=== PATIENT | female | born 1940 | race Caucasian/White ===

== ENCOUNTER → 2018-05-26 13:41 | Outpatient (CLI) | payer MEDICARE, BC, SELFPAY ==
--- NOTE | 2018-05-26 | DI.MG.S_ITS ---
BILATERAL DIGITAL SCREENING MAMMOGRAM 3D/2D WITH CAD: 05/26/2018 CLINICAL: Routine screening. Family history of breast cancer. Comparison is made to exams dated: 05/17/2017 mammogram, 04/27/2016 mammogram, and 04/12/2016 mammogram - [facility]. The tissue of both breasts is predominantly fatty. Current study was also evaluated with a Computer Aided Detection (CAD) system. No significant masses, calcifications, or other findings are seen in either breast. There has been no significant interval change. IMPRESSION: NEGATIVE There is no mammographic evidence of malignancy. A 1 year screening mammogram is recommended. This exam was interpreted at Station ID: [id number]. NOTE: For mammograms, a report in lay terms will be sent to the patient. Approximately 15% of breast malignancies will not be visualized mammographically. In the management of a palpable breast mass, a negative mammogram must not discourage biopsy of a clinically suspicious lesion. Electronically Signed By: Sandro marie/opal:05/26/2018 15:52:02 letter sent: Normal Exam ACR BI-RADS Category 1: Negative 3341F
== END ==
PROVIDERS: PCP Family Medicine; Visit Provider Family Medicine
DX: Z12.31 Encounter for screening mammogram for malignant neoplasm of breast (principal); Z80.3 Family history of malignant neoplasm of breast
CPT/HCPCS: 77063; 77067

== ENCOUNTER → 2018-06-27 13:29 | Outpatient (CLI) | payer MEDICARE, BC, SELFPAY ==
[2018-06-27 13:47] LABS: Add Manual Diff / Slide Review NO; Eosinophils Percent Auto 5.8 % (2-4); Hematocrit 45.9 % (36-46); Lymphocytes Percent Auto 28.9 % (25-40); Mean Corpuscular HGB Conc 32.7 % (30-36); Mean Corpuscular Hemoglobin 29.2 PG (26-34); Mean Corpuscular Volume 89.4 fL (80-100); Monocytes Percent Auto 10.8 % (3-14); Neutrophils Absolute Auto 3800 /uL (3000-5900); Neutrophils Percent Auto 53.5 % (50-75); Platelet Count 351 X10^3/uL (150-400); Red Blood Cell Count 5.14 X10^6/uL (4.0-5.2); Red Cell Distribution Width 15.1 % (11.6-14.8); White Blood Cell Count 7.1 X10^3/uL (4.5-11.0)
[2018-06-27 14:17] LABS: Alanine Aminotransferase 21 IU/L (9-52); Albumin 4.1 g/dL (3.5-5.0); Albumin Globulin Ratio 1.6 (1.0-2.8); Alkaline Phosphatase 110 U/L (38-126); Aspartate Aminotransferase 22 IU/L (14-36); Bilirubin Total 0.7 mg/dL (0.2-1.3); Blood Urea Nitrogen 18 mg/dL (7-17); Calcium 9.9 mg/dL (8.4-10.2); Carbon Dioxide 26 mmol/L (22-32); Chloride 104 mmol/L (98-107); Cholesterol 198 mg/dL (140-199); Estimated Glomerular Filt Rate 33.8 mL/min (>60); Globulin 2.6 g/dL (1.7-4.1); Glucose 101 mg/dL (80-110); HDL Cholesterol 67 mg/dL (40-60); HEMOLYSIS 17 (0-50); LDL Cholesterol Calculated 81 mg/dL (<100); Sodium 142 mmol/L (137-145); Total Protein 6.7 g/dL (6.3-8.2); Triglycerides 250 mg/dL (35-150)
== END ==
PROVIDERS: PCP Family Medicine; Visit Provider Family Medicine
DX: E78.2 Mixed hyperlipidemia (principal); I10 Essential (primary) hypertension; N18.3 Chronic kidney disease, stage 3 (moderate)
CPT/HCPCS: 80053; 80061; 85025

== ENCOUNTER → 2018-07-11 14:16 | Outpatient (CLI) | payer MEDICARE, BC, SELFPAY ==
[2018-07-11 14:58] LABS: BUN Creatinine Ratio 16.5 (6-22); Blood Urea Nitrogen 28 mg/dL (7-17); Calcium 9.7 mg/dL (8.4-10.2); Carbon Dioxide 29 mmol/L (22-32); Chloride 101 mmol/L (98-107); Estimated Glomerular Filt Rate 29.2 mL/min (>60); Glucose 96 mg/dL (80-110); HEMOLYSIS < 15 (0-50); Sodium 143 mmol/L (137-145)
== END ==
PROVIDERS: PCP Family Medicine; Visit Provider Family Medicine
DX: Z79.899 Other long term (current) drug therapy (principal)
CPT/HCPCS: 36415; 80048

== ENCOUNTER 2018-08-16 08:20 | Day surgery (SDC) | payer MEDICARE, BC, SELFPAY ==
[2018-08-16] MEDS: SODIUM CHLORIDE 0.9% 1,000 ML 70 ML IV (07:20)
[2018-08-16 08:51] VITALS: BP 180/98; PULSE 94; RESP 17; TEMP 36.2; O2SAT 95; BMI 60.0
[2018-08-16 09:09] VITALS: BMI 60.0
--- NOTE | 2018-08-16 09:56 | PM.HP.1 ---
History of Present Illness Date Patient Seen: 08/16/18 Chief complaint: colonoscopy [id number] Narrative: 78-year-old female with history colon polyps seen on last colonoscopy around 7 years ago. Patient is here for follow-up she is morbidly obese with no evidence of GI bleeding. Prior colonoscopy report not available to me at this time Patient History Family & Social History Social History: household members spouse Tobacco & Substance use: Smoking Status Never smoker Meds Home Medications Medication Instructions Recorded Confirmed Type ASPIRIN (Aspirin EC) 81 mg PO Q DAY #0 04/07/11 08/16/18 History CALCIUM CARBONATE (#CALCIUM) 600 mg PO BID #0 04/07/11 08/16/18 History MELATONIN (#MELATONIN) 3 mg PO HS #0 08/16/12 08/08/18 History bupropion HCl [Wellbutrin SR] 200 mg PO BID #180 tab 08/30/17 08/16/18 Rx budesonide-formoterol [Symbicort] 1 puff INH BID #60 day 11/17/17 08/16/18 Rx duloxetine [Cymbalta] 60 mg PO QAM #180 cap 12/07/17 08/16/18 Rx pneumoc 13-shruthi conj-dip cr(PF) 0.5 ml IM X1 #1 ea 01/17/18 08/16/18 Rx [Prevnar 13 (PF)] ropinirole [Requip] 0.5 - 1 mg PO HS #90 tab 01/26/18 08/16/18 Rx quinapril 20 mg tablet 20 mg PO QDAY #90 tab 03/31/18 08/16/18 Rx atorvastatin 40 mg tablet 40 mg PO HS #90 tab 06/09/18 08/16/18 Rx desonide 0.05 % topical cream 1 applictn TOP BID #60 gram 06/27/18 08/16/18 Rx mirtazapine 30 mg tablet 30 mg PO BEDTIME 30 Days #30 tab 07/04/18 08/16/18 Rx verapamil ER 240 mg 24 hr 240 mg PO BID #180 cap 07/14/18 08/08/18 Rx capsule,extended release albuterol sulfate [Proventil HFA] 0 puff INH SEE INSTRUCTIONS 08/16/18 08/16/18 History Allergies Allergy/AdvReac Type Severity Reaction Status Date / Time Penicillins [PENICILLINS] Allergy Mild Rash Verified 08/16/18 08:45 venom-honey bee Allergy Unknown Verified 08/16/18 08:45 [BEE VENOM (HONEY BEE)] BANDAGES Allergy Intermediate PLASTIC Uncoded 08/16/18 08:45 Review of Systems Review of Systems All systems reviewed & are unremarkable except as noted in HPI and below Exam Vital Signs (past 8 hours): - 08/16/18 08:51 Temperature 97.2 F L Pulse Rate 94 H Respiratory Rate 17 Blood Pressure 180/98 H Pulse Oximetry 95 Oxygen Delivery Method Room Air Narrative Exam Narrative: General: Patient is morbidly obese, not in apparent distress Cardiovascular: Regular rate and rhythm, no murmurs, rubs, or gallops; no evidence of edema; no palpable abdominal aortic aneurysm Gastrointestinal: Normoactive bowel sounds, soft, nontender, nondistended, no rebound tenderness, no hepatosplenomegaly, no evidence of hernia Assessment & Plan Plan: Assessment/Plan Narrative: 78-year-old female who is morbidly obese who is here for colon polyp surveillance. No current GI alarm symptoms. Regarding the procedure(s), the risks and potential complications, benefits, and alternatives (including not doing the procedure) were discussed with the patient. The risks include but are not limited to bleeding, infection, perforation which may require surgical intervention, missed lesions, and adverse reactions to sedative medicines. After a question and answer period, the patient agreed to proceed with the procedure(s) and gives informed consent.
--- NOTE | 2018-08-16 10:10 | PM.OP.ENDO ---
Operative Date/Time/Diagnoses Date of procedure: 08/16/18 Procedure Notes Procedure in detail: Surgeon: Rustam Tripathi MD Procedure: Colonoscopy; aborted due to poor prep Preoperative diagnosis: Colon polyp surveillance Postoperative diagnosis: Poor colon preparation; aborted colonoscopy Medications: Conscious sedation using 4 mg IV of Midazolam and 150 mcg IV of Fentanyl Preanesthesia Assessment An H and P was performed/updated and the Px?s ASA class is 3. The procedure was discussed in detail with the patient. The potential risks and complications including infection, bleeding, missed lesions, perforation, need for surgery in case of perforation, prolonged hospital stay, and were explained. A brief question and answer period was allotted and once all questions were answered, informed consent was obtained. The patient was brought back to the procedure room and placed on standard monitoring. The patient?s vital signs were monitored continuously throughout the entire procedure. Prior to starting, a timeout was performed to confirm the patient?s identity, allergies, medications, and procedure. Procedure in detail The patient was placed in left lateral decubitus position and once adequate sedation was obtained a YUN was performed. The digital rectal examination did not reveal any palpable lesions. The tip of the colonoscope was placed in the anal canal and advanced to the rectosigmoid colon where there was a large amount of solid stool. This precluded any further evaluation. Attempts were made to wash away the stool although there was note of more solid stool even proximal to the rectosigmoid colon. The decision was made to terminate the procedure. The patient tolerated the procedure well and will be brought back to the recovery area to be discharged once criteria are met. The prep was judged to be poor. The total physician intraservice time was 4 min. Complications There were no complications and estimated blood loss was none. Recommendations: Resume previous diet Continue outPx medications Repeat colonoscopy with 2 gal GoLYTELY prep and anesthesia assistance at next available appointment An emergency contact number was given to the patient for any complications related to the procedure
[2018-08-16] MEDS: MIDAZOLAM 5 MG/5 ML VIAL IV (10:13)
[2018-08-16] MEDS: fentaNYL 250 MCG/5 ML INJ IV (10:14)
[2018-08-16 10:18] VITALS: BP 124/71; PULSE 84; RESP 16; TEMP 36.2; O2SAT 92
--- NOTE | 2018-08-16 10:18 | PM.DS.1 ---
History of Present Illness Chief complaint: colonoscopy [id number] Narrative: 78-year-old female with history colon polyps seen on last colonoscopy around 7 years ago. Patient is here for follow-up she is morbidly obese with no evidence of GI bleeding. Prior colonoscopy report not available to me at this time Discharge Providers Primary care physician: Adal Ortiz MD Discharge provider: Rustam Tripathi MD Exam Vital Signs (past 8 hours): - 08/16/18 08:51 Temperature 97.2 F L Pulse Rate 94 H Respiratory Rate 17 Blood Pressure 180/98 H Pulse Oximetry 95 Oxygen Delivery Method Room Air Narrative Exam Narrative: General: Patient is morbidly obese, not in apparent distress Cardiovascular: Regular rate and rhythm, no murmurs, rubs, or gallops; no evidence of edema; no palpable abdominal aortic aneurysm Gastrointestinal: Normoactive bowel sounds, soft, nontender, nondistended, no rebound tenderness, no hepatosplenomegaly, no evidence of hernia Discharge Plan Discharge Plan Patient Disposition: Home Discharge Med Rec/Prescriptions Prescriptions: Continue mirtazapine 30 mg tablet 30 mg PO BEDTIME 30 Days Qty: 30 RF: 5 ASPIRIN (Aspirin EC) 81 mg PO Q DAY Qty: 0 RF: 0 CALCIUM CARBONATE (#CALCIUM) 600 mg PO BID Qty: 0 RF: 0 MELATONIN (#MELATONIN) 3 mg PO HS Qty: 0 RF: 0 bupropion HCl [Wellbutrin SR] 200 MG tablet extended release 12 hr 200 mg PO BID Qty: 180 RF: 1 budesonide-formoterol [Symbicort] 160 MCG/4.5 MCG HFA aerosol inhaler 1 puff INH BID Qty: 60 RF: 0 duloxetine [Cymbalta] 30 MG capsule,delayed release(DR/EC) 60 mg PO QAM Qty: 180 RF: 2 pneumoc 13-shruthi conj-dip cr(PF) [Prevnar 13 (PF)] 0.5 ML syringe 0.5 ml IM X1 Qty: 1 RF: 0 ropinirole [Requip] 1 MG tablet 0.5 - 1 mg PO HS Qty: 90 RF: 3 quinapril 20 mg tablet 20 mg PO QDAY Qty: 90 RF: 3 atorvastatin 40 mg tablet 40 mg PO HS Qty: 90 RF: 1 desonide 0.05 % cream 1 applictn TOP BID Qty: 60 RF: 3 verapamil 240 mg capsule,ext rel. pellets 24 hr 240 mg PO BID Qty: 180 RF: 0 albuterol sulfate [Proventil HFA] 90 MCG/PUFF HFA aerosol inhaler INH SEE INSTRUCTIONS RF: 0 Discharge Orders: Discharge (Order); Ordered 08/16/18 Ordered By: Rustam Tripathi Provider Discharge Instructions Diet: Diet as Tolerated Visit Report/Discharge Packet Stand Alone Forms: Surgery Discharge Discharge Data Primary Care Provider: Adal Ortiz Attending Provider: Rustam Tripathi
[2018-08-16 10:23] VITALS: BP 124/71; PULSE 86; RESP 20; O2SAT 94
[2018-08-16 10:42] VITALS: BP 142/74; PULSE 84; RESP 20; TEMP 37.7; O2SAT 93
--- NOTE | 2018-08-16 10:50 | SUR.PREOP ---
pt tolerating juice, crackers and pudding.
[2018-08-16 11:17] VITALS: BP 139/66; PULSE 81; RESP 16; TEMP 37.7; O2SAT 98
== END 2018-08-16 11:20 | disposition home or self-care (01) ==
PROVIDERS: PCP Family Medicine; Visit Provider Internal Medicine Gastroenterology
PROC: 0DJD8ZZ Inspection of Lower Intestinal Tract, Via Natural or Artificial Opening Endoscopic (ICD-10-PCS; CPT 45378; principal; 2018-08-16 09:30)
DX: Z86.010 Personal history of colon polyps (principal); Z53.09 Procedure and treatment not carried out because of other contraindication; E66.01 Morbid (severe) obesity due to excess calories
CPT/HCPCS: 45378; J2250; J3010

== ENCOUNTER 2018-09-27 09:53 | Day surgery (SDC) | payer MEDICARE, BC, SELFPAY ==
--- NOTE | 2018-09-27 | PATH_ITS ---
[facility] Accession Number: [id number] . 01 Material submitted: . SIGMOID ERYTHEMA . 02 Diagnosis: Sigmoid Colon, Erythema, Biopsy: Colonic mucosa with extravasated red blood cells within the lamina propria, and no other diagnostic alteration. Negative for active inflammation, granulomata, dysplasia or malignancy. Additional step sections examined. MRV/09/29/2018 . 02 Comment: The findings are nonspecific, and may be related to the procedure. . 02 Electronically signed: . Mayur Ramsey MD, PhD, Pathologist NPI- [id number] . 01 Gross description: . Received one formalin-filled container labeled with the patient's name and labeled sigmoid erythema. The specimen consists of a 0.5 cm portion of tissue. Entirely submitted in one cassette. ([facility] [id number] /[facility] . 02 Pathologist provided ICD-10: R19.4 . 02 CPT . 005899 Performed at: 01 [facility] [address] [facility], [place], [place] [id number] MD Donell Rahman MD Phone: [phone] Performed at: 02 [facility] [address] [place], [place] [id number] MD Eric Lorenzana MD Phone: [phone]
--- NOTE | 2018-09-27 08:23 | P.HP_ITS ---
History of Present Illness Date Patient Seen: 09/27/18 Chief complaint: colonoscopy [id number] Narrative: 78-year-old female with multiple medical problems who is here for polyp surveillance. Patient had attempted colonoscopy 08/16/2018 however this was a poor prep she was rescheduled with an extra dose GoLYTELY prep Patient History Family & Social History Social History: household members spouse Tobacco & Substance use: Smoking Status Never smoker Meds Home Medications Medication Instructions Recorded Confirmed Type ASPIRIN (Aspirin EC) 81 mg PO Q DAY #0 04/07/11 08/16/18 History CALCIUM CARBONATE (#CALCIUM) 600 mg PO BID #0 04/07/11 08/16/18 History budesonide-formoterol [Symbicort] 1 puff INH BID #60 day 11/17/17 08/16/18 Rx pneumoc 13-shruthi conj-dip cr(PF) 0.5 ml IM X1 #1 ea 01/17/18 08/16/18 Rx [Prevnar 13 (PF)] ropinirole [Requip] 0.5 - 1 mg PO HS #90 tab 01/26/18 08/16/18 Rx quinapril 20 mg tablet 20 mg PO QDAY #90 tab 03/31/18 08/16/18 Rx atorvastatin 40 mg tablet 40 mg PO HS #90 tab 06/09/18 08/16/18 Rx desonide 0.05 % topical cream 1 applictn TOP BID #60 gram 06/27/18 08/16/18 Rx albuterol sulfate [Proventil HFA] 0 puff INH SEE INSTRUCTIONS 08/16/18 08/16/18 History verapamil ER 240 mg 24 hr 240 mg PO BID #180 cap 09/08/18 Rx capsule,extended release MELATONIN (#MELATONIN) 6 mg PO HS #0 09/19/18 History bupropion HCl SR 200 mg tablet,12 200 mg PO QAM #90 tab 09/19/18 Rx hr sustained-release duloxetine 30 mg capsule,delayed 60 mg PO QAM #180 cap 09/19/18 Rx release mirtazapine 30 mg tablet 15 mg PO BEDTIME 30 Days #15 tab 09/19/18 Rx Allergies Allergy/AdvReac Type Severity Reaction Status Date / Time Penicillins [PENICILLINS] Allergy Mild Rash Verified 08/16/18 08:45 venom-honey bee Allergy Unknown Verified 08/16/18 08:45 [BEE VENOM (HONEY BEE)] BANDAGES Allergy Intermediate PLASTIC Uncoded 08/16/18 08:45 Review of Systems Review of Systems All systems reviewed & are unremarkable except as noted in HPI and below Exam Narrative Exam Narrative: General: Patient is obese, not in apparent distress Cardiovascular: Regular rate and rhythm, no murmurs, rubs, or gallops; no evidence of edema; no palpable abdominal aortic aneurysm Gastrointestinal: Normoactive bowel sounds, soft, nontender, nondistended, no rebound tenderness, no hepatosplenomegaly, no evidence of hernia Assessment & Plan Plan: Assessment/Plan Narrative: 78-year-old female with a history of colon polyps on last colonoscopy in 2010 who is here for polyp surveillance. Prior colonoscopy in July 2018 was inadequate and she has received a extra dose of GoLYTELY Regarding the procedure(s), the risks and potential complications, benefits, and alternatives (including not doing the procedure) were discussed with the patient. The risks include but are not limited to bleeding, splenic injury, infection, perforation which may require surgical intervention, missed lesions, and adverse reactions to sedative medicines. After a question and answer period , the patient agreed to proceed with the procedure(s) and gives informed consent.
[2018-09-27] MEDS: SODIUM CHLORIDE 0.9% 1,000 ML 70 ML IV (10:27)
[2018-09-27 10:32] VITALS: BP 169/74; PULSE 89; RESP 16; TEMP 36.9; O2SAT 96; BMI 58.6
--- NOTE | 2018-09-27 12:21 | PM.OP.ENDO ---
Operative Date/Time/Diagnoses Date of procedure: 09/27/18 Procedure Notes Procedure in detail: Surgeon: Rustam Tripathi MD Procedure: Colonoscopy with biopsy Preoperative diagnosis: Colon polyp surveillance Postoperative diagnosis: Patchy sigmoid erythema status post biopsy; grade 2 internal hemorrhoids Medications: Monitored anesthesia care Preanesthesia Assessment An H and P was performed/updated and the Px?s ASA class is 4. The procedure was discussed in detail with the patient. The potential risks and complications including infection, bleeding, missed lesions, perforation, need for surgery in case of perforation, prolonged hospital stay, and were explained. A brief question and answer period was allotted and once all questions were answered, informed consent was obtained. The patient was brought back to the procedure room and placed on standard monitoring. The patient?s vital signs were monitored continuously throughout the entire procedure. Prior to starting, a timeout was performed to confirm the patient?s identity, allergies, medications, and procedure. Procedure in detail The patient was placed in left lateral decubitus position and once adequate sedation was obtained a YUN was performed. The digital rectal examination did not reveal any palpable lesions. The tip of the colonoscope was placed in the anal canal and advanced with some difficulty due to significant looping in the left colon. This was rectified by reduction of the scope as well as external pressure. The colonoscope was advanced all the way to the cecum which was identified by the appendiceal orifice and the ileocecal valve. Careful examination of all abad of the colon was performed with irrigation of any residual stool. In the sigmoid colon there is note of patchy erythema of unclear significance. Biopsies were taken for histology. Retroflexion was performed in the rectum which revealed grade 2 internal hemorrhoids The patient tolerated the procedure well and will be brought back to the recovery area to be discharged once criteria are met. The prep was judged to be good/excellent and adequate to identify polyps less than 5 mm. The withdrawal time was 10 min. Complications There were no complications and estimated blood loss was minimal. Recommendations: Resume previous diet Continue outPx medications Follow up pathology results Repeat colonoscopy with MAC and extra dose GoLYTELY prep in 5 years An emergency contact number was given to the patient for any complications related to the procedure
--- NOTE | 2018-09-27 12:26 | PM.DS.1 ---
History of Present Illness Chief complaint: colonoscopy [id number] Narrative: 78-year-old female with multiple medical problems who is here for polyp surveillance. Patient had attempted colonoscopy 08/16/2018 however this was a poor prep she was rescheduled with an extra dose GoLYTELY prep Discharge Providers Primary care physician: Craig Chowdhury MD Consults: 09/27/18 10:39 Consult to Respiratory Therapy Evaluate & Treat Comment: Physician Instructions: Evaluate and treat Discharge provider: Rustam Tripathi MD Discharge Date: 09/27/18 Exam Vital Signs (past 8 hours): - 09/27/18 10:32 Temperature 98.5 F Pulse Rate 89 Respiratory Rate 16 Blood Pressure 169/74 H Pulse Oximetry 96 Oxygen Delivery Method Room Air Narrative Exam Narrative: General: Patient is obese, not in apparent distress Cardiovascular: Regular rate and rhythm, no murmurs, rubs, or gallops; no evidence of edema; no palpable abdominal aortic aneurysm Gastrointestinal: Normoactive bowel sounds, soft, nontender, nondistended, no rebound tenderness, no hepatosplenomegaly, no evidence of hernia Discharge Plan Discharge Plan Patient Disposition: Home Discharge Med Rec/Prescriptions Prescriptions: Continue duloxetine [Cymbalta] 30 mg capsule,delayed release(DR/EC) 60 mg PO QAM Qty: 180 RF: 3 bupropion HCl [Wellbutrin SR] 200 mg tablet sustained-release 12 hr 200 mg PO QAM Qty: 90 RF: 3 mirtazapine 30 mg tablet 15 mg PO BEDTIME 30 Days Qty: 15 RF: 5 ASPIRIN (Aspirin EC) 81 mg PO Q DAY Qty: 0 RF: 0 CALCIUM CARBONATE (#CALCIUM) 600 mg PO BID Qty: 0 RF: 0 budesonide-formoterol [Symbicort] 160 MCG/4.5 MCG HFA aerosol inhaler 1 puff INH BID Qty: 60 RF: 0 pneumoc 13-shruthi conj-dip cr(PF) [Prevnar 13 (PF)] 0.5 ML syringe 0.5 ml IM X1 Qty: 1 RF: 0 ropinirole [Requip] 1 MG tablet 0.5 - 1 mg PO HS Qty: 90 RF: 3 quinapril 20 mg tablet 20 mg PO QDAY Qty: 90 RF: 3 atorvastatin 40 mg tablet 40 mg PO HS Qty: 90 RF: 1 desonide 0.05 % cream 1 applictn TOP BID Qty: 60 RF: 3 verapamil 240 mg capsule,ext rel. pellets 24 hr 240 mg PO BID Qty: 180 RF: 1 MELATONIN (#MELATONIN) 6 mg PO HS Qty: 0 RF: 0 albuterol sulfate [Proventil HFA] 90 MCG/PUFF HFA aerosol inhaler INH SEE INSTRUCTIONS RF: 0 Discharge Orders: Discharge (Order); Ordered 09/27/18 Ordered By: Rustam Tripathi Provider Discharge Instructions Diet: Diet as Tolerated Visit Report/Discharge Packet Stand Alone Forms: Surgery Discharge Discharge Data Primary Care Provider: Craig Chowdhury Attending Provider: Rustam Tripathi
[2018-09-27 12:31] VITALS: BP 87/42; PULSE 68; RESP 14; TEMP 36.4; O2SAT 98
[2018-09-27 12:36] VITALS: BP 98/50; PULSE 75; RESP 20; O2SAT 95
[2018-09-27 12:41] VITALS: BP 137/71; PULSE 73; RESP 13; TEMP 36.6; O2SAT 96
[2018-09-27 12:45] VITALS: BP 149/82; PULSE 70; RESP 20; O2SAT 96
[2018-09-27 13:12] VITALS: BP 142/77; PULSE 70; RESP 20; TEMP 36.8; O2SAT 96
== END 2018-09-27 13:15 | disposition home or self-care (01) ==
PROVIDERS: PCP Student in an Organized Health Care Education/Training Program; Visit Provider Internal Medicine Gastroenterology
PROC: 0DJD8ZZ Inspection of Lower Intestinal Tract, Via Natural or Artificial Opening Endoscopic (ICD-10-PCS; CPT 45378; principal; 2018-09-27 11:30)
DX: Z86.010 Personal history of colon polyps (principal); K64.1 Second degree hemorrhoids
CPT/HCPCS: 45380; 88305; J2250; J2704; J3010

== ENCOUNTER → 2018-12-15 13:32 | Outpatient (CLI) | payer MEDICARE, BC, SELFPAY ==
[2018-12-15 14:24] LABS: Alanine Aminotransferase 18 IU/L (9-52); Albumin 4.1 g/dL (3.5-5.0); Albumin Globulin Ratio 1.4 (1.0-2.8); Alkaline Phosphatase 94 U/L (38-126); Aspartate Aminotransferase 22 IU/L (14-36); BUN Creatinine Ratio 10.7 (6-22); Bilirubin Total 0.5 mg/dL (0.2-1.3); Blood Urea Nitrogen 15 mg/dL (7-17); Calcium 9.5 mg/dL (8.4-10.2); Carbon Dioxide 29 mmol/L (22-32); Chloride 105 mmol/L (98-107); Cholesterol 227 mg/dL (140-199); Creatine Kinase 63 U/L (30-135); Estimated Glomerular Filt Rate 36.6 mL/min (>60); Glucose 98 mg/dL (80-110); HDL Cholesterol 63 mg/dL (40-60); HEMOLYSIS < 15 (0-50); LDL Cholesterol Calculated 125 mg/dL (<100); Potassium 5.1 mmol/L (3.4-5.1); Sodium 141 mmol/L (137-145); Total Protein 7.1 g/dL (6.3-8.2); Triglycerides 196 mg/dL (35-150)
== END ==
PROVIDERS: PCP Student in an Organized Health Care Education/Training Program; Visit Provider Physician Assistant
DX: M79.10 Myalgia, unspecified site (principal)
CPT/HCPCS: 36415; 80053; 80061; 82550; 83735

== ENCOUNTER → 2019-03-09 15:10 | Outpatient (CLI) | payer MEDICARE, BC, SELFPAY ==
--- NOTE | 2019-03-09 15:12 | DI.ECHO.S_ITS ---
[facility]---------+ [facility] +---------+ : : [address] : [place], [place] : : : : [id number] : : : : Phone: [phone]+ Echocardiogram Report + + :Name: EDUARDO MARIA Study Date: 03/09/2019 Height: 61 in : :[facility] Weight: 320 lb : : Gender: Female BSA: 2.3 m2 : :: 1940 Age: 79 yrs BP: 168/60 mmHg: :Reason For Study: Murmur : : Performed By: Talita Maria : :Referring: PRISCA CHAN : + + Interpretation Summary The study quality was technically difficult. Definity contrast was used to improve image quality. The left ventricle is grossly normal size. The ejection fraction is estimated to be 60-65%. No hemodynamically significant valvular pathology. No significant change compared to prior echo. Procedure: A two-dimensional transthoracic echocardiogram with color flow and Doppler was performed. The study quality was technically difficult. Comparison is made with the echocardiogram of 12-12-15. 1.5 cc of Definity contrast was used to improve image quality. The patient was in normal sinus rhythm during the exam. Left Ventricle: The left ventricle is grossly normal size. The ejection fraction is estimated to be 60-65%. There are no obvious focal wall motion abnormalities noted but poor endocardial definition reduces the sensitivity for the detection of such. Diastolic function could not be accurately assessed due to unobtainable data. Right Ventricle: The right ventricle is not well visualized. Atria: The left atrium is borderline dilated. Right atrium not well visualized. Mitral Valve: The mitral valve is grossly normal. Aortic Valve: The aortic valve is not well visualized. The calculated aortic valve area is 1.4 cm2. The peak aortic velocity is 2.5 m/sec. The peak aortic velocity on the previous exam was 2.4 m/sec. The aortic valve mean gradient is 13 mmHg. Severity ratio is 0.38. No aortic regurgitation is present. Tricuspid Valve: The tricuspid valve is not well visualized. No tricuspid regurgitation. Pulmonic Valve: The pulmonic valve is not well visualized. There is a trace or physiologic amount of pulmonic regurgitation. Great Vessels: The aortic root is normal size. The ascending aorta is mildly enlarged. The aortic arch is normal in size. The IVC is of normal diameter and collapses greater than 50% with a sniff. This suggests a low right atrial pressure of 3 mm Hg. Pericardium/ Pleura There is no pericardial effusion. There is no pleural effusion. MMode/2D Measurements & Calculations LVOT diam: 2.2 cm LA dimension: 3.9 cm Ao root diam: 3.1 cm LA A4 area: 22.8 cm2 Aortic Jxn: 2.8 cm LA length (vol): 6.3 cm asc Aorta Diam: 3.9 cm Ao Arch Diam (Prox Trans): 3.0 cm RA long axis: 5.9 cm RA area: 19.7 cm2 RA vol: 55.5 ml RA : 24.1 ml/m2 IVC diam: 2.1 cm Doppler Measurements & Calculations Ao V2 max: 253.4 cm/sec LVOT Max Mik: 84.5 cm/sec Ao V2 mean: 164.6 cm/sec LV V1 max P.9 mmHg Ao max P.7 mmHg LV V1 VTI: 18.7 cm Ao mean P.7 mmHg SUJATHA(I,D): 1.4 cm2 Ao V2 VTI: 49.3 cm SUJATHA(V,D): 1.3 cm2 sev ratio: 0.38 SUJATHA indexed to BSA (cm^2/m^2): 0.62 MV E max mik: 115.0 cm/sec PA V2 max: 65.4 cm/sec MV A max mik: 131.9 cm/sec PA V2 mean: 38.8 cm/sec MV E/A: 0.87 PA mean P.73 mmHg Med Peak E' Mik: 9.1 cm/sec PA Accel Time: 0.16 sec E/E' med: 12.7 Lat Peak E' Mik: 8.7 cm/sec E/E' lat: 13.2 E/e' average: 12.9 MV dec time: 0.27 sec MV P1/2t: 80.5 msec MV P1/2t max mik: 115.8 cm/sec SV(LVOT): 70.3 ml MVA(P1/2t): 2.7 cm2 Electronically signed by: Luis Rosales M.D. on Reading Physician:03/10/2019 09:01 PM
== END ==
PROVIDERS: PCP Student in an Organized Health Care Education/Training Program; Visit Provider Student in an Organized Health Care Education/Training Program
DX: R01.1 Cardiac murmur, unspecified (principal); I77.89 Other specified disorders of arteries and arterioles
CPT/HCPCS: 93306; Q9957

== ENCOUNTER → 2019-07-06 14:16 | Outpatient (CLI) | payer MEDICARE, BC, SELFPAY ==
--- NOTE | 2019-07-06 | DI.MG.S_ITS ---
BILATERAL DIGITAL SCREENING MAMMOGRAM 3D/2D WITH CAD: 07/06/2019 CLINICAL: Routine screening. Family history of breast cancer. Comparison is made to exams dated: 05/26/2018 mammogram, 05/17/2017 mammogram, 04/27/2016 mammogram, 04/12/2016 mammogram, 04/11/2015 mammogram, and 04/10/2014 mammogram - [facility]. The tissue of both breasts is predominantly fatty. Current study was also evaluated with a Computer Aided Detection (CAD) system. No significant masses, calcifications, or other findings are seen in either breast. There has been no significant interval change. IMPRESSION: NEGATIVE There is no mammographic evidence of malignancy. A 1 year screening mammogram is recommended. This exam was interpreted at Station ID: [id number]. NOTE: For mammograms, a report in lay terms will be sent to the patient. Approximately 15% of breast malignancies will not be visualized mammographically. In the management of a palpable breast mass, a negative mammogram must not discourage biopsy of a clinically suspicious lesion. Electronically Signed By: Viral fagan/opal:07/06/2019 16:17:57 letter sent: Normal Exam ACR BI-RADS Category 1: Negative 3341F
== END ==
PROVIDERS: PCP Student in an Organized Health Care Education/Training Program; Visit Provider Student in an Organized Health Care Education/Training Program
DX: Z12.31 Encounter for screening mammogram for malignant neoplasm of breast (principal); Z80.3 Family history of malignant neoplasm of breast
CPT/HCPCS: 77063; 77067

== ENCOUNTER 2019-12-18 16:58 | Inpatient (IN) | payer MEDICARE, BC, SELFPAY ==
[2019-12-18] VITALS (10 sets, daily range): BP systolic 116–173; BP diastolic 64–139; PULSE 57–69; RESP 17–44; TEMP 36.4–36.9; O2SAT 88–99; BMI 67.4
--- NOTE | 2019-12-18 17:23 | DI.RAD.S_ITS ---
PROCEDURE: XR CHEST 1V INDICATIONS: chest pain TECHNIQUE: One view of the chest was acquired. COMPARISON: [facility], , CHEST 2 VIEW, 12/04/2015, 11:52. FINDINGS: Surgical changes and devices: Status post left shoulder arthroplasty Lungs and pleura: Diffuse interstitial prominence. Minimal streaky bibasilar opacities. Mild loss of mass or distinct. Mediastinum: The cardiomediastinal contours remain stable with borderline enlargement of the cardiac silhouette. Bones and chest wall: No suspicious bony lesions. Overlying soft tissues appear unremarkable. IMPRESSION: Borderline enlargement of cardiac silhouette with diffuse interstitial prominence and streaky bibasilar opacities. Findings may represent early pulmonary edema. Infectious/inflammatory process not excluded if clinically appropriate. No focal consolidation. Dictated by: Link Eckert M.D. on 12/18/2019 18:47 Approved by: Link Eckert M.D. on 12/18/2019 at 18:48
--- NOTE | 2019-12-18 17:28 | PC.NURSE ---
Assisted pt from car. EMS assisted into car. Pt able to transfer w/ significant assistance. very concerned that wheel chair scratched or would scratch car. I explained for safety the wheel chair had to be close. I explained I could call EMS to assist out of car. He refused. Car examined by this nurse after transfer, no damage to vehicle noted.
--- NOTE | 2019-12-18 17:55 | PC.NURSE ---
pt reports, ground level fall at 345pm, after became dizzi, denies loc, states, with chronic left side of head pain when laying down, with chronic shortness of breath, uses bipap at night, no oxygen during the day. +very nervous at this time. denies chest pain. requeted to have supervisor crack off to visit her, jacky educational coordinator, and she will be on the way.
[2019-12-18 17:58] LABS: Add Manual Diff / Slide Review NO; Basophils Absolute Auto 100 /uL (0-100); Basophils Percent Auto 1.4 % (0-2); Eosinophils Absolute Auto 200 /uL (0-450); Eosinophils Percent Auto 4.1 % (2-4); Hematocrit 41.4 % (36-46); Hemoglobin 13.7 g/dL (12.0-16.0); Lymphocytes Absolute Auto 1100 /uL (1100-4500); Lymphocytes Percent Auto 18.9 % (25-40); Mean Corpuscular HGB Conc 33.1 % (30-36); Mean Corpuscular Hemoglobin 30.7 PG (26-34); Mean Corpuscular Volume 92.8 fL (80-100); Monocytes Absolute Auto 1000 /uL (0-900); Monocytes Percent Auto 17.4 % (3-14); Neutrophils Absolute Auto 3500 /uL (1500-7000); Neutrophils Percent Auto 58.2 % (50-75); Platelet Count 261 X10^3/uL (150-400); Red Blood Cell Count 4.46 X10^6/uL (4.0-5.2); Red Cell Distribution Width 14.9 % (11.6-14.8)
[2019-12-18 18:08] LABS: INR 0.9 (0.9-1.3); Prothrombin Time 10.8 SECONDS (10.1-12.7)
[2019-12-18 18:11] LABS: PTT Partial Thromboplastin Tim 30 SECONDS (26.4-36.2)
--- NOTE | 2019-12-18 18:12 | ED_ITS ---
HPI - Weakness General Chief complaint: Weakness Stated complaint: FALL Time Seen by Provider: 12/18/19 18:05 Source: patient and family Mode of arrival: Wheelchair Limitations: no limitations History of Present Illness HPI Narrative: 79-year-old female here for evaluation of weakness in her legs. Patient states that earlier today she was sitting in her chair. She states she got up from her chair to walk into the kitchen. When she is not in the house she does use a walker. When she is in the house she uses the furniture in the abad. This is which she was doing during this time. She states that she becam e dizzy. She describes it as a unsteady does. Not as a vertigo sensation. Denies any chest pain or shortness of breath or headache at the time. States that her legs felt very weak. She did not think that she was having any chest pain. Potentially was having some shortness of breath. She states that she did fall to the ground. She did not hit her head. There was no loss of consciousness. No injury from the fall. She could not get up. She hit her Life Alert button and EMS arrived. Had a very difficult time getting her up. They stated that she could not put any weight on her legs. Upon arrival patient was hypoxic. Was put on oxygen. She states she felt potentially somewhat bett er with this. She does have lower extremity swelling. Potentially worsening over the past couple days. states that 1 week ago she could ambulate around much better than which she has been. She denies any prior history of heart failure. She normally does not walk out to her mailbox however her states that 1 week ago she probably could have and since that time he states that she would not be able to do this. Related Data Home Medications Medication Instructions Recorded Confirmed calcium carbonate 600 mg PO BID #0 04/07/11 12/18/19 Respironics Dreamstation BIPAP #1 ea 06/07/19 12/18/19 melatonin 6 - 9 mg PO BEDTIME PRN 12/18/19 12/18/19 quinapril 20 mg PO DAILY 12/18/19 12/18/19 ropinirole 1 mg PO DAILY 12/18/19 12/18/19 Previous Rx's Medication Instructions Recorded Prevnar 13 (PF) 0.5 ml IM X1 #1 ea 01/17/18 desonide 0.05 % topical cream 1 applictn TOP BID #60 gram 06/27/18 albuterol sulfate 90 mcg/actuation 0 puff INHALATION Q4-6H PRN #6.7 10/04/18 aerosol inhaler gram lovastatin 40 mg tablet 40 mg PO QPM #90 tab 04/17/19 mirtazapine 15 mg tablet 15 mg PO BEDTIME #90 tab 05/18/19 zolpidem 5 mg tablet 5 mg PO BEDTIME PRN #20 tab 05/18/19 verapamil 240 mg 24 hr 240 mg PO BID #180 cap 08/28/19 capsule,extended release bupropion HCl 200 mg tablet,12 hr 200 mg PO QAM #90 tab 09/10/19 sustained-release duloxetine 30 mg capsule,delayed 60 mg PO QAM #180 cap 09/10/19 release Allergies Allergy/AdvReac Type Severity Reaction Status Date / Time Penicillins [PENICILLINS] Allergy Mild Rash Verified 12/18/19 17:13 venom-honey bee Allergy Unknown Verified 12/18/19 17:13 [BEE VENOM (HONEY BEE)] BANDAGES Allergy Intermediate PLASTIC Uncoded 11/09/19 15:03 Review of Systems Constitutional Constitutional: Denies fever(s), Denies headache(s) and Reports weakness ENT Ears, Nose, Mouth, and Throat: Denies vertigo, Denies dizziness, Denies headache(s) and Reports disequilibrium Cardiovascular Cardiovascular: Denies chest pain, Denies syncope, Denies rapid heart rate, Reports edema, Denies palpitations, Reports dyspnea and Reports dyspnea on exertion Respiratory Respiratory: Denies cough, Reports dyspnea and Reports dyspnea on exertion Gastrointestinal Gastrointestinal: Denies abdominal pain, Denies nausea and Denies vomiting Genitourinary Genitourinary: Denies dysuria Musculoskeletal Musculoskeletal: Denies myalgias, Denies arthralgias and Denies tingling Integumentary/Breasts Skin/Breast: Denies lesions and Denies rash Neurologic Neurologic: Denies confusion, Denies vertigo, Denies dizziness, Denies syncope, Denies headache(s), Denies tingling, Denies paresthesias, Reports disequilibrium and Reports weakness Psychiatric Psychiatric: Denies confusion Endocrine Endocrine: Denies palpitations Hematologic/Lymphatic Hematologic/Lymphatic: Denies easy bleeding and Denies easy bruising Allergic/Immunologic Allergic/Immunologic: Denies urticaria Patient History Medical History Chronic renal insufficiency (Chronic Unknown) Colon polyps (Resolved Unknown) COPD (chronic obstructive pulmonary disease) (Chronic Unknown) Hyperlipemia (Chronic Unknown) Hypertension (Chronic Unknown) Insomnia, unspecified (Chronic ~1997) Lower extremity edema (Chronic 09/08/17) Morbid obesity with body mass index (BMI) greater than or equal to 50 (Chronic) Nocturnal hypoxemia (Inactive 09/08/17) Obstructive sleep apnea of adult (Chronic ~1997) Osteoarthritis (Chronic Unknown) Restless leg syndrome (Chronic Unknown) Restless leg syndrome (Chronic) Stroke (Resolved Unknown) Surgical History (Updated 06/07/19 @ 22:18 by JESSICA Gutierrez) History of knee replacement (Resolved 2000) History of tonsillectomy (Resolved 1947) Hx of total hip arthroplasty (Resolved 09/2008) Status post cholecystectomy (Resolved 1997) Status post dilation and curettage (Resolved 2000) Family History Father No problems noted. Mother No problems noted. 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 Smoking Status: Never smoker alcohol intake: never substance use type: does not use caffeine: No eating out: rarely or never Type(s) of exercise: none Smoking Status: Never smoker alcohol intake frequency: 0-2 drinks per day Substance Use Type: does not use Exam Initial Vital Signs Initial Vital Signs: Vital Signs Temperature 97.6 F 12/18/19 17:09 Pulse Rate 63 12/18/19 17:09 Respiratory Rate 44 H 12/18/19 17:09 Blood Pressure 138/74 12/18/19 17:09 Pulse Oximetry 96 12/18/19 17:09 Const General: cooperative and No acute distress Nutritional Appearance: obese Limitations: mental status not altered HENMT Head: normal to inspection and normocephalic Resp Effort & Inspection: not labored and tachypneic Auscultation: rhonchi Cardio Rate: regular rate Rhythm: regular rhythm Pulses: radial pulses present GI Inspection: non-distended Palpation: soft Skin Other: Patient has what appear to be venous stasis/chronic swelling changes to lower extremities. Neuro General: alert, awake and oriented x3 Cognition: normal cognition Speech: speech normal Gait: other (Unable to stand) Other: 5/5 upper extremities, 2/5 bilateral lower extremities Extrem General: normal to inspection, No calf tenderness and edema Psych Appearance: grossly normal and well kempt Scores [employer] [place] coma scale eye opening: Spontaneous [place] coma scale verbal response: Orientated [place] coma scale motor response: Obey commands [employer] [place] coma scale total score: 15 Course Orders Ordered: ED Orders 12/18/19 17:23 XR chest 1V Stat EKG-12 Lead Stat 12/18/19 17:35 BNP [NT-proBNP (BNP-Adult 18+)] Stat Complete Blood Count AUTO DIFF Stat Comprehensive Metabolic Panel Stat Lactate (Lactic Acid) Stat Lipase Stat Partial Thromboplastin Time Stat Prothrombin Time INR Stat Troponin & CK Cardiac Panel Stat 12/18/19 17:45 ABG [Arterial Blood Gas] Stat Acetaminophen (Tylenol) 650 mg PO Q6HR PRN PRN Reason: Fever/Mild Pain (1-3) Al Hydrox/Mg Hydrox/Simethicone (Maalox Plus) 30 ml PO Q6HR PRN PRN Reason: Dyspepsia Albuterol (Ventolin) 2.5 mg INH [id number] PRN PRN Reason: Shortness Of Breath Albuterol (Ventolin Hfa) 0 puff INH Q4-6H PRN PRN Reason: shortness of breath or wheezing Albuterol/Ipratropium (Duoneb) 3 ml INH [id number] HERMAN Bisacodyl (Dulcolax) 10 mg DE DAILY PRN PRN Reason: Constipation Bupropion HCl (Wellbutrin Sr) 200 mg PO DAILY [facility] Calcium Carbonate (Tums) 1,000 mg PO Q4HR PRN PRN Reason: Dyspepsia Calcium Carbonate (Calcium) 600 mg PO BID HERMAN Docusate Sodium (Colace) 100 mg PO BID PRN PRN Reason: Constipation Duloxetine HCl (Cymbalta) 60 mg PO DAILY [facility] Enoxaparin Sodium (Lovenox) 40 mg SUBCUT DAILY [facility] Lovastatin (Mevacor) 40 mg PO QPM [facility] Melatonin (Melatonin) 6 mg PO BEDTIME PRN PRN Reason: Insomnia Last Admin: 12/19/19 00:14 Dose: 6 mg Documented by: GOLDIE Mirtazapine (Remeron) 15 mg PO BEDTIME HERMAN Last Admin: 12/19/19 00:14 Dose: 15 mg Documented by: GOLDIE Naloxone HCl (Narcan) 0.2 mg IV Q2MIN PRN PRN Reason: Opiate Reversal Ondansetron HCl (Zofran) 4 mg IV Q8HR PRN PRN Reason: Nausea And Vomiting Quinapril HCl (Accupril) 20 mg PO DAILY [facility] Ropinirole HCl (Requip) 1 mg PO DAILY [facility] Verapamil HCl (Verapamil Er) 240 mg PO BID [facility] Last Admin: 12/19/19 00:15 Dose: 240 mg Documented by: GOLDIE Discontinued Medications Albuterol/Ipratropium (Duoneb) 3 ml INH RTQ6HR PRN PRN Reason: Shortness Of Breath Furosemide (Lasix) 40 mg IV NOW ONE Stop: 12/18/19 19:53 Last Admin: 12/18/19 20:55 Dose: 40 mg Documented by: JULIETA Verapamil HCl (Verapamil Er) 240 mg PO BID [facility] Vital Signs Vital signs: Vital Signs - 8 hr 12/18/19 18:32 12/18/19 19:18 12/18/19 19:45 Pulse Rate 62 60 63 Respiratory Rate 28 H 22 23 Blood Pressure [Left Wrist] 121/68 125/69 173/139 H Pulse Oximetry 90 L 97 97 12/18/19 19:47 Pulse Rate 57 L Respiratory Rate 17 Blood Pressure [Left Wrist] 149/64 H Pulse Oximetry 99 MDM - Weakness Lab Data Attestation: I reviewed the patient's lab results. Result diagrams: 12/18/19 17:35 12/18/19 17:35 Labs: Lab Results 12/18/19 12/18/19 12/18/19 Range/Units 17:35 17:35 17:35 WBC 6.0 (4.5-11.0) X10^3/uL RBC 4.46 (4.0-5.2) X10^6/uL Hgb 13.7 (12.0-16.0) g/dL Hct 41.4 (36-46) % MCV 92.8 (80-100) fL MCH 30.7 (26-34) PG MCHC 33.1 (30-36) % RDW 14.9 H (11.6-14.8) % Plt Count 261 (150-400) X10^3/uL Neut % (Auto) 58.2 (50-75) % Lymph % (Auto) 18.9 L (25-40) % [place] % (Auto) 17.4 H (3-14) % Eos % (Auto) 4.1 H (2-4) % Baso % (Auto) 1.4 (0-2) % Neut # (Auto) 3500 (1657-9283) /uL Lymph # (Auto) 1100 (2176-7460) /uL [place] # (Auto) 1000 H (0-900) /uL Eos # (Auto) 200 (0-450) /uL Baso # (Auto) 100 (0-100) /uL PT 10.8 (10.1-12.7) SECONDS INR 0.9 (0.9-1.3) APTT 30 (26.4-36.2) SECONDS ABG pH (7.35-7.45) ABG pCO2 (35-45) mmHg ABG pO2 (80-100) mmHg ABG HCO3 (22-26) mmol/L ABG Total CO2 (21-31) mmol/L ABG O2 Saturation (95-100) % ABG Base Excess (-2-2) mmol/L FiO2 Sodium 139 (137-145) mmol/L Potassium 4.8 (3.4-5.1) mmol/L Chloride 102 (98-107) mmol/L Carbon Dioxide 30 (22-32) mmol/L BUN 28 H (7-17) mg/dL Creatinine 1.60 H (0.52-1.04) mg/dL Estimated GFR 31.3 L (>60) mL/min BUN/Creatinine Ratio 17.5 (6-22) Glucose 110 (80-110) mg/dL Lactate (0.7-2.1) mmol/L Calcium 9.2 (8.4-10.2) mg/dL Magnesium (1.6-2.3) mg/dL Total Bilirubin 0.5 (0.2-1.3) mg/dL AST 27 (14-36) IU/L ALT 17 (<35) IU/L Alkaline Phosphatase 71 (38-126) U/L Total Creatine Kinase 71 (30-135) U/L CK-MB (CK-2) TNP CK-MB (CK-2) Rel Index TNP Troponin I < 0.012 (0.01-0.034) ng/mL NT-Pro-B Natriuret Pep 494 H (<450) pg/mL Total Protein 7.2 (6.3-8.2) g/dL Albumin 3.9 (3.5-5.0) g/dL Globulin 3.3 (1.7-4.1) g/dL Albumin/Globulin Ratio 1.2 (1.0-2.8) Lipase 110 (23-300) U/L Procalcitonin (<0.5) ng/mL 12/18/19 12/18/19 12/18/19 Range/Units 17:35 17:35 17:35 WBC (4.5-11.0) X10^3/uL RBC (4.0-5.2) X10^6/uL Hgb (12.0-16.0) g/dL Hct (36-46) % MCV (80-100) fL MCH (26-34) PG MCHC (30-36) % RDW (11.6-14.8) % Plt Count (150-400) X10^3/uL Neut % (Auto) (50-75) % Lymph % (Auto) (25-40) % [place] % (Auto) (3-14) % Eos % (Auto) (2-4) % Baso % (Auto) (0-2) % Neut # (Auto) (9301-0065) /uL Lymph # (Auto) (5696-0058) /uL [place] # (Auto) (0-900) /uL Eos # (Auto) (0-450) /uL Baso # (Auto) (0-100) /uL PT (10.1-12.7) SECONDS INR (0.9-1.3) APTT (26.4-36.2) SECONDS ABG pH (7.35-7.45) ABG pCO2 (35-45) mmHg ABG pO2 (80-100) mmHg ABG HCO3 (22-26) mmol/L ABG Total CO2 (21-31) mmol/L ABG O2 Saturation (95-100) % ABG Base Excess (-2-2) mmol/L FiO2 Sodium (137-145) mmol/L Potassium (3.4-5.1) mmol/L Chloride (98-107) mmol/L Carbon Dioxide (22-32) mmol/L BUN (7-17) mg/dL Creatinine (0.52-1.04) mg/dL Estimated GFR (>60) mL/min BUN/Creatinine Ratio (6-22) Glucose (80-110) mg/dL Lactate 2.4 H (0.7-2.1) mmol/L Calcium (8.4-10.2) mg/dL Magnesium 2.3 (1.6-2.3) mg/dL Total Bilirubin (0.2-1.3) mg/dL AST (14-36) IU/L ALT (<35) IU/L Alkaline Phosphatase (38-126) U/L Total Creatine Kinase (30-135) U/L CK-MB (CK-2) CK-MB (CK-2) Rel Index Troponin I (0.01-0.034) ng/mL NT-Pro-B Natriuret Pep (<450) pg/mL Total Protein (6.3-8.2) g/dL Albumin (3.5-5.0) g/dL Globulin (1.7-4.1) g/dL Albumin/Globulin Ratio (1.0-2.8) Lipase (23-300) U/L Procalcitonin < 0.05 (<0.5) ng/mL 12/18/19 12/18/19 Range/Units 17:45 20:05 WBC (4.5-11.0) X10^3/uL RBC (4.0-5.2) X10^6/uL Hgb (12.0-16.0) g/dL Hct (36-46) % MCV (80-100) fL MCH (26-34) PG MCHC (30-36) % RDW (11.6-14.8) % Plt Count (150-400) X10^3/uL Neut % (Auto) (50-75) % Lymph % (Auto) (25-40) % [place] % (Auto) (3-14) % Eos % (Auto) (2-4) % Baso % (Auto) (0-2) % Neut # (Auto) (7178-1672) /uL Lymph # (Auto) (5072-9476) /uL [place] # (Auto) (0-900) /uL Eos # (Auto) (0-450) /uL Baso # (Auto) (0-100) /uL PT (10.1-12.7) SECONDS INR (0.9-1.3) APTT (26.4-36.2) SECONDS ABG pH 7.43 (7.35-7.45) ABG pCO2 38.1 (35-45) mmHg ABG pO2 75 L (80-100) mmHg ABG HCO3 25 (22-26) mmol/L ABG Total CO2 26 (21-31) mmol/L ABG O2 Saturation 95 (95-100) % ABG Base Excess 1.0 (-2-2) mmol/L FiO2 0.21 Sodium (137-145) mmol/L Potassium (3.4-5.1) mmol/L Chloride (98-107) mmol/L Carbon Dioxide (22-32) mmol/L BUN (7-17) mg/dL Creatinine (0.52-1.04) mg/dL Estimated GFR (>60) mL/min BUN/Creatinine Ratio (6-22) Glucose (80-110) mg/dL Lactate 1.4 (0.7-2.1) mmol/L Calcium (8.4-10.2) mg/dL Magnesium (1.6-2.3) mg/dL Total Bilirubin (0.2-1.3) mg/dL AST (14-36) IU/L ALT (<35) IU/L Alkaline Phosphatase (38-126) U/L Total Creatine Kinase (30-135) U/L CK-MB (CK-2) CK-MB (CK-2) Rel Index Troponin I (0.01-0.034) ng/mL NT-Pro-B Natriuret Pep (<450) pg/mL Total Protein (6.3-8.2) g/dL Albumin (3.5-5.0) g/dL Globulin (1.7-4.1) g/dL Albumin/Globulin Ratio (1.0-2.8) Lipase (23-300) U/L Procalcitonin (<0.5) ng/mL Imaging Data Chest x-ray: Radiologist Impression: [address] [address] XRay Report Signed Patient: Susan Joel MMR#: [id number] : 2Acct:[id number] Age/Sex: 79 / FDate of Service: 12/18/19 Loc: ED Accession Number: [id number] Procedure: XR chest 1V Ordering Provider: Rudy Irvin MD PROCEDURE: XR CHEST 1V INDICATIONS: chest pain TECHNIQUE: One view of the chest was acquired. COMPARISON: [facility], , CHEST 2 VIEW, 12/04/2015, 11:52. FINDINGS: Surgical changes and devices: Status post left shoulder arthroplasty Lungs and pleura: Diffuse interstitial prominence. Minimal streaky bibasilar opacities. Mild loss of mass or distinct. Mediastinum: The cardiomediastinal contours remain stable with borderline enlargement of the cardiac silhouette. Bones and chest wall: No suspicious bony lesions. Overlying soft tissues appear unremarkable. IMPRESSION: Borderline enlargement of cardiac silhouette with diffuse interstitial prominence and streaky bibasilar opacities. Findings may represent early pulmonary edema. Infectious/inflammatory process not excluded if clinically appropriate. No focal consolidation. Dictated by: Link Eckert M.D. on 12/18/2019 18:47 Approved by: Link Eckert M.D. on 12/18/2019 at 18:48 ECG Data Attestation: I personally reviewed and interpreted this ECG as follows: Prior ECG tracings: not available for review Interpretation: Sinus rhythm Ventricular rate is 64 Normal axis Frequent PACs Normal QRS No ST changes MDM Narrative Medical decision making narrative: Patient hypoxic on arrival which did improve with oxygen. Patient states that she has been told in the past that she had COPD by respiratory therapy but she states that her chief recordist is not convinc ed of this. No prior history of heart failure. Chest x-ray is concerning somewhat for fluid overload. Her BNP is also slightly elevated. She does have bilateral lower extremity swelling. Patient is unsure whether not this is new. According to her she has had decreased exercise tolerance over the past week. When lying in bed the patient can somewhat lift her legs off the bed however was unable to stand. The dizziness that she describes is not vertigo but more vent unsteadiness. I do have low suspicion for CVA. I do suspect that she does have a component of CHF which has potentially been worsening recently. She was given Lasix. I do feel that she would benefit from an inpatient stay. Discussed the case with MIQUEL Montano to his the night hospitalist who will accept the patient. Discussed admission with the patient. She expressed understanding and agreement Discharge Plan Departure Patient Disposition: Admitted as Observation Clinical Impression: Increasing shortness of breath CHF (congestive heart failure) Qualifiers: Heart failure type: other Qualified Code(s): I50.9 - Heart failure, unspecified Lower extremity weakness Qualifiers: Laterality: bilateral Qualified Code(s): R29.898 - Other symptoms and signs in volving the musculoskeletal system Discharge Date/Time: 12/18/19 21:20 Admit Date/Time: 12/18/19 20:38 Admit Provider: Austin Montano
[2019-12-18 18:13] LABS: Lactate (Lactic Acid) 2.4 mmol/L (0.7-2.1)
[2019-12-18 18:14] LABS: Alanine Aminotransferase 17 IU/L (<35); Albumin 3.9 g/dL (3.5-5.0); Albumin Globulin Ratio 1.2 (1.0-2.8); Alkaline Phosphatase 71 U/L (38-126); Aspartate Aminotransferase 27 IU/L (14-36); BUN Creatinine Ratio 17.5 (6-22); Bilirubin Total 0.5 mg/dL (0.2-1.3); Blood Urea Nitrogen 28 mg/dL (7-17); Calcium 9.2 mg/dL (8.4-10.2); Carbon Dioxide 30 mmol/L (22-32); Chloride 102 mmol/L (98-107); Creatine Kinase 71 U/L (30-135); Estimated Glomerular Filt Rate 31.3 mL/min (>60); Globulin 3.3 g/dL (1.7-4.1); Glucose 110 mg/dL (80-110); HEMOLYSIS 32 (0-50); Lipase 110 U/L (23-300); Potassium 4.8 mmol/L (3.4-5.1); Sodium 139 mmol/L (137-145); Total Protein 7.2 g/dL (6.3-8.2)
[2019-12-18 18:26] LABS: NT-proBNP (BNP-Adult 18+) 494 pg/mL (<450); Troponin I < 0.012 ng/mL (0.01-0.034)
[2019-12-18 19:46] LABS: HCO3 ABG 25 mmol/L (22-26); PCO2 ABG 38.1 mmHg (35-45); PO2 ABG 75 mmHg (80-100); TCO2 ABG 26 mmol/L (21-31); pH ABG 7.43 (7.35-7.45)
--- NOTE | 2019-12-18 19:46 | PC.NURSE ---
I attempted to ambulate the patient with O2 sat monitoring. while sitting up patient states that she was super dizzy and while standing patient complains of worsening dizziness and O2 sats dropped to 90% on room air. patient was helped back into bed and put on 2L O2 via nasal canula. provider notified.
[2019-12-18 19:47] LABS: Oxygen Saturation ABG 95 % (95-100)
[2019-12-18 19:48] LABS: Fractionated Inspired Oxygen 0.21
[2019-12-18 19:53] LABS: Reflexed Lactate in 2 Hours Y
[2019-12-18 20:22] LABS: Lactate 2HR (Lactic Acid Rflx) 1.4 mmol/L (0.7-2.1)
[2019-12-18] MEDS: FUROSEMIDE 40 MG/4 ML VIAL IV (20:55)
[2019-12-18 21:58] LABS: Magnesium 2.3 mg/dL (1.6-2.3)
[2019-12-18 22:22] LABS: Procalcitonin < 0.05 ng/mL (<0.5)
--- NOTE | 2019-12-18 22:56 | PM.HP.1 ---
History of Present Illness History of Present Illness Date Patient Seen: 12/18/19 Time Patient Seen: 21:40 Chief complaint: FALL Narrative: Ms. singh Joel is a 79 year old female with past medical history significant for super morbid obesity with a BMI of 67.4, CKD stage III, COPD, hyper tension, hyperlipidemia, CVA, peripheral edema, osteoarthritis, restless leg syndrome and major depression with anxiety presents to the ER today following a fall at home. The patient reports having weakness that has been progressive per her resulting in acute weakness today and collapsing onto the floor when her legs gave out without associated trauma. The patient was too weak to get up. She experience no loss of consciousness no neck or back injury. He has also reports shortness of breath today and has a history of wheezing with her regulator inspector stating her wheezing is upper airway and therefore not COPD. Patient is normally ambulatory with a walker and a cane. The patient reports no recent complaints of illness and has had no fevers or chills. She denies nasal congestion or sore throat. She reports no complaints of chest pain or palpitations. She has increased shortness of breath with activity but denies cough. She reports no abdominal pain, nausea vomiting or heartburn. She reports occasional constipation and having to push to pass a bowel movement. She reports no urinary symptoms of urgency frequency or burning. Upon arrival in the ER the patient was afebrile a temperature of 97.6?, heart rate of 63, blood pressure 138/44, tachypneic at 44 with O2 saturation of 88%. Chest x-ray is taken which shows borderline cardiomyopathy with diffuse interstitial prominence, bibasilar streaky opacities. On ABG she is found to have a pH is 7.43, pCO2 of 38.1, PO2 of 75, bicarb of 25 and a base excess 1 on room air. Twelve lead EKG reveals a sinus rhythm with computer read of atrial fibrillation but presents with regular RR with PACs. No evidence of ST or T-wave changes. On laboratory analysis the patient has a normal white count of 6.0, the hemoglobin of 13.7 hematocrit 41.4 and platelets of 261. Coagulation she has PT of 10.8, INR 0.9, PTT of 30. Her electrolytes are all within normal limits. She has a BUN of 28 and creatinine of 1.6 and a nonfasting glucose of 110. Her EGFR is 31.3. Her lipase is 110. Her initial lactic acid was 2.4 and on recheck was 1.4. ProBNP is elevated at 494, total CK is 21 and troponin is less than 0.012. In the ER the patient received Lasix 40 mg and is admitted to the medicine service for hypoxemia and generalized weakness. Patient History Medical History Chronic renal insufficiency (Chronic Unknown) Colon polyps (Resolved Unknown) COPD (chronic obstructive pulmonary disease) (Chronic Unknown) Hyperlipemia (Chronic Unknown) Hypertension (Chronic Unknown) Insomnia, unspecified (Chronic ~1997) Lower extremity edema (Chronic 09/08/17) Morbid obesity with body mass index (BMI) greater than or equal to 50 (Chronic) Nocturnal hypoxemia (Inactive 09/08/17) Obstructive sleep apnea of adult (Chronic ~1997) Osteoarthritis (Chronic Unknown) Restless leg syndrome (Chronic Unknown) Restless leg syndrome (Chronic) Stroke (Resolved Unknown) Surgical History (Updated 06/07/19 @ 22:18 by JESSICA Gutierrez) History of knee replacement (Resolved 2000) History of tonsillectomy (Resolved 1947) Hx of total hip arthroplasty (Resolved 09/2008) Status post cholecystectomy (Resolved 1997) Status post dilation and curettage (Resolved 2000) Family & Social History Family History Father No problems noted. Mother No problems noted. Daughter Cancer Social History: household members spouse Prior Living Arrangements House lives independently Yes caregiver/support person No Safety & Behavioral: Feels Safe in Current Yes Environment Been Physically Hurt or No Threatened By a Person Suicidal Ideation Description None Suicide Plan Description No Plan Tobacco & Substance use: Smoking Status Never smoker alcohol intake never alcohol intake frequency 0-2 drinks per day Substance Use Type does not use Comment: The patient lives in a single family home with her to whom she has been for 52 years. Smoking: Patient reports never using tobacco products. Alcohol: Patient reports ever drinking alcohol. Substance use: The patient denies recreation pharmaceuticals herbal or cannabis products. Advanced directives: Patient has a POLST form not present for review period the patient is unsure of her choice and discussion ensued seeking clarification. At this time the patient will be FULL CODE and her is surrogate decision maker. Requested the family bring in a copy of the POLST form from home. Meds Home Medications and Allergies Home Medications Medication Instructions Recorded Confirmed Type calcium carbonate 600 mg PO BID #0 04/07/11 12/18/19 History Prevnar 13 (PF) 0.5 ml IM X1 #1 ea 01/17/18 12/18/19 Rx desonide 0.05 % topical cream 1 applictn TOP BID #60 gram 06/27/18 11/09/19 Rx albuterol sulfate 90 mcg/actuation 0 puff INHALATION Q4-6H PRN #6.7 10/04/18 12/18/19 Rx aerosol inhaler gram lovastatin 40 mg tablet 40 mg PO QPM #90 tab 04/17/19 12/18/19 Rx mirtazapine 15 mg tablet 15 mg PO BEDTIME #90 tab 05/18/19 12/18/19 Rx zolpidem 5 mg tablet 5 mg PO BEDTIME PRN #20 tab 05/18/19 11/09/19 Rx Respironics Dreamstation BIPAP #1 ea 06/07/19 12/18/19 History verapamil 240 mg 24 hr 240 mg PO BID #180 cap 08/28/19 12/18/19 Rx capsule,extended release bupropion HCl 200 mg tablet,12 hr 200 mg PO QAM #90 tab 09/10/19 12/18/19 Rx sustained-release duloxetine 30 mg capsule,delayed 60 mg PO QAM #180 cap 09/10/19 12/18/19 Rx release melatonin 6 - 9 mg PO BEDTIME PRN 12/18/19 12/18/19 History quinapril 20 mg PO DAILY 12/18/19 12/18/19 History ropinirole 1 mg PO DAILY 12/18/19 12/18/19 History Allergies Allergy/AdvReac Type Severity Reaction Status Date / Time Penicillins [PENICILLINS] Allergy Mild Rash Verified 12/18/19 17:13 venom-honey bee Allergy Unknown Verified 12/18/19 17:13 [BEE VENOM (HONEY BEE)] BANDAGES Allergy Intermediate PLASTIC Uncoded 11/09/19 15:03 Review of Systems Review of Systems Narrative: All systems reviewed and found unremarkable under discussed in the HPI above. Exam Vital Signs (past 8 hours): - 12/18/19 19:45 12/18/19 19:47 12/18/19 21:00 Temperature Pulse Rate 63 57 L 61 Respiratory Rate 23 17 20 Blood Pressure Blood Pressure [Left Wrist] 173/139 H 149/64 H 127/77 Pulse Oximetry 97 99 94 12/18/19 21:25 12/18/19 23:32 12/18/19 23:45 Temperature 97.6 F 98.5 F Pulse Rate 61 69 Respiratory Rate 22 18 Blood Pressure 116/70 141/85 H Blood Pressure [Left Wrist] Pulse Oximetry 97 96 95 12/19/19 03:20 Temperature 98.7 F Pulse Rate 75 Respiratory Rate 18 Blood Pressure 123/52 L Blood Pressure [Left Wrist] Pulse Oximetry 93 Fraction of Inspired Oxygen 4.0 Oxygen Delivery Method BiPAP Oxygen Flow Rate 1 Narrative Exam Narrative: GENERAL APPEARANCE: well developed, super morbidly obese with a BMI of 67.4, resting comfortably in no acute distress. HEENT: Normocephalic, PERRLA, conjunctiva clear, EOMs intact without nystagmus, no sinus tenderness to percussion, no rhinorrhea, mucous membranes are moist and pink without lesions or exudate. NECK/THYROID: neck short, thick, no carotid bruit, no thyromegaly, trachea midline. LYMPH NODES: no cervical or supraclavicular lymphadenopathy. SKIN: [place], warm and dry, no visible lesions, rashes, ulcerations or petechiae. HEART: regular rate and rhythm, S1-S2, 1/6 systolic murmur, no rubs or gallops, brisk capillary refill, no edema LUNGS: Audible upper airway wheezing, bibasilar and expiratory wheezing bilateral bases, no coarseness crackles, no cough present CHEST: Symmetrical movement, no accessory muscle use, good tidal volume. ABDOMEN: Obese, round, no abdominal tenderness, no guarding or peritoneal signs, no identified organomegaly exam limited by body habitus, active bowel tones. EXTREMITIES: moves all extremities, strength is 4/5 and symmetrical on straight leg raise, no deformities or joint effusions. NEUROLOGIC: AAO x4, no focal neurologic deficits, cranial nerves II-XII grossly intact, sensation intact to light touch, impaired hearing PSYCH: Appears hyper alert, anxious, good eye contact, cooperative, appropriate with stable behavior Objective Labs Result Diagrams: 12/18/19 17:35 12/18/19 17:35 Labs: Laboratory Results - last 24 hr 12/18/19 12/18/19 12/18/19 17:35 17:35 17:35 WBC 6.0 RBC 4.46 Hgb 13.7 Hct 41.4 MCV 92.8 MCH 30.7 MCHC 33.1 RDW 14.9 H Plt Count 261 Neut % (Auto) 58.2 Lymph % (Auto) 18.9 L [place] % (Auto) 17.4 H Eos % (Auto) 4.1 H Baso % (Auto) 1.4 Neut # (Auto) 3500 Lymph # (Auto) 1100 [place] # (Auto) 1000 H Eos # (Auto) 200 Baso # (Auto) 100 PT 10.8 INR 0.9 APTT 30 ABG pH ABG pCO2 ABG pO2 ABG HCO3 ABG Total CO2 ABG O2 Saturation ABG Base Excess FiO2 Sodium 139 Potassium 4.8 Chloride 102 Carbon Dioxide 30 BUN 28 H Creatinine 1.60 H Estimated GFR 31.3 L BUN/Creatinine Ratio 17.5 Glucose 110 Lactate Calcium 9.2 Magnesium Total Bilirubin 0.5 AST 27 ALT 17 Alkaline Phosphatase 71 Total Creatine Kinase 71 CK-MB (CK-2) TNP CK-MB (CK-2) Rel Index TNP Troponin I < 0.012 NT-Pro-B Natriuret Pep 494 H Total Protein 7.2 Albumin 3.9 Globulin 3.3 Albumin/Globulin Ratio 1.2 Lipase 110 Procalcitonin Urine Color Urine Appearance Urine pH Ur Specific [place] Urine Protein Urine Glucose (UA) Urine Ketones Urine Occult Blood Urine Nitrate Urine Bilirubin Urine Urobilinogen Ur Leukocyte Esterase Urine RBC Urine WBC Urine Bacteria Ur Culture Indicated? Micro UA Comment 12/18/19 12/18/19 12/18/19 17:35 17:35 17:35 WBC RBC Hgb Hct MCV MCH MCHC RDW Plt Count Neut % (Auto) Lymph % (Auto) [place] % (Auto) Eos % (Auto) Baso % (Auto) Neut # (Auto) Lymph # (Auto) [place] # (Auto) Eos # (Auto) Baso # (Auto) PT INR APTT ABG pH ABG pCO2 ABG pO2 ABG HCO3 ABG Total CO2 ABG O2 Saturation ABG Base Excess FiO2 Sodium Potassium Chloride Carbon Dioxide BUN Creatinine Estimated GFR BUN/Creatinine Ratio Glucose Lactate 2.4 H Calcium Magnesium 2.3 Total Bilirubin AST ALT Alkaline Phosphatase Total Creatine Kinase CK-MB (CK-2) CK-MB (CK-2) Rel Index Troponin I NT-Pro-B Natriuret Pep Total Protein Albumin Globulin Albumin/Globulin Ratio Lipase Procalcitonin < 0.05 Urine Color Urine Appearance Urine pH Ur Specific [place] Urine Protein Urine Glucose (UA) Urine Ketones Urine Occult Blood Urine Nitrate Urine Bilirubin Urine Urobilinogen Ur Leukocyte Esterase Urine RBC Urine WBC Urine Bacteria Ur Culture Indicated? Micro UA Comment 12/18/19 12/18/19 12/18/19 17:45 20:05 23:00 WBC RBC Hgb Hct MCV MCH MCHC RDW Plt Count Neut % (Auto) Lymph % (Auto) [place] % (Auto) Eos % (Auto) Baso % (Auto) Neut # (Auto) Lymph # (Auto) [place] # (Auto) Eos # (Auto) Baso # (Auto) PT INR APTT ABG pH 7.43 ABG pCO2 38.1 ABG pO2 75 L ABG HCO3 25 ABG Total CO2 26 ABG O2 Saturation 95 ABG Base Excess 1.0 FiO2 0.21 Sodium Potassium Chloride Carbon Dioxide BUN Creatinine Estimated GFR BUN/Creatinine Ratio Glucose Lactate 1.4 Calcium Magnesium Total Bilirubin AST ALT Alkaline Phosphatase Total Creatine Kinase CK-MB (CK-2) CK-MB (CK-2) Rel Index Troponin I NT-Pro-B Natriuret Pep Total Protein Albumin Globulin Albumin/Globulin Ratio Lipase Procalcitonin Urine Color Straw Urine Appearance Clear Urine pH 5.0 Ur Specific [place] 1.010 Urine Protein Negative Urine Glucose (UA) Negative Urine Ketones Negative Urine Occult Blood Negative Urine Nitrate Negative Urine Bilirubin Negative Urine Urobilinogen 0.2 Ur Leukocyte Esterase Negative Urine RBC None seen Urine WBC None seen Urine Bacteria None seen Ur Culture Indicated? Cult not indicated Micro UA Comment Microscopic normal Assessment & Plan Assessment & Plan narrative: This is a 79-year-old female patient who presents to the hospital due to progressive weakness and dyspnea resulting in a fall/collapse to the floor today without associated trauma. 1. Acute hypoxic respiratory failure, present on admission, active -patient reports and increasing dyspnea with activity -history of COPD with upper airway wheezing but also bibasilar wheezing today -upon arrival in the ER the patient is tachypneic with respiratory rate of 44 saturating 88% improved to the mid 90s with oxygen. -arterial blood gas on room air reveals a pH of 7.43, pCO2 of 38.1, PO2 75, bicarb 25, base excess 1. -patient stabilized on oxygen, will treat underlying etiology 2. Congestive heart failure, diastolic, chronic, present on admission, active -on chest x-ray patient has diffuse interstitial prominence with buys basilar streaky opacities likely representing pulmonary edema and less likely pneumonia as the patient is afebrile with a normal white count, negative procalcitonin less than 0.05. -patient with a previous echocardiogram in October 2019 which demonstrates normal left ventricular wall thickness size and motion, EF is estimated 65-70%, left atrium severely dilated, grossly normal RV function, notation is made of bioprosthetic aortic valve. -elevated proBNP at 494, total CPK is 21, negative troponin is less than 0.012. -patient received 40 mg of Lasix the IV with good diuresis and clinical improvement. -in the setting of chronic kidney disease will hold further Lasix for now and reassess. -will recheck troponin -obtain echocardiogram 3. Chronic obstructive pulmonary disease, unknown type, present on admission, active. -patient with progressive dyspnea but denies cough, no fevers or chills- -audible upper airway with wheezing with end expiratory wheezing bilateral bases. -RT consult evaluate and treat -ordered albuterol nebulizers every 2 hours as needed -ordered DuoNeb every 6 hours as needed. -supplemental oxygen as needed 4. Obstructive sleep apnea, chronic, stable -respiratory therapy to consult -CPAP, patient you may use own equipment. 5. Essential hypertension, chronic, stable -patient's blood pressure is adequately controlled at of 138/74 on admission and and 120s over 50s after arrival on the acute care floor. -will continue patient's home regimen of quinapril 20 mg daily, for hep a mill 240 mg twice daily. 6. Hyperlipidemia, chronic, stable -will continue home regimen of lovastatin 40 mg daily. 7. Major depression with anxiety, chronic, present on admission, stable -patient appears to be coping adequately with admission, peers mildly anxious but is cooperative and appropriate. -will continue home regimen of bupropion 200 mg daily, duloxetine 60 mg daily and mirtazapine 15 mg bedtime. 8. Super morbid obesity with body mass index 67.4, chronic, stable. -[facility] dietary consult. VTE prophylaxis: SCDs, Lovenox Diet: Heart healthy IVF: Saline lock The patient is admitted to the hospital due to the severity of her symptoms and inability return to her home setting due to generalized weakness and the risk of potential complications and adverse events. The patient is admitted as observation status with expected length of stay to be less than 2 midnights. Scores GCS [place] coma scale eye opening: Spontaneous [place] coma scale verbal response: Orientated [place] coma scale motor response: Obey commands [place] coma scale total score: 15
[2019-12-19] VITALS (10 sets, daily range): BP systolic 104–144; BP diastolic 52–76; PULSE 75–87; RESP 17–20; TEMP 36.8–37.6; O2SAT 88–96
--- NOTE | 2019-12-19 | DI.CT.S_ITS ---
PROCEDURE: CT HEAD/BRAIN WO CON INDICATIONS: POSSIBLE STROKE TECHNIQUE: Noncontrast 4.5 mm thick angled axial sections acquired from the foramen magnum to the vertex, with coronal and sagittal reformats. For radiation dose reduction, the following was used: automated exposure control, adjustment of mA and/or kV according to patient size. COMPARISON: None. FINDINGS: Image quality: Excellent. CSF spaces: Basal cisterns are patent. No extra-axial fluid collections. The ventricles are symmetric in size and shape. Brain: No intracranial bleeds or masses. There is cerebral volume loss for age, with resultant ventricular and sulcal prominence. There are periventricular and deep white matter chronic small vessel ischemic changes. Note is made of inferior right cerebellar encephalomalacia, mild in severity, consistent with old ischemic injury in the region. There is intracranial internal carotid artery atherosclerosis. Skull and face: Calvarium and visualized facial bones appear intact, without suspicious lesions. Sinuses: Visualized sinuses and mastoids are clear. IMPRESSION: Moderate microvascular atherosclerotic change in the deep white matter of each hemisphere, no intracranial hemorrhage or mass is found. Encephalomalacia inferior right cerebellar hemisphere, consistent with old stroke in that area. Depending on clinical status followup by MR scanning may be warranted for accurate detection of acute stroke. Dictated by: Dusty Goodman M.D. on 12/19/2019 at 9:53 Approved by: Dusty Goodman M.D. on 12/19/2019 at 9:55
[2019-12-19] MEDS: MIRTAZAPINE 15 MG TABLET PO ×2 (00:14→20:49)
[2019-12-19] MEDS: MELATONIN 3 MG TABLET 6 MG PO (00:14)
[2019-12-19] MEDS: VERAPAMIL SR 120 MG TABLET 240 MG PO ×2 (00:15→20:46)
[2019-12-19 01:31] LABS: Bacteria Urine None Seen; RBC Urine None Seen (0-5/HPF); WBC Urine None Seen (0-5/HPF)
[2019-12-19 01:33] LABS: Appearance Urine UA CLEAR; Bilirubin Urine UA NEGATIVE (NEGATIVE); Glucose Urine UA NEGATIVE (Negative); Ketones Urine UA NEGATIVE (NEGATIVE); Leukocyte Esterase Urine UA NEGATIVE (NEGATIVE); Nitrite Urine UA NEGATIVE (Negative); Occult Blood Urine UA NEGATIVE (Negative); Protein Urine UA NEGATIVE (Negative); Urobilinogen Urine UA 0.2 E.U./dL (0.2)
[2019-12-19 01:39] LABS: Color Urine UA Straw
[2019-12-19 01:53] LABS: Culture Indicated Urine Cult Not Indicated; Urine Comments Microscopic Normal
[2019-12-19] MEDS: ALBUTEROL/IPRATROPIUM 3 ML AMPUL INH ×3 (05:08→15:47)
--- NOTE | 2019-12-19 06:00 | PC.ADMIT ---
Safe hand off from ED. Patient arrived on unit at 2124. Patient arrived via gurney and was transferred to bed via slider board 4 person assist. VSS, Patient is on 2 liters O2 NC. Lung sounds anterior wheezing expiratory bilateral and clear anteriorly bilaterally, patient is SOB at rest and with movement. Patient denies pain. Patient has lower leg/ankle/foot edema 3+ pitting bilaterally, with scaly erythema. Patient has a history of falling and went to the ground on 12/18. Patient is using bed smyth to urinate. Patient has frequent urination. Patient was educated about the use of call light, bed is low and locked, and bed alarm is on. [id number] Gloria Lund Admission Note: The patient,Susan Joel,79 y/o, was given written information regarding hospital policies, unit procedures and contact persons. Patient's smoking status: Never smoker. Vital Signs - 8 hr 12/18/19 23:32 12/18/19 23:45 12/19/19 03:20 Temperature 98.5 F 98.7 F Pulse Rate 69 75 Respiratory Rate 18 18 Blood Pressure 141/85 H 123/52 L Pulse Oximetry 96 95 93 12/19/19 05:09 Temperature Pulse Rate Respiratory Rate Blood Pressure Pulse Oximetry 93
--- NOTE | 2019-12-19 06:06 | PC.NURSE ---
Patient has had frequent urination this shift, Lasix were given in the ED. Patient was on CPAP for most of the shift.
[2019-12-19 06:26] LABS: BUN Creatinine Ratio 16.9 (6-22); Blood Urea Nitrogen 27 mg/dL (7-17); Calcium 9.1 mg/dL (8.4-10.2); Carbon Dioxide 28 mmol/L (22-32); Chloride 104 mmol/L (98-107); Estimated Glomerular Filt Rate 31.3 mL/min (>60); Glucose 93 mg/dL (80-110); HEMOLYSIS < 15 (0-50); Sodium 141 mmol/L (137-145)
[2019-12-19 06:30] LABS: Add Manual Diff / Slide Review NO; Basophils Absolute Auto 100 /uL (0-100); Basophils Percent Auto 0.6 % (0-2); Eosinophils Absolute Auto 300 /uL (0-450); Eosinophils Percent Auto 3.3 % (2-4); Hematocrit 40.8 % (36-46); Hemoglobin 13.3 g/dL (12.0-16.0); Lymphocytes Absolute Auto 2100 /uL (1100-4500); Mean Corpuscular HGB Conc 32.7 % (30-36); Mean Corpuscular Volume 91.9 fL (80-100); Monocytes Absolute Auto 1200 /uL (0-900); Monocytes Percent Auto 13.3 % (3-14); Neutrophils Absolute Auto 5500 /uL (1500-7000); Neutrophils Percent Auto 59.8 % (50-75); Platelet Count 272 X10^3/uL (150-400); Red Blood Cell Count 4.44 X10^6/uL (4.0-5.2); Red Cell Distribution Width 14.6 % (11.6-14.8); White Blood Cell Count 9.2 X10^3/uL (4.5-11.0)
--- NOTE | 2019-12-19 09:45 | PC.NURSE ---
Was called to room by BRANCH OPERATIONS SPECIALIST who went in to pick remover tray and her had just arrived and states he is very worried about her, she wasn't responding or answering him. Last seen normal about 10 minutes ago prior (9:15am) when checking on her with her breakfast she had answered a few questions and said she didn't need anything else. Upon my arrival at 9:25 patient was awake and sitting up in bed, eyes open, but not verbally responding or answering any questions. Her reports he came in and gave her jhaveri and she didn't say anything to him, didn't seem to recognize him, and he reports her left arm was limp. Code stroke called, Blood glucose 127, vital signs stable, audible wheezing noted, 97% on2L. Dr. Cardona to bedside to evaluate patient, and after about 1 minute starts to answer some questions, she is able to follow commands. She is able to lift left arm fully, her right arm appears to have shoulder restrictions for lifting. No drift noted in legs or arms. When asked if she is having trouble finding words she states that what you guys are telling me. Patient taken down for CT as ordered. And RT now at bedside for treatment. Will continue to follow.
--- NOTE | 2019-12-19 10:19 | PT.IIE ---
Current Diagnoses Chronic diastolic (congestive) heart failure (12/18/19) Surgical History (Last Updated 06/07/19 @ 22:18 by JESSICA Gutierrez) History of knee replacement (Resolved 2000) History of tonsillectomy (Resolved 1947) Hx of total hip arthroplasty (Resolved 09/2008) Status post cholecystectomy (Resolved 1997) Status post dilation and curettage (Resolved 2000) Medical History (Last Reviewed 12/19/19 @ 03:41 by JESSICA Timmons) Chronic renal insufficiency (Chronic Unknown) Colon polyps (Resolved Unknown) COPD (chronic obstructive pulmonary disease) (Chronic Unknown) Hyperlipemia (Chronic Unknown) Hypertension (Chronic Unknown) Insomnia, unspecified (Chronic ~1997) Lower extremity edema (Chronic 09/08/17) Morbid obesity with body mass index (BMI) greater than or equal to 50 (Chronic) Nocturnal hypoxemia (Inactive 09/08/17) Obstructive sleep apnea of adult (Chronic ~1997) Osteoarthritis (Chronic Unknown) Restless leg syndrome (Chronic Unknown) Restless leg syndrome (Chronic) Stroke (Resolved Unknown) Physical Therapy Inpatient Evaluation/Re-Eval M1 PT/OT-IP Prior Functional Status Start: 12/19/19 11:30 Freq: NEEDED Status: Active Protocol: Document 12/19/19 10:19 AB (Rec: 12/19/19 11:48 AB [id number]) Medical Review Prior Functional Status Medical History Reviewed Yes Communication able to make needs known Mobility and Gait pt stated that she is modified independent with all mobilities and ambulation without AD Social History Household Members spouse Living Arrangements House Number of Floors (Floors) One Floor Number of Stairs To Enter/Railing? 3 steps with L rail ascending to enter the house Home Environment Standard Height Toilet,Tub/ Shower Home Equipment Shower Seat without Backrest, Grab Bars In Shower M2 PT-IP Current Condition Start: 12/19/19 11:30 Freq: NEEDED Status: Active Protocol: Document 12/19/19 10:19 AB (Rec: 12/19/19 11:48 AB [id number]) Physical Therapy Current Condition Current Condition Evaluation Date 12/19/19 Treatment Diagnosis CHF; difficulty in walking Onset Date 12/18/2019 Precautions Other Precautions O2 sat M3 PT-IP Subjective Start: 12/19/19 11:30 Freq: NEEDED Status: Active Protocol: Document 12/19/19 10:19 AB (Rec: 12/19/19 11:48 AB [id number]) Subjective Physical Therapy Visit Type Type Initial Evaluation Visit Start Time 10:19 Visit Stop Time 11:26 Total Visit Minutes 51 Notes pt seen for split visits: 1019am to 1024; 1041 to 1126 am Number of MATH AND PHYSICS INSTRUCTOR Visits 0 Physical Therapy Visit Comments Patient Comments pt agreeable to do PT M4 PT-IP Mobility and Gait Start: 12/19/19 11:30 Freq: NEEDED Status: Active Protocol: Document 12/19/19 10:19 AB (Rec: 12/19/19 11:48 AB [id number]) PT-Bed Mobility Assessment Rolling Level of Assist Maximal Assistance,2 Person Assistance Supine to Sit Supine to Sit Maximum Assistance,Total Assistance,2 Person Assistance ,Head of Bed Elevated,Bedrails Scooting Scooting to Edge of Bed Dependent PT-Transfer Assessment Sit to and From Stand Sit to and from Stand Maximum Assistance,2 Person Assistance,Use of Upper Extremities Equipment Transfer Assistive Device Gait Belt,Front Wheeled Walker Orthotic/Prosthetic Devices or Brace: No Transfers Transfer Destination Chair,Bedside Commode Transfer Technique Stand Step Pivot Transfer Ability Level of Assist Maximum Assistance,2 Person Assistance,Use of Upper Extremities Comments Mobility Comments pt completed supine to sit max A x 2-3 to total A x 2. requires several attempts to complete successfully. O2 sat at RA prior to mobility 97%. after bed mobiltiy: 88%. O2 put back on. pt required max A to maintain sitting balance on EOB with increase posterior trunk leaning. instructed to lean forward but continues to require mod to max A and max cues. pt is very [place]. pt completed sit to stand from EOB max A x 2 and max cues while NAC assisted with hygiene care. pt requested to use the toilet. bedside commode positioned. pt took a few steps requiring max A x 2 and max cues using FWW bed to commode. pt completed sit to stand from commode max A x 2 and max cues and nurse assisted with hygiene care. pt completed stand step transfer from commode to chair . positioned pt on chair. call light and table placed within reach. Gait Assessment Gait Gait Assistance Required: Maximum Assistance,2 Person Assist Distance (Feet) 2 Assistive Devices Assistive Device Gait Belt,Front Wheeled Walker Orthotic/Prosthetic Devices or Brace: No Gait Deviations General Gait Pattern Antalgic,Decreased Stride Length,Decreased Feet Clearance,Step-to Gait Factors Limiting Gait Function Factors Limiting Gait Function Decreased Activity Tolerance, Decreased Strength,Difficulty Following Directions,Limited Range of Motion,Poor Balance, Poor Safety Awareness, Respiratory Distress Comments Gait Comments able to take steps during transfers using FWW max A x 2 and max cues. PT-Balance Assessment Sitting Balance and Reactions Static Sitting Balance Ability Fair Dynamic Sitting Balance Ability Poor Standing Balance and Reactions Static Standing Balance Ability Poor Dynamic Standing Balance Ability Poor Device Used FWW M5 PT-IP Objective Assessments Start: 12/19/19 11:30 Freq: NEEDED Status: Active Protocol: Document 12/19/19 10:19 AB (Rec: 12/19/19 11:48 AB [id number]) Orientation Orientation/Cognition Level of Alertness Alert Orientation Name Language Function Ability Hard of Hearing Safety Awareness Decreased Safety Awareness Memory Description Short Term Impaired Gross Range of Motion Lower Extremity ROM Assessment Within Functional Limits Strength Lower Extremity Strength Assessment Bilaterally Impaired Hip 3-/5 Knee 3+/5 Muscle Tone Muscle Tone WNL Yes M6 PT-IP Treatment Start: 12/19/19 11:30 Freq: NEEDED Status: Active Protocol: Document 12/19/19 10:19 AB (Rec: 12/19/19 11:48 AB [id number]) Physical Therapy Treatment Education Education Provided Safety M7 PT-IP Assessment and Plan Start: 12/19/19 11:30 Freq: NEEDED Status: Active Protocol: Document 12/19/19 10:19 AB (Rec: 12/19/19 11:48 AB [id number]) PT Summary Assessment and Plan Potential Rehabilitation Potential Fair Status of Condition at Evaluation Evolving Summary Impairments Pain,ROM,Strength,Balance, Coordination,Sensation,Tone, Cognition,Bed Mobility, Transfers,Gait,Activity Tolerance Assessment Summary pt requiring max A x 2-3 to total A x 2 and max cues with all tasks. pt will require SNF rehab to improve strength and mobility. Goals Bed Mobility Goal Minimal Assistance Transfer Goal Minimal Assistance,Front Wheeled Walker Gait Goal Minimal Assistance,Front Wheel Walker Gait Distance 100 Other Goals up/down 3 steps L rail ascending min A Days to Meet Goals 10 Frequency of Treatment Frequency Of Treatment Once a Day Treatment Plan Physical Therapy Treatment Plan Bed Mobility Training,Transfer Training,Gait Training, Therapeutic Exercise,Balance Retraining,Discharge Planning, Hot or Cold Pack,Neuromuscular Re-ed,Coordination Retraining ,Manual Therapy Recommendations To Nursing Amount of Assist Needed 3 or More Person Assist, Mechanical Lift Discharge Recommendations PT Discharge Recommendations SNF Rehab Transportation Needs at Discharge Wheelchair/Cabulance
[2019-12-19] MEDS: ENOXAPARIN 40 MG/0.4 ML SYRINGE SUBCUT ×2 (10:34→20:49)
[2019-12-19] MEDS: CALCIUM CARBONATE 600 MG TABLET PO ×2 (10:35→20:45)
[2019-12-19] MEDS: buPROPion SR 100 MG TAB 200 MG PO (10:35)
[2019-12-19] MEDS: QUINAPRIL 20 MG TABLET PO (10:35)
[2019-12-19] MEDS: ROPINIROLE 1 MG TABLET PO (10:35)
[2019-12-19] MEDS: DULOXETINE 30 MG CAPSULE 60 MG PO (10:38)
[2019-12-19] MEDS: methylPREDNISolone 125 MG/2 ML VIAL 60 MG IV ×2 (11:53→20:49)
--- NOTE | 2019-12-19 13:58 | PC.NURSE ---
Room air check
--- NOTE | 2019-12-19 14:11 | CM.IDA ---
Initial DCP Assessment Note: Pt is a 79 yo female, resident of [place]. Pt presents w/spouse after GLF at home and subsequent generalized weakness; code stroke called this AM, CT has not identified acute stroke. Pt also w/ acute major depressive disorder, recurrent, in full remission; followed by psychiatrist Dr Ortega PCP: Craig Chowdhury Payer: [facility] Reviewed chart and attempted assessment today; pt attempting to eat her lunch and looks very frail to this PIPER HELPER, pt having a difficult time bringing sandwich to her mouth. Asked ROTARY DRIER how pt had been doing today since code stroke this AM ? ROTARY DRIER explains pt has not been conversing much, she also has been very wheezy and out of breath, RN Trent aware. Spouse not at bedside, staff explain spouse across the street at [facility] playing piano. This PIPER HELPER will return for further assessment once spouse available. Therapy team recommending SNF; pt requiring peter lift/2-3 person assist. Pt has been made inpt status as of today 1.29.20, she will likely require SNF upon DC. Following closely for further assessment of DC needs and coordination of DCP ILIA Steinberg
--- NOTE | 2019-12-19 14:20 | OT.IP.EVAL ---
Current Diagnoses Chronic diastolic (congestive) heart failure (12/18/19) Past Medical History (Last Reviewed 12/19/19 @ 03:41 by JESSICA Timmons) Chronic renal insufficiency (Chronic Unknown) Colon polyps (Resolved Unknown) COPD (chronic obstructive pulmonary disease) (Chronic Unknown) Hyperlipemia (Chronic Unknown) Hypertension (Chronic Unknown) Insomnia, unspecified (Chronic ~1997) Lower extremity edema (Chronic 09/08/17) Morbid obesity with body mass index (BMI) greater than or equal to 50 (Chronic) Nocturnal hypoxemia (Inactive 09/08/17) Obstructive sleep apnea of adult (Chronic ~1997) Osteoarthritis (Chronic Unknown) Restless leg syndrome (Chronic Unknown) Restless leg syndrome (Chronic) Stroke (Resolved Unknown) Surgical History (Last Updated 06/07/19 @ 22:18 by JESSICA Gutierrez) History of knee replacement (Resolved 2000) History of tonsillectomy (Resolved 1947) Hx of total hip arthroplasty (Resolved 09/2008) Status post cholecystectomy (Resolved 1997) Status post dilation and curettage (Resolved 2000) Occupational Therapy Inpatient Evaluation/Re-Eval M1 PT/OT-IP Prior Functional Status Start: 12/19/19 11:30 Freq: NEEDED Status: Active Protocol: Document 12/19/19 14:20 PJRebekah (Rec: 12/19/19 16:09 CHER [id number]) Medical Review Prior Functional Status Medical History Reviewed Yes Communication WFL Mobility and Gait Pt stated states she ambulates without a device in the house , used cane when she went to grocery store. She sometimes used the electric cart at the store. Activities of Daily Living and IADL's Pt states she was independent with all self care including donning socks, shoes and seated shower. She uses toilet tongs for john care. Her does cooking, cleaning , laundry and most of shopping . Social History Household Members spouse Living Arrangements House Number of Floors (Floors) One Floor Number of Stairs To Enter/Railing? 3 steps with L rail ascending to enter the house Home Environment Standard Height Toilet,Tub/ Shower Home Equipment Shower Seat without Backrest, Grab Bars In Shower Employment Status Retired M2 OT-IP Current Condition Start: 12/19/19 13:34 Freq: Status: Active Protocol: Document 12/19/19 14:20 PJM (Rec: 12/19/19 16:[address] [facility] [id number]) Occupational Therapy Current Condition Current Condition Evaluation Date 12/19/19 Treatment Diagnosis decr'd self care, mobility s/p fall with DX of CHF exacerbation, COPD Diagnosis Onset Date 12/18/19 Post Operative Precautions Other Precautions fall risk, super morbid obesity with BMI 67 M3 OT- IP Subjective and Pain Start: 12/19/19 13:34 Freq: Status: Active Protocol: Document 12/19/19 14:20 PJM (Rec: 12/19/19 16:[address] [facility] [id number]) OT- Subjective Occupational Therapy Visit Type Type Initial Evaluation Visit Start Time 13:40 Visit Stop Time 14:20 Total Visit Minutes 40 Notes observing this session and confirms pt's prior level of function. Occupational Therapy Visit Comments Patient/Caregiver Goals to be able to walk and go home OT Pain Assessment Pain When Pain Assessed After Treatment Pain Present Pain Present Denied Pain M4 OT- IP ADL's Start: 12/19/19 13:34 Freq: Status: Active Protocol: Document 12/19/19 14:20 PJM (Rec: 12/19/19 16:[address] [facility] [id number]) OT VNL-[place] General Evaluation Self-Feeding Ability Independent Comments OT Self-Feeding Comments performs slowly OT ADL-Grooming General Evaluation Grooming Ability Standby Assistance Areas Needing Assistance Combing/Brushing Hair,Face Washing Comments OT Grooming Comments after set up in chair OT ADL-Oral Care General Eval Oral Care Ability Standby Assistance Devices Oral Care Devices Toothbrush Comments Oral Care Comments needs mod verbal cues for unfamiliar set up OT ADL-Dressing General Eval Upper Body Dressing Ability Minimal Assistance Lower Body Dressing Ability Total Assistance Comments OT Dressing Comments min assisat to adjust gown in chair OT ADL-Toileting General Evaluation Toileting Ability Total Assistance Areas Needing Assistance Perform Perineal Hygiene Devices Toileting Assistive Devices Toilet Paper Aid Comments OT Toileting Comments pt states she uses toilet tongs at home OT ADL-Bathing Bathing Type Bathing Type Bed Bath General Evaluation Bathing Ability Maximal Assistance M5 OT- IP IADL's Start: 12/19/19 13:34 Freq: Status: Active Protocol: Document 12/19/19 14:20 PJM (Rec: 12/19/19 16:[address] [facility] [id number]) OT-Instrumental Activities of Daily Living Deficits IADL Deficits Identified Deficits Home Safety Awareness Home Safety Comments does most IADLS at home Medication Management Medication Management Caregiver Provides Supervision Medication Management Comments pt states she manages her own medications at home; recommend supervision at present Money Management Money Management Caregiver Provides Supervision Money Management Comments states pt normally manages finances; recommend supervision at present Meal Preparation Meal Preparation Caregiver Provides Assist Meal Preparation Comments does cooking Paraffin Plant Sweater Operator Paraffin Plant Sweater Operator Caregiver Provides Assist Paraffin Plant Sweater Operator Comments does cleaning Driving Driving Caregiver Provides Assist Driving Comments to assist at present; pt states she still drives M6 OT- IP Functional Cognition Start: 12/19/19 13:34 Freq: Status: Active Protocol: Document 12/19/19 14:20 PJM (Rec: 12/19/19 16:[address] [facility] [id number]) Cognitive Factors Limiting Selfcare Function Cognitive Ability Level of Alertness Alert Patient Orientation Name,Month,Date,Year,Place Attention Span Ability Capable of Focused Attention Ability to Follow Commands Able to Follow One Step Commands Cognitive Comments Cognitive Assessment Comments flat affect, pt with minimal verbalizations this session; answers in short phrases; very [place] which interferes with communication at times, slow speed of processing; decreased problem solving re: unfamiliar oral care set up seated in chair OT- Vision and Hearing OT- Hearing Assessment OT- Hearing Assessment Right Ear Impaired,Left Ear Impaired,Use of Hearing Aids OT- Vision Assessment Visual Acuity WFL,Glasses For Reading M7 OT- IP Mobility and Balance Start: 12/19/19 13:34 Freq: Status: Active Protocol: Document 12/19/19 14:20 PJM (Rec: 12/19/19 16:[address] [facility] [id number]) OT-Transfer Assessment Devices Transfer Assistive Devices Mechanical Lift Comments Mobility Comments pt max to total assist of 2-3 or use of ceiling lift per P.T. notes OT- Gait Assessment Comments Gait Ability Comments pt non ambulatory at present OT- Balance Assessment Standing Balance and Reactions Static Standing Balance Ability Poor Dynamic Standing Balance Ability Poor Comments Other Balance Tests/Deviations/Treatment see P.T. notes : M8 OT- IP Objective Assessments Start: 12/19/19 13:34 Freq: Status: Active Protocol: Document 12/19/19 14:20 PJM (Rec: 12/19/19 16:[address] [facility] [id number]) OT Gross Range of Motion Upper Extremity Range of Motion Assessment Right Impaired ROM Impairments R shoulder AAROM to 70 degrees scaption, 45 degrees actively ; distal AROM WFL LUE WFL throughout OT Strength Upper Extremity Strength Assessment Within Functional Limits Comments Strength Comments No focal weakness noted OT- Coordination Assessment Comments Coordination Comments BUE WFL for self care e.g oral care set up OT-Muscle Tone Assessment Muscle Tone WNL Yes OT Sensation Assessment Comments Summary Comments Pt denies deficits, detect lt touch in BUE's M9 OT- IP Assessment and Plan Start: 12/19/19 13:34 Freq: Status: Active Protocol: Document 12/19/19 14:20 PJM (Rec: 12/19/19 16:09 PJM [id number]) OT Summary Assessment and Plan Potential Rehabilitation Potential Good Analytic Complexity at Evaluation Low Summary OT Impairments Strength,Balance,Functional Mobility,Grooming,Dressing, Toileting,Bathing,Toilet Transfers,Shower Transfers, Activity Tolerance Assessment Summary Low complexity OT assessment completed on this 79 yr old woman admitted after GLF due to weakness, increasing SOB at home. Working DX is acute hypoxic respiratory failure with COPD and CHF exacerbation with comorbidity of morbid obesity with BMI of 67. Pt had CODE STROKE called this AM for transient LUE weakness and unresponsiveness. Head CT negative for acute change. Pt is normally independent ambulating without a device in her home and is independent with all self care including seated shower in tub/ shower combo. Pt states she drove to grocery store 2-3 days prior to admit. does all IADLS at home. Pt presents with significant performance deficits in all functional mobility/transfers requiring max to total assist of 2-3 for transfers. She is non ambulatory at present. Pt also has performance deficits in standing grooming, dressing , bathing and toileting. She is not safe to return home at present due to these deficits. Recommend SNF at d/c for further rehab services. Pt will benefit from OT services here to address the goals below. Goals Grooming Goal Standby Assistance Dressing Goal Minimal Assistance,Long Handled Shoe [place],Manager Regulatory,Sock Aid Toileting Goal Standby Assistance,Toilet Paper Aid Bathing Goal Standby Assistance,Grab Bars, Hand Held Shower Sprayer,Long Handled Sponge or [place] Toilet Transfer Goal Standby Assistance,Raised Toilet Seat Shower Transfer Goal Minimal Assistance,Walk-in Shower,Shower Chair,Grab Bars Days to Meet Goals 7 Frequency of Treatment Frequency Of Treatment Once a Day Treatment Plan OT Treatment Plan ADL Training,Functional Mobility,Patient/Family Education,Discharge Planning Discharge Recommendations OT Discharge Recommendations SNF Rehab Home Equipment Needs to be determined pending progress
--- NOTE | 2019-12-19 15:26 | PC.NURSE ---
After episode of not speaking for a short period of time, patient now answering questions appropriately and agreable to plan of care. Patient denies pain today, states shortness of breath continues, although she notes that she wheezes and has shortness of breath at home a lot too. Up with 2 max assist to BSC and chair only. Working with O.T. and P.T. as ordered. Call light within reach.
--- NOTE | 2019-12-19 16:13 | PM.PN.1 ---
Subjective Subjective Date Patient Seen: 12/19/19 Interval history: Patient is 79-year-old female with obesity, COPD, hypertension, past CVA presented to ER due to progressive weakness, ground level fall at home, and more difficulty with her breathing. Patient had acute episode of brief unresponsiveness when came to see her in the room this morning. Code stroke was called. Head CT negative for acute bleed. EKG negative for acute findings. She had no localizing signs. She is noted to be audibly wheezing. Exam Vital Signs (past 8 hours): - 12/19/19 10:01 12/19/19 12:00 12/19/19 12:53 Temperature 98.2 F Pulse Rate 78 77 Respiratory Rate 17 18 Blood Pressure 104/55 L Pulse Oximetry 96 88 L 94 12/19/19 15:44 12/19/19 15:53 Temperature 99.3 F Pulse Rate 84 85 Respiratory Rate 20 19 Blood Pressure 132/55 L Pulse Oximetry 95 Fraction of Inspired Oxygen 28 Oxygen Delivery Method Nasal Cannula Oxygen Flow Rate 2 Narrative Exam Narrative: General: Obese female audibly wheezing Lungs: Bilateral diminished breath sounds and expiratory wheeze Heart: Regular rhythm Extremities: Bilateral indurated lower extremity edema with chronic venous stasis changes Neurological: Oriented to person and place, no localizing signs Objective Labs Result Diagrams: 12/19/19 05:32 12/19/19 05:32 Labs: Laboratory Results - last 24 hr 12/18/19 12/18/19 12/18/19 17:35 17:35 17:35 WBC 6.0 RBC 4.46 Hgb 13.7 Hct 41.4 MCV 92.8 MCH 30.7 MCHC 33.1 RDW 14.9 H Plt Count 261 Neut % (Auto) 58.2 Lymph % (Auto) 18.9 L Metcalfe % (Auto) 17.4 H Eos % (Auto) 4.1 H Baso % (Auto) 1.4 Neut # (Auto) 3500 Lymph # (Auto) 1100 Metcalfe # (Auto) 1000 H Eos # (Auto) 200 Baso # (Auto) 100 PT 10.8 INR 0.9 APTT 30 ABG pH ABG pCO2 ABG pO2 ABG HCO3 ABG Total CO2 ABG O2 Saturation ABG Base Excess FiO2 Sodium 139 Potassium 4.8 Chloride 102 Carbon Dioxide 30 BUN 28 H Creatinine 1.60 H Estimated GFR 31.3 L BUN/Creatinine Ratio 17.5 Glucose 110 Lactate Calcium 9.2 Magnesium Total Bilirubin 0.5 AST 27 ALT 17 Alkaline Phosphatase 71 Total Creatine Kinase 71 CK-MB (CK-2) TNP CK-MB (CK-2) Rel Index TNP Troponin I < 0.012 NT-Pro-B Natriuret Pep 494 H Total Protein 7.2 Albumin 3.9 Globulin 3.3 Albumin/Globulin Ratio 1.2 Lipase 110 Procalcitonin Urine Color Urine Appearance Urine pH Ur Specific Jewett Urine Protein Urine Glucose (UA) Urine Ketones Urine Occult Blood Urine Nitrate Urine Bilirubin Urine Urobilinogen Ur Leukocyte Esterase Urine RBC Urine WBC Urine Bacteria Ur Culture Indicated? Micro UA Comment 12/18/19 12/18/19 12/18/19 17:35 17:35 17:35 WBC RBC Hgb Hct MCV MCH MCHC RDW Plt Count Neut % (Auto) Lymph % (Auto) Metcalfe % (Auto) Eos % (Auto) Baso % (Auto) Neut # (Auto) Lymph # (Auto) Metcalfe # (Auto) Eos # (Auto) Baso # (Auto) PT INR APTT ABG pH ABG pCO2 ABG pO2 ABG HCO3 ABG Total CO2 ABG O2 Saturation ABG Base Excess FiO2 Sodium Potassium Chloride Carbon Dioxide BUN Creatinine Estimated GFR BUN/Creatinine Ratio Glucose Lactate 2.4 H Calcium Magnesium 2.3 Total Bilirubin AST ALT Alkaline Phosphatase Total Creatine Kinase CK-MB (CK-2) CK-MB (CK-2) Rel Index Troponin I NT-Pro-B Natriuret Pep Total Protein Albumin Globulin Albumin/Globulin Ratio Lipase Procalcitonin < 0.05 Urine Color Urine Appearance Urine pH Ur Specific Jewett Urine Protein Urine Glucose (UA) Urine Ketones Urine Occult Blood Urine Nitrate Urine Bilirubin Urine Urobilinogen Ur Leukocyte Esterase Urine RBC Urine WBC Urine Bacteria Ur Culture Indicated? Micro UA Comment 12/18/19 12/18/19 12/18/19 17:45 20:05 23:00 WBC RBC Hgb Hct MCV MCH MCHC RDW Plt Count Neut % (Auto) Lymph % (Auto) Metcalfe % (Auto) Eos % (Auto) Baso % (Auto) Neut # (Auto) Lymph # (Auto) Metcalfe # (Auto) Eos # (Auto) Baso # (Auto) PT INR APTT ABG pH 7.43 ABG pCO2 38.1 ABG pO2 75 L ABG HCO3 25 ABG Total CO2 26 ABG O2 Saturation 95 ABG Base Excess 1.0 FiO2 0.21 Sodium Potassium Chloride Carbon Dioxide BUN Creatinine Estimated GFR BUN/Creatinine Ratio Glucose Lactate 1.4 Calcium Magnesium Total Bilirubin AST ALT Alkaline Phosphatase Total Creatine Kinase CK-MB (CK-2) CK-MB (CK-2) Rel Index Troponin I NT-Pro-B Natriuret Pep Total Protein Albumin Globulin Albumin/Globulin Ratio Lipase Procalcitonin Urine Color Straw Urine Appearance Clear Urine pH 5.0 Ur Specific Jewett 1.010 Urine Protein Negative Urine Glucose (UA) Negative Urine Ketones Negative Urine Occult Blood Negative Urine Nitrate Negative Urine Bilirubin Negative Urine Urobilinogen 0.2 Ur Leukocyte Esterase Negative Urine RBC None seen Urine WBC None seen Urine Bacteria None seen Ur Culture Indicated? Cult not indicated Micro UA Comment Microscopic normal 12/19/19 12/19/19 05:32 05:32 WBC 9.2 D RBC 4.44 Hgb 13.3 Hct 40.8 MCV 91.9 MCH 30.0 MCHC 32.7 RDW 14.6 Plt Count 272 Neut % (Auto) 59.8 Lymph % (Auto) 23.0 L Metcalfe % (Auto) 13.3 Eos % (Auto) 3.3 Baso % (Auto) 0.6 Neut # (Auto) 5500 Lymph # (Auto) 2100 Metcalfe # (Auto) 1200 H Eos # (Auto) 300 Baso # (Auto) 100 PT INR APTT ABG pH ABG pCO2 ABG pO2 ABG HCO3 ABG Total CO2 ABG O2 Saturation ABG Base Excess FiO2 Sodium 141 Potassium 4.0 Chloride 104 Carbon Dioxide 28 BUN 27 H Creatinine 1.60 H Estimated GFR 31.3 L BUN/Creatinine Ratio 16.9 Glucose 93 Lactate Calcium 9.1 Magnesium Total Bilirubin AST ALT Alkaline Phosphatase Total Creatine Kinase CK-MB (CK-2) CK-MB (CK-2) Rel Index Troponin I NT-Pro-B Natriuret Pep Total Protein Albumin Globulin Albumin/Globulin Ratio Lipase Procalcitonin Urine Color Urine Appearance Urine pH Ur Specific Jewett Urine Protein Urine Glucose (UA) Urine Ketones Urine Occult Blood Urine Nitrate Urine Bilirubin Urine Urobilinogen Ur Leukocyte Esterase Urine RBC Urine WBC Urine Bacteria Ur Culture Indicated? Micro UA Comment Assessment & Plan Assessment & Plan narrative: Patient is 79-year-old female with obesity, COPD, hypertension, past CVA presented to ER due to progressive weakness, ground level fall at home, and more difficulty with her breathing. 1. COPD exacerbation, present on admission -ABG on room air pH 7.43, pCO2 38, PO2 75, bicarb 25, base excess 1 -patient has active wheezing on exam, she is on Symbicort and albuterol inhaler at home -Solu-Medrol 60 mg IV q.8 hours -DuoNeb q.4 hours, albuterol nebulizer q.4 hours as needed -supplemental O2 to keep sats above 88% -patient presentation not indicative of CHF with relatively low NT proBNP 494, exam more consistent with COPD, lower extremity edema more consistent with venous insufficiency, she had echo 03/09/2019 LVEF 60-65%, normal LV wall thickness and motion, dilated LA, normal RV, bioprosthetic aortic valve, repeat echo is not needed at this time -acute hypoxic respiratory failure ruled out with fairly normal ABG on room air and lowest recorded O2 sat 88% 2. Obstructive sleep apnea, chronic -patient may use own BiPAP 3. Essential hypertension, chronic -BP under adequate control -continue routine medications, also continue her lovastatin 4. Major depression with anxiety, chronic, present on admission, stable -patient appears to be coping adequately with admission, peers mildly anxious but is cooperative and appropriate. -will continue home regimen of bupropion 200 mg daily, duloxetine 60 mg daily and mirtazapine 15 mg bedtime. 5. Severe obesity, BMI 67.4 -dietary consult requested 6. Chronic kidney disease, stage III -creatinine 1.60 close to baseline which seems to range 1.4 to 1.7 7. Generalized weakness, ground level fall -consult PT, OT Continue inpatient management of COPD exacerbation requiring IV steroids and frequent nebulizer administration.
[2019-12-19] MEDS: LOVASTATIN 20 MG TABLET 40 MG PO (17:10)
[2019-12-19] MEDS: SODIUM CHLORIDE 0.9% FLUSH 10 ML IV (20:46)
[2019-12-19] MEDS: ALBUTEROL 2.5 MG/3 ML NEB (ADULT) INH (22:12)
[2019-12-20] VITALS (17 sets, daily range): BP systolic 106–151; BP diastolic 51–108; PULSE 69–87; RESP 16–26; TEMP 36.3–36.9; O2SAT 90–96; BMI 65.9
--- NOTE | 2019-12-20 02:22 | PC.NURSE ---
Shift note: Received pt from evening shift. Called respiratory therapy to evaluate patient for low oxygen levels, 1L of O2 was bled into CPAP. RT adjusted patient's settings and increased O2 to 3L. Patient's saturations now 93%. Will continue to monitor for face mask seal and O2 sat.
[2019-12-20] MEDS: methylPREDNISolone 125 MG/2 ML VIAL 60 MG IV ×3 (02:55→20:33)
[2019-12-20] MEDS: QUINAPRIL 20 MG TABLET PO (09:12)
[2019-12-20] MEDS: buPROPion SR 100 MG TAB 200 MG PO (09:12)
[2019-12-20] MEDS: ROPINIROLE 1 MG TABLET PO (09:12)
[2019-12-20] MEDS: DULOXETINE 30 MG CAPSULE 60 MG PO (09:12)
[2019-12-20] MEDS: ENOXAPARIN 40 MG/0.4 ML SYRINGE SUBCUT ×2 (09:13→20:36)
[2019-12-20] MEDS: VERAPAMIL SR 120 MG TABLET 240 MG PO ×2 (09:13→21:54)
[2019-12-20] MEDS: CALCIUM CARBONATE 600 MG TABLET PO ×2 (09:13→21:54)
[2019-12-20] MEDS: SODIUM CHLORIDE 0.9% FLUSH 10 ML IV ×2 (09:14→21:50)
[2019-12-20] MEDS: ALBUTEROL/IPRATROPIUM 3 ML AMPUL INH ×3 (09:27→19:35)
--- NOTE | 2019-12-20 10:22 | P.PN_ITS ---
Subjective Subjective Date Patient Seen: 12/20/19 Interval history: Patient is 79-year-old female with obesity, COPD, hypertension, past CVA presented to ER due to progressive weakness, ground level fall at home, and more difficulty with her breathing. Patient notes improvement in strength in her legs and per nursing did okay while transferring from bed to chair this morning. Exam Vital Signs (past 8 hours): - 12/20/19 05:48 12/20/19 08:07 12/20/19 08:52 Temperature 98.1 F 97.6 F Pulse Rate 76 71 81 Respiratory Rate 18 20 Blood Pressure 128/69 130/77 Pulse Oximetry 90 L 91 92 12/20/19 09:20 12/20/19 09:31 Temperature Pulse Rate 82 Respiratory Rate 18 Blood Pressure Pulse Oximetry 94 95 Fraction of Inspired Oxygen 0 Oxygen Delivery Method Room Air Oxygen Flow Rate 0 Narrative Exam Narrative: General: Obese female audibly wheezing Lungs: Improved bilateral air exchange, bilateral expiratory wheeze present Heart: Regular rhythm Extremities: Bilateral indurated lower extremity edema with chronic venous stasis changes right greater than left Neurological: Oriented to person and place, no localizing signs Objective Labs Result Diagrams: 12/19/19 05:32 12/19/19 05:32 Assessment & Plan Assessment & Plan narrative: Patient is 79-year-old female with obesity, COPD, hypertension, past CVA presented to ER due to progressive weakness, ground level fall at home, and more difficulty with her breathing. 1. COPD exacerbation, present on admission -improving course on IV steroids and regular nebulizer treatments -initial ABG on room air pH 7.43, pCO2 38, PO2 75, bicarb 25, base excess 1 -Solu-Medrol 60 mg IV q.8 hours -DuoNeb q.4 hours, albuterol nebulizer q.4 hours as needed -supplemental O2 to keep sats above 88% -patient presentation not indicative of CHF with relatively low NT proBNP 494, exam more consistent with COPD, lower extremity edema more consistent with veno us insufficiency, she had echo 03/09/2019 LVEF 60-65%, normal LV wall thickness and motion, dilated LA, normal RV, bioprosthetic aortic valve, repeat echo is not needed at this time -acute hypoxic respiratory failure ruled out with fairly normal ABG on room air and lowest recorded O2 sat 88%, current sat 94-95% room air -continue current treatments -patient states her Symbicort was discontinued sometime in the recent past, discussed with patient to put her back on Symbicort as well as start her on Combivent Respimat on discharge with Proventil inhaler for as needed use 2. Obstructive sleep apnea, chronic -patient using on BiPAP 3. Essential hypertension, chronic -BP under adequate control -continue routine medications, also continue her lovastatin 4. Major depression with anxiety, chronic, present on admission, stable -patient appears to be coping adequately with admission, peers mildly anxious but is cooperative and appropriate. -will continue home regimen of bupropion 200 mg daily, duloxetine 60 mg daily and mirtazapine 15 mg bedtime. -patient has appointment tomorrow, Tuesday afternoon at the [facility] 5. Severe obesity, BMI 67.4 -dietary consult requested 6. Chronic kidney disease, stage III -creatinine 1.60 close to baseline which seems to range 1.4 to 1.7 7. Generalized weakness, ground level fall -consult PT, OT 8. Acute unresponsiveness on 12/19/2017 -Patient had acute episode of brief unresponsiveness when came to see her in the room this morning. Code stroke was called. Head CT negative for acute bleed. EKG negative for acute findings. She was briefly disoriented with difficulty communicating but had no facial droop, no dysarthria, and no localizing signs. Doubt acute TIA or CVA. She has not had further episodes. Continue inpatient management of COPD exacerbation requiring IV steroids and frequent nebulizer administration. Patient is improving and hopefully can discharge home tomorrow, Tuesday.
--- NOTE | 2019-12-20 10:44 | OT.IP.TRT ---
Current Diagnoses Chronic diastolic (congestive) heart failure (12/18/19) Occupational Therapy Treatment Note M2 OT-IP Current Condition Start: 12/19/19 13:34 Freq: Status: Active Protocol: Document 12/19/19 14:20 PJM (Rec: 12/19/19 16:09 PJ [id number]) Occupational Therapy Current Condition Current Condition Evaluation Date 12/19/19 Treatment Diagnosis decr'd self care, mobility s/p fall with DX of CHF exacerbation, COPD Diagnosis Onset Date 12/18/19 Post Operative Precautions Other Precautions fall risk, super morbid obesity with BMI 67 M3 OT- IP Subjective and Pain Start: 12/19/19 13:34 Freq: Status: Active Protocol: Document 12/20/19 10:44 PJM (Rec: 12/20/19 17:48 PJ [id number]) OT- Subjective Occupational Therapy Visit Type Type Treatment Note Visit Start Time 10:13 Visit Stop Time 10:44 Total Visit Minutes 31 Notes CO tx with P.T. as 2 skilled assist needed to progress with safe mobility Occupational Therapy Visit Comments Patient Comments I feel better today. Patient/Caregiver Goals to get stronger and go home, be able to walk better OT Pain Assessment Pain When Pain Assessed At Rest Pain Present Pain Present Denied Pain M4 OT- IP ADL's Start: 12/19/19 13:34 Freq: Status: Active Protocol: Document 12/20/19 10:44 PJM (Rec: 12/20/19 17:48 PJ [id number]) OT ADL-Grooming General Evaluation Grooming Ability Contact Guard Assistance Areas Needing Assistance Combing/Brushing Hair,Face Washing Comments OT Grooming Comments pt stood 2 min at sink with CGA of 2 for safety, leans heavily on sink OT ADL-Oral Care Comments Oral Care Comments already completed with nursing M6 OT- IP Functional Cognition Start: 12/19/19 13:34 Freq: Status: Active Protocol: Document 12/20/19 10:44 PJM (Rec: 12/20/19 17:48 PJ [id number]) Cognitive Factors Limiting Selfcare Function Cognitive Ability Level of Alertness Alert Attention Span Ability Capable of Focused Attention, Capable of Sustained Attention Ability to Follow Commands Able to Follow One Step Commands Cognitive Comments Cognitive Assessment Comments Pt much more alert with brighter affect today. Much improved speed of processing noted. M7 OT- IP Mobility and Balance Start: 12/19/19 13:34 Freq: Status: Active Protocol: Document 12/20/19 10:44 PJM (Rec: 12/20/19 17:48 PJM [id number]) OT-Transfer Assessment Sit to and From Stand Sit to and from Stand Moderate Assistance,2 Person Assistance Devices Transfer Assistive Devices Gait Belt,Front Wheeled Walker Comments Mobility Comments Worked on multiple sit to stand trials with pt improving with practice. Needs max cues for hand placement and to scoot forward in chair, then lean forward to arise. Pt leaning heavily to right when first standing. OT- Gait Assessment Gait Distance (Feet) 3 Assistive Devices Assistive Device Gait Belt,Front Wheeled Walker Comments Gait Ability Comments 3 ft x 2 with close chair follow. Pt has decreased weight bearing on R with RLE weakness noted. See P.T. note for further details. OT- Balance Assessment Sitting Balance and Reactions Static Sitting Balance Ability Good Standing Balance and Reactions Static Standing Balance Ability Fair Dynamic Standing Balance Ability Poor M9 OT- IP Assessment and Plan Start: 12/19/19 13:34 Freq: Status: Active Protocol: Document 12/20/19 10:44 PJM (Rec: 12/20/19 17:48 PJ [id number]) OT Summary Assessment and Plan Potential Rehabilitation Potential Good Summary OT Impairments Strength,Balance,Functional Cognition,Functional Mobility, Grooming,Dressing,Toileting, Bathing,Toilet Transfers, Shower Transfers,Activity Tolerance Progress Towards Goals Progressing Toward Goals Assessment Summary Pt demonstrating much improved alertness and speed of processing today with brighter affect and excellent participation and effort in functional mobility tasks as described above. Note pt has RLE weakness compared to LLE and leans heavily to R when first arising. Pt remains far below her baseline level of function and is not safe to return home at this time due to decreased functional mobility, transfers and self care skills. Recommend SNF at d/c for further rehab services prior to return home with . Goals Grooming Goal Standby Assistance Dressing Goal Minimal Assistance,Long Handled Shoe Horn,Slackman,Sock Aid Toileting Goal Standby Assistance,Toilet Paper Aid Bathing Goal Standby Assistance,Grab Bars, Hand Held Shower Sprayer,Long Handled Sponge or Temple Toilet Transfer Goal Standby Assistance,Raised Toilet Seat Shower Transfer Goal Minimal Assistance,Walk-in Shower,Shower Chair,Grab Bars Days to Meet Goals 7 Frequency of Treatment Frequency Of Treatment Once a Day Treatment Plan OT Treatment Plan ADL Training,Functional Mobility,Patient/Family Education,Discharge Planning Discharge Recommendations OT Discharge Recommendations SNF Rehab Home Equipment Needs to be determined pending progress
--- NOTE | 2019-12-20 11:45 | PT.IPTN ---
Current Diagnoses Chronic diastolic (congestive) heart failure (12/18/19) Physical Therapy Treatment Note M2 PT-IP Current Condition Start: 12/19/19 11:30 Freq: NEEDED Status: Active Protocol: Document 12/19/19 10:19 AB (Rec: 12/19/19 11:48 AB [id number]) Physical Therapy Current Condition Current Condition Evaluation Date 12/19/19 Treatment Diagnosis CHF; difficulty in walking Onset Date 12/18/2019 Precautions Other Precautions O2 sat M3 PT-IP Subjective Start: 12/19/19 11:30 Freq: NEEDED Status: Active Protocol: Document 12/20/19 11:26 AW (Rec: 12/20/19 11:45 AW [id number]) Subjective Physical Therapy Visit Type Type Treatment Note Visit Start Time 10:13 Visit Stop Time 10:44 Total Visit Minutes 31 Notes Co-treat with OT 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 Pt notes she tends to use bilateral canes or 4WW for community mobility. M4 PT-IP Mobility and Gait Start: 12/19/19 11:30 Freq: NEEDED Status: Active Protocol: Document 12/20/19 11:26 AW (Rec: 12/20/19 11:45 AW [id number]) PT-Transfer Assessment Sit to and From Stand Sit to and from Stand Minimal Assistance,Moderate Assistance,2 Person Assistance Equipment Transfer Assistive Device Mechanical Lift Orthotic/Prosthetic Devices or Brace: No Transfers Transfer Destination Chair Transfer Technique pt ambulated with chair follow Comments Mobility Comments Pt was sitting up in chair upon PT/OT arrival. She required max cues for scooting forward in the chair, using her arms to push off the chair , and activating her quads for standing with FWW. Pt was able to stand with FWW mod A x 2 on second attempt but leaned significantly to the right which pt denied any awareness of. Pt then sat in the chair again with poor eccentric control. She was wheeled in the chair over to the sink where she was able to pull herself to standing with hands on the sink min A x 2. She stood ~2 minutes, washing and drying her face with one hand on the sink for support ~ 75% of the time. Pt sat again with max cues for sequencing and the chair was pulled 3 feet away from the sink. Pt stood with FWW min A x 2 and cues for posture correction. She walked 3 feet toward the sink using FWW mod A x 1 with chair follow and stood at the sink with mirror for posture correction. Pt continued to lean right. MMT demonstrated weak R knee extension, hip flexion, and ankle DF (3+/5 compared with 4-/5 on the left ). Pt was wheeled away from the sink again and walked toward the sink same as first attempt. SpO2 was maintained 90-94% throughout treatment on room air. Gait Assessment Gait Gait Assistance Required: Moderate Assistance,1 Person Assist Distance (Feet) 3 Assistive Devices Assistive Device Gait Belt,Front Wheeled Walker Orthotic/Prosthetic Devices or Brace: No Gait Deviations General Gait Pattern Antalgic,Decreased Stride Length,Decreased Feet Clearance,Step-to Gait Factors Limiting Gait Function Factors Limiting Gait Function Decreased Activity Tolerance, Decreased Strength,Difficulty Following Directions,Limited Range of Motion,Poor Balance, Poor Safety Awareness, Respiratory Distress Comments Gait Comments Able to walk three feet using FWW mod A x 1 and cues with chair follow for safety. PT-Balance Assessment Sitting Balance and Reactions Static Sitting Balance Ability Fair Dynamic Sitting Balance Ability Poor Standing Balance and Reactions Static Standing Balance Ability Poor Dynamic Standing Balance Ability Poor Device Used FWW M5 PT-IP Objective Assessments Start: 12/19/19 11:30 Freq: NEEDED Status: Active Protocol: Document 12/19/19 10:19 AB (Rec: 12/19/19 11:48 AB [id number]) Orientation Orientation/Cognition Level of Alertness Alert Orientation Name Language Function Ability Hard of Hearing Safety Awareness Decreased Safety Awareness Memory Description Short Term Impaired Gross Range of Motion Lower Extremity ROM Assessment Within Functional Limits Strength Lower Extremity Strength Assessment Bilaterally Impaired Hip 3-/5 Knee 3+/5 Muscle Tone Muscle Tone WNL Yes M6 PT-IP Treatment Start: 12/19/19 11:30 Freq: NEEDED Status: Active Protocol: Document 12/20/19 11:26 AW (Rec: 12/20/19 11:45 AW [id number]) Physical Therapy Treatment Education Education Provided Safety M7 PT-IP Assessment and Plan Start: 12/19/19 11:30 Freq: NEEDED Status: Active Protocol: Document 12/20/19 11:26 AW (Rec: 12/20/19 11:45 AW [id number]) PT Summary Assessment and Plan Summary Impairments Pain,ROM,Strength,Balance, Coordination,Sensation,Tone, Cognition,Bed Mobility, Transfers,Gait,Activity Tolerance Progress Towards Goals Slow Progress due to Medical Issues,Slow Progress due to Activity Tolerance Assessment Summary Pt requiring min to mod A for sit to stand and 3 feet ambulation with FWW. She became short of breath, wheezing easily with all mobility but maintained SpO2 90-94% on room air. She had a significant rightward lean in standing today. MMT revealed right-sided LE weakness (3+/5 compared with 4-/5 on the left ). Pt will require SNF rehab to improve strength and independence with mobility. Goals Bed Mobility Goal Minimal Assistance Transfer Goal Minimal Assistance,Front Wheeled Walker Gait Goal Minimal Assistance,Front Wheel Walker Gait Distance 100 Other Goals up/down 3 steps L rail ascending min A Days to Meet Goals 10 Frequency of Treatment Frequency Of Treatment Once a Day Treatment Plan Physical Therapy Treatment Plan Bed Mobility Training,Transfer Training,Gait Training, Therapeutic Exercise,Balance Retraining,Discharge Planning, Hot or Cold Pack,Neuromuscular Re-ed,Coordination Retraining ,Manual Therapy Other Recommendations and Next Treatment co-treat recommended; standing Focus tolerance; progress ambulation distance if tolerated; bed mobility Recommendations To Nursing Amount of Assist Needed 2 Person Assist,3 or More Person Assist Discharge Recommendations PT Discharge Recommendations SNF Rehab
--- NOTE | 2019-12-20 12:05 | PM.CHAP ---
Patient seems anxious and depressed. Reassured, prayer and reassurance.
--- NOTE | 2019-12-20 15:27 | DIET.PN ---
Dietary Progress Note Assessment: 79y F admitted for hypoxemia, general weakness following fall referred to nutrition for super morbid obesity (BMI 65.9). Per [facility] records, pt has gained 25# in past 9mo. Pt med hx includes CKD 3, COPD, HTN, HLD, CVA, PE, OA, anxiety and depression. Pt sitting in chair, seemingly confused as she is not interacting except occasional yes/no. Pt laying on couch, providing most information. Per pt , pt has been drinking 1/2-1 gallon grape juice per day and eats grape nuts. This RD will visit again tomorrow to give further diet instructions with hope of more interaction. HT: 154.9cm WT: 158.2kg UBW: 149kg 9 mo ago BMI: 65.9 Labs: eGFR 31.3 L, BUN 28, Cr 1.6 H MNA: 12 Conrado: 18 Nutrition Diagnosis: undesirable food choices r/t unwillingness to apply nutrition reccs for health (CKD3, COPD, HTN, HLD, super morbid obesity) aeb pt gained 25# in past 9mo, BMI 65.9, pt consuming 1/2-1 gallon grape juice/d, sedentary. Interventions: 1. Discussed pt's 25# recent wt gain, that additional wt gain will make self care and mobility difficult, further stress kidneys and lungs, in addition to difficulty for others to care for her. 2. Discussed high carb diet (juice and cereal) taxes lungs and makes more work in exhalation per respiratory quotient. Worked with pt's to substitute juice for calorie free options like herbal teas, non-caloric juice-like beverages, water, or at least watering down juice. Stressed juice should be limited to 4oz/d. Diet Order: EER: 1600kcal to promote weight loss, 120g PRO max per renal, 3L fluids Monitoring/Evaluations: will reassess Tuesday for increased participation for pt
--- NOTE | 2019-12-20 17:03 | DI.CT.S_ITS ---
PROCEDURE: CT ANGIO HEAD AND NECK INDICATIONS: r/o CVA TECHNIQUE: Pre-contrast 4.5 mm thick sections acquired from the foramen magnum to the vertex. After the administration of intravenous contrast, 1 mm thick sections acquired from the aortic arch through the [place] of [place]. Post-contrast 4.5 mm thick sections then re-acquired from the foramen magnum to the vertex. 3-dimensional avzmviz-nojddqrom-ohhzakmdxt (MIP) and/or volume rendering reformats were acquired of the central intracranial vasculature and neck separately. COMPARISON: None. FINDINGS: Image quality: Excellent. BRAIN: CSF spaces: Ventricles are normal in size and shape. Basal cisterns are patent. No extra-axial fluid collections. Brain: No midline shift. No intracranial bleeds or masses. Arnold-white matter interface appears intact. Skull and face: Calvarium and facial bones appear intact, without suspicious lesions. Orbits appear normal. Sinuses: Sinuses and mastoids are clear. HEAD CT ANGIOGRAPHY: Anterior circulation: Intracranial internal carotid arteries are normal in size and flow. The flow within the paired anterior cerebral arteries is normal and symmetric. The flow within the middle cerebral arteries is normal and symmetric. Right A1 segment is hypoplastic. Anterior commuting artery is seen. No aneurysms are seen. Posterior circulation: Visualized portions of the vertebral arteries demonstrate normal caliber, and join to form a normal appearing basilar artery. Flow within the posterior cerebral arteries is normal and symmetric. No aneurysms are seen. NECK CT ANGIOGRAPHY: Carotid system: The great vessels demonstrate a conventional anatomy as they arise from the aortic arch. The origins of the common carotid arteries appear patent. The le station of the right common carotid artery. The common carotid arteries demonstrate normal caliber. The bifurcation regions are both widely patent. Mild calcified plaque at the carotid. The internal carotid arteries demonstrate normal calibers. Left ICA is torturous. Posterior circulation: The origins of the vertebral arteries both appear widely patent. The more superior extracranial portions of both vertebral arteries also demonstrate normal courses and calibers. Distal intracranial vertebral artery V4 segments are hypoplastic. They join to form a normal appearing basilar artery. The posterior cerebral arteries originate from the M1 segment. Posterior communicating arteries are widely patent. Soft tissues: Visualized neck soft tissues demonstrate no suspicious abnormalities. Bones: No suspicious bony lesions. Extensive cervical spine degenerative change. Visualized cervical spine appears normally aligned. IMPRESSION: Exam is somewhat limited by artifact and bolus timing. 1. No large vessel occlusion. 2. No significant intracranial stenosis. No aneurysm seen. 3. Less than 50% stenosis of the bilateral ICA. Mild calcified plaque at the carotid bulbs. Any quantitative measurements of stenosis were performed using NASCET criteria. Dictated by: Viral Lowery M.D. on 12/20/2019 at 19:33 Approved by: Viral Lowery M.D. on 12/20/2019 at 19:41
--- NOTE | 2019-12-20 17:03 | DI.CT.S_ITS ---
PROCEDURE: CT HEAD/BRAIN WO CON INDICATIONS: altered mental status TECHNIQUE: Noncontrast 4.5 mm thick angled axial sections acquired from the foramen magnum to the vertex, with coronal and sagittal reformats. For radiation dose reduction, the following was used: automated exposure control, adjustment of mA and/or kV according to patient size. COMPARISON: [facility], CT, CT HEAD/BRAIN WO CON, 12/19/2019, 9:36. FINDINGS: Image quality: Excellent. CSF spaces: Basal cisterns are patent. No extra-axial fluid collections. Ventricles are normal in size and shape. Brain: No midline shift. No intracranial masses or hemorrhage. Moderate-sized area of hypodensity in the right cerebellum, (2/5). Small focus of hyperdensity in the right. Ventricular white matter, (2/20). These findings are suspicious for prior infarctions. There is moderate periventricular hypodensity consistent with chronic microvascular ischemic disease. Distal intracranial ICA and vertebral artery atherosclerotic calcification. Age related parenchymal loss. Findings are unchanged compared to CT 12/19/2019. Skull and face: Calvarium and visualized facial bones are intact, without suspicious lesions. Sinuses: Visualized sinuses and mastoids are clear. IMPRESSION: 1. No acute intracranial hemorrhage. 2. No new or enlarging area of infarction. 3. 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 4. Chronic microvascular ischemic disease. MRI of the brain would be helpful for identification of acute infarctions. Dictated by: Viral Lowery M.D. on 12/20/2019 at 19:29 Approved by: Viral Lowery M.D. on 12/20/2019 at 19:33
--- NOTE | 2019-12-20 17:05 | PM.EVENT ---
Event Note Date Patient Seen: 12/20/19 Time Patient Seen: 16:45 Event Note: Called to see patient due to she is not verbalizing. noticed that in the past several hours patient was not talking to him or answering his questions. Patient was fully conversant when I saw her this morning. And per staff she was verbalizing when met with staff member around 3:00 p.m.. This episode is similar to yesterday's when code stroke was called. Yesterday's vitals, O2 sat, head CT, EKG and telemetry were unremarkable. On this episode evaluation, vitals are normal with O2 sat above 90%. Patient is aphasic and not verbalizing. She is able to follow commands. Face is symmetric. Closes eyes evenly. Has good bilateral hand entertainment dancer. No pronator drift although movement limited Orthopedic Anh on the right shoulder. Has equal movement in both legs. She has been afebrile. Assessment and plan: Acute aphasia: Ordered repeat stat head CT. Ordered CTA if creatinine clearance is above 30 on stat blood work. Stat labs for CBC and BMP. Neuro check q.4 hours. Patient's body habitus precludes brain MRI for more definitive evaluation of CVA.
[2019-12-20 17:32] LABS: Add Manual Diff / Slide Review NO; Basophils Absolute Auto 0 /uL (0-100); Basophils Percent Auto 0.2 % (0-2); Eosinophils Absolute Auto 0 /uL (0-450); Hematocrit 41.8 % (36-46); Hemoglobin 13.5 g/dL (12.0-16.0); Lymphocytes Absolute Auto 500 /uL (1100-4500); Lymphocytes Percent Auto 4.4 % (25-40); Mean Corpuscular HGB Conc 32.3 % (30-36); Mean Corpuscular Hemoglobin 29.8 PG (26-34); Mean Corpuscular Volume 92.3 fL (80-100); Monocytes Absolute Auto 800 /uL (0-900); Monocytes Percent Auto 6.2 % (3-14); Neutrophils Absolute Auto 10900 /uL (1500-7000); Neutrophils Percent Auto 89.2 % (50-75); Platelet Count 272 X10^3/uL (150-400); Red Blood Cell Count 4.52 X10^6/uL (4.0-5.2); Red Cell Distribution Width 14.7 % (11.6-14.8); White Blood Cell Count 12.2 X10^3/uL (4.5-11.0)
[2019-12-20 17:50] LABS: BUN Creatinine Ratio 24.7 (6-22); Blood Urea Nitrogen 37 mg/dL (7-17); Calcium 9.6 mg/dL (8.4-10.2); Carbon Dioxide 27 mmol/L (22-32); Chloride 100 mmol/L (98-107); Estimated Glomerular Filt Rate 33.7 mL/min (>60); Glucose 180 mg/dL (80-110); HEMOLYSIS < 15 (0-50); Potassium 3.9 mmol/L (3.4-5.1); Sodium 138 mmol/L (137-145)
[2019-12-20] MEDS: SODIUM CHLORIDE 0.9% 1,000 ML 1000 ML IV (18:30)
[2019-12-20] MEDS: LOVASTATIN 20 MG TABLET 40 MG PO (18:31)
[2019-12-20] MEDS: MIRTAZAPINE 15 MG TABLET PO (21:54)
--- NOTE | 2019-12-20 23:37 | PC.NURSE ---
Evening Shift Note This RN called to patient bedside due to spouse concern on change of condition. Patient assessed and change from change of shift. Spouse concerns addressed, updated on patient condition at change of shift and per previous report. Patient with repeat episode of aphasia this evening, able to follow commands. Patient unable to safely transfer self with assistance to bed, mechanical lift used. MD updated and up to bedside to assess patient and address spouse concerns. Order for repeat CT, orders implemented by this RN. MD up to update spouse on results of repeat CT. No change through out shift, will continue to monitor.
[2019-12-21] VITALS (11 sets, daily range): BP systolic 134–152; BP diastolic 65–96; PULSE 68–92; RESP 20–28; TEMP 36.4–37.1; O2SAT 90–98
[2019-12-21] MEDS: SODIUM CHLORIDE 0.9% FLUSH 10 ML IV ×3 (03:03→18:57)
[2019-12-21] MEDS: methylPREDNISolone 125 MG/2 ML VIAL 60 MG IV (03:03)
[2019-12-21] MEDS: VERAPAMIL SR 120 MG TABLET 240 MG PO (08:26)
[2019-12-21] MEDS: ROPINIROLE 1 MG TABLET PO (08:26)
[2019-12-21] MEDS: DULOXETINE 30 MG CAPSULE 60 MG PO (08:26)
[2019-12-21] MEDS: ENOXAPARIN 40 MG/0.4 ML SYRINGE SUBCUT (08:26)
[2019-12-21] MEDS: buPROPion SR 100 MG TAB 200 MG PO (08:26)
[2019-12-21] MEDS: QUINAPRIL 20 MG TABLET PO (08:26)
[2019-12-21] MEDS: CALCIUM CARBONATE 600 MG TABLET PO (08:26)
--- NOTE | 2019-12-21 09:40 | DI.RAD.S_ITS ---
PROCEDURE: XR CHEST 1V INDICATIONS: r/o developing pneumonia TECHNIQUE: One view of the chest was acquired. COMPARISON: [facility], , XR CHEST 1V, 12/18/2019, 17:42. [facility], , CHEST 2 VIEW, 12/04/2015, 11:52. FINDINGS: Surgical changes and devices: Left humeral arthroplasty Lungs and pleura: Lungs are abnormal with mild pulmonary edema when body habitus and reduced inspiration are taken into account. No pleural effusions or pneumothorax. Mediastinum: Mediastinal contours appear normal. Heart size is globally enlarged, considering patient rotation slightly rightward in and reduced inspiration.. Bones and chest wall: No suspicious bony lesions. Overlying soft tissues appear unremarkable. IMPRESSION: Chronic CHF pattern, even when body habitus and reduced inspiration are taken into account. No pneumonia seen. Prior left humeral arthroplasty. Dictated by: Dusty Goodman M.D. on 12/21/2019 at 10:15 Approved by: Dusty Goodman M.D. on 12/21/2019 at 10:17
[2019-12-21] MEDS: ALBUTEROL/IPRATROPIUM 3 ML AMPUL INH ×2 (09:53→17:19)
--- NOTE | 2019-12-21 10:25 | PT.IPTN ---
Current Diagnoses Chronic diastolic (congestive) heart failure (12/18/19) Physical Therapy Treatment Note M2 PT-IP Current Condition Start: 12/19/19 11:30 Freq: NEEDED Status: Active Protocol: Document 12/19/19 10:19 AB (Rec: 12/19/19 11:48 AB [id number]) Physical Therapy Current Condition Current Condition Evaluation Date 12/19/19 Treatment Diagnosis CHF; difficulty in walking Onset Date 12/18/2019 Precautions Other Precautions O2 sat M3 PT-IP Subjective Start: 12/19/19 11:30 Freq: NEEDED Status: Active Protocol: Document 12/21/19 10:25 AB (Rec: 12/21/19 12:03 AB [id number]) Subjective Physical Therapy Visit Type Type Treatment Note Visit Start Time 10:25 Visit Stop Time 10:57 Total Visit Minutes 32 Number of AUTOMOTIVE COLLISION ESTIMATOR Visits 0 Physical Therapy Visit Comments Patient Comments pt is non verbal and is not consistent with following directions M4 PT-IP Mobility and Gait Start: 12/19/19 11:30 Freq: NEEDED Status: Active Protocol: Document 12/21/19 10:25 AB (Rec: 12/21/19 12:03 AB [id number]) PT-Bed Mobility Assessment Supine to Sit Supine to Sit Total Assistance,2 Person Assistance,Head of Bed Elevated Sit to Supine Sit to Supine Total Assistance,2 Person Assistance,Head of Bed Elevated Scooting Scooting to Edge of Bed Dependent Scooting Up and Down in Bed Dependent PT-Transfer Assessment Comments Mobility Comments pt completed supine to sit with HOB elevated total A x 2- 3 and max cues. pt required max A x 2 to maintain sitting on EOB with increase posterior LOB and lateral trunk leaning onto the R. pt repostioned but unable to maintain posture and requires max A 1-/ to maintain sitting balance. attempted sit <>stand x 5 reps and unable despite max A x 3 provided. pt is not pushing with BLE to stand and is not able to consistently follow directions. positioned pt back to bed total A x 3. BP: 145/96 NE 84 O2 sat 94%. call light and table placed within reach. PT-Balance Assessment Sitting Balance and Reactions Static Sitting Balance Ability Poor Dynamic Sitting Balance Ability Poor Standing Balance and Reactions Static Standing Balance Ability Poor Dynamic Standing Balance Ability Poor M5 PT-IP Objective Assessments Start: 12/19/19 11:30 Freq: NEEDED Status: Active Protocol: Document 12/19/19 10:19 AB (Rec: 12/19/19 11:48 AB [id number]) Orientation Orientation/Cognition Level of Alertness Alert Orientation Name Language Function Ability Hard of Hearing Safety Awareness Decreased Safety Awareness Memory Description Short Term Impaired Gross Range of Motion Lower Extremity ROM Assessment Within Functional Limits Strength Lower Extremity Strength Assessment Bilaterally Impaired Hip 3-/5 Knee 3+/5 Muscle Tone Muscle Tone WNL Yes M6 PT-IP Treatment Start: 12/19/19 11:30 Freq: NEEDED Status: Active Protocol: Document 12/20/19 11:26 AW (Rec: 12/20/19 11:45 AW [id number]) Physical Therapy Treatment Education Education Provided Safety M7 PT-IP Assessment and Plan Start: 12/19/19 11:30 Freq: NEEDED Status: Active Protocol: Document 12/21/19 10:25 AB (Rec: 12/21/19 12:03 AB [id number]) PT Summary Assessment and Plan Potential Rehabilitation Potential Fair Summary Impairments Pain,ROM,Strength,Balance, Coordination,Sensation,Tone, Cognition,Bed Mobility, Transfers,Gait,Activity Tolerance Progress Towards Goals Slow Progress due to Medical Issues,Slow Progress due to Activity Tolerance Assessment Summary pt requiring total A x 2-3 with all mobilities. has a decline with mobility and cognition from last eval. pt at this time will need SNF rehab to improve strength and mobility. Goals Bed Mobility Goal Minimal Assistance Transfer Goal Minimal Assistance,Front Wheeled Walker Gait Goal Minimal Assistance,Front Wheel Walker Gait Distance 100 Other Goals up/down 3 steps L rail ascending min A Days to Meet Goals 10 Frequency of Treatment Frequency Of Treatment Once a Day Treatment Plan Physical Therapy Treatment Plan Bed Mobility Training,Transfer Training,Gait Training, Therapeutic Exercise,Balance Retraining,Discharge Planning, Hot or Cold Pack,Neuromuscular Re-ed,Coordination Retraining ,Manual Therapy Other Recommendations and Next Treatment co-treat recommended; standing Focus tolerance; progress ambulation distance if tolerated; bed mobility Recommendations To Nursing Amount of Assist Needed 3 or More Person Assist, Mechanical Lift Discharge Recommendations PT Discharge Recommendations SNF Rehab
--- NOTE | 2019-12-21 10:25 | OT.IP.TRT ---
Current Diagnoses Chronic diastolic (congestive) heart failure (12/18/19) Occupational Therapy Treatment Note M2 OT-IP Current Condition Start: 12/19/19 13:34 Freq: Status: Active Protocol: Document 12/19/19 14:20 PJM (Rec: 12/19/19 16:09 PJM [id number]) Occupational Therapy Current Condition Current Condition Evaluation Date 12/19/19 Treatment Diagnosis decr'd self care, mobility s/p fall with DX of CHF exacerbation, COPD Diagnosis Onset Date 12/18/19 Post Operative Precautions Other Precautions fall risk, super morbid obesity with BMI 67 M3 OT- IP Subjective and Pain Start: 12/19/19 13:34 Freq: Status: Active Protocol: Document 12/21/19 11:03 CCC (Rec: 12/21/19 11:31 [facility] [id number]) OT- Subjective Occupational Therapy Visit Type Type Treatment Note Visit Start Time 10:25 Visit Stop Time 10:57 Total Visit Minutes 22 Occupational Therapy Visit Comments Patient Comments Pt intermittently able to respond to her name when spoken to her. OT Pain Assessment Pain When Pain Assessed At Rest Pain Present Pain Present Unable to Respond M4 OT- IP ADL's Start: 12/19/19 13:34 Freq: Status: Active Protocol: Document 12/21/19 11:03 CCC (Rec: 12/21/19 11:31 [facility] [id number]) OT ADL-Grooming Comments OT Grooming Comments Wash cloth placed in her right hand and having to help initiate movement of right hand towards her face and then able to wash her face and needing cues to wash the left side of her face. MOD A for completeness. OT ADL-Dressing General Eval Lower Body Dressing Ability Total Assistance OT ADL-Toileting General Evaluation Toileting Ability Total Assistance M5 OT- IP IADL's Start: 12/19/19 13:34 Freq: Status: Active Protocol: Document 12/19/19 14:20 PJM (Rec: 12/19/19 16:09 PJ [id number]) OT-Instrumental Activities of Daily Living Deficits IADL Deficits Identified Deficits Home Safety Awareness Home Safety Comments does most IADLS at home Medication Management Medication Management Caregiver Provides Supervision Medication Management Comments pt states she manages her own medications at home; recommend supervision at present Money Management Money Management Caregiver Provides Supervision Money Management Comments states pt normally manages finances; recommend supervision at present Meal Preparation Meal Preparation Caregiver Provides Assist Meal Preparation Comments does cooking Operation Agent Operation Agent Caregiver Provides Assist Operation Agent Comments does cleaning Driving Driving Caregiver Provides Assist Driving Comments to assist at present; pt states she still drives M6 OT- IP Functional Cognition Start: 12/19/19 13:34 Freq: Status: Active Protocol: Document 12/21/19 11:03 [facility] (Rec: 12/21/19 11:31 [facility] [id number]) Cognitive Factors Limiting Selfcare Function Cognitive Ability Level of Alertness Alert,Confusional State,Drowsy Attention Span Ability Unable to Focus,Unable to Sustain Attention Ability to Follow Commands Able to Follow One Step Commands with Increased Time, Able to Follow One Step Commands with Repetition Cognitive Comments Cognitive Assessment Comments Pt very drowsy and having difficulty to follow directions today. Pt needing hand over hand assist to place hands on the FWW. OT- Vision and Hearing OT- Hearing Assessment OT- Hearing Assessment Hearing Impaired,Use of Hearing Aids M7 OT- IP Mobility and Balance Start: 12/19/19 13:34 Freq: Status: Active Protocol: Document 12/21/19 11:03 [facility] (Rec: 12/21/19 11:31 [facility] [id number]) OT- Bed Mobility Assessment Rolling Type of Rolling Roll to Left Level of Assistance Total Assistance,2 Person Assistance,Head of Bed Elevated Supine to Sit Supine to Sit Assist Total Assistance,2 Person Assistance,Head of Bed Elevated Sit to Supine Sit to Supine Assist Total Assistance,2 Person Assistance Scooting Scooting to Edge of Bed Total Assistance,2 Person Assistance OT-Transfer Assessment Comments Mobility Comments Unable to stand even after five attempts and assist x3. Pt's leaning to the right , not able to career resource specialist well on right UE and therapist having to block and support her right arm in addition to legs. Status changed to peter lift for transfers at this time. OT- Balance Assessment Sitting Balance and Reactions Static Sitting Balance Ability Poor Dynamic Sitting Balance Ability Poor Comments Other Balance Tests/Deviations/Treatment Pt laterally leaning to the : right and needing to do weight bear on the left arm to help improve midline sitting. Pt needing M8 OT- IP Objective Assessments Start: 12/19/19 13:34 Freq: Status: Active Protocol: Document 12/19/19 14:20 PJM (Rec: 12/19/19 16:09 PJM [id number]) OT Gross Range of Motion Upper Extremity Range of Motion Assessment Right Impaired ROM Impairments R shoulder AAROM to 70 degress scaption, 45 degrees actively ; distal AROM WFL LUE WFL throughout OT Strength Upper Extremity Strength Assessment Within Functional Limits Comments Strength Comments No focal weakness noted OT- Coordination Assessment Comments Coordination Comments BUE WFL for self care e.g oral care set up OT-Muscle Tone Assessment Muscle Tone WNL Yes OT Sensation Assessment Comments Summary Comments Pt denies deficits, detect lt touch in BUE's M9 OT- IP Assessment and Plan Start: 12/19/19 13:34 Freq: Status: Active Protocol: Document 12/21/19 11:03 [facility] (Rec: 12/21/19 11:31 [facility] [id number]) OT Summary Assessment and Plan Potential Rehabilitation Potential Fair Summary OT Impairments Strength,Balance,Functional Cognition,Functional Mobility, Grooming,Dressing,Toileting, Bathing,Toilet Transfers, Shower Transfers,Activity Tolerance Progress Towards Goals Slow Progress due to Medical Issues,Slow Progress due to Activity Tolerance,Slow Progress due to Cognition Assessment Summary Pt now not able to stand today even after 5 attempts today. Pt still having right UE weakness and difficulty with motor planning. Pt far from baseline and will benefit form skilled rehab. Goals Grooming Goal Standby Assistance Dressing Goal Minimal Assistance,Long Handled Shoe Horn,Manager Oncology,Sock Aid Toileting Goal Standby Assistance,Toilet Paper Aid Bathing Goal Standby Assistance,Grab Bars, Hand Held Shower Sprayer,Long Handled Sponge or [place] Toilet Transfer Goal Standby Assistance,Raised Toilet Seat Shower Transfer Goal Minimal Assistance,Walk-in Shower,Shower Chair,Grab Bars Days to Meet Goals 15 Frequency of Treatment Frequency Of Treatment Once a Day Treatment Plan OT Treatment Plan ADL Training,Functional Mobility,Patient/Family Education,Discharge Planning Discharge Recommendations OT Discharge Recommendations SNF Rehab Home Equipment Needs to be determined pending progress
--- NOTE | 2019-12-21 10:53 | PC.NURSE ---
Addendum entered by Harley Bertrand R.N. 12/21/19 14:25: Patient remains largely non-verbal this shift, with rare one word answers. Patient able to follow verbal commands. No facial droop noted. Continued [id number] condition discussed with coordinator, Dr. Cardona. Care is ongoing. Original Note: Day shift note Patient non-verbal, but alert upon start of shift. Patient sitting upright in bed feeding self using both UE appropriately. No facial droop noted. Patient turns head and looks to person speaking when spoken to, but then turns attention back to breakfast and continues feeding self appropriately, able to eat eggs using fork to stab them. Patient later able to state that she is at [facility] when asked, but does not answer further questions. Condition discussed with Dr. Cardona, who saw patient at bedside. Redness noted to bilateral shins, as is stiffness to right lower extremity. Also discussed with Dr. Cardona, no new orders at this time. Patient able to follow commands, such as helping with turning and lifting arms.
--- NOTE | 2019-12-21 11:56 | P.PN_ITS ---
Subjective Subjective Date Patient Seen: 12/21/19 Interval history: Patient is 79-year-old female with obesity, COPD, hypertension, past CVA presented to ER due to progressive weakness, ground level fall at home, and more difficulty with her breathing. Patient is again not verbalizing this morning. However she did repeat to me no ifs and or buts and also was able to clearly state her name with some prompting. However she would not answer any other questions. Breathing seems to be labored with audible wheeze. She was able to feed herself this morning. Exam Vital Signs (past 8 hours): - 12/21/19 04:00 12/21/19 07:40 12/21/19 09:54 Temperature 98.0 F 97.7 F Pulse Rate 68 83 92 H Respiratory Rate 20 20 20 Blood Pressure 136/80 150/84 H Pulse Oximetry 96 94 98 Fraction of Inspired Oxygen 0 Oxygen Delivery Method Nasal Cannula Oxygen Flow Rate 2 Narrative Exam Narrative: General: Obese female audibly wheezing Lungs: Diminished with bilateral expiratory wheeze Heart: Regular rhythm Extremities: Bilateral indurated lower extremity edema with chronic venous stasis changes right greater than left Neurological: Altered mentation or aphasia as above, no facial droop, no focal weakness on my exam Objective Labs Result Diagrams: 12/20/19 17:23 12/20/19 17:23 Labs: Laboratory Results - last 24 hr 12/20/19 12/20/19 17:23 17:23 WBC 12.2 H RBC 4.52 Hgb 13.5 Hct 41.8 MCV 92.3 MCH 29.8 MCHC 32.3 RDW 14.7 Plt Count 272 Neut % (Auto) 89.2 H D Lymph % (Auto) 4.4 L Labette % (Auto) 6.2 Eos % (Auto) 0.0 L Baso % (Auto) 0.2 Neut # (Auto) 98858 H Lymph # (Auto) 500 L Labette # (Auto) 800 Eos # (Auto) 0 Baso # (Auto) 0 Sodium 138 Potassium 3.9 Chloride 100 Carbon Dioxide 27 BUN 37 H Creatinine 1.50 H Estimated GFR 33.7 L BUN/Creatinine Ratio 24.7 H Glucose 180 H Calcium 9.6 Assessment & Plan Assessment & Plan narrative: Patient is 79-year-old female with obesity, COPD, hypertension, past CVA presented to ER due to progressive weakness, ground level fall at home, and more difficulty with her breathing. 1. COPD exacerbation, present on admission -repeat chest x-ray 12/21 no evidence of pneumonia, poor inspiration, possible ? CHF pattern ?, however NT proBNP 494 is relatively low, and on past echo 03/09/2019 LVEF was 60-65% with normal LV wall thickness and motion, normal RV and a bioprosthetic valve, she does have chronic edema of lower extremities and venous stasis changes consistent with venous insufficiency -obtain repeat echo to re-evaluate for CHF, Lasix 80 mg IV x1 on 12/21 pending echo -patient seemed to be improving on IV steroids and regular nebulizer treatments, however Solu-Medrol stopped on 12/21 due to concern of steroid psychosis -initial ABG on room air pH 7.43, pCO2 38, PO2 75, bicarb 25, base excess 1 -continue DuoNeb q.4 hours, albuterol nebulizer q.4 hours as needed -continue supplemental O2 to keep sats above 88%, last sat 98% on 2 L -patient had mentioned Symbicort was discontinued sometime in the recent past, discussed with patient to put her back on Symbicort as well as start her on Com bivent Respimat on discharge with Proventil inhaler for as needed use 2. Obstructive sleep apnea, chronic -patient using on BiPAP 3. Essential hypertension, chronic -BP under adequate control -continue routine medications, also continue her lovastatin 4. Major depression with anxiety, chronic, present on admission, stable --patient followed at [facility], current coping mechanism unclear due to altered mental status, calling their public works inspector to see patient -will continue home regimen of bupropion 200 mg daily, duloxetine 60 mg daily and mirtazapine 15 mg bedtime. 5. Severe obesity, BMI 67.4 -dietary consult requested 6. Chronic kidney disease, stage III -creatinine 1.50-1.60 close to baseline which seems to range 1.4 to 1.7, last creatinine 1.5 7. Generalized weakness, ground level fall -consult PT, OT -patient will need [facility] on discharge 8. Altered mental status, unclear etiology, rule out delirium versus CVA, ongoing/active -Patient had acute episode of brief unresponsiveness on 12/19 when came to see her in the room. Code stroke was called. Head CT showed old right cerebellar CVA but negative for acute bleed. EKG negative for acute findings. She was briefly disoriented with difficulty communicating but had no facial droop, no dysarthria, and no localizing signs. Vitals in O2 sat were normal. She seemed to recover but since afternoon of 12/20 she has been nonverbal, however as noted she could repeat simple phrase and clearly state her name. She had repeat head CT and head/neck CTA on 12/20 were unremarkable. Body habitus precludes MRI at [facility]. Unclear if this is true aphasia from a new CVA versus acute delirium versus volitional/behavioral. Discontinued Solu- Medrol due to concern of a steroid psychosis causing this presentation. Admission UA normal and there does not to be any other infection going on. Patient's is understandably concerned about her altered mental status and we had several discussions about possible etiologies and workup to date.
--- NOTE | 2019-12-21 12:00 | PM.CHAP ---
Two chaplains who both know patient well visited. Pt obviously knew us, but did not speak. Prayer and encouragement. Both patient and are apprehensive.
--- NOTE | 2019-12-21 12:02 | DI.ECHO.S_ITS ---
[facility]---------+ [facility] +---------+ : : [address] : : : [place], [place] : : : : [id number] : : : : Phone: [phone]+ Echocardiogram Report + + :Name: EDUARDO MARIA Study Date: 12/22/2019 Height: 60 in : :[facility] Weight: 321 lb : : Gender: Female BSA: 2.3 m2 : :: 1940 Age: 79 yrs BP: 149/75 mmHg: :Reason For Study: Congestive Heart Failure : :Ordering Physician: Teri : :Hospitalist Performed By: Kamille Page : :Referring: ANITA RIOJAS : + + Interpretation Summary The left ventricle is not well visualized but systolic function appears to be grossly normal. LV chamber size is grossly normal as well. The study was technically difficult do to patient body habits, positioning and the inability to cooperate with the exam. Regional wall motion abnormalities cannot be excluded due to limited visualization. The right ventricle is not well visualized. Pulmonary artery pressures cannot be estimated because of the lack of a measurable TR jet velocity. The left atrium is not well visualized. The aortic root is not well visualized but is probably normal size. Procedure: A two-dimensional transthoracic echocardiogram with color flow and Doppler was performed. The study quality was technically difficult. A contrast injection of Definity was performed to improve assessment of LV function. The patient was in normal sinus rhythm during the exam. Left Ventricle: The left ventricle is not well visualized but systolic function appears to be grossly normal. LV chamber size is grossly normal as well. Regional wall motion abnormalities cannot be excluded due to limited visualization. Diastolic function could not be accurately assessed due to unobtainable data. Right Ventricle: The right ventricle is not well visualized. Atria: The left atrium is not well visualized. Right atrium not well visualized. Mitral Valve: The mitral valve is not well visualized. The mitral valve is grossly normal. Aortic Valve: The aortic valve is not well visualized. The aortic valve is grossly normal. Tricuspid Valve: The tricuspid valve is not well visualized. Pulmonary artery pressures cannot be estimated because of the lack of a measurable TR jet velocity. Pulmonic Valve: The pulmonic valve is not well visualized. Great Vessels: The aortic root is not well visualized but is probably normal size. The ascending aorta is mildly enlarged. The pulmonary is not well visualized. The IVC is of normal diameter and collapses greater than 50% with a sniff. This suggests a low right atrial pressure of 3 mm Hg. Pericardium/ Pleura There is an anterior echo-free space consistent with a fat pad. There is no pericardial effusion. MMode/2D Measurements & Calculations LVIDd: 4.8 cm Ao root diam: 3.1 cm LVIDs: 3.6 cm asc Aorta Diam: 3.8 cm FS: 25.0 % IVSd: 0.83 cm LVPWd: 0.94 cm LV franco. diameter/BSA (cm/m^2): 2.1 LV sys. diameter/BSA (cm/m^2): 1.6 IVC diam: 1.5 cm Doppler Measurements & Calculations Ao V2 max: 168.9 cm/sec LVOT Max Mik: 89.6 cm/sec Ao V2 mean: 105.3 cm/sec LV V1 max P.2 mmHg Ao max P.4 mmHg LV V1 VTI: 14.8 cm Ao mean P.1 mmHg sev ratio: 0.48 Ao V2 VTI: 30.9 cm MV E max mik: 81.6 cm/sec MV P1/2t max mik: 82.1 cm/sec MV A max mik: 86.3 cm/sec MVA(P1/2t): 4.5 cm2 MV E/A: 0.95 MV P1/2t: 48.7 msec Reading Physician:04:30 PM
[2019-12-21] MEDS: FUROSEMIDE 40 MG/4 ML VIAL IV (13:26)
--- NOTE | 2019-12-21 15:52 | PC.NURSE ---
Addendum entered by Vicky Cabrera R.N. 12/21/19 22:32: Following R.T. treatment, pt's breath sounds clear throughout all velez. Respiratory rate 20. CPAP in place with oxygen level 93% per continuous monitor. Addendum entered by Vicky Cabrera R.N. 12/21/19 22:24: R.t. has fit pt with own cpap. Addendum entered by Vicky Cabrera R.N. 12/21/19 22:22: Inc urine and stool. Pt is restless with hands in bed. Continues to make eye contact with staff, smile occasionally, but nonverbal. Right leg remains requiring complete movement by staff. Exp wheezes and tachypnea @ 28 breaths per minute. This comic writer walked into room as pt was moving hearing aid towards mouth. This comic writer collected both hearing aids and secured in container by sink. R.t. called to room for treatment and assessment. Hospitalist Dusty informed of the above. No family members presently n pt's room. IV fluids infusing as ordered to right ac iv site without difficulty. Addendum entered by Vicky Cabrera R.N. 12/21/19 18:49: Dr. Cardona in to see patient and pt's spouse. Advises NPO except oral meds as deemed safe by staff. Wishes pt to have aspirin at this time. Addendum entered by Vicky Cabrera R.N. 12/21/19 17:23: Pt remains nonverbal. Incontinent large amount of urine. Three staff members to change pt's large urinary incontinence. Total bed change. Pt with expiratory wheezes. Placed on 02 2L per nc and R.T. called to administer treatment. Spouse arrives at bedside and pt remains nonverbal. Pt set up with dinner tray and begins to feed self with hands filling mouth with food. Pt begins to cough. Staff immediately present and instruct pt to slow down with feeding. Pt does not comply. Spouse remains seated across room unengaged in pt's dinner experience. 1:1 monitoring with MOTION PICTURE SET UP WORKER and pt continues to cough with eating. Dr. Ortega (identified to staff as pt's psychiatrist) in to see patient. Pt's dinner tray was removed and Dr. Cardona informed. Original Note: Pt lying quietly in bed with eyes open during shift report @ beginning of shift. Operations Executive is with pt. Pt smiles at this comic writer and tracks this comic writer with eyes, but is nonverbal. Does not answer questions. Pt follows simple commands as in squeezing this comic writer's hands, but attempt is feeble. BL calf scd's in place with noted erythema to shins BL R > L. Room air saturation level 91-92%. Head of bed slightly elevated to enhance respiratory effort. Bed alarm in place and frequent checks by staff.
--- NOTE | 2019-12-21 16:35 | DIET.PN ---
Dietary Progress Note RD received new consult r/t pt being non-verbal. RD defers to SLT to assess safety of nourishments as pt experiencing change in status. Assessment from yesterday (12/21/2019) below. Assessment: 79y F admitted for hypoxemia, general weakness following fall referred to nutrition for super morbid obesity (BMI 65.9). Per [facility] records, pt has gained 25# in past 9mo. Pt med hx includes CKD 3, COPD, HTN, HLD, CVA, PE, OA, anxiety and depression. Pt sitting in chair, seemingly confused as she is not interacting except occasional yes/no. Pt laying on couch, providing most information. Per pt , pt has been drinking 1/2-1 gallon grape juice per day and eats grape nuts. This RD will visit again tomorrow to give further diet instructions with hope of more interaction. HT: 154.9cm WT: 158.2kg UBW: 149kg 9 mo ago BMI: 65.9 Labs: eGFR 31.3 L, BUN 28, Cr 1.6 H MNA: 12 Conrado: 18 Nutrition Diagnosis: undesirable food choices r/t unwillingness to apply nutrition reccs for health (CKD3, COPD, HTN, HLD, super morbid obesity) aeb pt gained 25# in past 9mo, BMI 65.9, pt consuming 1/2-1 gallon grape juice/d, sedentary. Interventions: 1. Discussed pt's 25# recent wt gain, that additional wt gain will make self care and mobility difficult, further stress kidneys and lungs, in addition to difficulty for others to care for her. 2. Discussed high carb diet (juice and cereal) taxes lungs and makes more work in exhalation per respiratory quotient. Worked with pt's to substitute juice for calorie free options like herbal teas, non-caloric juice-like beverages, water, or at least watering down juice. Stressed juice should be limited to 4oz/d. Diet Order: EER: 1600kcal to promote weight loss, 120g PRO max per renal, 3L fluids Monitoring/Evaluations: will reassess Tuesday for increased participation for pt Initialized on 12/20/19 15:27 - END OF NOTE
[2019-12-21] MEDS: ASPIRIN 325 MG TABLET PO (18:56)
[2019-12-21] MEDS: SODIUM CHLORIDE 0.9% 1,000 ML 100 ML IV (18:57)
--- NOTE | 2019-12-21 19:45 | CM.DPC ---
DCP continued: EMR reviewed: CM/RN attempted to meet with patient at the bedside to disscuss SNF options. Patient was non-verbal during vist. Attempted to explain about SNF and patient shook her head no then closed her eyes. CM/RN attempted to determine if shaking her head no was in response to SNF or if she was even able to understand CM/RN. CM/RN called patients Craig to discuss SNF options. CM/RN left message for patients . CM/RN unable to get preferred SNF choice or if SNF is an okay option. CM department will follow up tomorrow to get SNF choice from patients . PASRR Done just in case it is needed. Kendal Joel RN
[2019-12-21] MEDS: ALBUTEROL 2.5 MG/3 ML NEB (ADULT) INH (22:11)
[2019-12-21] MEDS: HEPARIN 5,000 UNIT/ML VIAL 7500 UNIT SUBCUT (22:25)
[2019-12-22] VITALS (9 sets, daily range): BP systolic 127–169; BP diastolic 53–97; PULSE 64–87; RESP 16–22; TEMP 36.5–37.1; O2SAT 93–97
[2019-12-22] MEDS: SODIUM CHLORIDE 0.9% 1,000 ML 100 ML IV ×2 (05:13→19:10)
[2019-12-22] MEDS: HEPARIN 5,000 UNIT/ML VIAL 7500 UNIT SUBCUT ×3 (05:35→22:12)
[2019-12-22 06:11] LABS: Add Manual Diff / Slide Review NO; Basophils Absolute Auto 0 /uL (0-100); Basophils Percent Auto 0.2 % (0-2); Eosinophils Absolute Auto 0 /uL (0-450); Hematocrit 42.1 % (36-46); Hemoglobin 13.6 g/dL (12.0-16.0); Lymphocytes Absolute Auto 1000 /uL (1100-4500); Lymphocytes Percent Auto 6.5 % (25-40); Mean Corpuscular HGB Conc 32.3 % (30-36); Mean Corpuscular Volume 92.9 fL (80-100); Monocytes Absolute Auto 2100 /uL (0-900); Monocytes Percent Auto 13.5 % (3-14); Neutrophils Absolute Auto 12700 /uL (1500-7000); Neutrophils Percent Auto 79.8 % (50-75); Platelet Count 305 X10^3/uL (150-400); Red Blood Cell Count 4.53 X10^6/uL (4.0-5.2); White Blood Cell Count 15.9 X10^3/uL (4.5-11.0)
[2019-12-22 06:17] LABS: BUN Creatinine Ratio 31.3 (6-22); Blood Urea Nitrogen 50 mg/dL (7-17); Calcium 9.4 mg/dL (8.4-10.2); Carbon Dioxide 28 mmol/L (22-32); Chloride 103 mmol/L (98-107); Estimated Glomerular Filt Rate 31.3 mL/min (>60); Glucose 109 mg/dL (80-110); HEMOLYSIS < 15 (0-50); Potassium 4.3 mmol/L (3.4-5.1); Sodium 139 mmol/L (137-145)
--- NOTE | 2019-12-22 07:39 | DI.CT.S_ITS ---
PROCEDURE: CT HEAD/BRAIN WO CON INDICATIONS: CVA TECHNIQUE: Noncontrast 4.5 mm thick angled axial sections acquired from the foramen magnum to the vertex, with coronal and sagittal reformats. For radiation dose reduction, the following was used: automated exposure control, adjustment of mA and/or kV according to patient size. COMPARISON: [facility], CR, XR CHEST 1V, 12/21/2019, 9:56. [facility], CT, CT ANGIO HEAD AND NECK, 12/20/2019, 18:38. [facility], CT, CT HEAD/BRAIN WO CON, 12/20/2019, 18:36. [facility], CT, CT HEAD/BRAIN WO CON, 12/19/2019, 9:36. FINDINGS: Image quality: Diagnostic, with note made of motion artifact. CSF spaces: Basal cisterns are patent. No extra-axial fluid collections. The ventricles are symmetric in size and shape. Brain: There is a focal remote infarction seen involving the inferior medial right cerebellum. There is a faintly seen remote infarction involving right centrum semiovale. No intracranial bleeds or masses. There is cerebral volume loss for age, with resultant ventricular and sulcal prominence. There are periventricular and deep white matter chronic small vessel ischemic changes. There is intracranial internal carotid artery atherosclerosis. Skull and face: Calvarium and visualized facial bones appear intact, without suspicious lesions. Incidental note is made of hyperostosis frontalis. This is not considered to be pathologic in a woman of this age. Sinuses: Visualized sinuses and mastoids are clear. IMPRESSION: Remote infarctions are seen involving the right inferior cerebellum and the right centrum semiovale. If there is strong clinical suspicion for an acute stroke, please consider an MRI for further evaluation, as it is more sensitive (assuming that there is no contraindication to MRI). Dictated by: Olvin Ahmadi M.D. on 12/22/2019 at 7:14 Approved by: Olvin Ahmadi M.D. on 12/22/2019 at 7:17
[2019-12-22] MEDS: ALBUTEROL/IPRATROPIUM 3 ML AMPUL INH ×3 (09:10→19:38)
--- NOTE | 2019-12-22 10:49 | CM.DPC ---
Addendum entered by ILIA Cordero 12/22/19 16:01: ADD: Return call from Gilberto at [facility] who confirms that they can accept the pt at d/c and are aware that pt may be ready for d/c tomorrow if stable. PETRA updated MD who will call spouse to discuss PICC for hydration vs PEG but likely attempt hydration and PICC first before possible PEG placement if pt doesn't improve. BF Original Note: DCP Cont: Per MD, pt seems to be showing all signs of stroke but not visible on CT scans so MRI scheduled for pt and she may be ready for d/c to SNF tomorrow if remains stable. MD states he met bedside with pt and spouse this morning and spouse confirms he is agreeable with SNF and preference is to stay in town at [facility] and requests referral to [facility]. SW attempted to meet bedside with pt and spouse to confirm and further discuss if needed or any questions but spouse not bedside. SW called and left ms for spouse and will continue to confirm the d/c plan. Per PT/OT, pt not a good candidate for Acute Inpt Rehab as pt is requiring so much assist and cannot tolerate the 3 hours of rehab daily at this point. Recommending SNF rehab at d/c. SW called [facility] admissions with new referral and discussed that pt is bariatric (321 lbs) but currently not on a laney bed and per RN and inventory control associate, pt easily accommodated in hospital bed here. SW requested review chloé by [facility] to determine if they see any barriers to accepting pt at d/c. PETRA also faxed clinicals to review in case w/e admissions does not have access to [facility].. PASRR had been completed yesterday in anticipation of SNF at d/c. Plan: SW to follow for [facility] review of pt towards possible acceptance or any barriers and to follow for return call from spouse to confirm d/c plans. ILIA Cordero
--- NOTE | 2019-12-22 11:04 | PM.CHAP ---
Pt appears much more engaged this morning. Smiled broadly when I entered room. Squeezed my hand. called me at home this am. Apparently believes pt is going to [place] for MRI today. Prayer and encouragement.
--- NOTE | 2019-12-22 11:42 | PT.IPTN ---
Current Diagnoses Chronic diastolic (congestive) heart failure (12/18/19) Physical Therapy Treatment Note M2 PT-IP Current Condition Start: 12/19/19 11:30 Freq: NEEDED Status: Active Protocol: Document 12/19/19 10:19 AB (Rec: 12/19/19 11:48 AB [id number]) Physical Therapy Current Condition Current Condition Evaluation Date 12/19/19 Treatment Diagnosis CHF; difficulty in walking Onset Date 12/18/2019 Precautions Other Precautions O2 sat M3 PT-IP Subjective Start: 12/19/19 11:30 Freq: NEEDED Status: Active Protocol: Document 12/22/19 11:42 AB (Rec: 12/22/19 13:10 AB [id number]) Subjective Physical Therapy Visit Type Type Treatment Note Visit Start Time 11:42 Visit Stop Time 12:10 Total Visit Minutes 28 Number of POPULATION HEALTH COACH Visits 0 Physical Therapy Visit Comments Patient Comments pt is non verbal M4 PT-IP Mobility and Gait Start: 12/19/19 11:30 Freq: NEEDED Status: Active Protocol: Document 12/22/19 11:42 AB (Rec: 12/22/19 13:10 AB [id number]) PT-Bed Mobility Assessment Supine to Sit Supine to Sit Total Assistance,2 Person Assistance,Head of Bed Elevated Scooting Scooting to Edge of Bed Dependent PT-Transfer Assessment Sit to and From Stand Sit to and from Stand Total Assistance,2 Person Assistance,Use of Upper Extremities Comments Mobility Comments pt supine in bed. required total A x 2-3 for supine to sit. pt unable to follow directions. pt is depending on scooting on EOB. pt requires max A x 1-2 for maintaining sitting balance on EOB. cued to correct position/posture but requires max A to complete . increase posterior trunk LOB. Attempted sit to stand but pt unable despite total A x 3 provided. pt required max A x 1-2 to lean side to side for sling positioning for mechanical lift transfer. pt transferred to the chair using mechanical lift. required total A for proper chair positioning. call light and tabl eplaced within reach. M5 PT-IP Objective Assessments Start: 12/19/19 11:30 Freq: NEEDED Status: Active Protocol: Document 12/19/19 10:19 AB (Rec: 12/19/19 11:48 AB [id number]) Orientation Orientation/Cognition Level of Alertness Alert Orientation Name Language Function Ability Hard of Hearing Safety Awareness Decreased Safety Awareness Memory Description Short Term Impaired Gross Range of Motion Lower Extremity ROM Assessment Within Functional Limits Strength Lower Extremity Strength Assessment Bilaterally Impaired Hip 3-/5 Knee 3+/5 Muscle Tone Muscle Tone WNL Yes M6 PT-IP Treatment Start: 12/19/19 11:30 Freq: NEEDED Status: Active Protocol: Document 12/20/19 11:26 AW (Rec: 12/20/19 11:45 AW [id number]) Physical Therapy Treatment Education Education Provided Safety M7 PT-IP Assessment and Plan Start: 12/19/19 11:30 Freq: NEEDED Status: Active Protocol: Document 12/22/19 11:42 AB (Rec: 12/22/19 13:10 AB [id number]) PT Summary Assessment and Plan Potential Rehabilitation Potential Fair Summary Impairments Pain,ROM,Strength,Balance, Coordination,Sensation,Tone, Cognition,Bed Mobility, Transfers,Gait,Activity Tolerance Progress Towards Goals Slow Progress - Other Assessment Summary pt continues to require total A x 2-3 with all mobilities and continues to be non verbal and has difficulty following directions. pt will require SNF rehab to improve strength and function. Goals Bed Mobility Goal Minimal Assistance Transfer Goal Minimal Assistance,Front Wheeled Walker Gait Goal Minimal Assistance,Front Wheel Walker Gait Distance 100 Other Goals up/down 3 steps L rail ascending min A Days to Meet Goals 10 Frequency of Treatment Frequency Of Treatment Once a Day Treatment Plan Physical Therapy Treatment Plan Bed Mobility Training,Transfer Training,Gait Training, Therapeutic Exercise,Balance Retraining,Discharge Planning, Hot or Cold Pack,Neuromuscular Re-ed,Coordination Retraining ,Manual Therapy Other Recommendations and Next Treatment sitting balance/tolerance Focus Recommendations To Nursing Amount of Assist Needed 3 or More Person Assist, Mechanical Lift Discharge Recommendations PT Discharge Recommendations SNF Rehab
--- NOTE | 2019-12-22 12:34 | P.PN_ITS ---
Subjective Subjective Date Patient Seen: 12/22/19 Interval history: Patient is 79-year-old female with obesity, COPD, hypertension, past CVA presented to ER due to progressive weakness, ground level fall at home, and more difficulty with her breathing. For about the last almost 48 hours, patient remains aphasic and not verbalizing at all and has developed dense hemiparesis of the right leg. We are treating for acute CVA. Exam Vital Signs (past 8 hours): - 12/22/19 07:29 12/22/19 09:11 Temperature 98.3 F Pulse Rate 87 76 Respiratory Rate 16 20 Blood Pressure 148/97 H Pulse Oximetry 93 Fraction of Inspired Oxygen 0 Oxygen Delivery Method Room Air Oxygen Flow Rate 0 Narrative Exam Narrative: General: Very obese female who is smiling and has upper airway wheeze but does not appear in acute distress HEENT: Pupils equal and reactive, face is symmetric Lungs: Improved breath sounds, actually clear to auscultation, but there is audible wheezes which seems very upper airway Heart: Regular rhythm Extremities: Bilateral indurated lower extremity edema with chronic venous stasis changes right greater than left Neurological: Nonverbal, seems to follow some simple commands, left hand squeeze may be a little stronger than the right, question right amy-neglect, legs are both weak but she does have good ankle strength on the left and no movement at all on the right Objective Labs Result Diagrams: 12/22/19 05:30 12/22/19 05:30 Labs: Laboratory Results - last 24 hr 12/22/19 12/22/19 05:30 05:30 WBC 15.9 H RBC 4.53 Hgb 13.6 Hct 42.1 MCV 92.9 MCH 30.0 MCHC 32.3 RDW 15.0 H Plt Count 305 Neut % (Auto) 79.8 H Lymph % (Auto) 6.5 L Lamb % (Auto) 13.5 Eos % (Auto) 0.0 L Baso % (Auto) 0.2 Neut # (Auto) 26623 H Lymph # (Auto) 1000 L Lamb # (Auto) 2100 H Eos # (Auto) 0 Baso # (Auto) 0 Sodium 139 Potassium 4.3 Chloride 103 Carbon Dioxide 28 BUN 50 H Creatinine 1.60 H Estimated GFR 31.3 L BUN/Creatinine Ratio 31.3 H Glucose 109 Calcium 9.4 Assessment & Plan Assessment & Plan narrative: Patient is 79-year-old female with obesity, COPD, hypertension, past CVA presented to ER due to progressive weakness, ground level fall at home, and more difficulty with her breathing. 1. Acute CVA, undetermined if present on admission -deficits of severe aphasia and right-sided weakness/paresis -during admission patient was talking normally and appeared to have global weakness thought secondary to COPD exacerbation, however it is possible that the weakness and fall at home were related to onset of stroke -on day 2 of hospitalization she had brief episode of acute aphasia, code stroke was called, and she had head CT and head/neck CTA which showed no acute findings, head CT with old right cerebellar infarct and head/neck CT without major stenoses -on day 3 patient developed more persistent aphasia and over next 24 hours developed unilateral weakness and paresis in the right lower extremity, repeat head CT negative for bleed or other acute finding -on day 4 patient had a follow-up head CT which showed no acute finding -patient noted with impulsive behavior, staff observed her choking from shoveling food on her plate in her mouth without waiting to swallow, seems able to take pills in carrier -NPO while awaiting speech therapy swallow eval -continue PT and OT -aspirin 81 mg daily -transthoracic echo -patient does not fit into the MRI machine at [facility], we called over to [facility] in [facility], [facility], and [facility] and were told she will not fit in any of their MRI machines 2 COPD exacerbation, present on admission -improving breath sounds on exam -repeat chest x-ray 12/21 no evidence of pneumonia, poor inspiration, possible ?CHF pattern ?, however NT proBNP 494 is relatively low, and on past echo 03/09/2019 LVEF was 60-65% with normal LV wall thickness and motion, normal RV and a bioprosthetic valve, she does have chronic edema of lower extremities and venous stasis changes consistent with venous insufficiency -obtain repeat echo to re-evaluate for CHF, Lasix 80 mg IV x1 on 12/21 pending echo -Solu-Medrol stopped on 12/21 due to concern of steroid psychosis causing her altered mental status -initial ABG on room air pH 7.43, pCO2 38, PO2 75, bicarb 25, base excess 1 -continue DuoNeb q.4 hours, albuterol nebulizer q.4 hours as needed -patient is currently on room air, use O2 nasal cannula as needed to maintain sats above 88% 2. Obstructive sleep apnea, chronic -patient on BiPAP, using own 3. Essential hypertension, chronic -BP under adequate control -continue routine medications, also continue her lovastatin 4. Major depression with anxiety, chronic, present on admission, stable -patient followed at [facility], current coping mechanism unclear due to altered mental status, -will continue home regimen of bupropion 200 mg daily, duloxetine 60 mg daily and mirtazapine 15 mg bedtime. -pastoral support appreciated by spouse 5. Severe obesity, BMI 67.4 -dietary consult requested 6. Chronic kidney disease, stage III -creatinine 1.50-1.60 close to baseline which seems to range 1.4 to 1.7, last creatinine 1.5 DVT prophylaxis: On subcu heparin Maintenance IV: NS 100 cc/hour awaiting speech therapy swallow evaluation Patient will need retirement rehab due to acute CVA. She may be ready for discharge as soon as tomorrow if able to swallow safely.
--- NOTE | 2019-12-22 13:47 | ST.IPCSEOM ---
Visit Care Team Role Provider Type Craig Chowdhury MD Primary Care Provider Physician Specialty: Internal Medicine Address: [address] [place] [address], [address], [place], [address] Email: [email or web address] Ramiro Pearson DO Emergency Provider Physician Specialty: Emergency Medicine Address: [address] [place] [address], [id number] Email: JESSICA Timmons Admit Provider Physician Attending Provider Specialty: Internal Medicine Address: [address] [place] [address], [id number] Email: Current Diagnoses Chronic diastolic (congestive) heart failure (12/18/19) Past Medical History (Last Reviewed 12/19/19 @ 03:41 by JESSICA Timmons) Chronic renal insufficiency (Chronic Medical Unknown) Colon polyps (Resolved Medical Unknown) COPD (chronic obstructive pulmonary disease) (Chronic Medical Unknown) Hyperlipemia (Chronic Medical Unknown) Hypertension (Chronic Medical Unknown) Insomnia, unspecified (Chronic Medical ~1997) Lower extremity edema (Chronic Medical 09/08/17) Morbid obesity with body mass index (BMI) greater than or equal to 50 (Chronic Medical) Nocturnal hypoxemia (Inactive Medical 09/08/17) Obstructive sleep apnea of adult (Chronic Medical ~1997) Stable on BiPAP therapy Osteoarthritis (Chronic Medical Unknown) Restless leg syndrome (Chronic Medical Unknown) Restless leg syndrome (Chronic Medical) Stroke (Resolved Medical Unknown) Speech-Language Pathology Swallow Evaluation AUTOMATIC BANDSAW TENDER Clinical Swallow Evaluation Start: 12/22/19 13:17 Freq: Status: Active Protocol: Document 12/22/19 13:18 MG (Rec: 12/22/19 13:47 MG [id number]) Clinical Swallow Evaluation Session Time Visit Start Time 12:40 Visit Stop Time 13:15 Total Visit Minutes 35 Setting Assessment Location Acute Care Visit Type Note Type Initial Evaluation Next Note Type Next Note Type Treatment Note Patient Information Identification Type Name,ID Wristband History Pt is a 79 year old female with past medical history significant for super morbid obesity with a BMI of 67.4, CKD stage III, COPD, hyper tension, hyperlipidemia, CVA, peripheral edema, osteoarthritis, restless leg syndrome and major depression with anxiety presents to the ER today following a fall at home. The patient reports having weakness that has been progressive per her resulting in acute weakness today and collapsing onto the floor when her legs gave out without associated trauma. The patient was too weak to get up. She experience no loss of consciousness no neck or back injury. 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 Patient is normally ambulatory with a walker and a cane. The patient reports no recent complaints of illness and has had no fevers or chills. She denies nasal congestion or sore throat. She reports no complaints of chest pain or palpitations. She has increased shortness of breath with activity but denies cough . She reports no abdominal pain, nausea vomiting or heartburn. She reports occasional constipation and having to push to pass a bowel movement. She reports no urinary symptoms of urgency frequency or burning. On 2019, pt stopped verbalizing. noticed that in the past several hours patient was not talking to him or answering his questions. Patient was fully conversant that morning. And per staff she was verbalizing when met with staff member around 3:00 p.m. Subjective Observations Pt was sitting upright in chair next to bedside. Staff, chaplen, and service animal were present in the room. Pt appeared to acknowledge the AUTOMATIC BANDSAW TENDER, but did not verbally greet the AUTOMATIC BANDSAW TENDER. Pt did not express anything for the entire evaluation. Pt did not speak the entire session. Pt did not follow directions from the AUTOMATIC BANDSAW TENDER. Pt was mildly wheezing and appeared short of breath when the AUTOMATIC BANDSAW TENDER entered the room. Evaluation Liquids Trialed Ice Chips,Thin,Kirkpatrick Solids Trialed Puree,Dysphagia Mechanical Administration Type Tea Spoon,Cup Single Sip, Controlled Cup Sip,Self- Feeding,Dependent Feeding Oral Impairment Moderately Impaired Oral Strategies Upright at 90 degrees,Double Swallow,Controlled Bite/Sip Size Oral Phase Comments AUTOMATIC BANDSAW TENDER attempted to conduct a formal OME, but pt did not follow instructions. Through informal observation, AUTOMATIC BANDSAW TENDER observed weakened mandible movement, weak tongue protrusion and movement, and poor lip seal on liquid trials . AUTOMATIC BANDSAW TENDER observed pt double swallow without instruction to do so. AUTOMATIC BANDSAW TENDER observed prolonged chewing and min-mod oral residue with dysphagia mechanical consistency. Pharyngeal Impairment Moderately Impaired Pharyngeal Strategies Sitting Upright (90 deg),Small Bites and Sips Pharyngeal Phase Comments Upon laryngeal palpation, AUTOMATIC BANDSAW TENDER noted weakened hyolaryngeal movement as well as weakened anterior excursion of the hyoid. On trials of thin liquid from a teaspoon, pt did not demonstrate overt s/sx of aspiration. On trials of thin liquid from a small cup sip, pt showed immediate cough response. Cough appeared weak and nonproductive. AUTOMATIC BANDSAW TENDER moved to nectar thick consistency where no overt s/sx of aspiration were noted on teaspoon and small cup sip. Upon larger sip of nectar thick, pt showed immediate cough response. Cough was weak and nonproductive as well. AUTOMATIC BANDSAW TENDER attempted to teach strategies to pt (e.g., chin down maneuver), but pt did not follow instructions. When AUTOMATIC BANDSAW TENDER gave pt the cup and asked pt to take a sip, pt held cup and did not take a drink as requested from the AUTOMATIC BANDSAW TENDER. On puree texture, pt did not show overt s/sx of aspiration. On dysphagia mechanical, AUTOMATIC BANDSAW TENDER observed prolonged chewing, min-mod oral residue, and weak , nonproductive cough. Findings Dysphagia Type Oropharyngeal dysphagia Rehabilitation Potential Fair Impressions Pt shows signs of oropharyngeal dysphagia. Overall oral and laryngeal weakness was noted throughout evaluation as well as upon laryngeal palpation. On trials of small cup sip for thin liquid, pt was observed to demonstrate a weak, nonproductive cough. On small cup sip of nectar, pt did not show overt s/sx of aspiration. On larger sips of nectar, pt demonstrated a weak, nonproductive cough. With food consistencies that required mastication, pt had a difficult time masticating the food, had remains of food in the oral cavity, and demonstrated the weak, nonproductive cough immediately after swallow. Pt does not follow directions at this time to implement dysphagia strategies. Diet Recommendations Liquids Order Kirkpatrick Diet Order Dysphagia Blenderized Medication Recommendations Crushed in Carrier Additional Dietary Needs Single Sips,Controlled Sips,No Straws,1:1 Supervision, Encourage to Self-Feed Aspiration Precautions Recommended Precautions Upright at 90 Degrees,Small Bites/Sips,Check for Pocketing ,Liquids from Cup Treatment Plan Placement Recommendations after [facility] Facility Discharge Appropriate for Therapy Yes: Follow up to monitor diet Therapy Recommendations ST is recommended to follow up with pt and monitor diet in order to make sure pt is tolerating diet change. Dysphagia Goals Pt will tolerate least restrictive diet and show no overt s/sx of aspiration. AUTOMATIC BANDSAW TENDER Follow Up x1-x2
[2019-12-22] MEDS: ACETAMINOPHEN 325 MG TABLET 650 MG PO (14:40)
--- NOTE | 2019-12-22 15:06 | PC.NURSE ---
Day Shift Pt non-verbal. Able to follow some commands and when asked others she just closes her eyes and looks away. Checking her dorsi/plantar flexion this AM, she was unable to move her R foot. Pt continues with frequent BM, had 4 this shift. Some thicker liquid and final BM was very sticky paste like. Rodriges in place as skin is starting to get irritated from continued incontinence. pericare provided, barrier cream applied. pt is constantly pulling up her gown in bed and trying to cover herself, appears to be embarassed with pericare, appologized to pt and kept her as covered as possible but must get cleaned with fecal incontinence. up to chair for about an hour with peter lift.
--- NOTE | 2019-12-22 15:17 | PC.NURSE ---
Patient's bed was re-zeroed today. Patient was hoyered out of bed, linens changed. Patient was weighed at 145 kg. CM
[2019-12-22] MEDS: LOVASTATIN 20 MG TABLET 40 MG PO (17:36)
--- NOTE | 2019-12-22 18:08 | PC.NURSE ---
Addendum entered by Vicky Cabrera R.N. 12/22/19 22:30: Pt mostly sleeping. CPAP in place with oxygen level 97%. Pt rouses and opens eyes open command. Reaches for side rails during changing and pericare. Pt incontinent of stool. Positioned pt bolt upright and pt remains sleepy with eyes closed. Attempt to rouse to state of safety for taking oral meds and pt does not rouse to this state. PO meds not given. Addendum entered by Vicky Cabrera R.N. 12/22/19 20:54: Pt with eyes closed resting quietly in bed. CPAP has been placed by R.T. Continuous pulse oximeter in place with oxygen saturation level 93%. No signs of distress or discomfort. Addendum entered by Vicky Cabrera R.N. 12/22/19 19:17: Staff in providing pt's care and noted pt moving right great toe. Spouse observes and becomes tearful encouraging patient, there is hope. Original Note: Pt awake and alert in bed and is nonverbal. Spouse arrives and moves chair closer to pt in bed. Pt places hand on spouse's hand. [address] Clear breath sounds throughout, but expiratory wheezes noted with activity. BL foot pumps in place. Calf scd's not in place d/t pt's edema to BL LE's. Scattered bruises to abdomen. Three staff members to change pt's incontinent brief. Rodriges to gravity with scant amount dark odnna colored urine. IV fluids infusing as ordered to right ac site without difficulty. Dr. Cardona notified of speech's findings and orders for diet obtained. 1:1 feeder.
[2019-12-23] VITALS: BP 141/96; PULSE 85; RESP 17; TEMP 36.6
--- NOTE | 2019-12-23 02:02 | RT ---
Found the patient with her cpap mask half off of her face and pulse ox off of her finger. Repositioned mask correctly and placed pulse ox back on her finger. SpO2 96% with cpap on.
[2019-12-23] MEDS: HEPARIN 5,000 UNIT/ML VIAL 7500 UNIT SUBCUT (05:27)
[2019-12-23] MEDS: SODIUM CHLORIDE 0.9% 1,000 ML 100 ML IV (05:28)
[2019-12-23 05:55] VITALS: BP 134/80; PULSE 78; RESP 16; TEMP 36.4; O2SAT 96
[2019-12-23 09:00] VITALS: BP 140/94; PULSE 67; RESP 18; TEMP 36.3; O2SAT 95
[2019-12-23 09:53] VITALS: PULSE 72; RESP 20; O2SAT 94
[2019-12-23] MEDS: ALBUTEROL/IPRATROPIUM 3 ML AMPUL INH ×2 (09:53→13:25)
--- NOTE | 2019-12-23 10:34 | PM.DS.1 ---
History of Present Illness History of Present Illness Date Patient Seen: 12/18/19 Chief complaint: FALL Narrative: Written by Austin LOPEZ: Ms. singh Joel is a 79 year old female with past medical history significant for super morbid obesity with a BMI of 67.4, CKD stage III, COPD, hyper tension, hyperlipidemia, CVA, peripheral edema, osteoarthritis, restless leg syndrome and major depression with anxiety presents to the ER today following a fall at home. The patient reports having weakness that has been progressive per her resulting in acute weakness today and collapsing onto the floor when her legs gave out without associated trauma. The patient was too weak to get up. She experience no loss of consciousness no neck or back injury. He has also reports shortness of breath today and has a history of wheezing with her transportation planning engineer stating her wheezing is upper airway and therefore not COPD. Patient is normally ambulatory with a walker and a cane. The patient reports no recent complaints of illness and has had no fevers or chills. She denies nasal congestion or sore throat. She reports no complaints of chest pain or palpitations. She has increased shortness of breath with activity but denies cough. She reports no abdominal pain, nausea vomiting or heartburn. She reports occasional constipation and having to push to pass a bowel movement. She reports no urinary symptoms of urgency frequency or burning. Upon arrival in the ER the patient was afebrile a temperature of 97.6?, heart rate of 63, blood pressure 138/44, tachypneic at 44 with O2 saturation of 88%. Chest x-ray is taken which shows borderline cardiomyopathy with diffuse interstitial prominence, bibasilar streaky opacities. On ABG she is found to have a pH is 7.43, pCO2 of 38.1, PO2 of 75, bicarb of 25 and a base excess 1 on room air. Twelve lead EKG reveals a sinus rhythm with computer read of atrial fibrillation but presents with regular RR with PACs. No evidence of ST or T-wave changes. On laboratory analysis the patient has a normal white count of 6.0, the hemoglobin of 13.7 hematocrit 41.4 and platelets of 261. Coagulation she has PT of 10.8, INR 0.9, PTT of 30. Her electrolytes are all within normal limits. She has a BUN of 28 and creatinine of 1.6 and a nonfasting glucose of 110. Her EGFR is 31.3. Her lipase is 110. Her initial lactic acid was 2.4 and on recheck was 1.4. ProBNP is elevated at 494, total CK is 21 and troponin is less than 0.012. In the ER the patient received Lasix 40 mg and is admitted to the medicine service for hypoxemia and generalized weakness. Discharge Providers Provider Date of admission: 12/18/19 20:38 Discharge Date: 12/23/19 Primary care physician: Craig Chowdhury MD Consults: 12/18/19 21:41 Consult to Dietitian, Adult Routine Comment: Reason For Exam: Super morbid obesity Consult to Discharge Planning Routine Comment: Consult to Occupational Therapy Evaluate & Treat Comment: Dyspnea, weakness, super morbid obesity Physician Instructions: Evaluate and treat 12/18/19 21:42 Consult to Physical Therapy Evaluate & Treat Comment: Dyspnea, weakness, super morbid obesity Physician Instructions: Evaluate and Treat 12/18/19 21:44 Consult to Respiratory Therapy Evaluate & Treat Comment: COPD, mild CHF, dyspnea Physician Instructions: Evaluate and treat 12/18/19 22:01 Consult to Pastoral Services Routine Comment: patient has yassine/religeous values 12/21/19 16:03 Consult to Dietitian, Adult Routine Comment: Reason For Exam: nonverbal 12/21/19 18:30 Consult to Speech Therapy Evaluate & Treat Comment: aphasia, swallow eval Physician Instructions: Evaluate and treat 12/22/19 18:22 Consult to Dietitian, Adult Routine Comment: Reason For Exam: puree diet with nectar thickened liquids. Discharge provider: Maggie Dacosta DO Summary Hospital Course Discharge Diagnosis: 1. Acute CVA, undetermined if present on admission. Active. 2. Acute COPD exacerbation, present on admission. Resolved. 3. Hyperlipidemia, chronic, present on admission. Stable. 4. Hypertension, chronic, present on admission. Stable. 5. Obstructive sleep apnea, chronic, present on admission. Stable. 6. Major depression with anxiety, chronic, present on admission. Stable. 7. Severe morbid obesity, present on admission. Stable. 8. Chronic kidney disease, stage III Hospital Course: Susan Joel is a 79-year-old female with a past medical history significant for morbid obesity, COPD, hypertension, and previous CVA who presented to ED due to progressive weakness, ground level fall at home, and more difficulty with her breathing. 1. Acute CVA, undetermined if present on admission. Active. -Deficits of severe aphasia and right-sided lower extremity weakness/paresis. -During admission patient was talking normally and appeared to have global weakness thought secondary to COPD exacerbation, however it is possible that the weakness and fall at home were related to onset of stroke -On day #2- of hospitalization she had brief episode of acute aphasia, code stroke was called, and she had head CT and head/neck CTA which showed no acute findings, head CT with old right cerebellar infarct and head/neck CT without major stenoses. -On day #3- patient developed more persistent aphasia and over next 24 hours developed unilateral weakness and paresis in the right lower extremity, repeat head CT negative for bleed or other acute finding -On day #4- patient had a follow-up head CT which showed no acute finding. -Continued to monitor closely on telemetry. -Allowed for permissive hypertension. -Echocardiogram was technically difficult and had poor quality due to body habitus but unremarkable and without obvious embolic source. -Patient does not fit into the MRI machine at [facility], we called over to [facility] in [facility], [facility], and [facility] and were told she will not fit in any of their MRI machines. -Continued aspirin 81 mg daily and switched lovastatin to atorvastatin 40 mg daily at bedtime for stroke prophylaxis. -Continued physical, occupational, and speech therapy evaluation and treatment. Speech therapy recommended pureed diet with nectar thick liquids. -Discharged on maintenance IV fluids with normal saline at 50 mL/hr and will need to continue to be monitored and IV fluids adjusted as patient potentially recovers from acute CVA versus persistent deficits. Discussed with patient's PEG tube placement and currently leaning away from PEG tube placement. 2. Acute COPD exacerbation, present on admission. Resolved. -Patient presented with progressive worsening shortness of breath and wheeze. Lung sounds improved without significant wheeze. -Repeat chest x-ray 12/21 no evidence of pneumonia, poor inspiration, possible ?CHF pattern ?, however NT proBNP 494 is relatively low, and on past echo 03/09/2019 LVEF was 60-65% with normal LV wall thickness and motion, normal RV and a bioprosthetic valve, she does have chronic edema of lower extremities and venous stasis changes consistent with venous insufficiency -Received Lasix 80 mg IV x1. -Echocardiogram did not demonstrate obvious CHF. -Solu-Medrol stopped on 12/21 due to concern of steroid psychosis causing her altered mental status. -Initial ABG normal at pH 7.43, pCO2 38, PO2 75, bicarb 25 with SpO2 95% on FiO2 0.21. -Continued DuoNeb every 4 hours while awake and albuterol nebulizer every 4 hours as needed for shortness of breath or wheezing. -Continued supplemental oxygen as necessary to main oxygen saturations 88-92%. Patient intermittently requires 2 L for mouth breathing and apnea likely due to CVA, therefore, continued supplemental oxygen 2 L continuously at all times. May continue to titrate off oxygen as tolerated as an outpatient if functional status improves. 3. Hyperlipidemia, chronic, present on admission. Stable. -Fasting lipid panel demonstrated poor lipid control with total cholesterol 227, triglycerides 186, LDL 125 (goal < 70), and HDL 63. -Switched lovastatin to higher potency statin with atorvastatin 40 mg daily at bedtime. Continue aspirin 81 mg daily. 4. Hypertension, chronic, present on admission. Stable. -BP under adequate control. -Continue home quinapril 20 mg daily and verapamil 240 mg twice daily. 5. Obstructive sleep apnea, chronic, present on admission. Stable. -Continue home BiPAP while napping or sleeping and continuous supplemental oxygen with 2 L. 6. Major depression with anxiety, chronic, present on admission. Stable. -Patient followed at [facility]. Patient's current coping mechanism unclear due to altered mental status from likely CVA. -Continue home bupropion 200 mg daily, duloxetine 60 mg daily and mirtazapine 15 mg bedtime. -Pastoral support appreciated by spouse. 7. Severe morbid obesity, present on admission. Stable. -BMI 67.4 -Consulted dietitian and we appreciate her time and recommendations. Continue dysphagia mechanical with pureed diet and nectar thickened liquids. 8. Chronic kidney disease, stage III -Baseline creatinine 1.4-1.7. Patient is close to baseline with last creatinine 1.5. -Continued to avoid nephrotoxin agents. -Continued to monitor renal function periodically. Exam Vital Signs (past 8 hours): - 12/23/19 05:55 12/23/19 09:00 12/23/19 09:53 Temperature 97.6 F 97.4 F L Pulse Rate 78 67 72 Respiratory Rate 16 18 20 Blood Pressure 134/80 140/94 H Pulse Oximetry 96 95 94 Fraction of Inspired Oxygen 0 Oxygen Delivery Method Nasal Cannula Oxygen Flow Rate 2 Narrative Exam Narrative: General: Elderly female lying in bed and in no acute distress, well-developed, well-nourished, significantly somnolent but arousable, aphasic and nonverbal, able to open eyes on command and squeeze hand on command. HEENT: Normocephalic, atraumatic. External ears without defect. Pupils equal, round, and reactive to light. Anicteric sclerae, moist conjunctivae, and no lid lag. Neck: Supple with full range of motion. No jugular venous distension. No bruits. No lymphadenopathy or thyromegaly. Cardiovascular: Regular rate and rhythm without murmurs, rubs, or gallops appreciated. Pulmonary: Clear to auscultation bilaterally without crackles, wheezes, or rhonchi. Normal respiratory effort with no use of accessory muscles. Abdomen: Soft, obese, bowel sounds present, nontender, nondistended. No hepatosplenomegaly or masses appreciated. Extremities: No clubbing, cyanosis, or edema. Skin: Normal temperature, turgor, and texture; no rash, ulcers, or subcutaneous nodules appreciated. Neurological: Significantly somnolent but arousable. Right-sided lower extremity paresis. Aphasic and nonverbal. Follows some commands but unclear if appropriate. Objective Labs Result Diagrams: 12/22/19 05:30 12/22/19 05:30 Discharge Plan Discharge Plan Patient Disposition: SNF Transfer to: [facility] Under care of provider: Radio Repair Teacher Discharge orders & Medications Prescriptions: New aspirin 81 mg Tablet,Delayed Release (Dr/Ec) 81 mg PO DAILY Qty: 30 RF: 0 bisacodyl 10 mg Suppository 10 mg [place] DAILY PRN (Reason: Constipation) Qty: 10 RF: 0 atorvastatin 40 mg tablet 40 mg PO BEDTIME Qty: 30 RF: 0 Continued mirtazapine 15 mg tablet 15 mg PO BEDTIME Qty: 90 RF: 3 zolpidem 5 mg tablet 5 mg PO BEDTIME PRN (Reason: insomnia) Qty: 20 RF: 0 bupropion HCl [Wellbutrin SR] 200 mg tablet sustained-release 12 hr 200 mg PO QAM Qty: 90 RF: 3 duloxetine [Cymbalta] 30 mg capsule,delayed release(DR/EC) 60 mg PO QAM Qty: 180 RF: 3 calcium carbonate 600 mg calcium (1,500 mg) Tablet 600 mg PO BID Qty: 0 RF: 0 Prevnar 13 (PF) 0.5 ML syringe 0.5 ml IM X1 Qty: 1 RF: 0 desonide 0.05 % cream 1 applictn TOP BID Qty: 60 RF: 3 albuterol sulfate [Proventil HFA] 90 mcg/actuation HFA aerosol inhaler 0 puff INHALATION Q4-6H PRN (Reason: shortness of breath or wheezing) Qty: 6.7 RF: 6 verapamil 240 mg capsule,ext rel. pellets 24 hr 240 mg PO BID Qty: 180 RF: 1 ropinirole 1 mg tablet 1 mg PO DAILY RF: 0 melatonin 3 mg Tablet 6 - 9 mg PO BEDTIME PRN (Reason: Insomnia) RF: 0 quinapril 20 mg tablet 20 mg PO DAILY RF: 0 (DME) [employer] Dreamstation BIPAP Qty: 1 RF: 0 Discontinued lovastatin 40 mg tablet 40 mg PO QPM Qty: 90 RF: 3 Follow up/Referrals: Craig Chowdhury MD [Primary Care Provider] - Diet/Activity/Treatments Diet: Low-fat, Low-sodium and Low-cholesterol Liquid consistency: Musella Consistency Food texture: Blenderized or pureed Diet comment: Pureed, nectar thick liquids, IVF with normal saline 50 mL/hr continuous Activity: Activity as tolerated with PT/OT Oxygen: BiPAP while sleeping or napping and 2 L continuous oxygen [facility] Rehab type: Physical therapy, Occupational therapy and Speech therapy Discharge Data Primary Care Provider: Craig Chowdhury Discharges patient from system. Discharge Date/Time: 12/23/19 14:55
--- NOTE | 2019-12-23 11:21 | CM.DPC ---
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 Spouse states his preference is for PICC placement today for IV hydration and see if pt makes progress prior to considering PEG tube placement. and PETRA discussed pt's d/c to [facility] today after PICC placement and spouse states he is still agreeable with d/c to [facility] today. PETRA discussed BLS transport as pt cannot safely sit supine and is peter lift and bariatric, SW discussed Medicare may not fully cover transport but spouse still agreeable as no other safe way to transport pt. PETRA called [facility] and scheduled bariatric stretcher transport at 1430 and provided pt's weight and medical information and oxygen needs. PETRA completed BLS form and signed and PETRA attached facesheet and PT note for justification. PETRA updated PRECISION INSPECTOR, aligner typewriter, and RN with d/c timeframe and called spouse and left msg regarding time of transport. PETRA faxed [facility], signed med rec, no scripts needed, orders, d/c summary to [facility] to review and confirmed that written instructions on IV maintenance hydration qualified for what they needed. Plan: Patient to d/c to [facility] via [facility] transport today at 1430. ILIA Cordero
--- NOTE | 2019-12-23 12:50 | DI.RAD.S_ITS ---
PROCEDURE: XR CHEST 1V INDICATIONS: picc placement TECHNIQUE: One view of the chest was acquired. COMPARISON: [facility], CR, XR CHEST 1V, 12/21/2019, 9:56. FINDINGS: Surgical changes and devices: Left hip arthroplasty. Left arm PICC is present, tip of which is in the upper SVC. Lungs and pleura: Mild diffuse interstitial prominence. No pleural effusions or pneumothorax. Mediastinum: Mediastinal contours appear normal. Heart size is normal. Bones and chest wall: No suspicious bony lesions. Overlying soft tissues appear unremarkable. IMPRESSION: 1. Tip of the left arm PICC is in the upper SVC. 2. Mild pulmonary edema versus atypical pneumonia. Dictated by: Roya Deluna M.D. on 12/23/2019 at 12:28 Approved by: Roya Deluna M.D. on 12/23/2019 at 12:29
--- NOTE | 2019-12-23 13:15 | PT-IP ANOTE ---
Pt unavailable as pt is having x-rays and RT waiting to see pt. Pt to d/c to [facility] at 1430.
[2019-12-23 13:25] VITALS: PULSE 80; RESP 20; O2SAT 94
--- NOTE | 2019-12-23 14:55 | PC.NURSE ---
Discharge pt still mostly non-communicative. right before transfer was able to say isaiah when talking about the sensor operator whom she knows. attempted to get her to squeeze once for yes and twice for no but she just kept squeezing non stop. Report called to Bebe at [facility]. Pt left with hartley in place and PICC line placed in [place]. Pt left via ambulance stretcher.
== END 2019-12-23 14:55 | DRG 190 ==
LOC: ED 20:36 → AC 20:39
PROVIDERS: Emergency Medicine; Internal Medicine; Admitting Provider Nurse Practitioner Adult Health; Emergency Provider Emergency Medicine; PCP Student in an Organized Health Care Education/Training Program; Visit Provider Nurse Practitioner Adult Health
DX: J44.1 Chronic obstructive pulmonary disease with (acute) exacerbation (principal); I63.9 Cerebral infarction, unspecified; I13.0 Hypertensive heart and chronic kidney disease with heart failure and stage 1 through stage 4 chronic kidney disease, or unspecified chronic kidney disease; I50.32 Chronic diastolic (congestive) heart failure; Z68.44 Body mass index [BMI] 60.0-69.9, adult; R47.01 Aphasia; N18.3 Chronic kidney disease, stage 3 (moderate); G47.33 Obstructive sleep apnea (adult) (pediatric); E66.01 Morbid (severe) obesity due to excess calories; I87.2 Venous insufficiency (chronic) (peripheral); R40.4 Transient alteration of awareness; F41.8 Other specified anxiety disorders; G83.11 Monoplegia of lower limb affecting right dominant side; R53.1 Weakness; E78.5 Hyperlipidemia, unspecified; W18.30XA Fall on same level, unspecified, initial encounter
CPT/HCPCS: 36415; 36569; 36600; 70450; 70496; 70498; 71045; 80048; 80053; 81001; 82550; 82805; 83605; 83690; 83735; 83880; 84145; 84484; 85025; 85610; 85730; 92610; 93005; 93010; 93306; 94640; 94660; 94760; 94762; 96374; 97116; 97162; 97165; 97530; 97535; 99284; 99285; J1644; J1650; J1940; J2930; J7613; Q9957

== ENCOUNTER 2019-12-26 11:10 | Emergency (ER) | payer MEDICARE, BC, SELFPAY ==
[2019-12-18 21:39] VITALS: BMI 67.4
[2019-12-26] VITALS (7 sets, daily range): BP systolic 140–151; BP diastolic 71–106; PULSE 58–74; RESP 15–30; TEMP 36.8; O2SAT 90–100
--- NOTE | 2019-12-26 11:40 | DI.RAD.S_ITS ---
PROCEDURE: XR CHEST 1V INDICATIONS: suspected sepsis TECHNIQUE: One view of the chest was acquired. COMPARISON: [facility], CR, XR CHEST 1V, 12/23/2019, 12:55. FINDINGS: Surgical changes and devices: PICC line now projects to the proximal SVC. Total left shoulder arthroplasty. Lungs and pleura: Persistent mild pulmonary edema. No pleural effusions or pneumothorax. Mediastinum: Mediastinal contours appear normal. Heart size is normal. Bones and chest wall: No suspicious bony lesions. Overlying soft tissues appear unremarkable. Advanced arthritic change involving the right shoulder. IMPRESSION: Persistent mild pulmonary edema. Dictated by: Shaheed Templeton M.D. on 12/26/2019 at 12:30 Approved by: Shaheed Templeton M.D. on 12/26/2019 at 12:31
[2019-12-26 12:08] LABS: Add Manual Diff / Slide Review NO; Basophils Absolute Auto 100 /uL (0-100); Basophils Percent Auto 0.7 % (0-2); Eosinophils Absolute Auto 700 /uL (0-450); Eosinophils Percent Auto 7.8 % (2-4); Hematocrit 42.7 % (36-46); Hemoglobin 13.9 g/dL (12.0-16.0); Lymphocytes Absolute Auto 1500 /uL (1100-4500); Lymphocytes Percent Auto 17.1 % (25-40); Mean Corpuscular HGB Conc 32.4 % (30-36); Mean Corpuscular Hemoglobin 29.9 PG (26-34); Mean Corpuscular Volume 92.3 fL (80-100); Monocytes Absolute Auto 1100 /uL (0-900); Monocytes Percent Auto 12.6 % (3-14); Neutrophils Absolute Auto 5500 /uL (1500-7000); Neutrophils Percent Auto 61.8 % (50-75); Platelet Count 272 X10^3/uL (150-400); Red Blood Cell Count 4.63 X10^6/uL (4.0-5.2); White Blood Cell Count 8.8 X10^3/uL (4.5-11.0)
[2019-12-26 12:13] LABS: Prothrombin Time 11.2 SECONDS (10.1-12.7)
[2019-12-26 12:16] LABS: PTT Partial Thromboplastin Tim 28 SECONDS (26.4-36.2)
[2019-12-26 12:18] LABS: Alanine Aminotransferase 28 IU/L (<35); Albumin 3.6 g/dL (3.5-5.0); Albumin Globulin Ratio 1.2 (1.0-2.8); Alkaline Phosphatase 64 U/L (38-126); Aspartate Aminotransferase 38 IU/L (14-36); BUN Creatinine Ratio 25.8 (6-22); Bilirubin Total 0.5 mg/dL (0.2-1.3); Blood Urea Nitrogen 31 mg/dL (7-17); Calcium 9.2 mg/dL (8.4-10.2); Carbon Dioxide 33 mmol/L (22-32); Chloride 102 mmol/L (98-107); Estimated Glomerular Filt Rate 43.6 mL/min (>60); Globulin 3.1 g/dL (1.7-4.1); Glucose 96 mg/dL (80-110); HEMOLYSIS < 15 (0-50); Lipase 110 U/L (23-300); Potassium 4.6 mmol/L (3.4-5.1); Sodium 142 mmol/L (137-145); Total Protein 6.7 g/dL (6.3-8.2)
--- NOTE | 2019-12-26 12:20 | ED_ITS ---
HPI - General Adult General Chief complaint: Shortness of Breath/Dyspnea Stated complaint: Possible infection Time Seen by Provider: 12/26/19 12:07 Source: EMS and old records reviewed Mode of arrival: EMS Limitations: no limitations History of Present Illness HPI narrative: This is a 79-year-old female comes to the emergency department sent by the nurse practitioner. She had a stroke with aphasia. While at the care facility they felt she had some cellulitis in her lower extremities and was started on a doxycycline p.o.. Patient also has a PICC line in her left upper extremity is she had some difficulty with swallowing and they were doing gentle fluids although patient can take sick and oral intake. They noted that the area around the PICC line seems bruised as well as red and warm and there is concern for infection in that the PICC line may need to be pulled. She states patient's vitals have been fine. Patient has pretty severe aphasia and has difficulty interacting or giving answers. She does nod her head yes and no to some questions. Related Data Home Medications Medication Instructions Recorded Confirmed calcium carbonate 600 mg PO BID #0 04/07/11 12/18/19 Respironics Dreamstation BIPAP #1 ea 06/07/19 12/18/19 melatonin 6 - 9 mg PO BEDTIME PRN 12/18/19 12/18/19 quinapril 20 mg PO DAILY 12/18/19 12/18/19 ropinirole 1 mg PO DAILY 12/18/19 12/18/19 Previous Rx's Medication Instructions Recorded Prevnar 13 (PF) 0.5 ml IM X1 #1 ea 01/17/18 desonide 0.05 % topical cream 1 applictn TOP BID #60 gram 06/27/18 albuterol sulfate 90 mcg/actuation 0 puff INHALATION Q4-6H PRN #6.7 10/04/18 aerosol inhaler gram mirtazapine 15 mg tablet 15 mg PO BEDTIME #90 tab 05/18/19 zolpidem 5 mg tablet 5 mg PO BEDTIME PRN #20 tab 05/18/19 verapamil 240 mg 24 hr 240 mg PO BID #180 cap 08/28/19 capsule,extended release bupropion HCl 200 mg tablet,12 hr 200 mg PO QAM #90 tab 09/10/19 sustained-release duloxetine 30 mg capsule,delayed 60 mg PO QAM #180 cap 09/10/19 release aspirin 81 mg PO DAILY #30 tab 12/23/19 atorvastatin 40 mg PO BEDTIME #30 tab 12/23/19 bisacodyl 10 mg GA DAILY PRN #10 ea 12/23/19 Allergies Allergy/AdvReac Type Severity Reaction Status Date / Time Penicillins [PENICILLINS] Allergy Mild Rash Verified 12/18/19 17:13 venom-honey bee Allergy Unknown Verified 12/18/19 17:13 [BEE VENOM (HONEY BEE)] BANDAGES Allergy Intermediate PLASTIC Uncoded 11/09/19 15:03 Review of Systems Review of Systems ROS Unobtainable: Unobtainable due to medical condition Patient History Medical History Chronic renal insufficiency (Chronic Unknown) Colon polyps (Resolved Unknown) COPD (chronic obstructive pulmonary disease) (Chronic Unknown) Hyperlipemia (Chronic Unknown) Hypertension (Chronic Unknown) Insomnia, unspecified (Chronic ~1997) Lower extremity edema (Chronic 09/08/17) Morbid obesity with body mass index (BMI) greater than or equal to 50 (Chronic) Nocturnal hypoxemia (Inactive 09/08/17) Obstructive sleep apnea of adult (Chronic ~1997) Osteoarthritis (Chronic Unknown) Restless leg syndrome (Chronic Unknown) Restless leg syndrome (Chronic) Stroke (Resolved Unknown) Surgical History History of knee replacement (Resolved 2000) History of tonsillectomy (Resolved 1947) Hx of total hip arthroplasty (Resolved 09/2008) Status post cholecystectomy (Resolved 1997) Status post dilation and curettage (Resolved 2000) Social History marital status: details: unhappily to Jaycob (52 years) number of children: 2 household members: spouse lives independently: Yes caregiver/support person: No housing: house pets and animals: Yes (dog named Dilly) education level: college occupational status: previously employed 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 HEENT: Head normocephalic, atraumatic, EOMI, pupils reactive, face symmetric, moist mucous membranes, no facial droop appreciated. NECK: Supple, full range of motion CARDIOVASCULAR: Regular rate and rhythm without murmurs, rubs or gallops. No JV D noted. RESPIRATORY: Breath sound mildly decreased bilaterally, no wheezes rales or rhonchi. + for tachypnea. No accessory muscle use. ABDOMEN: Soft, nontender. Normoactive bowel sounds all 4 quadrants. No guarding or rebound, rigidity, no mass EXTREMITIES: PICC Line in left upper extremity has surrounding ecchymosis, as well as erythema that is extending from the PICC line and about half way around the arm. It is in a band about 5 cm in width extending about 6 cm. The area is warm there is a small amount of superficial skin removed 1/1.5cm when tegaderm was removed. Neurovascularly intact, patient has 2+ radial pulse. She has full movement of her fingers but she does have significant swelling of the lower arm including her hand. NEUROLOGICAL: Cranial nerves II through XII grossly intact. SKIN: Warm, dry, no petechiae, no rashes or lesions other than noted as above. Patient does have 2 areas of erythema on the anterior mcduffie. That appear to be contained within the area of demarcation and slightly smaller. No open wounds are noted. Initial Vital Signs Initial Vital Signs: Vital Signs Temperature 98.3 F 12/26/19 11:23 Pulse Rate 65 12/26/19 11:23 Respiratory Rate 27 H 12/26/19 11:23 Blood Pressure 142/97 H 12/26/19 11:23 Pulse Oximetry 100 12/26/19 11:23 Course Orders Ordered: ED Orders 12/26/19 11:40 XR chest 1V Stat RT Consult Eval and Treat Now 12/26/19 11:55 Blood Culture Stat NT-proBNP (BNP-Adult 18+) Stat Troponin & CK Cardiac Panel Stat 12/26/19 11:59 Catheter Tip Culture Stat Complete Blood Count AUTO DIFF Stat Comprehensive Metabolic Panel Stat Lactate (Lactic Acid) Stat Lipase Stat Partial Thromboplastin Time Stat Procalcitonin Stat Prothrombin Time INR Stat 12/26/19 12:20 US periph venous up extrem lt Stat Discontinued Medications Sodium Chloride (Normal Saline 0.9%) 1,000 mls @ 1,000 mls/hr IV BOLUS ONE Stop: 12/26/19 12:39 Last Admin: 12/26/19 12:00 Dose: Not Given Documented by: AMAIRANI Vital Signs Vital signs: Vital Signs - 8 hr 12/26/19 11:23 12/26/19 11:37 12/26/19 12:00 Temperature 98.3 F Pulse Rate 65 74 60 Respiratory Rate 27 H 30 H 20 Blood Pressure 142/97 H Blood Pressure [Left Arm] 142/82 H 151/71 H Blood Pressure [Right Wrist] Pulse Oximetry 100 94 92 12/26/19 12:40 12/26/19 13:07 12/26/19 13:44 Temperature Pulse Rate 62 58 L 60 Respiratory Rate 20 15 17 Blood Pressure Blood Pressure [Left Arm] 142/83 H Blood Pressure [Right Wrist] 147/106 H 146/95 H Pulse Oximetry 93 90 L 93 12/26/19 14:53 Temperature Pulse Rate 65 Respiratory Rate 19 Blood Pressure 140/85 Blood Pressure [Left Arm] Blood Pressure [Right Wrist] Pulse Oximetry 96 Medical Decision Making Lab Data Lab results reviewed: Yes I reviewed the patient's lab results. Result diagrams: 12/26/19 11:59 12/26/19 11:59 Labs: Lab Results 12/26/19 12/26/19 12/26/19 Range/Units 11:55 11:59 11:59 WBC 8.8 (4.5-11.0) X10^3/uL RBC 4.63 (4.0-5.2) X10^6/uL Hgb 13.9 (12.0-16.0) g/dL Hct 42.7 (36-46) % MCV 92.3 (80-100) fL MCH 29.9 (26-34) PG MCHC 32.4 (30-36) % RDW 15.0 H (11.6-14.8) % Plt Count 272 (150-400) X10^3/uL Neut % (Auto) 61.8 (50-75) % Lymph % (Auto) 17.1 L (25-40) % Barbour % (Auto) 12.6 (3-14) % Eos % (Auto) 7.8 H (2-4) % Baso % (Auto) 0.7 (0-2) % Neut # (Auto) 5500 (2641-5492) /uL Lymph # (Auto) 1500 (6887-4244) /uL Barbour # (Auto) 1100 H (0-900) /uL Eos # (Auto) 700 H (0-450) /uL Baso # (Auto) 100 (0-100) /uL PT 11.2 (10.1-12.7) SECONDS INR 1.0 (0.9-1.3) APTT 28 D (26.4-36.2) SECONDS Sodium (137-145) mmol/L Potassium (3.4-5.1) mmol/L Chloride (98-107) mmol/L Carbon Dioxide (22-32) mmol/L BUN (7-17) mg/dL Creatinine (0.52-1.04) mg/dL Estimated GFR (>60) mL/min BUN/Creatinine Ratio (6-22) Glucose (80-110) mg/dL Lactate (0.7-2.1) mmol/L Calcium (8.4-10.2) mg/dL Total Bilirubin (0.2-1.3) mg/dL AST (14-36) IU/L ALT (<35) IU/L Alkaline Phosphatase (38-126) U/L Total Creatine Kinase 221 H (30-135) U/L CK-MB (CK-2) 1.30 (<2.37) ng/mL CK-MB (CK-2) Rel Index 0.6 L (1.5-5.0) % Troponin I < 0.012 (0.01-0.034) ng/mL NT-Pro-B Natriuret Pep 397 (<450) pg/mL Total Protein (6.3-8.2) g/dL Albumin (3.5-5.0) g/dL Globulin (1.7-4.1) g/dL Albumin/Globulin Ratio (1.0-2.8) Lipase (23-300) U/L Procalcitonin (<0.5) ng/mL 12/26/19 12/26/19 12/26/19 Range/Units 11:59 11:59 11:59 WBC (4.5-11.0) X10^3/uL RBC (4.0-5.2) X10^6/uL Hgb (12.0-16.0) g/dL Hct (36-46) % MCV (80-100) fL MCH (26-34) PG MCHC (30-36) % RDW (11.6-14.8) % Plt Count (150-400) X10^3/uL Neut % (Auto) (50-75) % Lymph % (Auto) (25-40) % Barbour % (Auto) (3-14) % Eos % (Auto) (2-4) % Baso % (Auto) (0-2) % Neut # (Auto) (3046-6410) /uL Lymph # (Auto) (3778-9377) /uL Barbour # (Auto) (0-900) /uL Eos # (Auto) (0-450) /uL Baso # (Auto) (0-100) /uL PT (10.1-12.7) SECONDS INR (0.9-1.3) APTT (26.4-36.2) SECONDS Sodium 142 (137-145) mmol/L Potassium 4.6 (3.4-5.1) mmol/L Chloride 102 (98-107) mmol/L Carbon Dioxide 33 H (22-32) mmol/L BUN 31 H (7-17) mg/dL Creatinine 1.20 H (0.52-1.04) mg/dL Estimated GFR 43.6 L (>60) mL/min BUN/Creatinine Ratio 25.8 H (6-22) Glucose 96 (80-110) mg/dL Lactate 1.0 (0.7-2.1) mmol/L Calcium 9.2 (8.4-10.2) mg/dL Total Bilirubin 0.5 (0.2-1.3) mg/dL AST 38 H (14-36) IU/L ALT 28 (<35) IU/L Alkaline Phosphatase 64 (38-126) U/L Total Creatine Kinase (30-135) U/L CK-MB (CK-2) (<2.37) ng/mL CK-MB (CK-2) Rel Index (1.5-5.0) % Troponin I (0.01-0.034) ng/mL NT-Pro-B Natriuret Pep (<450) pg/mL Total Protein 6.7 (6.3-8.2) g/dL Albumin 3.6 (3.5-5.0) g/dL Globulin 3.1 (1.7-4.1) g/dL Albumin/Globulin Ratio 1.2 (1.0-2.8) Lipase 110 (23-300) U/L Procalcitonin 0.05 (<0.5) ng/mL Imaging Data Chest x-ray: Radiologist's Impression: [address] [address] XRay Report Signed Patient: Susan Joel [facility]#: [id number] : 2Acct:[id number] Age/Sex: 79 / FDate of Service: 12/26/19 Loc: ED Accession Number: [id number] Procedure: XR chest 1V Ordering Provider: Belia Mock D.O. PROCEDURE: XR CHEST 1V INDICATIONS: suspected sepsis TECHNIQUE: One view of the chest was acquired. COMPARISON: [facility], , XR CHEST 1V, 12/23/2019, 12:55. FINDINGS: Surgical changes and devices: PICC line now projects to the proximal SVC. Total left shoulder arthroplasty. Lungs and pleura: Persistent mild pulmonary edema. No pleural effusions or pneumothorax. Mediastinum: Mediastinal contours appear normal. Heart size is normal. Bones and chest wall: No suspicious bony lesions. Overlying soft tissues appear unremarkable. Advanced arthritic change involving the right shoulder. IMPRESSION: Persistent mild pulmonary edema. Dictated by: Shaheed Templeton M.D. on 12/26/2019 at 12:30 Approved by: Shaheed Templeton M.D. on 12/26/2019 at 12:31 US - DVT: Radiologist's Impression: [address] [address] Ultrasound Report Signed Patient: Susan Joel [facility]#: [id number] : 2Acct:[id number] Age/Sex: 79 / FDate of Service: 12/26/19 Loc: ED Accession Number: [id number] Procedure: US periph venous up extrem lt Ordering Provider: Belia Mock D.O. PROCEDURE: US PERIPH VENOUS UP EXTREM LT INDICATIONS: EDEMA POST PICC REMOVAL TECHNIQUE: Real-time imaging, as well as color and pulse Doppler interrogation, was performed of the left upper extremity deep veins from the inferior neck to the antecubital fossa. COMPARISON: [facility], PVE UNILATERAL RIGHT, 10/13/2011, 19:01. [facility], PERIPH.LIU EXT BILAT, 10/25/2008, 12:45. FINDINGS: The internal jugular vein, visualized portions of the subclavian vein, axillary, and brachial veins are free of intraluminal thrombus. Where physically possible, the veins are normally compressible. Color and pulse Doppler demonstrate normal intraluminal flow, with expected phasicity and pulsatility. Additional scanning of the cephalic and basilic veins of the superficial system demonstrate normal compressibility, without thrombus. This study is limited by body habitus. IMPRESSION: Limited study, without findings of deep venous thrombosis. Dictated by: Olvin Ahmadi M.D. on 12/26/2019 at 13:19 Approved by: Olvin Ahmadi M.D. on 12/26/2019 at 13:20 ECG Data Attestation: I personally reviewed and interpreted this ECG as follows: Prior ECG tracings: available for review Interpretation: Sinus rhythm with sinus arrhythmia and first-degree AV block. Rate of 71 GA 211 QRS of 92 QTC of 405. No ST elevation or depression noted. EKG appears similar to prior from 12/18/2019. MDM Narrative Medical decision making narrative: Patient comes in with a bolus like an infection surrounding the PICC line. It was pulled and sent for culture blood cultures were also obtained. Patient does not meet any septic or SIRS criteria at this time. White count is in the normal range she has been afebrile, her oxygen saturation is typical and she has been using typically 2 L nasal cannula according to the notes from her recent discharge and according to the nurse practitioner Kareem at [facility]. Patient's renal function appears to be a little bit improved her BMP is slightly improved, lungs show some edema on chest x-ray but clinically she appears stable. Patient does not have any worsening troponin or BNP. Patient case was discussed with her as well as the nurse practitioner and both feel comfortable with her returning. At this time they both feel that she does not need replacement of her PICC line as she has be en tolerating orals without major issue. She is already on an antibiotic at this time and we discussed that cultures likely will result in 48-72 hours and if needed patient can return or have PICC line placed for IV antibiotics as needed at the facility. Discharge Plan Departure Patient Disposition: [facility] Clinical Impression: Cellulitis of arm, left Discharge Date/Time: 12/26/19 14:50 Activity Restrictions/Additional Instructions: Follow up with your care provider in the next 24 hours. The culture for the catheter and blood cultures are pending, these typically result in 48-72 hours. Continue antibiotics as prescribed. Return to the ER for fevers greater 100.4 F, new changes in mental status, worsening swelling of the upper extremity, spreading redness, pain, decreased movement, worsening shortness of, tachypnea, persistent vomiting or other new or concerning symptoms. Referrals: Craig Chowdhury MD [Primary Care Provider] -
[2019-12-26 12:33] LABS: Creatine Kinase 221 U/L (30-135)
[2019-12-26 12:47] LABS: NT-proBNP (BNP-Adult 18+) 397 pg/mL (<450); Troponin I < 0.012 ng/mL (0.01-0.034)
[2019-12-26 12:49] LABS: CKMB % Relative Index 0.6 % (1.5-5.0)
[2019-12-26 12:55] LABS: Procalcitonin 0.05 ng/mL (<0.5)
== END 2019-12-26 14:50 ==
PROVIDERS: Emergency Provider Emergency Medicine; PCP Student in an Organized Health Care Education/Training Program
DX: L03.114 Cellulitis of left upper limb (principal); R60.9 Edema, unspecified; Z95.9 Presence of cardiac and vascular implant and graft, unspecified; R06.02 Shortness of breath
CPT/HCPCS: 36415; 71045; 80053; 82550; 82553; 83605; 83690; 83880; 84145; 84484; 85025; 85610; 85730; 87040; 87070; 87205; 93005; 93971; 99284; 99285

== ENCOUNTER → 2020-01-23 10:02 | Outpatient (ROUT) | payer SELFPAY ==
[2019-12-18 21:39] VITALS: BMI 67.4
[2020-01-23 10:51] LABS: Influenza A - CEPHEID Flu A NEGATIVE (NEGATIVE); Influenza B - CEPHEID Flu B NEGATIVE (NEGATIVE)
== END ==
PROVIDERS: PCP Student in an Organized Health Care Education/Training Program; Visit Provider Nurse Practitioner
DX: R09.89 Other specified symptoms and signs involving the circulatory and respiratory systems (principal); R05 Cough
CPT/HCPCS: 87502

== ENCOUNTER → 2020-02-22 18:12 | Outpatient (ROUT) | payer SELFPAY ==
[2019-12-18 21:39] VITALS: BMI 67.4
[2020-02-22 18:23] LABS: Add Manual Diff / Slide Review NO; Basophils Absolute Auto 100 /uL (0-100); Basophils Percent Auto 0.8 % (0-2); Eosinophils Absolute Auto 400 /uL (0-450); Eosinophils Percent Auto 5.1 % (2-4); Hematocrit 44.3 % (36-46); Hemoglobin 14.7 g/dL (12.0-16.0); Lymphocytes Absolute Auto 1600 /uL (1100-4500); Lymphocytes Percent Auto 21.1 % (25-40); Mean Corpuscular HGB Conc 33.2 % (30-36); Mean Corpuscular Volume 90.3 fL (80-100); Monocytes Absolute Auto 800 /uL (0-900); Monocytes Percent Auto 10.2 % (3-14); Neutrophils Absolute Auto 4800 /uL (1500-7000); Neutrophils Percent Auto 62.8 % (50-75); Platelet Count 293 X10^3/uL (150-400); Red Blood Cell Count 4.91 X10^6/uL (4.0-5.2); Red Cell Distribution Width 14.6 % (11.6-14.8); White Blood Cell Count 7.6 X10^3/uL (4.5-11.0)
== END ==
PROVIDERS: PCP Student in an Organized Health Care Education/Training Program; Visit Provider Internal Medicine
DX: I50.9 Heart failure, unspecified (principal)
CPT/HCPCS: 85025

== ENCOUNTER → 2020-03-21 14:12 | Outpatient (ROUT) | payer SELFPAY ==
[2019-12-18 21:39] VITALS: BMI 67.4
[2020-03-25 19:11] LABS: COVID19 Sendout Not Detected (Not Detected)
== END ==
PROVIDERS: PCP Student in an Organized Health Care Education/Training Program; Visit Provider Internal Medicine
DX: Z11.59 Encounter for screening for other viral diseases (principal)
CPT/HCPCS: 87635

== ENCOUNTER → 2020-07-21 14:52 | Outpatient (CLI) | payer MEDICARE, BC, SELFPAY ==
[2020-06-26 12:04] VITALS: BMI 67.4
[2020-07-21 15:18] LABS: Appearance Urine UA CLOUDY; Bilirubin Urine UA NEGATIVE (NEGATIVE); Color Urine UA YELLOW; Glucose Urine UA NEGATIVE (Negative); Ketones Urine UA NEGATIVE (NEGATIVE); Leukocyte Esterase Urine UA 3+ (NEGATIVE); Nitrite Urine UA NEGATIVE (Negative); Occult Blood Urine UA 3+ (Negative); Protein Urine UA TRACE (Negative); Urobilinogen Urine UA 0.2 E.U./dL (0.2)
[2020-07-21 15:48] LABS: Bacteria Urine Many (>30); Culture Indicated Urine Specimen Cultured; RBC Urine 30-100/HPF (0-5/HPF); Squamous Epithelial Cell Urine 1-5 /HPF (0-5/HPF); WBC Urine >100/HPF (0-5/HPF); pH Urine UA 6.5 (4.5-8.0)
== END ==
PROVIDERS: PCP Student in an Organized Health Care Education/Training Program; Referring Provider Student in an Organized Health Care Education/Training Program; Visit Provider Student in an Organized Health Care Education/Training Program
DX: R30.0 Dysuria (principal)
CPT/HCPCS: 81001; 87077; 87086; 87186

== ENCOUNTER → 2020-11-18 09:55 | Outpatient (CLI) | payer MEDICARE, BC, SELFPAY ==
[2020-11-17 16:01] VITALS: BMI 67.4
[2020-11-18 10:40] LABS: Appearance Urine UA SL CLOUDY; Bilirubin Urine UA NEGATIVE (NEGATIVE); Color Urine UA YELLOW; Glucose Urine UA NEGATIVE (Negative); Ketones Urine UA NEGATIVE (NEGATIVE); Leukocyte Esterase Urine UA 1+ (NEGATIVE); Nitrite Urine UA NEGATIVE (Negative); Occult Blood Urine UA TRACE-LYSED (Negative); Protein Urine UA NEGATIVE (Negative); Urobilinogen Urine UA 0.2 E.U./dL (0.2)
[2020-11-18 11:19] LABS: Bacteria Urine Moderate (10-30); Culture Indicated Urine Specimen Cultured; RBC Urine 0-1/HPF (0-5/HPF); Squamous Epithelial Cell Urine 1-5 /HPF (0-5/HPF); WBC Urine 5-10/HPF (0-5/HPF)
== END ==
PROVIDERS: PCP Student in an Organized Health Care Education/Training Program; Referring Provider Family Medicine; Visit Provider Family Medicine
DX: N39.0 Urinary tract infection, site not specified (principal)
CPT/HCPCS: 81001; 87086

== ENCOUNTER → 2021-01-07 11:02 | Outpatient (CLI) | payer MEDICARE, BC, SELFPAY ==
[2020-12-29 15:41] VITALS: BMI 67.4
[2021-01-07 13:09] LABS: COVID19 -Nasal RAPID Negative (Negative)
== END ==
PROVIDERS: PCP Student in an Organized Health Care Education/Training Program; Referring Provider Internal Medicine; Visit Provider Internal Medicine
DX: Z20.822 Contact with and (suspected) exposure to COVID-19 (principal)
CPT/HCPCS: 87635; C9803

== ENCOUNTER → 2021-01-08 08:57 | Outpatient (CLI) | payer MEDICARE, BC, SELFPAY ==
[2020-12-29 15:41] VITALS: BMI 67.4
--- NOTE | 2021-01-14 09:16 | PM.PFT.1 ---
Pulmonary Function Test Referral & Results Date Patient Seen: 01/08/21 Requesting provider: Nu Sharma Results: The spirometry demonstrates an FVC of 1.93 L which is 82% of predicted. The FEV1 was measured at 1.54 L which is 89% of predicted. The FEV1/FVC ratio was 80 which is 107% of predicted. Following the administration of bronchodilator there was 2.17 L. Lung volumes show an SVC of 90% which is [] of predicted. Patient was unable to perform diffusing capacity or maximum voluntary ventilation because of probable anxiety causing significant hyperventilation and dyspnea. Interpretation: This study is probably normal. No evidence of abnormality on spirometry However patient was essentially unable to really consistently perform pulmonary function testing, issues with anxiety hyperventilation and dyspnea as well as issues with patient's caregiver who was present and interfered with technicians ability to give proper instructions to patient. Therefore clinical correlation suggested, this study may not be valid, however numbers above are consistent with normal pulmonary function
== END ==
PROVIDERS: PCP Student in an Organized Health Care Education/Training Program; Referring Provider Student in an Organized Health Care Education/Training Program; Visit Provider Internal Medicine Pulmonary Disease
DX: R06.02 Shortness of breath (principal); R06.2 Wheezing; J98.8 Other specified respiratory disorders
CPT/HCPCS: 94010

== ENCOUNTER → 2021-01-29 09:39 | Outpatient (CLI) | payer MEDICARE, BC, SELFPAY ==
[2021-01-20 11:51] VITALS: BMI 67.4
--- NOTE | 2021-01-29 | DI.CT.S_ITS ---
PROCEDURE: CT CHEST HIGH RESOLUTION INDICATIONS: shortness of breath TECHNIQUE: Noncontrast 1.0 and 5.0 mm thick contiguous axial sections from the pulmonary apex to the posterior costophrenic angles, with 7 mm thick coronal and sagittal MIP reformats. 1 mm thick dynamic expiratory images acquired through the upper, mid, and lower lungs. 1.0 mm thick axial sections acquired from the mansi to the posterior costophrenic angles in the prone end-inspiration position. For radiation dose reduction, the following was used: automated exposure control, adjustment of mA and/or kV according to patient size. COMPARISON: [facility], , XR CHEST 1V, 12/26/2019, 12:03. FINDINGS: Image quality: Limited by patient motion during image acquisition.. Lungs: Quality of visualization is quite limited by patient motion during image acquisition. A fibrotic pattern is not seen but rather what appears to be a generalized mild alveolar edema pattern is present. Body habitus is large, which further diminishes quality of visualization. The appearance is similar to that seen by plain film imaging 12/26/19. Pleura: No pleural effusions or pneumothorax. Mediastinum: Heart size is normal. No pericardial effusion. Thoracic aorta and central pulmonary arteries are normal in size. Esophagus is normal in caliber. Bones and chest wall: No suspicious bony lesions. No vertebral body compression fractures. Abdomen: Visualized upper abdominal solid organs and bowel loops appear normal. IMPRESSION: Significant limitation of image quality due to patient motion during image acquisition. This is further compromised by patient body habitus. A fibrotic pattern within the lung parenchyma is not identified but rather what appears to be likely a mild alveolar edema pattern is present. No pulmonary mass or focal pneumonia is found. No pleural effusion is identified. No mediastinal or hilar adenopathy is found. The current imaging is nonspecific, and could represent cardiogenic pulmonary edema, immune mediated alveolar edema, and even potentially atypical pneumonia. Dictated by: Dusty Goodman M.D. on 01/29/2021 at 16:32 Approved by: Dusty Goodman M.D. on 01/29/2021 at 17:05
== END ==
PROVIDERS: PCP Student in an Organized Health Care Education/Training Program; Referring Provider Internal Medicine Pulmonary Disease; Visit Provider Internal Medicine Pulmonary Disease
DX: R06.02 Shortness of breath (principal)
CPT/HCPCS: 71250

== ENCOUNTER → 2021-02-12 09:39 | Outpatient (CLI) | payer MEDICARE, BC, SELFPAY ==
[2021-01-20 11:51] VITALS: BMI 67.4
[2021-02-12 10:35] LABS: COVID19 -Nasal RAPID Negative (Negative)
== END ==
PROVIDERS: PCP Student in an Organized Health Care Education/Training Program; Visit Provider Family Medicine Sleep Medicine
DX: Z20.822 Contact with and (suspected) exposure to COVID-19 (principal)
CPT/HCPCS: 87635; C9803

== ENCOUNTER → 2021-02-13 10:38 | Outpatient (CLI) | payer MEDICARE, BC, SELFPAY ==
[2021-01-20 11:51] VITALS: BMI 67.4
--- NOTE | 2021-02-16 20:59 | DI.NM.S_ITS ---
DATE OF SERVICE: 02/13/2021 PROCEDURE PERFORMED: Pharmacologic vasodilator stress and rest myocardial perfusion imaging with gating to assess ejection fraction and regional wall motion. ORDERING PROVIDER: Dr. Alexandro Santiago. INDICATIONS: The patient is a 80-year-old female with exertional dyspnea and previous stroke. PHARMACOLOGIC VASODILATOR STRESS: Per protocol, 0.4 mg of regadenoson was infused with a normal hemodynamic response. She had no chest discomfort or other anginal symptoms. Her resting ECG shows sinus rhythm with normal ST segments, and there are no significant ST-segment shifts or arrhythmias with pharmacologic stress. Per protocol, 26.6 millicuries of technetium-99m Myoview was injected and the patient was imaged 20 minutes later using a gated SPECT acquisition protocol. She returned three days later and was reinjected with an additional 25.5 millicuries of technetium-99m Myoview and was imaged 30 minutes later, again using a gated SPECT acquisition protocol. FINDINGS: 1. Raw data: There is moderate image quality because of significant attenuation artifact seen on the raw data images. She was unable to raise her right arm and was unable to lie prone due to physical limitations and therefore assessment for attenuation artifact is not possible. Lung/heart ratio was normal at 0.30 with a normal TID ratio of 0.96. 2. Quantitated gated SPECT: Post-stress ejection fraction is estimated at 79 percent without any focal wall motion abnormality. Resting ejection fraction is 73 percent with a normal resting end-diastolic volume of 102 mL. 3. Post-stress supine images are of marginal quality, but suggest a mild perfusion defect in the mid anterior wall in a location that would suggest breast attenuation artifact. In addition, there is a mild perfusion defect in the mid to distal inferior wall that could reflect diaphragmatic attenuation. Again, no prone imaging is available to assess for this. The resting images show a fairly similar perfusion pattern with minimal improvement in the mid anterior defect and subtle improvement in the distal inferolateral defect. IMPRESSION: 1. Mildly abnormal myocardial perfusion study, but with markedly reduced specificity because of significant attenuation artifact and is likely low risk. 2. There is a mild fixed mid anterior defect that likely reflects breast attenuation artifact. A previous nontransmural infarction cannot be entirely excluded but is unlikely given the absence of any regional wall motion abnormality. In addition, there is a mild, small mid to distal inferolateral defect that is partially reversible and could represent a small volume of ischemia, but diaphragmatic attenuation artifact is also very likely. If this area does represent ischemia, it represents a relatively small volume of myocardium and thus is fairly low risk. 3. Normal left ventricular systolic function without any focal wall motion abnormality. 4. No angina or electrocardiographic evidence of ischemia with pharmacologic vasodilator stress. 5. Compared to the previous myocardial perfusion study of 09/24/2011, the anterior defect appears unchanged and resolved on prone imaging, suggesting that it likely reflects breast attenuation artifact. There is a subtle mid to distal inferolateral defect on the previous study as well, but was more fixed, although did persist on the prone images, but was felt most likely to reflect attenuation artifact. Overall, there has been little change since the previous study. The previous ejection fraction was estimated at 72-89 percent with an end-diastolic volume of 94 mL, and thus there has been no significant change since the previous study. Susan Joel - KIYA/luana/tien doc#: [id number]/job#: [id number] dd: 02/16/2021 16:54:00 dt: 02/16/2021 20:44:00 DICTATING /COPIES TO: Elie Kennedy MD; Alexandro Santiago MD COPIES MNE: ANTOINETTE;
== END ==
PROVIDERS: PCP Student in an Organized Health Care Education/Training Program; Referring Provider Internal Medicine Pulmonary Disease; Visit Provider Internal Medicine Pulmonary Disease
DX: R06.02 Shortness of breath (principal); R94.39 Abnormal result of other cardiovascular function study; R06.09 Other forms of dyspnea; Z86.73 Personal history of transient ischemic attack (TIA), and cerebral infarction without residual deficits
CPT/HCPCS: 78452; 93017; A9502; J2785

== ENCOUNTER → 2021-02-20 13:31 | Outpatient (CLI) | payer MEDICARE, BC, SELFPAY ==
[2021-01-20 11:51] VITALS: BMI 67.4
--- NOTE | 2021-02-20 13:33 | DI.ECHO.S_ITS ---
[facility] +---------+ : : [address] : : [place], [place] : : : : [id number] : : : : Phone: [phone]+ Echocardiogram Report + + :Name: EDUARDO MARIA Study Date: 02/20/2021 Height: 61 in : :[facility] ReadingLocation: Weight: 240 lb : : Gender: Female BSA: 2.0 m2 : :: 1940 Age: 80 yrs BP: 137/69 mmHg: :Reason For Study: SOB : :Ordering Physician: GEE, : :CITLALY Performed By: Tello Reyna : :Referring: CITLALY FLYNN : + + Interpretation Summary 1) Normal left ventricular thickness, size, wall motion, and systolic function (EF 60-65%). 2) The right ventricle grossly appears normal in size with probable normal systolic function. 3) No significant valvular abnormalities. 4) Compared to the Echo done 12/22/2019, no significant change. Procedure: A two-dimensional transthoracic echocardiogram with color flow and Doppler was performed. The study quality was technically adequate. Comparison is made with the echocardiogram of 12/22/2019. The patient was in sinus rhythm with heart rates between 57-66 bpm during the exam. Left Ventricle: The left ventricle is normal in size and wall thickness. Left ventricular systolic function is normal. The ejection fraction is estimated to be 60-65%. There are no focal wall motion abnormalities. Diastolic function could not be accurately assessed due to confounding valvular disease. Right Ventricle: The right ventricle grossly appears normal in size with probable normal systolic function. Atria: Both atria are normal in size. There is no Doppler evidence for an interatrial shunt. Mitral Valve: There is moderate mitral annular calcification. There is no mitral regurgitation noted. Aortic Valve: The aortic valve is not well visualized. There is mild aortic valve sclerosis. There is no aortic valve stenosis. There is mild aortic regurgitation. Tricuspid Valve: The tricuspid valve is normal in structure and function. No tricuspid regurgitation. Pulmonary artery pressures cannot be estimated because of the lack of a measurable TR jet velocity but the IVC suggests a CVP of around 3 mmHg. Pulmonic Valve: The pulmonic valve is not well visualized. Great Vessels: The aortic root is not well visualized. The ascending aorta could not be visualized. The IVC is of normal diameter and collapses greater than 50% with a sniff. This suggests a low right atrial pressure of 3 mm Hg. Pericardium/ Pleura There is no pericardial effusion. There is no pleural effusion. MMode/2D Measurements & Calculations LVIDd: 5.5 cm LVOT diam: 1.9 cm LVIDs: 3.6 cm FS: 34.0 % IVSd: 0.95 cm LVPWd: 0.94 cm LV franco. diameter/BSA (cm/m^2): 2.7 LV sys. diameter/BSA (cm/m^2): 1.8 LA A2 area: 18.1 cm2 RA area: 13.5 cm2 LA A4 area: 21.4 cm2 IVC diam: 1.9 cm LA length (vol): 4.9 cm LA vol: 66.9 ml LA vol index: 32.8 ml/m2 RVD1 (basal): 3.4 cm TAPSE: 1.9 cm Doppler Measurements & Calculations Ao V2 max: 186.1 cm/sec LVOT Max Rosalinda: 120.7 cm/sec Ao V2 mean: 126.0 cm/sec LV V1 max P.8 mmHg Ao max P.9 mmHg LV V1 VTI: 30.2 cm Ao mean P.0 mmHg SUJATHA(I,D): 2.1 cm2 Ao V2 VTI: 41.9 cm SUJATHA(V,D): 1.9 cm2 sev ratio: 0.72 SUJATHA indexed to BSA (cm^2/m^2): 1.0 MV E max rosalinda: 77.3 cm/sec PA V2 max: 124.9 cm/sec MV A max rosalinda: 104.9 cm/sec PA V2 mean: 92.6 cm/sec MV E/A: 0.74 PA mean P.7 mmHg Med Peak E' Rosalinda: 7.8 cm/sec PA pr(Accel): 57.2 mmHg E/E' med: 9.9 Lat Peak E' Rosalinda: 9.7 cm/sec E/E' lat: 8.0 E/e' average: 9.0 MV dec time: 0.28 sec SV(LVOT): 88.6 ml Reading Physician:03:09 PM
== END ==
PROVIDERS: PCP Student in an Organized Health Care Education/Training Program; Referring Provider Internal Medicine Pulmonary Disease; Visit Provider Internal Medicine Pulmonary Disease
DX: R06.02 Shortness of breath (principal)
CPT/HCPCS: 93306

== ENCOUNTER → 2021-12-11 10:41 | Outpatient (CLI) | payer MEDICARE, BC, SELFPAY ==
[2021-01-20 11:51] VITALS: BMI 67.4
== END ==
PROVIDERS: PCP Student in an Organized Health Care Education/Training Program; Referring Provider Student in an Organized Health Care Education/Training Program; Visit Provider Student in an Organized Health Care Education/Training Program
DX: Z12.31 Encounter for screening mammogram for malignant neoplasm of breast (principal); Z53.20 Procedure and treatment not carried out because of patient's decision for unspecified reasons

== ENCOUNTER → 2022-02-05 16:12 | Outpatient (CLI) | payer MEDICARE, BC, SELFPAY ==
[2021-01-20 11:51] VITALS: BMI 67.4
--- NOTE | 2022-02-05 | DI.MRI.S_ITS ---
PROCEDURE: MR HEAD/BRAIN WO CON INDICATIONS: Cerebral infarction, unspecified TECHNIQUE: Non-contrast axial T1 spin echo, axial T2 fast spin echo, sagittal and axial FLAIR, coronal T2 fast spin echo, axial gradient echo, axial diffusion and ADC through the brain. COMPARISON: [facility], CT, CT HEAD/BRAIN WO CON, 12/22/2019, 7:59. [facility], CT, CT ANGIO HEAD AND NECK, 12/20/2019, 18:38. [facility], CT, CT HEAD/BRAIN WO CON, 12/20/2019, 18:36. [facility], CT, CT HEAD/BRAIN WO CON, 12/19/2019, 9:36. FINDINGS: Image quality: Excellent. CSF spaces: Ventricles appear symmetric in size and shape. Basal cisterns are patent. No extra-axial fluid collections. Brain: No intracranial bleeds or mass effects. There is cerebral volume loss for age. There are periventricular and deep white matter chronic small vessel ischemic changes. Brainstem appears normal. Diffusion-weighted images show no acute ischemic insults. There is a remote right cerebellar infarction seen, with volume loss and encephalomalacia. A small remote infarction can also be seen involving the right centrum semiovale. Normal intravascular flow voids are present. Skull and face: Calvarial bone marrow is normal in signal. Orbits are normal. Note is made of bilateral lens replacements. Incidental note is made of hyperostosis frontalis. This is not considered to be pathologic in a woman of this age. Sinuses: Sinuses and mastoids are clear. IMPRESSION: No findings of acute or subacute infarction can be seen. Remote right cerebellar infarction. Small remote infarction involving the right centrum semiovale. Note is made of age-appropriate brain parenchymal volume loss and chronic small vessel ischemic changes. Dictated by: Olvin Ahmadi M.D. on 02/05/2022 at 16:31 Approved by: Olvin Ahmadi M.D. on 02/05/2022 at 16:33
== END ==
PROVIDERS: Family Provider Student in an Organized Health Care Education/Training Program; PCP Student in an Organized Health Care Education/Training Program; Referring Provider Psychiatry & Neurology Neuromuscular Medicine; Visit Provider Psychiatry & Neurology Neuromuscular Medicine
DX: I63.9 Cerebral infarction, unspecified (principal)
CPT/HCPCS: 70551

== ENCOUNTER 2022-04-20 20:10 | Inpatient (IN) | payer MEDICARE, BC, SELFPAY ==
[2021-01-20 11:51] VITALS: BMI 67.4
[2022-04-20] VITALS (11 sets, daily range): BP systolic 90–111; BP diastolic 48–75; PULSE 62–75; RESP 17–22; TEMP 37; O2SAT 91–96; BMI 44.5
--- NOTE | 2022-04-20 20:27 | DI.RAD.S_ITS ---
PROCEDURE: XR CHEST 1V INDICATIONS: altered mental status TECHNIQUE: One view of the chest was acquired. COMPARISON: [facility], CR, XR CHEST 1V, 12/26/2019, 12:03. FINDINGS: Surgical changes and devices: None. Lungs and pleura: Lungs are clear. No pleural effusions or pneumothorax. Mediastinum: Mediastinal contours are unchanged. Heart size is enlarged. Bones and chest wall: No suspicious bony lesions. Overlying soft tissues appear unremarkable. IMPRESSION: 1. No acute cardiopulmonary disease. Dictated by: Donell Segovia M.D. on 04/20/2022 at 22:09 Approved by: Donell Segovia M.D. on 04/20/2022 at 22:09
--- NOTE | 2022-04-20 20:33 | PC.NURSE ---
Pt reports began to become weak and confused starting at 3pm today. He reports she has fallen twice since then. Small laceration noted to her forehead. The reports she acted similarly the last time she had a UTI. Pt also has a hx of strokes between and Dec.23. He reports pt is confused. at bedside.
[2022-04-20 20:43] LABS: Add Manual Diff / Slide Review NO; Basophils Absolute Auto 100 /uL (0-100); Basophils Percent Auto 0.7 % (0-2); Eosinophils Absolute Auto 0 /uL (0-450); Eosinophils Percent Auto 0.2 % (2-4); Hemoglobin 13.5 g/dL (12.0-16.0); Lymphocytes Absolute Auto 500 /uL (1100-4500); Lymphocytes Percent Auto 5.2 % (25-40); Mean Corpuscular HGB Conc 33.8 % (30-36); Mean Corpuscular Hemoglobin 30.6 PG (26-34); Mean Corpuscular Volume 90.5 fL (80-100); Monocytes Absolute Auto 700 /uL (0-900); Monocytes Percent Auto 7.4 % (3-14); Neutrophils Absolute Auto 8400 /uL (1500-7000); Neutrophils Percent Auto 86.5 % (50-75); Platelet Count 277 X10^3/uL (150-400); Red Blood Cell Count 4.42 X10^6/uL (4.0-5.2); Red Cell Distribution Width 13.8 % (11.6-14.8); White Blood Cell Count 9.7 X10^3/uL (4.5-11.0)
[2022-04-20 20:47] LABS: Alanine Aminotransferase 16 IU/L (<35); Albumin 3.6 g/dL (3.5-5.0); Albumin Globulin Ratio 1.3 (1.0-2.8); Alkaline Phosphatase 76 U/L (38-126); Aspartate Aminotransferase 44 IU/L (14-36); BUN Creatinine Ratio 22.4 (6-22); Bilirubin Total 0.6 mg/dL (0.2-1.3); Blood Urea Nitrogen 39 mg/dL (7-17); Calcium 8.6 mg/dL (8.4-10.2); Carbon Dioxide 26 mmol/L (22-32); Chloride 102 mmol/L (98-107); Estimated Glomerular Filt Rate 29 mL/min (>60); Globulin 2.8 g/dL (1.7-4.1); Glucose 110 mg/dL (80-110); HEMOLYSIS 49 (0-50); Potassium 4.6 mmol/L (3.4-5.1); Sodium 138 mmol/L (137-145); Total Protein 6.4 g/dL (6.3-8.2)
[2022-04-20 21:23] LABS: Appearance Urine UA CLOUDY; Bilirubin Urine UA NEGATIVE (NEGATIVE); Color Urine UA YELLOW; Glucose Urine UA NEGATIVE (Negative); Ketones Urine UA TRACE (NEGATIVE); Leukocyte Esterase Urine UA 3+ (NEGATIVE); Nitrite Urine UA POSITIVE (Negative); Occult Blood Urine UA TRACE-LYSED (Negative); Protein Urine UA TRACE (Negative); Urobilinogen Urine UA 0.2 E.U./dL (0.2)
[2022-04-20 21:30] LABS: Bacteria Urine Many (>30); Culture Indicated Urine Specimen Cultured; Hyaline Casts Urine 5-10/LPF; Mucus Urine 1+ (Negative); RBC Urine None Seen (0-5/HPF); Squamous Epithelial Cell Urine 1-5 /HPF (0-5/HPF); WBC Urine >100/HPF (0-5/HPF)
[2022-04-20 21:31] LABS: UR Morphine/Opiate cutoff 300 Negative (Negative); Ur Creatinine Normal (Normal); Ur Specific Gravity Normal (Normal); Urine Amphetamines Negative (Negative); Urine Barbiturates Negative (Negative); Urine Benzodiazepines Negative (Negative); Urine Cocaine Negative (Negative); Urine MDMA Negative (Negative); Urine Methadone Negative (Negative); Urine Methamphetamines Negative (Negative); Urine Oxycodone Negative (Negative); Urine Phencyclidine Negative (Negative); Urine Tetrahydrocannabinol Negative (Negative); Urine Tricyclic Antidepressant Negative (Negative); Urine pH Normal (Normal)
[2022-04-20 21:51] LABS: COVID19 -Nasal RAPID Negative (Negative)
--- NOTE | 2022-04-20 23:00 | PC.NURSE ---
Pt requesting update and asking if he is ok to leave or if she will be discharged. Pt expressing frustration over not having an update yet. Provider unavailable to see pt at this time. Provider to see pt when able.
--- NOTE | 2022-04-20 23:49 | PC.NURSE ---
Pt informed this RN that he is leaving for the night and will return in the morning, stating he is sick of waiting. This is ridiculous.
[2022-04-21] VITALS (20 sets, daily range): BP systolic 99–131; BP diastolic 53–71; PULSE 58–86; RESP 16–44; TEMP 36.4–36.8; O2SAT 93–98; BMI 44.5
--- NOTE | 2022-04-21 00:14 | ED_ITS ---
HPI - General Adult General Chief complaint: Altered Mental Status Stated complaint: increased confusion/GLF Time Seen by Provider: 04/20/22 21:24 Source: patient, family and EMS Mode of arrival: EMS History of Present Illness HPI narrative: 82-year-old woman with a history of COPD, hypertension, hyperlipidemia, sleep apnea, prior stroke, chronic renal insufficiency is brought to the hospital medics after her called with weakness and a fall to the floor. She is DNR but does prefer interventions up to that point. She states that she simply fell in the floor came up to meet her she has a minor abrasion that does not need any sutures to her upper forehead and does have point tenderness throughout her cervical spine. She is mildly confused and does not report fevers, cough, chills, abdominal pain, dysuria, hematuria. She does not report chest pain or palpitations she reports no cough and she states that she has been at her usual activity levels. Shortly after asking all of these questions she complains of abdominal pain, suprapubic pain, flank pain and exhibits a nonproductive cough. Related Data Home Medications Medication Instructions Recorded Confirmed docusate sodium 100 mg capsule 100 mg PO DAILY 11/17/20 02/09/22 (Colace) multivitamin 1 tab PO DAILY 11/17/20 02/09/22 Previous Rx's Medication Instructions Recorded sennosides 8.6 mg tablet (Natural 17.2 mg PO BID #240 tab 04/24/20 Senna Laxative) aspirin 81 mg chewable tablet 81 mg PO DAILY #30 tab 04/29/20 verapamil 120 mg tablet 120 mg PO TID #90 tab 12/07/21 atorvastatin 40 mg tablet 40 mg PO BEDTIME #90 tab 12/29/21 ropinirole 0.5 mg tablet 0.5 mg PO BEDTIME #90 tab 12/30/21 quinapril 20 mg tablet 20 mg PO DAILY #90 tab 01/04/22 bupropion HCl 300 mg 24 hr tablet, 300 mg PO QAM #30 tab 01/25/22 extended release furosemide 40 mg tablet 40 mg PO DAILY #90 tab 02/04/22 potassium chloride 20 mEq 20 meq PO DAILY #90 tab 03/08/22 tablet,extended release trazodone 50 mg tablet See Rx Instructions .ROUTE 03/25/22 .COMPLEX #90 tab sertraline 100 mg tablet 150 mg PO QAM #45 tab 04/13/22 Allergies Allergy/AdvReac Type Severity Reaction Status Date / Time Penicillins [PENICILLINS] Allergy Mild Rash Verified 12/24/21 16:27 venom-honey bee Allergy Unknown Verified 12/24/21 16:27 [BEE VENOM (HONEY BEE)] BANDAGES Allergy Intermediate PLASTIC Uncoded 12/24/21 16:27 Review of Systems Review of Systems Narrative: Remainder of complete review of systems is otherwise unremarkable except for that included in the HPI. Patient History Medical History Chronic renal insufficiency (Unknown) Colon polyps (Unknown) COPD (chronic obstructive pulmonary disease) (Unknown) Dry both ear canals (02/24/17) Excessive daytime sleepiness Hyperlipemia (Unknown) Hypertension (Unknown) Insomnia, unspecified (~1997) Lower extremity edema (09/08/17) 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, recurrent, in full remission support dba associated with adverse incidents Morbid obesity with body mass index (BMI) greater than or equal to 50 Nocturnal hypoxemia (09/08/17) Obstructive sleep apnea of adult (~05/2020) Obstructive sleep apnea, adult Osteoarthritis (Unknown) Pain of left hand (04/21/17) Physical deconditioning Restless leg syndrome Sexual dysfunction Stroke (Unknown) Vaginal dryness (04/21/17) Surgical History History of knee replacement (2000) History of tonsillectomy (1947) Hx of total hip arthroplasty (09/2008) Status post cholecystectomy (1997) Status post dilation and curettage (2000) Family History Father No problems noted. Mother No problems noted. 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 Smoking Status: Never smoker alcohol intake: never substance use type: does not use caffeine: No eating out: rarely or never Type(s) of exercise: none Smoking Status: Never smoker alcohol intake frequency: 0-2 drinks per day Substance Use Type: does not use Exam Initial Vital Signs Initial Vital Signs: Vital Signs Temperature 98.6 F 04/20/22 20:23 Pulse Rate 75 04/20/22 20:23 Respiratory Rate 22 04/20/22 20:23 Blood Pressure 111/53 L 04/20/22 20:23 Pulse Oximetry 96 04/20/22 20:23 General: No acute distress, slightly confused but able to participate with questions HEENT: Moist mucous membranes, normal sclera with reactive pupils, she has a small cut to her forehead that is cleaned in treated with a Band-Aid, no sutures were needed. Neck: No JVD, tender C2 through C7 midline. Respiratory: Lungs with mild scattered wheeze no rhonchi and no appreciated crackles. Cardiac: Regular rate and rhythm no murmurs no bruits Abdomen: Soft, minor suprapubic tenderness good bowel tones, no flank pain Skin: Pale but otherwise Warm and dry, no rashes but she does have minor chronic venous stasis changes Neurologic: Globally weak but Grossly neurologically intact with no obvious asymmetries or abnormalities Extremities: No trauma, well perfused, 2+ chronic edema Psych: Cooperative, overall poor insight with minor memory difficulties but fluent speech Course Orders Ordered: ED Orders 04/20/22 19:40 Complete Blood Count AUTO DIFF Stat Comprehensive Metabolic Panel Stat 04/20/22 20:27 XR chest 1V Stat Ammonia (NH3) Stat EKG-12 Lead Stat 04/20/22 20:50 Urinalysis and Microscopic Stat Urine Culture Stat Urine Drug Screen, Rapid Stat 04/20/22 21:30 COVID19 -Nasal RAPID/Pre-Proc Stat 04/21/22 00:28 CT cervical spine wo con Stat CT head/brain wo con Stat 04/21/22 00:45 Lactate (Lactic Acid) Stat Procalcitonin Stat Trop I [Troponin I] Stat 04/21/22 00:50 Blood Culture Stat Discontinued Medications Ceftriaxone Sodium 2,000 mg/ (Sodium Chloride) 100 mls @ 200 mls/hr IV NOW ONE Stop: 04/21/22 00:29 Last Infusion: 04/21/22 01:47 Dose: 0 mls/hr Documented by: Admin: 04/21/22 01:17 Dose: 200 mls/hr Documented by: [email or web address] Sodium Chloride (Normal Saline 0.9%) 1,000 mls @ 1,000 mls/hr IV BOLUS ONE Stop: 04/21/22 01:27 Last Admin: 04/21/22 01:17 Dose: 1,000 mls/hr Documented by: [email or web address] Vital Signs Vital signs: Vital Signs - 8 hr 04/20/22 20:23 04/20/22 21:21 04/20/22 21:30 Temperature 98.6 F Pulse Rate 75 70 69 Respiratory Rate 22 18 20 Blood Pressure 111/53 L 110/75 Pulse Oximetry 96 93 04/20/22 22:00 04/20/22 22:30 04/20/22 22:52 Temperature Pulse Rate 67 67 68 Respiratory Rate 19 21 19 Blood Pressure 108/67 90/48 L Pulse Oximetry 91 92 91 04/20/22 22:58 04/20/22 23:00 04/20/22 23:07 Temperature Pulse Rate 64 65 64 Respiratory Rate 19 18 17 Blood Pressure 106/49 L 99/50 L 99/56 L Pulse Oximetry 95 92 93 04/20/22 23:30 04/20/22 23:45 04/21/22 00:00 Temperature Pulse Rate 65 62 62 Respiratory Rate 22 19 17 Blood Pressure 100/58 L 102/52 L 115/54 L Pulse Oximetry 94 93 93 04/21/22 00:15 04/21/22 00:30 04/21/22 00:46 Temperature Pulse Rate 62 60 79 Respiratory Rate 18 18 44 H Blood Pressure 107/53 L 107/59 L 108/56 L Pulse Oximetry 93 95 04/21/22 01:00 Temperature Pulse Rate 60 Respiratory Rate 18 Blood Pressure 106/59 L Pulse Oximetry 93 Medical Decision Making Lab Data Result diagrams: 04/20/22 19:40 04/20/22 19:40 Labs: Lab Results 04/20/22 04/20/22 04/20/22 Range/Units 19:40 19:40 20:50 WBC 9.7 (4.5-11.0) X10^3/uL RBC 4.42 (4.0-5.2) X10^6/uL Hgb 13.5 (12.0-16.0) g/dL Hct 40.0 (36-46) % MCV 90.5 (80-100) fL MCH 30.6 (26-34) PG MCHC 33.8 (30-36) % RDW 13.8 (11.6-14.8) % Plt Count 277 (150-400) X10^3/uL Neut % (Auto) 86.5 H (50-75) % Lymph % (Auto) 5.2 L (25-40) % [place] % (Auto) 7.4 (3-14) % Eos % (Auto) 0.2 L (2-4) % Baso % (Auto) 0.7 (0-2) % Neut # (Auto) 8400 H (4880-5259) /uL Lymph # (Auto) 500 L (4850-5610) /uL [place] # (Auto) 700 (0-900) /uL Eos # (Auto) 0 (0-450) /uL Baso # (Auto) 100 (0-100) /uL Sodium 138 (137-145) mmol/L Potassium 4.6 (3.4-5.1) mmol/L Chloride 102 (98-107) mmol/L Carbon Dioxide 26 (22-32) mmol/L BUN 39 H (7-17) mg/dL Creatinine 1.74 H (0.52-1.04) mg/dL Estimated GFR 29 L (>60) mL/min BUN/Creatinine Ratio 22.4 H (6-22) Glucose 110 (80-110) mg/dL Lactate (0.7-2.1) mmol/L Calcium 8.6 (8.4-10.2) mg/dL Total Bilirubin 0.6 (0.2-1.3) mg/dL AST 44 H (14-36) IU/L ALT 16 (<35) IU/L Alkaline Phosphatase 76 (38-126) U/L Troponin I (0.01-0.034) ng/mL Total Protein 6.4 (6.3-8.2) g/dL Albumin 3.6 (3.5-5.0) g/dL Globulin 2.8 (1.7-4.1) g/dL Albumin/Globulin Ratio 1.3 (1.0-2.8) Procalcitonin (<0.5) ng/mL Urine Color Urine Appearance Urine pH (4.5-8.0) Ur Specific [place] (1.000-1.035) Urine Protein (Negative) Urine Glucose (UA) (Negative) g/dL Urine Ketones (NEGATIVE) Urine Occult Blood (Negative) Urine Nitrate (Negative) Urine Bilirubin (NEGATIVE) Urine Urobilinogen (0.2) E.U./dL Ur Leukocyte Esterase (NEGATIVE) Urine RBC (0-5/HPF) Urine WBC (0-5/HPF) Ur Squamous Epith Cells (0-5/HPF) Urine Bacteria (None) Hyaline Casts (None) Urine Mucus (Negative) Ur Culture Indicated? U Opiates 300ng/mL cut Negative (Negative) Ur Oxycodone Screen Negative (Negative) Urine Methadone Screen Negative (Negative) Ur Barbiturates Screen Negative (Negative) U Tricyclic Antidepress Negative (Negative) Ur Phencyclidine Scrn Negative (Negative) Ur Amphetamines Screen Negative (Negative) U Methamphetamines Scrn Negative (Negative) Ur MDMA Scrn (Ecstasy) Negative (Negative) U Benzodiazepines Scrn Negative (Negative) Urine Cocaine Screen Negative (Negative) U Marijuana (THC) Screen Negative (Negative) SARS-CoV-2 (PCR) (Negative) 04/20/22 04/20/22 04/21/22 Range/Units 20:50 21:30 00:45 WBC (4.5-11.0) X10^3/uL RBC (4.0-5.2) X10^6/uL Hgb (12.0-16.0) g/dL Hct (36-46) % MCV (80-100) fL MCH (26-34) PG MCHC (30-36) % RDW (11.6-14.8) % Plt Count (150-400) X10^3/uL Neut % (Auto) (50-75) % Lymph % (Auto) (25-40) % [place] % (Auto) (3-14) % Eos % (Auto) (2-4) % Baso % (Auto) (0-2) % Neut # (Auto) (2614-3308) /uL Lymph # (Auto) (6821-4377) /uL [place] # (Auto) (0-900) /uL Eos # (Auto) (0-450) /uL Baso # (Auto) (0-100) /uL Sodium (137-145) mmol/L Potassium (3.4-5.1) mmol/L Chloride (98-107) mmol/L Carbon Dioxide (22-32) mmol/L BUN (7-17) mg/dL Creatinine (0.52-1.04) mg/dL Estimated GFR (>60) mL/min BUN/Creatinine Ratio (6-22) Glucose (80-110) mg/dL Lactate (0.7-2.1) mmol/L Calcium (8.4-10.2) mg/dL Total Bilirubin (0.2-1.3) mg/dL AST (14-36) IU/L ALT (<35) IU/L Alkaline Phosphatase (38-126) U/L Troponin I < 0.012 (0.01-0.034) ng/mL Total Protein (6.3-8.2) g/dL Albumin (3.5-5.0) g/dL Globulin (1.7-4.1) g/dL Albumin/Globulin Ratio (1.0-2.8) Procalcitonin (<0.5) ng/mL Urine Color Yellow Urine Appearance Cloudy Urine pH 5.0 (4.5-8.0) Ur Specific [place] 1.020 (1.000-1.035) Urine Protein Trace H (Negative) Urine Glucose (UA) Negative (Negative) g/dL Urine Ketones Trace H (NEGATIVE) Urine Occult Blood Trace-lysed (Negative) Urine Nitrate Positive H (Negative) Urine Bilirubin Negative (NEGATIVE) Urine Urobilinogen 0.2 (0.2) E.U./dL Ur Leukocyte Esterase 3+ H (NEGATIVE) Urine RBC None seen (0-5/HPF) Urine WBC >100/hpf H (0-5/HPF) Ur Squamous Epith Cells 1-5 /hpf (0-5/HPF) Urine Bacteria Many (>30) H (None) Hyaline Casts 5-10/lpf (None) Urine Mucus 1+ H (Negative) Ur Culture Indicated? Specimen cultured U Opiates 300ng/mL cut (Negative) Ur Oxycodone Screen (Negative) Urine Methadone Screen (Negative) Ur Barbiturates Screen (Negative) U Tricyclic Antidepress (Negative) Ur Phencyclidine Scrn (Negative) Ur Amphetamines Screen (Negative) U Methamphetamines Scrn (Negative) Ur MDMA Scrn (Ecstasy) (Negative) U Benzodiazepines Scrn (Negative) Urine Cocaine Screen (Negative) U Marijuana (THC) Screen (Negative) SARS-CoV-2 (PCR) Negative (Negative) 04/21/22 04/21/22 Range/Units 00:45 00:45 WBC (4.5-11.0) X10^3/uL RBC (4.0-5.2) X10^6/uL Hgb (12.0-16.0) g/dL Hct (36-46) % MCV (80-100) fL MCH (26-34) PG MCHC (30-36) % RDW (11.6-14.8) % Plt Count (150-400) X10^3/uL Neut % (Auto) (50-75) % Lymph % (Auto) (25-40) % [place] % (Auto) (3-14) % Eos % (Auto) (2-4) % Baso % (Auto) (0-2) % Neut # (Auto) (2582-8689) /uL Lymph # (Auto) (9902-7616) /uL [place] # (Auto) (0-900) /uL Eos # (Auto) (0-450) /uL Baso # (Auto) (0-100) /uL Sodium (137-145) mmol/L Potassium (3.4-5.1) mmol/L Chloride (98-107) mmol/L Carbon Dioxide (22-32) mmol/L BUN (7-17) mg/dL Creatinine (0.52-1.04) mg/dL Estimated GFR (>60) mL/min BUN/Creatinine Ratio (6-22) Glucose (80-110) mg/dL Lactate 1.6 (0.7-2.1) mmol/L Calcium (8.4-10.2) mg/dL Total Bilirubin (0.2-1.3) mg/dL AST (14-36) IU/L ALT (<35) IU/L Alkaline Phosphatase (38-126) U/L Troponin I (0.01-0.034) ng/mL Total Protein (6.3-8.2) g/dL Albumin (3.5-5.0) g/dL Globulin (1.7-4.1) g/dL Albumin/Globulin Ratio (1.0-2.8) Procalcitonin 0.18 (<0.5) ng/mL Urine Color Urine Appearance Urine pH (4.5-8.0) Ur Specific [place] (1.000-1.035) Urine Protein (Negative) Urine Glucose (UA) (Negative) g/dL Urine Ketones (NEGATIVE) Urine Occult Blood (Negative) Urine Nitrate (Negative) Urine Bilirubin (NEGATIVE) Urine Urobilinogen (0.2) E.U./dL Ur Leukocyte Esterase (NEGATIVE) Urine RBC (0-5/HPF) Urine WBC (0-5/HPF) Ur Squamous Epith Cells (0-5/HPF) Urine Bacteria (None) Hyaline Casts (None) Urine Mucus (Negative) Ur Culture Indicated? U Opiates 300ng/mL cut (Negative) Ur Oxycodone Screen (Negative) Urine Methadone Screen (Negative) Ur Barbiturates Screen (Negative) U Tricyclic Antidepress (Negative) Ur Phencyclidine Scrn (Negative) Ur Amphetamines Screen (Negative) U Methamphetamines Scrn (Negative) Ur MDMA Scrn (Ecstasy) (Negative) U Benzodiazepines Scrn (Negative) Urine Cocaine Screen (Negative) U Marijuana (THC) Screen (Negative) SARS-CoV-2 (PCR) (Negative) Imaging Data Chest x-ray: Radiologist's Impression: FINDINGS:? ? Surgical changes and devices:? None.? ? Lungs and pleura:? Lungs are clear.? No pleural effusions or pneumothorax.? ? Mediastinum:? Mediastinal contours are unchanged.? Heart size is enlarged. ? Bones and chest wall:? No suspicious bony lesions.? Overlying soft tissues appear unremarkable.? ? IMPRESSION:? ? 1.? No acute cardiopulmonary disease. ? ? ? Dictated by: Donell Segovia M.D. on 04/20/2022 at 22:09 ? ? CT scan - head: Radiologist's Impression: FINDINGS:? Image quality:? There is mild motion artifact.? ? CSF spaces:? Basal cisterns are patent.? No extra-axial fluid collections.? There is moderate cerebral volume loss, with resultant ventricular and sulcal prominence.? ? Brain:? No intracranial hemorrhage, mass, or mass effect.? There are subcortical, periventricular and deep white matter hypodensities consistent with moderate chronic small vessel ischemic changes.? The lamb-white matter junction appears preserved.? There is intracranial internal carotid artery atherosclerosis.? ? Skull and face:? Calvarium and visualized facial bones appear intact, without suspicious lesions.? ? Sinuses:? Visualized sinuses demonstrate mild mucosal thickening within the ethmoid and maxillary sinuses.? The mastoid air cells are clear. ? IMPRESSION:? ? 1. No acute intracranial abnormality. ? ? Dictated by: Donell Segovia M.D. on 04/21/2022 at 1:42 ? ? CT - cervical spine: Radiologist's Impression: FINDINGS:? Image quality:? There is mild motion artifact.? ? Bones:? No fractures or subluxation.? There is slight reversal of the cervical lordosis.? Minimal anterolisthesis demonstrated at C3-C4.? There is multilevel degenerative disc disease including severe degeneration at C4-C5, C5-C6, and C6-C7.? There is also moderate multilevel facet arthropathy throughout the cervical spine.? Visualized superior ribs are intact.? ? Soft tissues:? Prevertebral soft tissues are normal in thickness.? No paravertebral hematomas.? No apical pneumothoraces.? There is a small left pleural effusion partially visualized. ? ? IMPRESSION:? ? 1.? No fracture or subluxation.? ? 2. Multilevel degenerative changes throughout the cervical spine. ? Dictated by: Donell Segovia M.D. on 04/21/2022 at 1:46 ? ? ECG Data Interpretation: Sinus rhythm at a rate of 78 No acute ischemic changes Normal intervals, normal axis MDM Narrative Medical decision making narrative: 82-year-old woman with altered mental status according to her , increasing weakness with a fall today. Head and cervical spine CT showed no intracranial abnormality nor acute bony injury. No reported fevers she is not hypotensive nor tachycardic, she has normal lactic acid level and normal procalcitonin her urine does look significantly infected. No evidence of acute coronary syndrome or stroke. COVID test is negative.She does have slight worsening to her chronic kidney injury. Will make sure that blood cultures and lactate has been drawn. Will rehydrate slightly and add ceftriaxone for presumed urinary tract infection with altered mental status. will anticipate hospital admission until her weakness and overall mental status have improved. Discharge Plan Departure Patient Disposition: Admitted as Observation Clinical Impression: Altered mental status, Urinary tract infection, Weakness
--- NOTE | 2022-04-21 00:28 | DI.CT.S_ITS ---
PROCEDURE: CT HEAD/BRAIN WO CON INDICATIONS: fall, altered mental status TECHNIQUE: Noncontrast 5 mm thick angled axial sections acquired from the foramen magnum to the vertex, with coronal and sagittal reformats. For radiation dose reduction, the following was used: automated exposure control, adjustment of mA and/or kV according to patient size. COMPARISON: [facility], CT, CT HEAD/BRAIN WO CON, 12/22/2019, 7:59. FINDINGS: Image quality: There is mild motion artifact. CSF spaces: Basal cisterns are patent. No extra-axial fluid collections. There is moderate cerebral volume loss, with resultant ventricular and sulcal prominence. Brain: No intracranial hemorrhage, mass, or mass effect. There are subcortical, periventricular and deep white matter hypodensities consistent with moderate chronic small vessel ischemic changes. The lamb-white matter junction appears preserved. There is intracranial internal carotid artery atherosclerosis. Skull and face: Calvarium and visualized facial bones appear intact, without suspicious lesions. Sinuses: Visualized sinuses demonstrate mild mucosal thickening within the ethmoid and maxillary sinuses. The mastoid air cells are clear. IMPRESSION: 1. No acute intracranial abnormality. Dictated by: Donell Segovia M.D. on 04/21/2022 at 1:42 Approved by: Donell Segovia M.D. on 04/21/2022 at 1:46
--- NOTE | 2022-04-21 00:28 | DI.CT.S_ITS ---
PROCEDURE: CT CERVICAL SPINE WO CON INDICATIONS: fall, point tender C2-C7 TECHNIQUE: Noncontrast 3 mm thick sections acquired from the skull base to the T4 level. Sagittal and coronal reformats were then constructed. For radiation dose reduction, the following was used: automated exposure control, adjustment of mA and/or kV according to patient size. COMPARISON: None. FINDINGS: Image quality: There is mild motion artifact. Bones: No fractures or subluxation. There is slight reversal of the cervical lordosis. Minimal anterolisthesis demonstrated at C3-C4. There is multilevel degenerative disc disease including severe degeneration at C4-C5, C5-C6, and C6-C7. There is also moderate multilevel facet arthropathy throughout the cervical spine. Visualized superior ribs are intact. Soft tissues: Prevertebral soft tissues are normal in thickness. No paravertebral hematomas. No apical pneumothoraces. There is a small left pleural effusion partially visualized. IMPRESSION: 1. No fracture or subluxation. 2. Multilevel degenerative changes throughout the cervical spine. Dictated by: Donell Segovia M.D. on 04/21/2022 at 1:46 Approved by: Donell Segovia M.D. on 04/21/2022 at 1:49
--- NOTE | 2022-04-21 00:59 | PC.NURSE ---
After 3 attempts at PIV placement for blood cultures and labs and assist of 3 staff members to hold pt still enough for IV placement, IV has successfully been obtained. Pt intermittently crying out and tearing up during this but when asked why she is crying or what is distressing her, pt states I want my dog. Pt verbalizes understanding of commands, but does not always follow commands. Prior to this pot was sleeping seemingly comfortably without distress.
[2022-04-21 01:15] LABS: Lactate (Lactic Acid) 1.6 mmol/L (0.7-2.1)
[2022-04-21] MEDS: SODIUM CHLORIDE 0.9% 1,000 ML 1000 ML IV (01:17)
[2022-04-21] MEDS: cefTRIAXone 2,000 MG in SODIUM CHLORIDE 0.9% 100 ML 200 MG IV (01:17)
[2022-04-21 01:28] LABS: Troponin I < 0.012 ng/mL (0.01-0.034)
[2022-04-21 01:34] LABS: Procalcitonin 0.18 ng/mL (<0.5)
--- NOTE | 2022-04-21 02:30 | PC.NURSE ---
Pt answers orientation questions correctly, but still is seemingly intermittently confused, not following simple command and is labile with emotions, especially when moving pt or connecting anything to her or her IV (any stimulation in general).
--- NOTE | 2022-04-21 07:40 | P.HP_ITS ---
History of Present Illness History of Present Illness Date Patient Seen: 04/21/22 Time Patient Seen: 06:00 Date of Onset of Symptoms: 04/20/22 Chief complaint: increased confusion/GLF Narrative: This 82-year-old patient with multiple medical problems including COPD, obstructive sleep apnea, morbid obesity, hypertension, hyperlipidemia, con gestive heart failure, severe depression, previous CVA, chronic kidney disease stage 3 and status post aortic valve replacement, bioprosthetic is brought to the ER via paramedics due to confusion, weakness and a ground level fall. Workup shows no evidence of trauma or fractures. Head CT and CT of the neck is negative but patient was found have evidence of urinary tract infection with a borderline procalcitonin. She was given IV ceftriaxone and blood cultures and urine culture pending and she was admitted to the hospital for further treatment and workup. At the time of my evaluation patient is somnolent and is not able to provide significant history. She denies any current complaints of pain or chest pain or shortness of breath. Her was not able to be reached at the time of my evaluation. Past medical history: 1. COPD 2. Previous CVA, old, cerebellar, sees Neurology but I do not have these notes available to me 3. Severe depression and anxiety, followed by Psychiatry, Dr. Ortega. Recently switched from duloxetine to sertraline in January 4. Obstructive sleep apnea 5. Morbid obesity 6. Hypertension 7. Hyperlipidemia 8. Congestive heart failure 9. Chronic kidney disease, stage III 10. Aortic valve replacement, bioprosthetic valve 11. Colon polyp Allergies: Penicillin Past surgical history: Tonsillectomy and adenoidectomy D&C Total hip replaced Bilateral total knee replacement Health related behavior: Does not use alcohol, illicit drugs or tobacco products Social history: Patient lives in an [place] with her who is her primary caregiver. They are looking for support in home care. 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 Morbid obesity with body mass index (BMI) greater than or equal to 50 Nocturnal hypoxemia (09/08/17) Obstructive sleep apnea of adult (~05/2020) Obstructive sleep apnea, adult Osteoarthritis (Unknown) Pain of left hand (04/21/17) Physical deconditioning Restless leg syndrome Sexual dysfunction Stroke (Unknown) Vaginal dryness (04/21/17) Surgical History History of knee replacement (2000) History of tonsillectomy (194) Hx of total hip arthroplasty (09/2008) Status post cholecystectomy (1997) Status post dilation and curettage (2000) Family & Social History Family History Father No problems noted. Mother No problems noted. Daughter Cancer Social History: household members spouse lives independently Yes caregiver/support person Yes: Safety & Behavioral: Feels Safe in Current Yes Environment Been Physically Hurt or No Threatened By a Person Tobacco & Substance use: Smoking Status Never smoker alcohol intake never alcohol intake frequency 0-2 drinks per day Substance Use Type does not use Meds Home Medications and Allergies Home Medications Medication Instructions Recorded Confirmed Type sennosides 8.6 mg tablet (Natural 17.2 mg PO BID #240 tab 04/24/20 02/09/22 Rx Senna Laxative) aspirin 81 mg chewable tablet 81 mg PO DAILY #30 tab 04/29/20 02/09/22 Rx docusate sodium 100 mg capsule 100 mg PO DAILY 11/17/20 02/09/22 History (Colace) multivitamin 1 tab PO DAILY 11/17/20 02/09/22 History verapamil 120 mg tablet 120 mg PO TID #90 tab 12/07/21 02/09/22 Rx atorvastatin 40 mg tablet 40 mg PO BEDTIME #90 tab 12/29/21 02/09/22 Rx ropinirole 0.5 mg tablet 0.5 mg PO BEDTIME #90 tab 12/30/21 02/09/22 Rx quinapril 20 mg tablet 20 mg PO DAILY #90 tab 01/04/22 02/09/22 Rx bupropion HCl 300 mg 24 hr tablet, 300 mg PO QAM #30 tab 01/25/22 02/09/22 Rx extended release furosemide 40 mg tablet 40 mg PO DAILY #90 tab 02/04/22 02/09/22 Rx potassium chloride 20 mEq 20 meq PO DAILY #90 tab 03/08/22 Rx tablet,extended release trazodone 50 mg tablet See Rx Instructions .ROUTE 03/25/22 Rx .COMPLEX #90 tab sertraline 100 mg tablet 150 mg PO QAM #45 tab 04/13/22 04/13/22 Rx Allergies Allergy/AdvReac Type Severity Reaction Status Date / Time Penicillins [PENICILLINS] Allergy Mild Rash Verified 12/24/21 16:27 venom-honey bee Allergy Unknown Verified 12/24/21 16:27 [BEE VENOM (HONEY BEE)] BANDAGES Allergy Intermediate PLASTIC Uncoded 12/24/21 16:27 Review of Systems Review of Systems Narrative: Patient with improvement in her depression with recent change from duloxetine to sertraline Patient with increased confusion over the last week. No fever chills. No vomiting or diarrhea. Patient did not have witnessed syncopal episode but fell due to what was suspected to be weakness. No chest pain or shortness of breath or decreased exercise tolerance. No worsening Peripheral edema No blood loss No rashes 12 point review of systems otherwise negative Exam Vital Signs (past 8 hours): - 04/20/22 23:45 04/21/22 00:00 04/21/22 00:15 Temperature Pulse Rate 62 62 62 Respiratory Rate 19 17 18 Blood Pressure 102/52 L 115/54 L 107/53 L Pulse Oximetry 93 93 93 04/21/22 00:30 04/21/22 00:46 04/21/22 01:00 Temperature Pulse Rate 60 79 60 Respiratory Rate 18 44 H 18 Blood Pressure 107/59 L 108/56 L 106/59 L Pulse Oximetry 95 93 04/21/22 01:15 04/21/22 01:35 04/21/22 02:00 Temperature Pulse Rate 59 L 63 59 L Respiratory Rate 18 28 H 17 Blood Pressure 106/58 L Pulse Oximetry 93 93 97 04/21/22 02:30 04/21/22 02:57 04/21/22 03:00 Temperature Pulse Rate 58 L 59 L 60 Respiratory Rate 16 20 24 Blood Pressure 112/56 L 122/58 L Pulse Oximetry 96 96 93 04/21/22 03:15 04/21/22 03:30 04/21/22 03:46 Temperature Pulse Rate 66 58 L 62 Respiratory Rate 22 16 28 H Blood Pressure 109/55 L 109/53 L 113/70 Pulse Oximetry 95 95 94 04/21/22 04:00 Temperature 98.0 F Pulse Rate 62 Respiratory Rate 22 Blood Pressure 131/71 Pulse Oximetry 98 Oxygen Delivery Method Room Air Narrative Exam Narrative: Patient is afebrile with vital signs stable. Initially some lower blood pres sures in the ER 109/55 but most recent blood pressure 131/71. Patient is afebrile Patient is somnolent and alert to person but not place or time Head is normocephalic atraumatic. There is abrasion over the left forehead Eyes pupils equal round reactive to light, extraocular muscles are intact. Nose oropharynx unremarkable. No evidence Of trauma Neck: Supple without adenopathy or masses mild tenderness over the posterior neck Chest: Clear to auscultation without wheezes rhonchi or crackles Cor: Regular rate and rhythm with distant S1-S2 heart rate in the 60s, do not appreciate prostatic click Abdomen: Obese, positive bowel sounds, soft, nontender, nondistended Extremities show trace pitting edema. Patient has chronic venous stasis changes right greater than left with erythema on top of discoloration and a small area of the right lower extremity but just increased pigmentation of the left lower extremity Neurologic exam patient is confused but no focal finding Skin: No rash Objective Labs Result Diagrams: 04/20/22 19:40 04/20/22 19:40 Labs: Laboratory Results - last 24 hr 04/20/22 04/20/22 04/20/22 19:40 19:40 20:50 WBC 9.7 RBC 4.42 Hgb 13.5 Hct 40.0 MCV 90.5 MCH 30.6 MCHC 33.8 RDW 13.8 Plt Count 277 Neut % (Auto) 86.5 H Lymph % (Auto) 5.2 L Stanley % (Auto) 7.4 Eos % (Auto) 0.2 L Baso % (Auto) 0.7 Neut # (Auto) 8400 H Lymph # (Auto) 500 L Stanley # (Auto) 700 Eos # (Auto) 0 Baso # (Auto) 100 Sodium 138 Potassium 4.6 Chloride 102 Carbon Dioxide 26 BUN 39 H Creatinine 1.74 H Estimated GFR 29 L BUN/Creatinine Ratio 22.4 H Glucose 110 Lactate Calcium 8.6 Total Bilirubin 0.6 AST 44 H ALT 16 Alkaline Phosphatase 76 Troponin I Total Protein 6.4 Albumin 3.6 Globulin 2.8 Albumin/Globulin Ratio 1.3 Procalcitonin Urine Color Urine Appearance Urine pH Ur Specific Erwin Urine Protein Urine Glucose (UA) Urine Ketones Urine Occult Blood Urine Nitrate Urine Bilirubin Urine Urobilinogen Ur Leukocyte Esterase Urine RBC Urine WBC Ur Squamous Epith Cells Urine Bacteria Hyaline Casts Urine Mucus Ur Culture Indicated? U Opiates 300ng/mL cut Negative Ur Oxycodone Screen Negative Urine Methadone Screen Negative Ur Barbiturates Screen Negative U Tricyclic Antidepress Negative Ur Phencyclidine Scrn Negative Ur Amphetamines Screen Negative U Methamphetamines Scrn Negative Ur MDMA Scrn (Ecstasy) Negative U Benzodiazepines Scrn Negative Urine Cocaine Screen Negative U Marijuana (THC) Screen Negative SARS-CoV-2 (PCR) 04/20/22 04/20/22 04/21/22 20:50 21:30 00:45 WBC RBC Hgb Hct MCV MCH MCHC RDW Plt Count Neut % (Auto) Lymph % (Auto) Stanley % (Auto) Eos % (Auto) Baso % (Auto) Neut # (Auto) Lymph # (Auto) Stanley # (Auto) Eos # (Auto) Baso # (Auto) Sodium Potassium Chloride Carbon Dioxide BUN Creatinine Estimated GFR BUN/Creatinine Ratio Glucose Lactate Calcium Total Bilirubin AST ALT Alkaline Phosphatase Troponin I < 0.012 Total Protein Albumin Globulin Albumin/Globulin Ratio Procalcitonin Urine Color Yellow Urine Appearance Cloudy Urine pH 5.0 Ur Specific Erwin 1.020 Urine Protein Trace H Urine Glucose (UA) Negative Urine Ketones Trace H Urine Occult Blood Trace-lysed Urine Nitrate Positive H Urine Bilirubin Negative Urine Urobilinogen 0.2 Ur Leukocyte Esterase 3+ H Urine RBC None seen Urine WBC >100/hpf H Ur Squamous Epith Cells 1-5 /hpf Urine Bacteria Many (>30) H Hyaline Casts 5-10/lpf Urine Mucus 1+ H Ur Culture Indicated? Specimen cultured U Opiates 300ng/mL cut Ur Oxycodone Screen Urine Methadone Screen Ur Barbiturates Screen U Tricyclic Antidepress Ur Phencyclidine Scrn Ur Amphetamines Screen U Methamphetamines Scrn Ur MDMA Scrn (Ecstasy) U Benzodiazepines Scrn Urine Cocaine Screen U Marijuana (THC) Screen SARS-CoV-2 (PCR) Negative 04/21/22 04/21/22 00:45 00:45 WBC RBC Hgb Hct MCV MCH MCHC RDW Plt Count Neut % (Auto) Lymph % (Auto) Stanley % (Auto) Eos % (Auto) Baso % (Auto) Neut # (Auto) Lymph # (Auto) Stanley # (Auto) Eos # (Auto) Baso # (Auto) Sodium Potassium Chloride Carbon Dioxide BUN Creatinine Estimated GFR BUN/Creatinine Ratio Glucose Lactate 1.6 Calcium Total Bilirubin AST ALT Alkaline Phosphatase Troponin I Total Protein Albumin Globulin Albumin/Globulin Ratio Procalcitonin 0.18 Urine Color Urine Appearance Urine pH Ur Specific Erwin Urine Protein Urine Glucose (UA) Urine Ketones Urine Occult Blood Urine Nitrate Urine Bilirubin Urine Urobilinogen Ur Leukocyte Esterase Urine RBC Urine WBC Ur Squamous Epith Cells Urine Bacteria Hyaline Casts Urine Mucus Ur Culture Indicated? U Opiates 300ng/mL cut Ur Oxycodone Screen Urine Methadone Screen Ur Barbiturates Screen U Tricyclic Antidepress Ur Phencyclidine Scrn Ur Amphetamines Screen U Methamphetamines Scrn Ur MDMA Scrn (Ecstasy) U Benzodiazepines Scrn Urine Cocaine Screen U Marijuana (THC) Screen SARS-CoV-2 (PCR) Assessment & Plan Assessment & Plan narrative: 82-year-old female with multiple medical problems to is admitted for acute cognitive changes secondary to urinary tract infection. Blood cultures and urine cultures pending Assessment 1. Urinary tract infection with acute delirium and cognitive changes Plan: Await urine cultures. Will continue with IV ceftriaxone until at least preliminary blood cultures. Will consult PT Assessment 2. COPD without acute exacerbation Plan: Will follow. She is not on no maintenance medication Assessment 3. Hypertension currently well controlled Plan: Continue out patient medications including Lasix and diltiazem. Will hold the quinapril at this time due to chronic kidney disease Assessment 4. Depression with anxiety with recent change in medications Plan: Will continue outpatient medications per Dr. Ortega sertraline 150 mg daily, bupropion XL 300 mg daily, trazodone 50 mg p.o. t.i.d. for severe anxiety Assessment 5. Obstructive sleep apnea with possible restless legs syndrome on ropinirole Plan: Will continue the same and continue with outpatient sleep apnea treatment which I believe is BiPAP Assessment 6. Previous CVA without evidence of acute symptoms. CT scan of head was negative. At this point I do not see indication for proceeding further with MRI but we will continue to monitor. Will attempt to get Neurology notes from outpatient neurology Assessment 7 hyperlipidemia Plan: Continue outpatient treatment Assessment 8. Stage 3 chronic kidney disease with slight worsening Plan: Will hold quinapril and potassium for now and monitor blood pressure and reassess kidney function in a.m.. Will give IV fluids if patient is unable to take p.o. hydration when she awakens Assessment 9. Congestive heart failure without acute exacerbation, systolic Plan: Will continue outpatient Lasix but continue to monitor closely Assessment 10. Recent fall due to weakness without evidence of fracture or intracerebral injury Plan: Will continue to monitor. Reviewed CT scan of head neck. Will consult PT. suspect weakness was related to UTI and infection Assessment 11. GI prophylaxis Plan: Oral Protonix Assessment 12. DVT prophylaxis Plan: Lovenox with renal dosing 65 minutes was spent with patient and discussing with emergency room physician and nursing staff and reviewing her chart, formulating a plan and documenting Time Spent With Patient Critical Care time: I spent a total of [] minutes of critical care time on this patient's care today; this time is exclusive of procedural time. Quality VTE Deep Vein Thrombosis/Pulmonary Embolism Present on Admission: No
[2022-04-21] MEDS: ASPIRIN EC 81 MG TABLET PO (09:34)
[2022-04-21] MEDS: buPROPion XL 150 MG TAB 300 MG PO (09:34)
[2022-04-21] MEDS: VERAPAMIL 120 MG TABLET PO ×3 (09:34→22:20)
--- NOTE | 2022-04-21 10:50 | PT.IIE ---
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 Morbid obesity with body mass index (BMI) greater than or equal to 50 Nocturnal hypoxemia (09/08/17) Obstructive sleep apnea of adult (~05/2020) Obstructive sleep apnea, adult Osteoarthritis (Unknown) Pain of left hand (04/21/17) Physical deconditioning Restless leg syndrome Sexual dysfunction Stroke (Unknown) Vaginal dryness (04/21/17) Physical Therapy Inpatient Evaluation/Re-Eval M1 PT/OT-IP Prior Functional Status Start: 04/21/22 12:53 Freq: NEEDED Status: Active Protocol: Document 04/21/22 10:50 AB (Rec: 04/21/22 13:06 AB [email or web address]) Medical Review Prior Functional Status Medical History Reviewed Yes Communication has confusion and inconsistent with answering questions and following directions. [employer] Mobility and Gait unable to obtain PLOF and home set up from pt due to confusion but from previous EMR: pt is modified independent with ambulation without AD Social History Household Members spouse Living Arrangements House Number of Floors (Floors) One Floor Number of Stairs To Enter/Railing? 3 steps L rail ascending Home Environment Standard Height Toilet,Tub/ Shower Home Equipment Shower Seat without Backrest, Grab Bars In Shower Additional Social History Comment home setup info obtained from previous admissions EMR M2 PT-IP Current Condition Start: 04/21/22 12:53 Freq: NEEDED Status: Active Protocol: Document 04/21/22 10:50 AB (Rec: 04/21/22 13:06 AB [email or web address]) Physical Therapy Current Condition Current Condition Evaluation Date 04/21/22 Treatment Diagnosis altered mental status; UTI; difficulty in walking Onset Date 04/21/22 M3 PT-IP Subjective Start: 04/21/22 12:53 Freq: NEEDED Status: Active Protocol: Document 04/21/22 10:50 AB (Rec: 04/21/22 13:06 AB [email or web address]) Subjective Physical Therapy Visit Type Type Initial Evaluation Visit Start Time 10:50 Visit Stop Time 11:10 Total Visit Minutes 20 Number of NURSES DIRECTOR Visits 0 Physical Therapy Visit Comments Patient Comments agreed to get out of the bed M4 PT-IP Mobility and Gait Start: 04/21/22 12:53 Freq: NEEDED Status: Active Protocol: Document 04/21/22 10:50 AB (Rec: 04/21/22 13:06 AB [email or web address]) PT-Bed Mobility Assessment Supine to Sit Supine to Sit Maximum Assistance,2 Person Assistance,Head of Bed Elevated Scooting Scooting to Edge of Bed Maximum Assistance PT-Transfer Assessment Sit to and From Stand Sit to and from Stand Maximum Assistance,2 Person Assistance,Use of Upper Extremities Equipment Transfer Assistive Device Front Wheeled Walker Orthotic/Prosthetic Devices or Brace: No Transfers Transfer Destination Chair Transfer Technique ambulated Transfer Ability Level of Assist Maximum Assistance,1 Person Assistance,2 Person Assistance ,Use of Upper Extremities Comments Mobility Comments pt completed supine to sit max A x 2 and max cues with HOB elevated. completed sit to stand x 2 attempts max A x 2 and max cues. ambulated ~ 10 ft using FWW max A x 1-2 and max cues with unsteady gait. chair placed closer to pt for safety. positioned pt on the chair. call light and table placed within reach. Gait Assessment Gait Gait Assistance Required: Maximum Assistance,1 Person Assist,2 Person Assist Distance (Feet) 10 Able to Maintain Weight Bearing Status Yes During Gait Assistive Devices Assistive Device Gait Belt,Front Wheeled Walker Orthotic/Prosthetic Devices or Brace: No Gait Deviations General Gait Pattern Decreased Stride Length, Decreased Feet Clearance,Step- to Gait Factors Limiting Gait Function Factors Limiting Gait Function Decreased Activity Tolerance, Decreased Strength,Difficulty Following Directions,Poor Balance,Poor Safety Awareness PT-Balance Assessment Sitting Balance and Reactions Static Sitting Balance Ability Good Dynamic Sitting Balance Ability Fair Standing Balance and Reactions Static Standing Balance Ability Poor Dynamic Standing Balance Ability Poor Device Used FWW M5 PT-IP Objective Assessments Start: 04/21/22 12:53 Freq: NEEDED Status: Active Protocol: Document 04/21/22 10:50 AB (Rec: 04/21/22 13:06 AB [email or web address]) Orientation Orientation/Cognition Level of Alertness Confusional State Orientation Name Language Function Ability Hard of Hearing Safety Awareness Decreased Safety Awareness Memory Description Short Term Impaired,Senior Living Impaired Strength Lower Extremity Strength Assessment Bilaterally Impaired Hip 3+/5 Knee 3+/5 Muscle Tone Muscle Tone WNL Yes M6 PT-IP Treatment Start: 04/21/22 12:53 Freq: NEEDED Status: Active Protocol: Document 04/21/22 10:50 AB (Rec: 04/21/22 13:06 AB [email or web address]) Physical Therapy Treatment Education Education Provided Safety M7 PT-IP Assessment and Plan Start: 04/21/22 12:53 Freq: NEEDED Status: Active Protocol: Document 04/21/22 10:50 AB (Rec: 04/21/22 13:06 AB [email or web address]) PT Summary Assessment and Plan Potential Rehabilitation Potential Fair Status of Condition at Evaluation Evolving Summary Impairments Pain,ROM,Strength,Balance, Coordination,Sensation,Tone, Cognition,Bed Mobility, Transfers,Gait,Activity Tolerance Assessment Summary pt requiring max A x 2 with mobility using FWW and continues to have confusion affecting mobility. d/c plan depending on progress but at this time may require SNF rehab. pt has her spouse to assist her and when appropriate, will conduct caregiver training. will continue to assess progress. Goals Bed Mobility Goal Standby Assistance Transfer Goal Standby Assistance,Front Wheeled Walker Gait Goal Standby Assistance,Front Wheel Walker Gait Distance 100 Other Goals up/down 3 steps L rail ascending CGA Days to Meet Goals 10 Frequency of Treatment Frequency Of Treatment Once a Day Treatment Plan Physical Therapy Treatment Plan Bed Mobility Training,Transfer Training,Gait Training, Therapeutic Exercise,Balance Retraining,Discharge Planning, Hot or Cold Pack,Neuromuscular Re-ed,Coordination Retraining Recommendations To Nursing Amount of Assist Needed 2 Person Assist Discharge Recommendations PT Discharge Recommendations Home with 13/06 Assist Available,Home Health,SNF Rehab,Home vs SNF Transportation Needs at Discharge Private Vehicle,Wheelchair/ Cabulance
--- NOTE | 2022-04-21 14:32 | P.PN_ITS ---
Exam Vital Signs (past 8 hours): - 04/21/22 09:56 04/21/22 13:39 Temperature 97.5 F L 97.5 F L Pulse Rate 59 L 61 Respiratory Rate 19 18 Blood Pressure 115/65 99/55 L Pulse Oximetry 95 95 Oxygen Delivery Method Room Air Oxygen Flow Rate 0 Objective Labs Result Diagrams: 04/20/22 19:40 04/20/22 19:40 Labs: Laboratory Results - last 24 hr 04/20/22 04/20/22 04/20/22 19:40 19:40 20:50 WBC 9.7 RBC 4.42 Hgb 13.5 Hct 40.0 MCV 90.5 MCH 30.6 MCHC 33.8 RDW 13.8 Plt Count 277 Neut % (Auto) 86.5 H Lymph % (Auto) 5.2 L [place] % (Auto) 7.4 Eos % (Auto) 0.2 L Baso % (Auto) 0.7 Neut # (Auto) 8400 H Lymph # (Auto) 500 L [place] # (Auto) 700 Eos # (Auto) 0 Baso # (Auto) 100 Sodium 138 Potassium 4.6 Chloride 102 Carbon Dioxide 26 BUN 39 H Creatinine 1.74 H Estimated GFR 29 L BUN/Creatinine Ratio 22.4 H Glucose 110 Lactate Calcium 8.6 Total Bilirubin 0.6 AST 44 H ALT 16 Alkaline Phosphatase 76 Troponin I Total Protein 6.4 Albumin 3.6 Globulin 2.8 Albumin/Globulin Ratio 1.3 Procalcitonin Urine Color Urine Appearance Urine pH Ur Specific [place] Urine Protein Urine Glucose (UA) Urine Ketones Urine Occult Blood Urine Nitrate Urine Bilirubin Urine Urobilinogen Ur Leukocyte Esterase Urine RBC Urine WBC Ur Squamous Epith Cells Urine Bacteria Hyaline Casts Urine Mucus Ur Culture Indicated? U Opiates 300ng/mL cut Negative Ur Oxycodone Screen Negative Urine Methadone Screen Negative Ur Barbiturates Screen Negative U Tricyclic Antidepress Negative Ur Phencyclidine Scrn Negative Ur Amphetamines Screen Negative U Methamphetamines Scrn Negative Ur MDMA Scrn (Ecstasy) Negative U Benzodiazepines Scrn Negative Urine Cocaine Screen Negative U Marijuana (THC) Screen Negative SARS-CoV-2 (PCR) 04/20/22 04/20/22 04/21/22 20:50 21:30 00:45 WBC RBC Hgb Hct MCV MCH MCHC RDW Plt Count Neut % (Auto) Lymph % (Auto) [place] % (Auto) Eos % (Auto) Baso % (Auto) Neut # (Auto) Lymph # (Auto) [place] # (Auto) Eos # (Auto) Baso # (Auto) Sodium Potassium Chloride Carbon Dioxide BUN Creatinine Estimated GFR BUN/Creatinine Ratio Glucose Lactate Calcium Total Bilirubin AST ALT Alkaline Phosphatase Troponin I < 0.012 Total Protein Albumin Globulin Albumin/Globulin Ratio Procalcitonin Urine Color Yellow Urine Appearance Cloudy Urine pH 5.0 Ur Specific [place] 1.020 Urine Protein Trace H Urine Glucose (UA) Negative Urine Ketones Trace H Urine Occult Blood Trace-lysed Urine Nitrate Positive H Urine Bilirubin Negative Urine Urobilinogen 0.2 Ur Leukocyte Esterase 3+ H Urine RBC None seen Urine WBC >100/hpf H Ur Squamous Epith Cells 1-5 /hpf Urine Bacteria Many (>30) H Hyaline Casts 5-10/lpf Urine Mucus 1+ H Ur Culture Indicated? Specimen cultured U Opiates 300ng/mL cut Ur Oxycodone Screen Urine Methadone Screen Ur Barbiturates Screen U Tricyclic Antidepress Ur Phencyclidine Scrn Ur Amphetamines Screen U Methamphetamines Scrn Ur MDMA Scrn (Ecstasy) U Benzodiazepines Scrn Urine Cocaine Screen U Marijuana (THC) Screen SARS-CoV-2 (PCR) Negative 04/21/22 04/21/22 00:45 00:45 WBC RBC Hgb Hct MCV MCH MCHC RDW Plt Count Neut % (Auto) Lymph % (Auto) [place] % (Auto) Eos % (Auto) Baso % (Auto) Neut # (Auto) Lymph # (Auto) [place] # (Auto) Eos # (Auto) Baso # (Auto) Sodium Potassium Chloride Carbon Dioxide BUN Creatinine Estimated GFR BUN/Creatinine Ratio Glucose Lactate 1.6 Calcium Total Bilirubin AST ALT Alkaline Phosphatase Troponin I Total Protein Albumin Globulin Albumin/Globulin Ratio Procalcitonin 0.18 Urine Color Urine Appearance Urine pH Ur Specific [place] Urine Protein Urine Glucose (UA) Urine Ketones Urine Occult Blood Urine Nitrate Urine Bilirubin Urine Urobilinogen Ur Leukocyte Esterase Urine RBC Urine WBC Ur Squamous Epith Cells Urine Bacteria Hyaline Casts Urine Mucus Ur Culture Indicated? U Opiates 300ng/mL cut Ur Oxycodone Screen Urine Methadone Screen Ur Barbiturates Screen U Tricyclic Antidepress Ur Phencyclidine Scrn Ur Amphetamines Screen U Methamphetamines Scrn Ur MDMA Scrn (Ecstasy) U Benzodiazepines Scrn Urine Cocaine Screen U Marijuana (THC) Screen SARS-CoV-2 (PCR) [facility] Medical History Chronic renal insufficiency (Unknown) Colon polyps (Unknown) COPD (chronic obstructive pulmonary disease) (Unknown) Dry both ear canals (02/24/17) Excessive daytime sleepiness Hyperlipemia (Unknown) Hypertension (Unknown) Insomnia, unspecified (~1997) Lower extremity edema (09/08/17) 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, recurrent, in full remission supervisor coffee associated with adverse incidents Morbid obesity with body mass index (BMI) greater than or equal to 50 Nocturnal hypoxemia (09/08/17) Obstructive sleep apnea of adult (~05/2020) Obstructive sleep apnea, adult Osteoarthritis (Unknown) Pain of left hand (04/21/17) Physical deconditioning Restless leg syndrome Sexual dysfunction Stroke (Unknown) Vaginal dryness (04/21/17) Surgical History History of knee replacement (2000) History of tonsillectomy (1947) Hx of total hip arthroplasty (09/2008) Status post cholecystectomy (1997) Status post dilation and curettage (2000) Family History Father No problems noted. Mother No problems noted. 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 Date of Service: 04/21/22 Provider:?Naina Juan MD History of Present Illness History of Present Illness Date Patient Seen: 04/21/22 Time Patient Seen: 06:00 Date of Onset of Symptoms: 04/20/22 Chief complaint: increased confusion/GLF Narrative: This 82-year-old patient with multiple medical problems including COPD, obstructive sleep apnea, morbid obesity, hypertension, hyperlipidemia, congestive heart failure, severe depression, previous CVA, chronic kidney disease stage 3 and status post aortic valve replacement, bioprosthetic is brought to the ER via paramedics due to confusion, weakness and a ground level fall.? Workup shows no evidence of trauma or fractures.? Head CT and CT of the neck is negative but patient was found have evidence of urinary tract infection with a borderline procalcitonin.? She was given IV ceftriaxone and blood cultur es and urine culture pending and she was admitted to the hospital for further treatment and workup.? At the time of my evaluation patient is somnolent and is not able to provide significant history.? She denies any current complaints of pain or chest pain or shortness of breath.? Her was not able to be reached at the time of my evaluation. Past medical history: 1. COPD 2. Previous CVA, old, cerebellar, sees Neurology but I do not have these notes available to me 3. Severe depression and anxiety, followed by Psychiatry, Dr. Ortega.? Recently switched from duloxetine to sertraline in January 4. Obstructive sleep apnea 5. Morbid obesity 6. Hypertension 7. Hyperlipidemia 8. Congestive heart failure 9. Chronic kidney disease, stage III 10. Aortic valve replacement, bioprosthetic valve 11. Colon polyp Allergies: Penicillin Past surgical history: Tonsillectomy and adenoidectomy D&C Total hip replaced Bilateral total knee replacement Health related behavior:? Does not use alcohol, illicit drugs or tobacco products Social history: Patient lives in an [place] with her who is her primary caregiver.? They are looking for support in home care.? She has children who do not live locally Family history: Dad in his 80s of CVA, dementia Mom at 78 of coronary artery disease Patient History Medical History? 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 History of knee replacement (2000) History of tonsillectomy (1947) Hx of total hip arthroplasty (09/2008) Status post cholecystectomy (1997) Status post dilation and curettage (2000) Family & Social History Family History? Father? No problems noted. Mother? No problems noted. Daughter Cancer Social History: household members ? spouse? lives independently ? Yes ? caregiver/support person? Yes: ? Safety & Behavioral: Feels Safe in Current ? Yes ? Environment ? Been Physically Hurt or ? No? Threatened By a Person? Tobacco & Substance use: Smoking Status? Never smoker? alcohol intake? never ? alcohol intake frequency? 0-2 drinks per day? Substance Use Type? does not use? Meds Home Medications and Allergies Home Medications ?Medication ?Instructions ?Recorded ?Confirmed ?Type sennosides 8.6 mg tablet (Natural 17.2 mg PO BID #240 tab 04/24/20 Rx Senna Laxative) ? aspirin 81 mg chewable tablet 81 mg PO DAILY #30 tab 04/29/20 2 Rx docusate sodium 100 mg capsule 100 mg PO DAILY 11/17/20 02/09/22 History (Colace) ? multivitamin 1 tab PO DAILY 11/17/20 02/09/22 History verapamil 120 mg tablet 120 mg PO TID #90 tab 12/07/21 02/09/22 Rx atorvastatin 40 mg tablet 40 mg PO BEDTIME #90 tab 12/29/21 02/09/22 Rx ropinirole 0.5 mg tablet 0.5 mg PO BEDTIME #90 tab 12/30/21 02/09/22 Rx quinapril 20 mg tablet 20 mg PO DAILY #90 tab 01/04/22 02/09/22 Rx bupropion HCl 300 mg 24 hr tablet, 300 mg PO QAM #30 tab 01/25/22 Rx extended release ? furosemide 40 mg tablet 40 mg PO DAILY #90 tab 02/04/22 02/09/22 Rx potassium chloride 20 mEq 20 meq PO DAILY #90 tab 03/08/22 ? Rx tablet,extended release ? trazodone 50 mg tablet See Rx Instructions .ROUTE 03/25/22 ? Rx ? .COMPLEX #90 tab ? ? ? sertraline 100 mg tablet 150 mg PO QAM #45 tab 04/13/22 04/13/22 Rx Allergies Allergy/AdvReac Type Severity Reaction Status Date / Time Penicillins [PENICILLINS] Allergy Mild Rash Verified 12/24/21 16:27 venom-honey bee Allergy Unknown ? Verified 12/24/21 16:27 [BEE VENOM (HONEY BEE)] ? BANDAGES Allergy Intermediate PLASTIC Uncoded 12/24/21 16:27 Review of Systems Review of Systems Narrative: Patient with improvement in her depression with recent change from duloxetine to sertraline Patient with increased confusion over the last week.? No fever chills.? No vomiting or diarrhea. Patient did not have witnessed syncopal episode but fell due to what was suspected to be weakness. No chest pain or shortness of breath or decreased exercise tolerance.? No worsening Peripheral edema No blood loss No rashes 12 point review of systems otherwise negative Exam Vital Signs (past 8 hours): - ? 04/20/22 23:45 04/21/22 00:00 04/21/22 00:15 Temperature ? ? ? Pulse Rate 62 62 62 Respiratory Rate 19 17 18 Blood Pressure 102/52 L 115/54 L 107/53 L Pulse Oximetry 93 93 93 ? 04/21/22 00:30 04/21/22 00:46 04/21/22 01:00 Temperature ? ? ? Pulse Rate 60 79 60 Respiratory Rate 18 44 H 18 Blood Pressure 107/59 L 108/56 L 106/59 L Pulse Oximetry 95 ? 93 ? 04/21/22 01:15 04/21/22 01:35 04/21/22 02:00 Temperature ? ? ? Pulse Rate 59 L 63 59 L Respiratory Rate 18 28 H 17 Blood Pressure 106/58 L ? ? Pulse Oximetry 93 93 97 ? 04/21/22 02:30 04/21/22 02:57 04/21/22 03:00 Temperature ? ? ? Pulse Rate 58 L 59 L 60 Respiratory Rate 16 20 24 Blood Pressure ? 112/56 L 122/58 L Pulse Oximetry 96 96 93 ? 04/21/22 03:15 04/21/22 03:30 04/21/22 03:46 Temperature ? ? ? Pulse Rate 66 58 L 62 Respiratory Rate 22 16 28 H Blood Pressure 109/55 L 109/53 L 113/70 Pulse Oximetry 95 95 94 ? 04/21/22 04:00 Temperature 98.0 F Pulse Rate 62 Respiratory Rate 22 Blood Pressure 131/71 Pulse Oximetry 98 Oxygen Delivery Method? Room Air? Narrative Exam Narrative: Patient is afebrile with vital signs stable.? Initially some lower blood press ures in the ER 109/55 but most recent blood pressure 131/71.? Patient is afebrile Patient is somnolent and alert to person but not place or time Head is normocephalic atraumatic.? There is abrasion over the left forehead Eyes pupils equal round reactive to light, extraocular muscles are intact.? Nose oropharynx unremarkable.? No evidence Of trauma Neck:? Supple without adenopathy or masses mild tenderness over the posterior neck Chest: Clear to auscultation without wheezes rhonchi or crackles Cor: Regular rate and rhythm with distant S1-S2 heart rate in the 60s, do not appreciate prostatic click Abdomen:? Obese, positive bowel sounds, soft, nontender, nondistended Extremities show trace pitting edema.? Patient has chronic venous stasis changes right greater than left with erythema on top of discoloration and a small area of the right lower extremity but just increased pigmentation of the left lower extremity Neurologic exam patient is confused but no focal finding Skin: No rash Objective Labs Result Diagrams: 04/20/22 19:40? 04/20/22 19:40? Labs: Laboratory Results - last 24 hr ? 04/20/22 04/20/22 04/20/22 ? 19:40 19:40 20:50 WBC ?9.7 ? ? RBC ?4.42 ? ? Hgb ?13.5 ? ? Hct ?40.0 ? ? MCV ?90.5 ? ? D MCH ?30.6 ? ? MCHC ?33.8 ? ? RDW ?13.8 ? ? Plt Count ?277 ? ? Neut % (Auto) ?86.5 H ? ? Lymph % (Auto) ?5.2 L ? ? [place] % (Auto) ?7.4 ? ? Eos % (Auto) ?0.2 L ? ? Baso % (Auto) ?0.7 ? ? Neut # (Auto) ?8400 H ? ? Lymph # (Auto) ?500 L ? ? [place] # (Auto) ?700 ? ? Eos # (Auto) ?0 ? ? Baso # (Auto) ?100 ? ? Sodium ? ?138 ? Potassium ? ?4.6 ? Chloride ? ?102 ? Carbon Dioxide ? ?26 ? BUN ? ?39 H ? Creatinine ? ?1.74 H ? Estimated GFR ? ?29 L ? BUN/Creatinine Ratio ? ?22.4 H ? Glucose ? ?110 ? Lactate ? ? ? Calcium ? ?8.6 ? Total Bilirubin ? ?0.6 ? AST ? ?44 H ? ALT ? ?16 ? Alkaline Phosphatase ? ?76 ? Troponin I ? ? ? Total Protein ? ?6.4 ? Albumin ? ?3.6 ? Globulin ? ?2.8 ? Albumin/Globulin Ratio ? ?1.3 ? Procalcitonin ? ? ? Urine Color ? ? ? Urine Appearance ? ? ? Urine pH ? ? ? Ur Specific [place] ? ? ? Urine Protein ? ? ? Urine Glucose (UA) ? ? ? Urine Ketones ? ? ? Urine Occult Blood ? ? ? Urine Nitrate ? ? ? Urine Bilirubin ? ? ? Urine Urobilinogen ? ? ? Ur Leukocyte Esterase ? ? ? Urine RBC ? ? ? Urine WBC ? ? ? Ur Squamous Epith Cells ? ? ? Urine Bacteria ? ? ? Hyaline Casts ? ? ? Urine Mucus ? ? ? Ur Culture Indicated? U Opiates 300ng/mL cut ? ? ?Negative Ur Oxycodone Screen ? ? ?Negative Urine Methadone Screen ? ? ?Negative Ur Barbiturates Screen ? ? ?Negative U Tricyclic Antidepress ? ? ?Negative Ur Phencyclidine ScrnB ? ? ?Negative Ur Amphetamines Screen ? ? ?Negative U Methamphetamines Scrn ? ? ?Negative Ur MDMA Scrn (Ecstasy) ? ? ?Negative U Benzodiazepines Scrn ? ? ?Negative Urine Cocaine Screen ? ? ?Negative D U Marijuana (THC) Screen ? ? ?Negative SARS-CoV-2 (PCR) ? 04/20/22 04/20/22 04/21/22 ? 20:50 21:30 00:45 WBC ? ? ? RBC ? ? ? Hgb ? ? ? Hct ? ? ? MCV ? ? ? MCH ? ? ? MCHC ? ? ? RDW ? ? ? Plt Count ? ? ? Neut % (Auto) ? ? ? Lymph % (Auto) ? ? ? [place] % (Auto) ? ? ? Eos % (Auto) ? ? ? Baso % (Auto) ? ? ? Neut # (Auto) ? ? ? Lymph # (Auto) ? ? ? [place] # (Auto) ? ? ? Eos # (Auto) ? ? ? Baso # (Auto) ? ? ? Sodium ? ? ? Potassium ? ? ? Chloride ? ? ? Carbon Dioxide ? ? ? BUN ? ? ? Creatinine ? ? ? Estimated GFR ? ? ? BUN/Creatinine Ratio ? ? ? Glucose ? ? ? Lactate ? ? ? Calcium ? ? ? Total Bilirubin ? ? ? AST ? ? ? ALT ? ? ? Alkaline Phosphatase ? ? ? Troponin I ? ? ?< 0.012 Total Protein ? ? ? Albumin ? ? ? Globulin ? ? ? Albumin/Globulin Ratio ? ? ? Procalcitonin ? ? ? Urine Color ?Yellow ?B ? Urine Appearance ?Cloudy ? ? Urine pH ?5.0 ? ? Ur Specific [place] ?1.020 ? ? Urine Protein ?Trace H ? ? Urine Glucose (UA) ?Negative ? ? Urine Ketones ?Trace H ? ? Urine Occult Blood ?Trace-lysed ? ? Urine Nitrate ?Positive H ? ? Urine Bilirubin ?Negative ? ? Urine Urobilinogen ?0.2 ? ? Ur Leukocyte Esterase ?3+ H ? ? Urine RBC ?None seen ? ? Urine WBC ?>100/hpf H ? ? Ur Squamous Epith Cells ?1-5 /hpf ? ? Urine Bacteria ?Many (>30) H ? ? Hyaline Casts ?5-10/lpf ? ? Urine Mucus ?1+ H ? ? Ur Culture Indicated? ?Specimen cultured ? ? U Opiates 300ng/mL cut ? ? ? Ur Oxycodone Screen ? ? ? Urine Methadone Screen ? ? ? Ur Barbiturates Screen ? ? ? U Tricyclic Antidepress ? ? ? Ur Phencyclidine Scrn ? ? ? Ur Amphetamines Screen ? ? ? U Methamphetamines Scrn ? ? ? Ur MDMA Scrn (Ecstasy) ? ? ? U Benzodiazepines Scrn ? ? ? Urine Cocaine Screen ? ? ? U Marijuana (THC) Screen ?B ? ? SARS-CoV-2 (PCR) ? ?Negative ? ? 04/21/22 04/21/22 ? 00:45 00:45 WBC ? ? RBC ? ? Hgb ? ? Hct ? ? MCV ? ? MCH ? ? MCHC ? ? RDW ? ? D Plt Count ? ? Neut % (Auto) ? ? Lymph % (Auto) ? ? [place] % (Auto) ? ? Eos % (Auto) ? ? Baso % (Auto) ? ? Neut # (Auto) ? ? Lymph # (Auto) ? ? [place] # (Auto) ? ? Eos # (Auto) ? ? Baso # (Auto) ? ? Sodium ? ? Potassium ? ? Chloride ? ? Carbon Dioxide ? ? BUN ? ? Creatinine ? ? Estimated GFR ? ? BUN/Creatinine Ratio ? ? Glucose ? ? Lactate ?1.6 ? Calcium ? ? Total Bilirubin ? ? AST ? ? ALT ? ? Alkaline Phosphatase ? ? Troponin I ? ? Total Protein ? ? Albumin ? ? Globulin ? ? Albumin/Globulin Ratio ? ? Procalcitonin ? ?0.18 Urine Color ? ? Urine Appearance ? ? Urine pH ? ? Ur Specific [place] ? ? Urine Protein ? ? D Urine Glucose (UA) ? ? Urine Ketones ? ? Urine Occult Blood ? ? Urine Nitrate ? ? Urine Bilirubin ? ? Urine Urobilinogen ? ? Ur Leukocyte Esterase ? ? Urine RBC ? ? Urine WBC ? ? Ur Squamous Epith Cells ? ? Urine Bacteria ? ? Hyaline Casts ? ? Urine Mucus ? ? Ur Culture Indicated? ? ? U Opiates 300ng/mL cut ? ? Ur Oxycodone Screen ? ? Urine Methadone Screen ? ? Ur Barbiturates Screen ? ? U Tricyclic Antidepress ? ? Ur Phencyclidine Scrn ? ? Ur Amphetamines Screen ? ? U Methamphetamines Scrn ? ? Ur MDMA Scrn (Ecstasy) ? ? U Benzodiazepines ScrnB ? ? Urine Cocaine Screen ? ? U Marijuana (THC) Screen ? ? SARS-CoV-2 (PCR) ? ? Assessment & Plan 82-year-old female with multiple medical problems to is admitted for acute cognitive changes secondary to urinary tract infection.? Blood cultures and urine cultures remain pending 1.? Urinary tract infection with acute delirium and cognitive changes. On ceftiaxone. Culture results pending. 2.? COPD without acute exacerbation. Not on any maintenance therapy, will provide albuterol as needed. 3. Hypertension currently well controlled Continue out patient medications including Lasix and diltiazem.? Holding the quinapril at this time due to chronic kidney disease, BP is controlled. 4.? Depression with anxiety with recent change in medications Continue outpatient medications per Dr. Ortega sertraline 150 mg daily, bupropion XL 300 mg daily, trazodone 50 mg p.o. t.i.d. for severe anxiety 5. Obstructive sleep apnea with possible restless legs syndrome on ropinirole Will continue the same and continue with outpatient sleep apnea treatment which is BiPAP 6.? Previous CVA without evidence of acute symptoms.? CT scan of head was negative.? 7. hyperlipidemia Continue outpatient treatment 8.? Stage 3 chronic kidney disease with slight worsening Quinapril and potassium has been held and monitor blood pressure and reassess kidney function in a.m. 9.? Congestive heart failure without acute exacerbation, systolic Will continue outpatient Lasix and monitor closely 10.? Recent fall due to weakness without evidence of fracture or intracerebral injury ? CT scan of head and cervical spine unremarkable. PT to mobilize. 11. GI prophylaxis Continue oral Protonix 12. DVT prophylaxis Lovenox with renal dosing 13. Some extra beats with bradycardia on EKG strip . Obtain EKG stat. Follow clinically and labs. Time Spent With Patient Critical Care time: I spent a total of [] minutes of critical care time on this patient's care tod ay; this time is exclusive of procedural time. Quality VTE Deep Vein Thrombosis/Pulmonary Embolism Present on Admission: No
[2022-04-21] MEDS: cefTRIAXone 1,000 MG in SODIUM CHLORIDE 0.9% 100 ML 200 MG IV (22:19)
[2022-04-21] MEDS: SERTRALINE 50 MG TABLET 150 MG PO (22:20)
[2022-04-21] MEDS: ROPINIROLE 0.25 MG TABLET 0.5 MG PO (22:20)
[2022-04-21] MEDS: ATORVASTATIN 20 MG TABLET 40 MG PO (22:20)
[2022-04-22 00:21] VITALS: BP 133/66; PULSE 64; RESP 17; TEMP 36.4; O2SAT 93
[2022-04-22 06:09] LABS: Add Manual Diff / Slide Review NO; Basophils Absolute Auto 0 /uL (0-100); Basophils Percent Auto 0.7 % (0-2); Eosinophils Absolute Auto 300 /uL (0-450); Eosinophils Percent Auto 6.1 % (2-4); Hematocrit 36.7 % (36-46); Hemoglobin 12.2 g/dL (12.0-16.0); Lymphocytes Absolute Auto 1700 /uL (1100-4500); Lymphocytes Percent Auto 31.3 % (25-40); Mean Corpuscular HGB Conc 33.4 % (30-36); Mean Corpuscular Hemoglobin 30.5 PG (26-34); Mean Corpuscular Volume 91.3 fL (80-100); Monocytes Absolute Auto 800 /uL (0-900); Neutrophils Absolute Auto 2600 /uL (1500-7000); Neutrophils Percent Auto 46.9 % (50-75); Platelet Count 206 X10^3/uL (150-400); Red Blood Cell Count 4.02 X10^6/uL (4.0-5.2); Red Cell Distribution Width 14.1 % (11.6-14.8); White Blood Cell Count 5.5 X10^3/uL (4.5-11.0)
[2022-04-22] MEDS: PANTOPRAZOLE DR 20 MG TABLET PO (06:14)
[2022-04-22 06:15] VITALS: BP 137/79; PULSE 58; RESP 16; TEMP 36.5; O2SAT 94
[2022-04-22 06:24] LABS: Alanine Aminotransferase 15 IU/L (<35); Albumin 2.9 g/dL (3.5-5.0); Albumin Globulin Ratio 1.1 (1.0-2.8); Alkaline Phosphatase 66 U/L (38-126); Aspartate Aminotransferase 31 IU/L (14-36); BUN Creatinine Ratio 21.5 (6-22); Bilirubin Total 0.2 mg/dL (0.2-1.3); Blood Urea Nitrogen 28 mg/dL (7-17); Calcium 8.5 mg/dL (8.4-10.2); Carbon Dioxide 31 mmol/L (22-32); Chloride 107 mmol/L (98-107); Estimated Glomerular Filt Rate 42 mL/min (>60); Globulin 2.6 g/dL (1.7-4.1); Glucose 84 mg/dL (80-110); HEMOLYSIS < 15 (0-50); Potassium 4.5 mmol/L (3.4-5.1); Sodium 142 mmol/L (137-145); Total Protein 5.5 g/dL (6.3-8.2)
[2022-04-22 06:43] LABS: Phosphorous 3.6 mg/dL (2.8-4.1)
[2022-04-22] MEDS: VERAPAMIL 120 MG TABLET PO ×3 (08:50→20:13)
[2022-04-22] MEDS: DOCUSATE 100 MG CAPSULE PO (08:50)
[2022-04-22] MEDS: ASPIRIN EC 81 MG TABLET PO (08:50)
[2022-04-22] MEDS: buPROPion XL 150 MG TAB 300 MG PO (08:50)
[2022-04-22] MEDS: ENOXAPARIN 30 MG/0.3 ML SYRINGE SUBCUT (08:51)
[2022-04-22 09:12] VITALS: BP 145/77; PULSE 86; RESP 20; TEMP 36.1; O2SAT 96
--- NOTE | 2022-04-22 13:07 | CM.DANOTE ---
Initial DCP Assessment Note Pt is a 82 yo female, resident of [place], admitted after GLF and found to have UTI PCP: Craig Chowdhury [facility] Reviewed chart, met w/patient and spouse Jaycob, introduced role and reviewed PT recommendation for SNF Spouse states he and patient live alone, adult children live all over and spouse states he does not anticipate they will return to take care of her (patient). Patient can independently get out of lift chair, get her walker and ambulate to BR. Spouse assists with wiping, bathing, meal prep, medications and assisting patient in/out of car for errands and trips. Spouse is adamant today that he will be taking patient home upon DC. Discussed [facility] choice list and spouse states he wants [facility] Suggested that spouse stay for a therapy sessions this afternoon. Spouse will be leaving in one hour. Updated RN Blanca and therapy team. Plan: Home w/spouse, caregiver support through [facility] and [facility] (will call now to initiate new referral) ILIA Abreu Discharge Planning/Care Management CM Discharge Assessment Start: 04/22/22 13:02 Freq: Status: Active Protocol: Document 04/22/22 13:02 JANN (Rec: 04/22/22 13:07 JANN [id number]) Discharge Planning Assessment Assigned Monument Erector ILIA Valentin/Assigned Designee Name Jaycob Joel, spouse Contact Information [phone], Advance Directives? Yes: MEGAN MIRZA Advance Directives on File Yes History Provided By Significant Other Prior Living Arrangements House Household Members spouse Type of transporation used prior to Relies on Others admit Independent with ADL's No Is patient alert and oriented? Yes Needs Assistance With Bathing,Grooming,Meal Prep, Toileting,Managing Medications ,Home Chores / Shopping Comment Spouse says he assists with everything. Patient able to get up w/walker from left chair to use the BR, spouse assist w/wiping and hygiene needs Name of Agency [facility] Comment 20 hrs monthly of caregiving from [facility] Respite spouse pays a participation cost (?) Patient/Family Preference Home with Home Health Comment Spouse wants [facility] Barriers to Discharge No Comment PT recommending home w/13/06 assist and HH vs SNF; spouse Jaycob adamantly refusing SNF as an option, states he will take patient home w/[facility] Discharge Plan Home with Home Health Referrals Initiated Home Health Additional Comment [facility] Medicare Choice List Provided Yes SNF/HH Preference Spouse wants [facility] Has Agency SNF been contacted Yes
[2022-04-22 13:09] VITALS: BP 110/49; PULSE 64; RESP 20; TEMP 36.4; O2SAT 96
--- NOTE | 2022-04-22 14:19 | PM.DS.1 ---
History of Present Illness History of Present Illness Date Patient Seen: 04/22/22 Chief complaint: increased confusion/GLF Discharge Providers Provider Date of admission: 04/21/22 03:25 Primary care physician: Craig Chowdhury MD Consults: 04/21/22 07:28 Consult to Discharge Planning Routine Comment: Consult to Physical Therapy Evaluate & Treat Comment: Physician Instructions: Evaluate and Treat Discharge provider: Susan Austin MD Exam Vital Signs (past 8 hours): - 04/22/22 09:12 04/22/22 13:09 Temperature 97 F L 97.6 F Pulse Rate 86 64 Respiratory Rate 20 20 Blood Pressure 145/77 H 110/49 L Pulse Oximetry 96 96 Oxygen Delivery Method Room Air Oxygen Flow Rate 0 Objective Labs Result Diagrams: 04/22/22 05:54 04/22/22 05:54 Labs: Laboratory Results - last 24 hr 04/22/22 04/22/22 04/22/22 05:54 05:54 05:54 WBC 5.5 RBC 4.02 Hgb 12.2 Hct 36.7 MCV 91.3 MCH 30.5 MCHC 33.4 RDW 14.1 Plt Count 206 Neut % (Auto) 46.9 L D Lymph % (Auto) 31.3 D [place] % (Auto) 15.0 H Eos % (Auto) 6.1 H Baso % (Auto) 0.7 Neut # (Auto) 2600 Lymph # (Auto) 1700 [place] # (Auto) 800 Eos # (Auto) 300 Baso # (Auto) 0 Sodium 142 Cancelled Potassium 4.5 Cancelled Chloride 107 Cancelled Carbon Dioxide 31 Cancelled BUN 28 H Cancelled Creatinine 1.30 H Cancelled Estimated GFR 42 L Cancelled BUN/Creatinine Ratio 21.5 Cancelled Glucose 84 Cancelled Calcium 8.5 Cancelled Phosphorus 3.6 Cancelled Total Bilirubin 0.2 AST 31 ALT 15 Alkaline Phosphatase 66 Total Protein 5.5 L Albumin 2.9 L Cancelled Globulin 2.6 Albumin/Globulin Ratio 1.1 [facility] Medical History Chronic renal insufficiency (Unknown) Colon polyps (Unknown) COPD (chronic obstructive pulmonary disease) (Unknown) Dry both ear canals (02/24/17) Excessive daytime sleepiness Hyperlipemia (Unknown) Hypertension (Unknown) Insomnia, unspecified (~1997) Lower extremity edema (09/08/17) 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, recurrent, 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 remission 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 Mother No problems noted. 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 Smoking Status: Never smoker alcohol intake: never substance use type: does not use caffeine: No eating out: rarely or never Type(s) of exercise: none Discharge Plan Discharge orders & Medications Prescriptions: No Action docusate sodium [Colace] 100 mg capsule 100 mg PO DAILY 0RF multivitamin Tablet 1 tab PO DAILY 0RF sertraline 100 mg tablet 150 mg PO QAM Qty: 45 2RF Rx Instructions: 04/13/22 dose increase sennosides [Natural Senna Laxative] 8.6 mg tablet 17.2 mg PO BID Qty: 240 1RF aspirin 81 mg tablet,chewable 81 mg PO DAILY Qty: 30 5RF Rx Instructions: Crush as needed for swallowing difficulty verapamil 120 mg tablet 120 mg PO TID Qty: 90 1RF Rx Instructions: Crush with food atorvastatin 40 mg tablet 40 mg PO BEDTIME Qty: 90 3RF ropinirole 0.5 mg tablet 0.5 mg PO BEDTIME Qty: 90 3RF quinapril 20 mg tablet 20 mg PO DAILY Qty: 90 3RF bupropion HCl 300 mg tablet extended release 24 hr 300 mg PO QAM Qty: 30 2RF potassium chloride 20 mEq tablet extended release 20 meq PO DAILY Qty: 90 3RF trazodone 50 mg tablet See Rx Instructions .ROUTE .COMPLEX Qty: 90 0RF Dose Instruction: TAKE 1 TABLET BY MOUTH THREE TIMES DAILY NEEDED FOR ANXIETY OR INSOMNIA Rx Instructions: TAKE 1 TABLET BY MOUTH THREE TIMES DAILY NEEDED FOR ANXIETY OR INSOMNIA furosemide 40 mg tablet 40 mg PO DAILY 0RF Follow up/Referrals: Craig Chowdhury MD [Primary Care Provider] - Discharge Data Primary Care Provider: Craig Chowdhury Quality VTE Deep Vein Thrombosis/Pulmonary Embolism Present on Admission: No
--- NOTE | 2022-04-22 14:54 | PT.IPTN ---
Current Diagnoses Urinary tract infection, site not specified (04/21/22) Physical Therapy Treatment Note M2 PT-IP Current Condition Start: 04/21/22 12:53 Freq: NEEDED Status: Active Protocol: Document 04/22/22 14:54 MA (Rec: 04/22/22 15:11 MA [id number]) Physical Therapy Current Condition Current Condition Evaluation Date 04/21/22 Treatment Diagnosis altered mental status; UTI; difficulty in walking Onset Date 04/21/22 M3 PT-IP Subjective Start: 04/21/22 12:53 Freq: NEEDED Status: Active Protocol: Document 04/22/22 14:54 MA (Rec: 04/22/22 15:11 MA [id number]) Subjective Physical Therapy Visit Type Type Treatment Note Visit Start Time 14:36 Visit Stop Time 14:54 Total Visit Minutes 18 Number of RESIDENT DOCTOR Visits 1 Physical Therapy Visit Comments Patient Comments Pt agreeable to PT. States already left for today but may come back tonight. Therapy Pain Assessment Pain When Pain Assessed At Rest Pain Present Pain Present Denied Pain M4 PT-IP Mobility and Gait Start: 04/21/22 12:53 Freq: NEEDED Status: Active Protocol: Document 04/22/22 14:54 MA (Rec: 04/22/22 15:11 MA [id number]) PT-Transfer Assessment Sit to and From Stand Sit to and from Stand Minimal Assistance,1 Person Assistance,Use of Upper Extremities Equipment Transfer Assistive Device Front Wheeled Walker Orthotic/Prosthetic Devices or Brace: No Transfers Transfer Destination Chair Transfer Technique ambulated Transfer Ability Level of Assist Minimal Assistance,1 Person Assistance,Use of Upper Extremities Comments Mobility Comments Pt completed sit<>stand from room chair by pulling up from middle of walker. Practiced 5x sit<>stands with verbal cues to only push from chair for safety with pt getting upset, hyperventilating, and crying if asked to perform sit<>stand without pulling on walker. Pt is able to complete 5x sit<> stands with Min A if allowed to pull on walker with one hand and push from armrest with the other hand. She then ambulates 10 ft to other side of bed, CGA with gait belt and FWW where she takes a seated rest break before walking the 10 ft back to chair. Pt performs exercises in room chair. See below Gait Assessment Gait Gait Assistance Required: Contact Guard Assist,1 Person Assist Distance (Feet) 20 Able to Maintain Weight Bearing Status Yes During Gait Assistive Devices Assistive Device Gait Belt,Front Wheeled Walker Orthotic/Prosthetic Devices or Brace: No Gait Deviations General Gait Pattern Decreased Stride Length, Decreased Feet Clearance,Step- to Gait Factors Limiting Gait Function Factors Limiting Gait Function Decreased Activity Tolerance, Decreased Strength,Difficulty Following Directions,Poor Balance,Poor Safety Awareness Comments Gait Comments See mobility section. PT-Balance Assessment Sitting Balance and Reactions Static Sitting Balance Ability Good Dynamic Sitting Balance Ability Fair Standing Balance and Reactions Static Standing Balance Ability Poor Dynamic Standing Balance Ability Poor Device Used FWW M5 PT-IP Objective Assessments Start: 04/21/22 12:53 Freq: NEEDED Status: Active Protocol: Document 04/21/22 10:50 AB (Rec: 04/21/22 13:06 AB [id number]) Orientation Orientation/Cognition Level of Alertness Confusional State Orientation Name Language Function Ability Hard of Hearing Safety Awareness Decreased Safety Awareness Memory Description Short Term Impaired,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 M7 PT-IP Assessment and Plan Start: 04/21/22 12:53 Freq: NEEDED Status: Active Protocol: Document 04/22/22 14:54 MA (Rec: 04/22/22 15:11 MA [id number]) PT Summary Assessment and Plan Potential Rehabilitation Potential Fair Status of Condition at Evaluation Evolving Summary Impairments Pain,ROM,Strength,Balance, Coordination,Sensation,Tone, Cognition,Bed Mobility, Transfers,Gait,Activity Tolerance Assessment Summary Pt is impulsive and easily aggitated but requires less assistance this session. She is Min A for sit<>stand and CGA for gait with gait belt and FWW this session. She has difficulty following commands and shows signs of distress with hyperventilating, crying, and rocking when asked to perform sit<>stand without pulling up on walker. Pt is refusing SNF and requesting return home with spouse once medically cleared. She denies stair training this session and states she has a ramp in the garage and never uses the front stairs to enter house. Unable to confirm ramp with spouse. Will require caregiver training before d/c. Goals Bed Mobility Goal Standby Assistance Transfer Goal Standby Assistance,Front Wheeled Walker Gait Goal Standby Assistance,Front Wheel Walker Gait Distance 100 Other Goals up/down 3 steps L rail ascending CGA Days to Meet Goals 10 Frequency of Treatment Frequency Of Treatment Once a Day Treatment Plan Physical Therapy Treatment Plan Bed Mobility Training,Transfer Training,Gait Training, Therapeutic Exercise,Balance Retraining,Discharge Planning, Hot or Cold Pack,Neuromuscular Re-ed,Coordination Retraining Recommendations To Nursing Amount of Assist Needed 1 Person Assist Discharge Recommendations PT Discharge Recommendations Home with Assistance,Home with / Assist Available,SNF Rehab,Home vs SNF Transportation Needs at Discharge Private Vehicle,Wheelchair/ Cabulance
[2022-04-22] MEDS: SODIUM CHLORIDE 0.9% 1,000 ML 100 ML IV (15:34)
--- NOTE | 2022-04-22 18:09 | P.PN_ITS ---
Subjective Subjective Interval history: Daily hospitalist visit. Examined patient well was present. No new complaints from nursing or the patient today. states that she is getting more in her usual self as far as interaction and the delirium is clearing. Exam Vital Signs (past 8 hours): - 04/22/22 13:09 Temperature 97.6 F Pulse Rate 64 Respiratory Rate 20 Blood Pressure 110/49 L Pulse Oximetry 96 Oxygen Delivery Method Room Air Oxygen Flow Rate 0 Narrative Exam Narrative: Patient appears to be in no distress. Sitting comfortably in her chair. Very little interaction because the patient does not understand much being said to her. Vital signs stable. HEENT: Pupils equal reactive light extraocular movements normal. Bandage on forehead from fall. Cardiovascular: Heart sounds S1 and S2 with no extra sounds or murmurs Respiratory: Clear to auscultation Gastrointestinal: Bowel sounds normal nontender. Musculoskeletal: Able to move all extremities volitionally. No strength deficits. Objective Labs Result Diagrams: 04/22/22 05:54 04/22/22 05:54 Labs: Laboratory Results - last 24 hr 04/22/22 04/22/22 04/22/22 05:54 05:54 05:54 WBC 5.5 RBC 4.02 Hgb 12.2 Hct 36.7 MCV 91.3 MCH 30.5 MCHC 33.4 RDW 14.1 Plt Count 206 Neut % (Auto) 46.9 L D Lymph % (Auto) 31.3 D [place] % (Auto) 15.0 H Eos % (Auto) 6.1 H Baso % (Auto) 0.7 Neut # (Auto) 2600 Lymph # (Auto) 1700 [place] # (Auto) 800 Eos # (Auto) 300 Baso # (Auto) 0 Sodium 142 Cancelled Potassium 4.5 Cancelled Chloride 107 Cancelled Carbon Dioxide 31 Cancelled BUN 28 H Cancelled Creatinine 1.30 H Cancelled Estimated GFR 42 L Cancelled BUN/Creatinine Ratio 21.5 Cancelled Glucose 84 Cancelled Calcium 8.5 Cancelled Phosphorus 3.6 Cancelled Total Bilirubin 0.2 AST 31 ALT 15 Alkaline Phosphatase 66 Total Protein 5.5 L Albumin 2.9 L Cancelled Globulin 2.6 Albumin/Globulin Ratio 1.1 [facility] Medical History Chronic renal insufficiency (Unknown) Colon polyps (Unknown) COPD (chronic obstructive pulmonary disease) (Unknown) Dry both ear canals (02/24/17) Excessive daytime sleepiness Hyperlipemia (Unknown) Hypertension (Unknown) Insomnia, unspecified (~1997) Lower extremity edema (09/08/17) 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, 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, 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 Mother No problems noted. 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 Blood cultures and urine cultures remain pending ?1.? Urinary tract infection with acute delirium and cognitive changes. On ceftiaxone. Culture is positive. Specific bacteria and sensitivities pending. Clinically responding to ceftriaxone. ?2.? COPD without acute exacerbation. Not on any maintenance therapy, will provide albuterol as needed. ?3. Hypertension currently well controlled ?Continue with patient medications including Lasix and diltiazem.? Holding the quinapril at this time due to chronic kidney disease, BP is controlled. ?4.? Depression with anxiety with recent change in medications ?Continue outpatient medications per Dr. Ortega sertraline 150 mg daily, bupropion XL 300 mg daily, trazodone 50 mg p.o. t.i.d. for severe anxiety ?5. Obstructive sleep apnea with possible restless legs syndrome on ropinirole ?Will continue the same and continue with outpatient sleep apnea treatment which is BiPAP ?6.? Previous CVA without evidence of acute symptoms.? CT scan of head was negative.? ?7. hyperlipidemia ?Continue outpatient treatment ?8.? Stage 3 chronic kidney disease with slight worsening on presentation. It is improving now. ?Quinapril and potassium has been held and monitor blood pressure and reassess kidney function in a.m. ?9.? Congestive heart failure without acute exacerbation, systolic ?Will continue outpatient Lasix and monitor closely. Clinically controlled. ?10.? Recent fall due to weakness without evidence of fracture or intracerebral injury ? CT scan of head and cervical spine unremarkable. PT to mobilize. ?11.? GI prophylaxis ?Continue oral Protonix ?12. DVT prophylaxis ? Lovenox with renal dosing ?13. Some extra beats with bradycardia on EKG strip. Extra beats resolved. Could have been caused by the acute infection. Follow labs and clinically tomorrow expect transition to oral medications so discharged as possible. Time Spent With Patient Critical Care time: I spent a total of [] minutes of critical care time on this patient's care today; this time is exclusive of procedural time. Quality VTE Deep Vein Thrombosis/Pulmonary Embolism Present on Admission: No
[2022-04-22] MEDS: TRAZODONE 50 MG TABLET PO (19:58)
[2022-04-22 20:10] VITALS: BP 136/97; PULSE 78; RESP 19; TEMP 36.9; O2SAT 94
[2022-04-22] MEDS: ROPINIROLE 0.25 MG TABLET 0.5 MG PO (20:13)
[2022-04-22] MEDS: ATORVASTATIN 20 MG TABLET 40 MG PO (20:13)
[2022-04-22] MEDS: SERTRALINE 50 MG TABLET 150 MG PO (20:13)
[2022-04-22] MEDS: cefTRIAXone 1,000 MG in SODIUM CHLORIDE 0.9% 100 ML 200 MG IV (20:13)
[2022-04-23 05:51] LABS: Add Manual Diff / Slide Review NO; Basophils Absolute Auto 0 /uL (0-100); Basophils Percent Auto 0.4 % (0-2); Eosinophils Absolute Auto 400 /uL (0-450); Hematocrit 41.3 % (36-46); Hemoglobin 13.3 g/dL (12.0-16.0); Lymphocytes Absolute Auto 1900 /uL (1100-4500); Lymphocytes Percent Auto 31.6 % (25-40); Mean Corpuscular HGB Conc 32.3 % (30-36); Mean Corpuscular Hemoglobin 30.1 PG (26-34); Mean Corpuscular Volume 93.1 fL (80-100); Monocytes Absolute Auto 900 /uL (0-900); Monocytes Percent Auto 14.8 % (3-14); Neutrophils Absolute Auto 2900 /uL (1500-7000); Neutrophils Percent Auto 47.2 % (50-75); Platelet Count 215 X10^3/uL (150-400); Red Blood Cell Count 4.43 X10^6/uL (4.0-5.2); White Blood Cell Count 6.1 X10^3/uL (4.5-11.0)
[2022-04-23 06:00] VITALS: BP 157/93; PULSE 62; RESP 16; TEMP 36.2; O2SAT 94
[2022-04-23 06:02] LABS: Albumin 3.3 g/dL (3.5-5.0); BUN Creatinine Ratio 23.1 (6-22); Blood Urea Nitrogen 28 mg/dL (7-17); Calcium 8.8 mg/dL (8.4-10.2); Carbon Dioxide 30 mmol/L (22-32); Chloride 108 mmol/L (98-107); Estimated Glomerular Filt Rate 45 mL/min (>60); Glucose 85 mg/dL (80-110); HEMOLYSIS < 15 (0-50); Phosphorous 3.7 mg/dL (2.8-4.1); Potassium 4.2 mmol/L (3.4-5.1); Sodium 141 mmol/L (137-145)
[2022-04-23] MEDS: PANTOPRAZOLE DR 20 MG TABLET PO (06:32)
[2022-04-23 08:01] VITALS: BP 142/66; PULSE 55; RESP 20; TEMP 36.8; O2SAT 92
[2022-04-23] MEDS: ASPIRIN EC 81 MG TABLET PO (10:52)
[2022-04-23] MEDS: VERAPAMIL 120 MG TABLET PO ×2 (10:52→14:41)
[2022-04-23] MEDS: ENOXAPARIN 30 MG/0.3 ML SYRINGE SUBCUT (10:52)
--- NOTE | 2022-04-23 10:53 | PT.IPTN ---
Current Diagnoses Urinary tract infection, site not specified (04/21/22) Physical Therapy Treatment Note M2 PT-IP Current Condition Start: 04/21/22 12:53 Freq: NEEDED Status: Active Protocol: Document 04/22/22 14:54 MA (Rec: 04/22/22 15:11 MA [id number]) Physical Therapy Current Condition Current Condition Evaluation Date 04/21/22 Treatment Diagnosis altered mental status; UTI; difficulty in walking Onset Date 04/21/22 M3 PT-IP Subjective Start: 04/21/22 12:53 Freq: NEEDED Status: Active Protocol: Document 04/23/22 10:30 KS (Rec: 04/23/22 12:29 KS [id number]) Subjective Physical Therapy Visit Type Type Treatment Note Visit Start Time 10:30 Visit Stop Time 10:53 Total Visit Minutes 23 Notes Pts present for caregiver training Number of JOIST SETTER Visits 2 M4 PT-IP Mobility and Gait Start: 04/21/22 12:53 Freq: NEEDED Status: Active Protocol: Document 04/23/22 10:30 KS (Rec: 04/23/22 12:29 KS [id number]) PT-Bed Mobility Assessment Supine to Sit Supine to Sit Moderate Assistance,1 Person Assistance,Head of Bed Elevated,Bedrails Scooting Scooting to Edge of Bed Maximum Assistance PT-Transfer Assessment Sit to and From Stand Sit to and from Stand Minimal Assistance,1 Person Assistance,Use of Upper Extremities Equipment Transfer Assistive Device Front Wheeled Walker Orthotic/Prosthetic Devices or Brace: No Transfers Transfer Destination Chair,Toilet Transfer Technique ambulated Transfer Ability Level of Assist Minimal Assistance,1 Person Assistance,Use of Upper Extremities Comments Mobility Comments Pt in bed upon arrival and pts agreeable to provide assist. Pts provided Mod A for sup<>sit and Max A for pt scooting to EOB and then Min A for sit<>stand w/ FWW. Pts assisted pt to bathroom CGA w/ FWW and provided pericare for her. She ambulated to chair SBA and left in chair w/ all needs in reach. Pts states he fels able to assist pt at home . Gait Assessment Gait Gait Assistance Required: Standby Assistance,Contact Guard Assist,1 Person Assist Distance (Feet) 15 Able to Maintain Weight Bearing Status Yes During Gait Assistive Devices Assistive Device Gait Belt,Front Wheeled Walker Orthotic/Prosthetic Devices or Brace: No Gait Deviations General Gait Pattern Decreased Stride Length, Decreased Feet Clearance,Step- to Gait Factors Limiting Gait Function Factors Limiting Gait Function Decreased Activity Tolerance, Decreased Strength,Difficulty Following Directions,Poor Balance,Poor Safety Awareness Comments Gait Comments See mobility section. PT-Balance Assessment Sitting Balance and Reactions Static Sitting Balance Ability Good Dynamic Sitting Balance Ability Fair Standing Balance and Reactions Static Standing Balance Ability Fair Dynamic Standing Balance Ability Fair Device Used FWW M5 PT-IP Objective Assessments Start: 04/21/22 12:53 Freq: NEEDED Status: Active Protocol: Document 04/21/22 10:50 AB (Rec: 04/21/22 13:06 AB [id number]) Orientation Orientation/Cognition Level of Alertness Confusional State Orientation Name Language Function Ability Hard of Hearing Safety Awareness Decreased Safety Awareness Memory Description Short Term Impaired,Residential Impaired Strength Lower Extremity Strength Assessment Bilaterally Impaired Hip 3+/5 Knee 3+/5 Muscle Tone Muscle Tone WNL Yes M6 PT-IP Treatment Start: 04/21/22 12:53 Freq: NEEDED Status: Active Protocol: Document 04/23/22 10:30 KS (Rec: 04/23/22 12:29 KS [id number]) Physical Therapy Treatment Education Education Provided Safety Other Treatments Other Treatment Performed Assessed pts ability to assist pt at home. M7 PT-IP Assessment and Plan Start: 04/21/22 12:53 Freq: NEEDED Status: Active Protocol: Document 04/23/22 10:30 KS (Rec: 04/23/22 12:29 KS [id number]) PT Summary Assessment and Plan Potential Rehabilitation Potential Fair Status of Condition at Evaluation Evolving Summary Impairments Pain,ROM,Strength,Balance, Coordination,Sensation,Tone, Cognition,Bed Mobility, Transfers,Gait,Activity Tolerance Goals Bed Mobility Goal Standby Assistance Transfer Goal Standby Assistance,Front Wheeled Walker Gait Goal Standby Assistance,Front Wheel Walker Gait Distance 100 Other Goals up/down 3 steps L rail ascending CGA Days to Meet Goals 10 Frequency of Treatment Frequency Of Treatment Once a Day Treatment Plan Physical Therapy Treatment Plan Bed Mobility Training,Transfer Training,Gait Training, Therapeutic Exercise,Balance Retraining,Discharge Planning, Hot or Cold Pack,Neuromuscular Re-ed,Coordination Retraining Recommendations To Nursing Amount of Assist Needed 1 Person Assist Discharge Recommendations PT Discharge Recommendations Home with Assistance,Home with 24/7 Assist Available,SNF Rehab,Home vs SNF Transportation Needs at Discharge Private Vehicle,Wheelchair/ Cabulance
[2022-04-23] MEDS: DOCUSATE 100 MG CAPSULE PO (10:55)
[2022-04-23] MEDS: buPROPion XL 150 MG TAB 300 MG PO (10:55)
[2022-04-23 12:00] VITALS: BP 120/43; PULSE 64; RESP 18; TEMP 36.4; O2SAT 93
--- NOTE | 2022-04-23 17:13 | PC.NURSE ---
Pt is medically cleared for discharge per this a.m after hartley silvio'd and patient was able to void on her own. Her VSS, afebrile on RA. She is A&ox1-2, cheerful and did not appear to be in distress. at bedside this a.m. supportive and eager for discharge.Pt voids after lunch and is 1 person assist to the wheel chair. Pt is forgetful but pleasant and verbalizes excitement to go home and be with her dog. Pt's verbalizes understanding of discharge recommendations, medications, and follow up care. He ambulates to Dr. Chowdhury's office to schedule her follow up appointment with PCP and then returns to [facility] with her discharger. Patient is escorted via wheel chair with all of her belongings to a private vehicle with her at approximately 1530.
--- NOTE | 2022-04-23 20:20 | PM.DS.1 ---
History of Present Illness History of Present Illness Date Patient Seen: 04/23/22 Chief complaint: increased confusion/GLF Narrative: Per the who is visiting the patient is at baseline. Patient having no new complaints. Eager to go home. Discharge Providers Provider Date of admission: 04/21/22 03:25 Discharge Date: 04/23/22 Primary care physician: Craig Chowdhury MD Consults: 04/21/22 07:28 Consult to Discharge Planning Routine Comment: Consult to Physical Therapy Evaluate & Treat Comment: Physician Instructions: Evaluate and Treat Discharge provider: Susan Austin MD Summary Hospital Course Discharge Diagnosis: Urinary tract infection with cognitive compromise Hospital Course: 82-year-old female with multiple medical problems to is admitted for acute cognitive changes secondary to urinary tract infection.? Blood cultures were negative. Urine cultures were positive for E coli with smyth sensitivity. Once cultures were known and sensitivity was noted the patient was transitioned to oral medication at the time of discharge. Prescription given for Cipro. Patient was at her baseline with dementia at the time of discharge. Status at Discharge Cognitive/behavioral status at discharge: at baseline, confused Functional status at discharge: independent ambulation Overall status at discharge: patient is back to baseline Exam Vital Signs (past 8 hours): Oxygen Delivery Method Room Air Oxygen Flow Rate 0 Narrative Exam Narrative: Patient in no acute distress. Eager to go home. HEENT: Pupils equal reactive to light. Extraocular movements normal Cardiovascular: Heart sounds normal Respiratory: Clear to auscultation Gastrointestinal: Soft nontender Objective Labs Result Diagrams: 04/23/22 05:25 04/23/22 05:25 Labs: Laboratory Results - last 24 hr 04/23/22 04/23/22 05:25 05:25 WBC 6.1 RBC 4.43 Hgb 13.3 Hct 41.3 MCV 93.1 MCH 30.1 MCHC 32.3 RDW 14.0 Plt Count 215 Neut % (Auto) 47.2 L Lymph % (Auto) 31.6 [place] % (Auto) 14.8 H Eos % (Auto) 6.0 H Baso % (Auto) 0.4 Neut # (Auto) 2900 Lymph # (Auto) 1900 [place] # (Auto) 900 Eos # (Auto) 400 Baso # (Auto) 0 Sodium 141 Potassium 4.2 Chloride 108 H Carbon Dioxide 30 BUN 28 H Creatinine 1.21 H Estimated GFR 45 L BUN/Creatinine Ratio 23.1 H Glucose 85 Calcium 8.8 Phosphorus 3.7 C-Reactive Protein 2.0 H Albumin 3.3 L [facility] Medical History Chronic renal insufficiency (Unknown) Colon polyps (Unknown) COPD (chronic obstructive pulmonary disease) (Unknown) Dry both ear canals (02/24/17) Excessive daytime sleepiness Hyperlipemia (Unknown) Hypertension (Unknown) Insomnia, unspecified (~1997) Lower extremity edema (09/08/17) 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, recurrent, in full remission 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 Mother No problems noted. 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 Underlying cognitive compromise. Plan of Treatment: Patient transition to his Cipro at the time of discharge 250 mg p.o. b.i.d. Patient has been given the prescription and he understood how to give. Patient to follow-up the with her primary care provider Discharge Plan Discharge Plan Patient Disposition: Home Provider Discharge Comment: Patient given Prescription of Cipro 250 mg p.o. BID #6 to take right away and another prescription for Cipro 250 mg b.i.d. number 10 to be use later if patient gets urinary tract symptoms and is not able to see a physician right away to be assessed. Still needs to be assessed by physician however. and was instructed in use of these medications. Discharge orders & Medications Prescriptions: Continued docusate sodium [Colace] 100 mg capsule 100 mg PO DAILY 0RF multivitamin Tablet 1 tab PO DAILY 0RF sertraline 100 mg tablet 150 mg PO QAM Qty: 45 2RF Rx Instructions: 04/13/22 dose increase sennosides [Natural Senna Laxative] 8.6 mg tablet 17.2 mg PO BID Qty: 240 1RF aspirin 81 mg tablet,chewable 81 mg PO DAILY Qty: 30 5RF Rx Instructions: Crush as needed for swallowing difficulty verapamil 120 mg tablet 120 mg PO TID Qty: 90 1RF Rx Instructions: Crush with food atorvastatin 40 mg tablet 40 mg PO BEDTIME Qty: 90 3RF ropinirole 0.5 mg tablet 0.5 mg PO BEDTIME Qty: 90 3RF quinapril 20 mg tablet 20 mg PO DAILY Qty: 90 3RF bupropion HCl 300 mg tablet extended release 24 hr 300 mg PO QAM Qty: 30 2RF potassium chloride 20 mEq tablet extended release 20 meq PO DAILY Qty: 90 3RF trazodone 50 mg tablet See Rx Instructions .ROUTE .COMPLEX Qty: 90 0RF Dose Instruction: TAKE 1 TABLET BY MOUTH THREE TIMES DAILY NEEDED FOR ANXIETY OR INSOMNIA Rx Instructions: TAKE 1 TABLET BY MOUTH THREE TIMES DAILY NEEDED FOR ANXIETY OR INSOMNIA furosemide 40 mg tablet 40 mg PO DAILY 0RF Follow up/Referrals: Craig Chowdhury MD [Primary Care Provider] - Visit Report/Discharge Packet Instructions: Ciprofloxacin Discharge Data Primary Care Provider: Craig Chowdhury Quality VTE Deep Vein Thrombosis/Pulmonary Embolism Present on Admission: No
--- NOTE | 2022-04-24 12:48 | CM.DPNOTE ---
DC Note Late Entry DC home w/spouse yesterday; spouse Jaycob denies need for HH services Plan: DC home w/spouse yesterday, no needs identified from CM team JW
== END 2022-04-23 15:30 | disposition home or self-care (01) | DRG 690 ==
LOC: ED 04-21 00:28 → AC 04-21 07:13
PROVIDERS: Admitting Provider Family Medicine; Emergency Provider Emergency Medicine; Family Provider Student in an Organized Health Care Education/Training Program; PCP Student in an Organized Health Care Education/Training Program; Visit Provider Neuromusculoskeletal Medicine, Sports Medicine
DX: N39.0 Urinary tract infection, site not specified (principal); I13.0 Hypertensive heart and chronic kidney disease with heart failure and stage 1 through stage 4 chronic kidney disease, or unspecified chronic kidney disease; I50.22 Chronic systolic (congestive) heart failure; Z68.41 Body mass index [BMI] 40.0-44.9, adult; F05 Delirium due to known physiological condition; N18.30 Chronic kidney disease, stage 3 unspecified; E66.01 Morbid (severe) obesity due to excess calories; J44.9 Chronic obstructive pulmonary disease, unspecified; F32.A Depression, unspecified; F41.9 Anxiety disorder, unspecified; G47.33 Obstructive sleep apnea (adult) (pediatric); G25.81 Restless legs syndrome; E78.5 Hyperlipidemia, unspecified; S00.81XA Abrasion of other part of head, initial encounter; M54.2 Cervicalgia; B96.20 Unspecified Escherichia coli [E. coli] as the cause of diseases classified elsewhere; W18.30XA Fall on same level, unspecified, initial encounter; Z95.2 Presence of prosthetic heart valve; Z20.822 Contact with and (suspected) exposure to COVID-19
CPT/HCPCS: 36415; 51701; 70450; 71045; 72125; 80053; 80069; 80305; 81001; 82962; 83605; 84100; 84145; 84484; 85025; 86140; 87040; 87077; 87086; 87186; 87635; 93005; 96365; 97116; 97162; 97530; 99284; C9803; J0696; J1650

== ENCOUNTER 2022-07-30 13:30 | Outpatient (RCR) | payer MEDICARE, BC, SELFPAY ==
[2021-01-20 11:51] VITALS: BMI 67.4
--- NOTE | 2022-02-11 16:52 | ST.OP.ACL ---
Visit Care Team Role Provider Type Craig Chowdhury MD Family Provider Physician Primary Care Provider Specialty: Internal Medicine Address: [address] [place] [address], [address], [place], [address] Email: [email or web address] Sai Huff MD Attending Provider Non-Staff Referring Provider Specialty: Neurology Psychiatry Address: [address] [place] [address] [place], [address] Email: Adult Cognitive Linguistic Evaluation RETREAD OPERATOR Adult Cognitive Linguistic Eval Start: 02/11/22 14:29 Freq: Status: Active Protocol: Document 02/11/22 15:31 ZS (Rec: 02/11/22 16:17 ZS [id number]) Adult Cognitive Linguistic Evaluation Session Time Visit Start Time 14:30 Visit Stop Time 15:30 Total Visit Minutes 60 Visit Information Visit Number Initial Evaluation Plan of Care Dates 02/11/2022 - 05/20/2022 Insurance Information Medicare Referral Referring Provider Dr. Huff Reason for Referral Pt continues to have cognitive impairments following stroke in November 2019 Setting Assessment Location Outpatient Care Visit Type Note Type Initial evaluation Next Note Type Next Note Type Treatment Note Patient Information Identification Type Name Patient History Per medical history: Susan Joel is a 81 year old female who was found down in November 2019 and taken to the ED in [facility] by her . She was in the hospital for 4 days. At discharge, she was not able to use the right leg at all, some of the left leg. She had difficulty swallowing and could not talk. Reported total loss of cognition and functioning. Per report, they were unable to do an MRI as the pt would not fit in the MRI machine. The pt has sleep apnea and her reported she tends to have low motivation and is inconsistent in completing home practice. Since the November 2019 event, the pt has had difficulties using the telephone, timing the use of a walkie-talkie, and is at a much lower level of functioning. Language(s) Spoken in the Home Gabonese Hearing Hearing Level Hearing Aids Previous Therapy Previous Speech-Language Therapy Yes History of Therapy Pt received speech therapy following stroke and was in inpatient rehab for 5 months, though speech therapy was not involved for the duration of this time. reported speech therapy was focused on expressive communication skills. Subjective Patient Report Susan arrived on time accompanied by her . She used a walker and moved slowly. Her reported she has significant anxiety that started after the November 2019 event. This was observed by the clinician when asking the pt multiple questions and during assessment tasks. Mental Status Alert,Responsive,Cooperative Assessment Oral Motor Examination Completed No Formal Assessment Standardized Test/Screener Type Cognitive Linguistic Quick Test (CLQT) Administration Complete Results Results of the CLQT place Susan's composite score at 1 .8, indicating a moderate cognitive deficit. Scores indicate severely impaired attention, executive functions , and clock drawing; moderately impaired language and visuospatial skills; and mildly impaired memory. Performance was negatively impacted by Susan's significant anxiety, which presented as incompletion of tasks when anxiety jaz and decreased attention as Susan performed anxiety-related behaviors. Recommend speech therapy targeting attention, in conjunction with recommendation for counseling/ psychiatric intervention; executive functions, and memory as they relate to tasks of daily living to increase Susan's ability to participate in her own care and increase quality of life. Findings/Results Language Function Within functional limits Cognitive Function Moderately impaired Prognosis Based on Cognitive status,Family support,Comorbidities,Duration of symptoms/severity,Time since onset Plan of Care Speech-Language Treatment Yes Frequency Once a week Duration 45 minutes Patient/Caregiver Education Patient expressed agreement with goals and treatment plans ,Family/caregivers expressed understanding of evaluation, Family/caregivers expressed agreement with goals and treatment plan,Patient requires further education/ training,Family/caregivers require further education/ training Short Term Goals 1. Susan will use internal and external aids to sustain attention for 3-5 minutes to a given task. 2. Susan will use internal and external aids to recall steps in familiar routines (e. g., doing the dishes) given visual and verbal cues. Assisted Goals Susan will report higher quality of life and increased participation in activities of daily living.
--- NOTE | 2022-02-11 16:53 | ST.OPPOC ---
Physical, Occupational & Speech Therapy At [facility] Visit Care Team Role Provider Type Craig Chowdhury MD Family Provider Physician Primary Care Provider Address: [address] [place] [address], [address], [place], [address] Sai Huff MD Attending Provider Non-Staff Referring Provider Address: [address] [place] [address] [place], [address] Speech Pathology Plan of Care Plan of Care Dates 02/11/2022 - 05/20/2022 Patient History Per medical history: Susan Joel is a 81 year old female who was found down in November 2019 and taken to the ED in [facility] by her . She was in the hospital for 4 days. At discharge, she was not able to use the right leg at all, some of the left leg. She had difficulty swallowing and could not talk. Reported total loss of cognition and functioning . Per report, they were unable to do an MRI as the pt would not fit in the MRI machine. The pt has sleep apnea and her reported she tends to have low motivation and is inconsistent in completing home practice. Since the November 2019 event, the pt has had difficulties using the telephone, timing the use of a walkie-talkie , and is at a much lower level of functioning. Language Function Within functional limits Cognitive Function Moderately impaired Short Term Goals 1. Susan will use internal and external aids to sustain attention for 3-5 minutes to a given task. 2. Susan will use internal and external aids to recall steps in familiar routines (e.g., doing the dishes) given visual and verbal cues. Fpc Goals Susan will report higher quality of life and increased participation in activities of daily living. Rehabilitation Potential Fair Electronically Signed by: KARO Siddiqi 02/11/22 [id number] Please Sign and Return: I have reviewed this Plan of Care and certify that the skilled therapy services above are required to meet the patient?s needs. Physician Signature Date Printed Name and Credentials Clinical Instructor Signature Printed Name and Credentials
--- NOTE | 2022-02-18 17:08 | ST.OPTN ---
Visit Care Team Role Provider Type Craig Chowdhury MD Family Provider Physician Primary Care Provider Address: [address] [place] [address], [address], [place], [address] Sai Huff MD Attending Provider Non-Staff Referring Provider Address: [address] [place] [address] [place], [address] UPHOLSTERER OUTSIDE Treatment Note UPHOLSTERER OUTSIDE Treatment Note Start: 02/18/22 16:58 Freq: Status: Active Protocol: Document 02/18/22 16:58 ZS (Rec: 02/18/22 17:08 ZS [id number]) Speech Pathology Treatment Note Session Time Visit Start Time 15:30 Visit Stop Time 16:25 Total Visit Minutes 55 Visit Information Visit Number 1 Plan of Care Dates 02/11/2022 - 05/20/2022 Insurance Information Medicare Setting Treatment Setting Outpatient Care Visit Type Note Type Treatment Note Next Note Type Next Note Type Treatment Note General Information Patient History Per medical history: Susan Joel is a 81 year old female who was found down in November 2019 and taken to the ED in [facility] by her . She was in the hospital for 4 days. At discharge, she was not able to use the right leg at all, some of the left leg. She had difficulty swallowing and could not talk. Reported total loss of cognition and functioning. Per report, they were unable to do an MRI as the pt would not fit in the MRI machine. The pt has sleep apnea and her reported she tends to have low motivation and is inconsistent in completing home practice. Since the November 2019 event, the pt has had difficulties using the telephone, timing the use of a walkie-talkie, and is at a much lower level of functioning. Pt received speech therapy following stroke and was in inpatient rehab for 5 months, though speech therapy was not involved for the duration of this time. reported speech therapy was focused on expressive communication skills. Results of the CLQT place Susan's composite score at 1 .8, indicating a moderate cognitive deficit. Scores indicate severely impaired attention, executive functions , and clock drawing; moderately impaired language and visuospatial skills; and mildly impaired memory. Performance was negatively impacted by Susan's significant anxiety, which presented as incompletion of tasks when anxiety jaz and decreased attention as Susan performed anxiety-related behaviors. Recommend speech therapy targeting attention, in conjunction with recommendation for counseling/ psychiatric intervention; executive functions, and memory as they relate to tasks of daily living to increase Susan's ability to participate in her own care and increase quality of life. Subjective Identification Type Name Identification Reconciled With Medical Record Others Present Family Observations/Patient Presentation Susan arrived on time accompanied by her . She used a walker and moved slowly. Her reported she twisted funny when she was getting out of bed the other day and is moving slower now. He added she has been less talkative today. Chief Complaint(s) Cognitive Objective Short Term Goals 1. Susan will use internal and external aids to sustain attention for 3-5 minutes to a given task. 2. Susan will use internal and external aids to recall steps in familiar routines (e. g., doing the dishes) given visual and verbal cues. Automotive Teacher Goals Susan will report higher quality of life and increased participation in activities of daily living. Treatment Activities Discussed results of CLQT and impact of anxiety on performance with cognitive tasks. Provided education regarding cognitive domains and impact on ADLs. Susan indicated she experiences anxiety all the time. Susan' s reported they have assistance at home 1-2x per month and he is her primary special education assistant for the remainder of the time. He stated Susan will sometimes not respond to him, which he says may be due to not being able to hear, not understanding what he is asking, rebellion, or not wanting to do it. Discussed increasing assistance at home with an aide as support systems are established. Provided education on what therapy will look like, and low-tech AAC options. Susan and her to determine where they would like AAC (i.e ., visual aids, communication boards) in the home and what those would look like prior to next session. Assessment Rehab Potential Fair Impairments Identified ADLs,Cognitive-Linguistic Skills Reviewed with Patient Goals,Progress Being Made,Home Exercise Program Patient/Caregiver Understanding Good Plan Amount of Therapy Recommended 6 Months Frequency of Treatment Once a Week Length of Session 45 Minutes Therapeutic Contents Cognitive-Linguistic Training, Home Exercise Program Provided Patient/Caregiver Instruction Home Exercise Program,Plan of Care,Questions/Concerns Therapy Recommendations Continue with Current Program
--- NOTE | 2022-02-25 13:31 | ST-OP ANOTE ---
Physical, Occupational & Speech Therapy At [facility] Speech Therapy Note Called pt's PCP to discuss increased support for pt's . Nurse reported the pt's has received resource counseling in the past and has not followed through with implementation, but they will provide information again.
--- NOTE | 2022-03-01 14:18 | ST.OPTN ---
Visit Care Team Role Provider Type Craig Chowdhury MD Family Provider Physician Primary Care Provider Address: [address] [place] [address], [address], [place], [address] Sai Huff MD Attending Provider Non-Staff Referring Provider Address: [address] [place] [address] [place], [address] FURNACE CHECKER Treatment Note FURNACE CHECKER Treatment Note Start: 02/18/22 16:58 Freq: Status: Active Protocol: Document 03/01/22 14:14 ZS (Rec: 03/01/22 14:18 ZS [id number]) Speech Pathology Treatment Note Session Time Visit Start Time 11:30 Visit Stop Time 12:15 Total Visit Minutes 45 Visit Information Visit Number 2 Plan of Care Dates 02/11/2022 - 05/20/2022 Insurance Information Medicare Setting Treatment Setting Outpatient Care Visit Type Note Type Treatment Note Next Note Type Next Note Type Treatment Note General Information Patient History Per medical history: Susan Joel is a 81 year old female who was found down in November 2019 and taken to the ED in [facility] by her . She was in the hospital for 4 days. At discharge, she was not able to use the right leg at all, some of the left leg. She had difficulty swallowing and could not talk. Reported total loss of cognition and functioning. Per report, they were unable to do an MRI as the pt would not fit in the MRI machine. The pt has sleep apnea and her reported she tends to have low motivation and is inconsistent in completing home practice. Since the November 2019 event, the pt has had difficulties using the telephone, timing the use of a walkie-talkie, and is at a much lower level of functioning. Pt received speech therapy following stroke and was in inpatient rehab for 5 months, though speech therapy was not involved for the duration of this time. reported speech therapy was focused on expressive communication skills. Results of the CLQT place Susan's composite score at 1 .8, indicating a moderate cognitive deficit. Scores indicate severely impaired attention, executive functions , and clock drawing; moderately impaired language and visuospatial skills; and mildly impaired memory. Performance was negatively impacted by Susan's significant anxiety, which presented as incompletion of tasks when anxiety jaz and decreased attention as Susan performed anxiety-related behaviors. Recommend speech therapy targeting attention, in conjunction with recommendation for counseling/ psychiatric intervention; executive functions, and memory as they relate to tasks of daily living to increase Susan's ability to participate in her own care and increase quality of life. Subjective Identification Type Name Identification Reconciled With Medical Record Others Present Family Observations/Patient Presentation Susan arrived on time accompanied by her . She used a walker and moved slowly. Chief Complaint(s) Cognitive Objective Short Term Goals 1. Susan will use internal and external aids to sustain attention for 3-5 minutes to a given task. 2. Susan will use internal and external aids to recall steps in familiar routines (e. g., doing the dishes) given visual and verbal cues. Unit Secy Goals Susan will report higher quality of life and increased participation in activities of daily living. Treatment Activities Provided education and handout regarding cognitive domains. Discussed increasing assistance at home with an aide as support systems are established. Provided education on what therapy will look like, and low-tech AAC options. Brainstormed what AAC would look like and discussed options with Susan and her . Assessment Rehab Potential Fair Impairments Identified ADLs,Cognitive-Linguistic Skills Reviewed with Patient Goals,Progress Being Made,Home Exercise Program Patient/Caregiver Understanding Good Plan Amount of Therapy Recommended 6 Months Frequency of Treatment Once a Week Length of Session 45 Minutes Therapeutic Contents Cognitive-Linguistic Training, Home Exercise Program Provided Patient/Caregiver Instruction Home Exercise Program,Plan of Care,Questions/Concerns Therapy Recommendations Continue with Current Program
--- NOTE | 2022-03-05 13:25 | ST-OP ANOTE ---
Physical, Occupational & Speech Therapy At [facility] Speech Therapy Note Called to inform him the communication boards are ready for pick-up and will be waiting for him in a folder at the front office associate. indicated he would come in this afternoon.
--- NOTE | 2022-03-31 15:14 | ST-OP ANOTE ---
Physical, Occupational & Speech Therapy At [facility] Speech Therapy Note Pt's called to report the AAC cards are not helping and his is just lazy and he needs to help her. Discussed building association between cards and actions by pointing to or showing cards to Susan prior to performing action as per usual. Will touch base to see how AAC is going at appointment on 04/26/22. reported agreement with this plan.
--- NOTE | 2022-05-03 12:18 | ST.OPTN ---
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 REFUGE WORKER Treatment Note Start: 02/18/22 16:58 Freq: Status: Active Protocol: Document 05/03/22 12:12 ZS (Rec: 05/03/22 12:18 ZS [id number]) Speech Pathology Treatment Note Session Time Visit Start Time 11:30 Visit Stop Time 12:15 Total Visit Minutes 45 Visit Information Visit Number 3 Plan of Care Dates 02/11/2022 - 05/20/2022 Insurance Information Medicare Setting Treatment Setting Outpatient Care Visit Type Note Type Treatment Note Next Note Type Next Note Type Treatment Note General Information Patient History Per medical history: Susan Joel is a 81 year old female who was found down in November 2019 and taken to the ED in [facility] by her . She was in the hospital for 4 days. At discharge, she was not able to use the right leg at all, some of the left leg. She had difficulty swallowing and could not talk. Reported total loss of cognition and functioning. Per report, they were unable to do an MRI as the pt would not fit in the MRI machine. The pt has sleep apnea and her reported she tends to have low motivation and is inconsistent in completing home practice. Since the November 2019 event, the pt has had difficulties using the telephone, timing the use of a walkie-talkie, and is at a much lower level of functioning. Pt received speech therapy following stroke and was in inpatient rehab for 5 months, though speech therapy was not involved for the duration of this time. reported speech therapy was focused on expressive communication skills. Results of the CLQT place Susan's composite score at 1 .8, indicating a moderate cognitive deficit. Scores indicate severely impaired attention, executive functions , and clock drawing; moderately impaired language and visuospatial skills; and mildly impaired memory. Performance was negatively impacted by Susan's significant anxiety, which presented as incompletion of tasks when anxiety jaz and decreased attention as Susan performed anxiety-related behaviors. Recommend speech therapy targeting attention, in conjunction with recommendation for counseling/ psychiatric intervention; executive functions, and memory as they relate to tasks of daily living to increase Susan's ability to participate in her own care and increase quality of life. Subjective Identification Type Name Identification Reconciled With Medical Record Others Present Family Observations/Patient Presentation Susan arrived on time accompanied by her . She used a walker and moved slowly. Her reported they will be attending a stroke support group on this week. Chief Complaint(s) Cognitive Objective Short Term Goals 1. Susan will use internal and external aids to sustain attention for 3-5 minutes to a given task. 2. Susan will use internal and external aids to recall steps in familiar routines (e. g., doing the dishes) given visual and verbal cues. Detasseler Goals Susan will report higher quality of life and increased participation in activities of daily living. Treatment Activities Provided education and demonstrated use of communication tiles. Answered questions and discussed modifications to current AAC based on success in home environment. Discussed use of fidgets when anxiety increases to help reduce use of toilet paper as a fidget and playing with hearing aids. Assessment Rehab Potential Fair Assessment of Improvement continues to report Susan is lazy and is more successful with task completion when working with the aide rather than him. Provided information regarding habit formation, cognitive functioning, and purpose of AAC. reported limited success with AAC at this point . Discussed and modeled how implementation of AAC will work at home and pt and reported understanding . Pt to drop to once a week to allow time for implementation of AAC systems between sessions. Reviewed with Patient Goals,Progress Being Made,Home Exercise Program Patient/Caregiver Understanding Good Plan Amount of Therapy Recommended 6 Months Frequency of Treatment Once a Week Length of Session 45 Minutes Therapeutic Contents Cognitive-Linguistic Training, Home Exercise Program Provided Patient/Caregiver Instruction Home Exercise Program,Plan of Care,Questions/Concerns Therapy Recommendations Continue with Current Program
--- NOTE | 2022-05-31 12:24 | ST.OPTN ---
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 IN TUBE CONVERSION TECHNICIAN Treatment Note Start: 02/18/22 16:58 Freq: Status: Active Protocol: Document 05/31/22 12:14 ZS (Rec: 05/31/22 12:24 ZS [id number]) Speech Pathology Treatment Note Session Time Visit Start Time 11:40 Visit Stop Time 12:15 Total Visit Minutes 35 Visit Information Visit Number 4 Plan of Care Dates 05/20/2022 - 11/20/2022 Insurance Information Medicare Setting Treatment Setting Outpatient Care Visit Type Note Type Progress Note Next Note Type Next Note Type Treatment Note General Information Patient History Per medical history: Susan Joel is a 81 year old female who was found down in November 2019 and taken to the ED in [facility] by her . She was in the hospital for 4 days. At discharge, she was not able to use the right leg at all, some of the left leg. She had difficulty swallowing and could not talk. Reported total loss of cognition and functioning. Per report, they were unable to do an MRI as the pt would not fit in the MRI machine. The pt has sleep apnea and her reported she tends to have low motivation and is inconsistent in completing home practice. Since the November 2019 event, the pt has had difficulties using the telephone, timing the use of a walkie-talkie, and is at a much lower level of functioning. Pt received speech therapy following stroke and was in inpatient rehab for 5 months, though speech therapy was not involved for the duration of this time. reported speech therapy was focused on expressive communication skills. Results of the CLQT place Susan's composite score at 1 .8, indicating a moderate cognitive deficit. Scores indicate severely impaired attention, executive functions , and clock drawing; moderately impaired language and visuospatial skills; and mildly impaired memory. Performance was negatively impacted by Susan's significant anxiety, which presented as incompletion of tasks when anxiety jaz and decreased attention as Susan performed anxiety-related behaviors. Recommend speech therapy targeting attention, in conjunction with recommendation for counseling/ psychiatric intervention; executive functions, and memory as they relate to tasks of daily living to increase Susan's ability to participate in her own care and increase quality of life. Subjective Identification Type Name Identification Reconciled With Medical Record Others Present Family Observations/Patient Presentation Susan arrived late accompanied by her . She used a walker and moved slowly. Her reported they will be going to [place] on 06/09 and returning on 06/14. Chief Complaint(s) Cognitive Objective Short Term Goals 1. Susan will use external aids to sustain attention for 3-5 minutes to a given task. - Goal not targeted. Based on current performance with other goals, modified goal to target external strategies rather than internal. 2. Susan will use internal and external aids to recall steps in familiar routines (e. g., doing the dishes) given visual and verbal cues. - Goal not met, progress made. External aids are used to help complete steps in familiar routines. May modify goal based on performance to only include external aids. Halfway Goals Susan will report higher quality of life and increased participation in activities of daily living. Treatment Activities Discussed progress with communication tiles. Answered questions and discussed modifications to current AAC based on success in home environment. Discussed use of fidgets when anxiety increases to help reduce use of toilet paper as a fidget and playing with hearing aids. Discussed use of reward with visual system to help increase motivation for undesired tasks (e.g., taking medications). Will create new AAC tiles and reward board and call when they are ready for pick- up. Assessment Rehab Potential Fair Assessment of Improvement continues to report Susan is lazy and is more successful with task completion when working with the aide rather than him. reported 100% success with use of feet up and some progress in use of wet to indicate when she needs to change. He requested additional tiles to help with standing up. reported fidgets are helping to direct anxious behaviors. Susan spoke minimally, exhibiting anxious behaviors including banging her fist on her thigh, averting gaze, and saying I don't know to all questions asked. Discussed and demonstrated use of reward system (e.g., I can do it board) to increase motivation and success during undesired tasks (e.g., taking medications). expressed interest in this and offered some possible reward activities. Reviewed with Patient Goals,Progress Being Made,Home Exercise Program Patient/Caregiver Understanding Good Plan Amount of Therapy Recommended 6 Months Frequency of Treatment Once a Week Length of Session 45 Minutes Therapeutic Contents Cognitive-Linguistic Training, Home Exercise Program Provided Patient/Caregiver Instruction Home Exercise Program,Plan of Care,Questions/Concerns Therapy Recommendations Continue with Current Program
--- NOTE | 2022-05-31 12:24 | ST.OPPOC ---
Physical, Occupational & Speech Therapy At [facility] Visit Care Team Role Provider Type Craig Chowdhury MD Family Provider Physician Primary Care Provider Address: [address] [place] [address], [address], [place], [address] Sai Huff MD Attending Provider Non-Staff Referring Provider Address: [address] [place] [address] [place], [address] Speech Pathology Plan of Care Plan of Care Dates 05/20/2022 - 11/20/[address] Huff Patient History Per medical history: Susan Joel is a 81 year old female who was found down in November 2019 and taken to the ED in [facility] by her . She was in the hospital for 4 days. At discharge, she was not able to use the right leg at all, some of the left leg. She had difficulty swallowing and could not talk. Reported total loss of cognition and functioning . Per report, they were unable to do an MRI as the pt would not fit in the MRI machine. The pt has sleep apnea and her reported she tends to have low motivation and is inconsistent in completing home practice. Since the November 2019 event, the pt has had difficulties using the telephone, timing the use of a walkie-talkie , and is at a much lower level of functioning. Pt received speech therapy following stroke and was in inpatient rehab for 5 months, though speech therapy was not involved for the duration of this time. reported speech therapy was focused on expressive communication skills. Results of the CLQT place Susan's composite score at 1.8, indicating a moderate cognitive deficit. Scores indicate severely impaired attention, executive functions, and clock drawing; moderately impaired language and visuospatial skills; and mildly impaired memory. Performance was negatively impacted by Susan' s significant anxiety, which presented as incompletion of tasks when anxiety jaz and decreased attention as Susan performed anxiety -related behaviors. Recommend speech therapy targeting attention, in conjunction with recommendation for counseling/psychiatric intervention; executive functions, and memory as they relate to tasks of daily living to increase Susan's ability to participate in her own care and increase quality of life. Short Term Goals 1. Susan will use external aids to sustain attention for 3-5 minutes to a given task. - Goal not targeted. Based on current performance with other goals, modified goal to target external strategies rather than internal. 2. Susan will use internal and external aids to recall steps in familiar routines (e.g., doing the dishes) given visual and verbal cues. - Goal not met, progress made. External aids are used to help complete steps in familiar routines. May modify goal based on performance to only include external aids. Custodial Goals Susan will report higher quality of life and increased participation in activities of daily living. Comment: Electronically Signed by: KARO Siddiqi 05/31/22 [id number] If you are in agreement with this Plan of Care, please return a signed and dated copy. I have reviewed this Plan of Care and certify that the skilled therapy services above are required to meet the patient?s needs. Physician Signature Date Printed Name and Credentials Clinical Instructor Signature Printed Name and Credentials
--- NOTE | 2022-06-28 12:17 | ST.OPTN ---
Visit Care Team Role Provider Type Craig Chowdhury MD Family Provider Physician Primary Care Provider Address: [address] [place] [address], [address], [place], [address] Sai Huff MD Attending Provider Non-Staff Referring Provider Address: [address] [place] [address] [place], [address] PLATEMAKER Treatment Note PLATEMAKER Treatment Note Start: 02/18/22 16:58 Freq: Status: Active Protocol: Document 06/28/22 12:08 ZS (Rec: 06/28/22 12:16 ZS [id number]) Speech Pathology Treatment Note Session Time Visit Start Time 11:30 Visit Stop Time 12:05 Total Visit Minutes 35 Visit Information Visit Number 5 Plan of Care Dates 05/20/2022 - 11/20/2022 Insurance Information Medicare Setting Treatment Setting Outpatient Care Visit Type Note Type Treatment Note Next Note Type Next Note Type Treatment Note General Information Patient History Per medical history: Susan Joel is a 81 year old female who was found down in November 2019 and taken to the ED in [facility] by her . She was in the hospital for 4 days. At discharge, she was not able to use the right leg at all, some of the left leg. She had difficulty swallowing and could not talk. Reported total loss of cognition and functioning. Per report, they were unable to do an MRI as the pt would not fit in the MRI machine. The pt has sleep apnea and her reported she tends to have low motivation and is inconsistent in completing home practice. Since the November 2019 event, the pt has had difficulties using the telephone, timing the use of a walkie-talkie, and is at a much lower level of functioning. Pt received speech therapy following stroke and was in inpatient rehab for 5 months, though speech therapy was not involved for the duration of this time. reported speech therapy was focused on expressive communication skills. Results of the CLQT place Susan's composite score at 1 .8, indicating a moderate cognitive deficit. Scores indicate severely impaired attention, executive functions , and clock drawing; moderately impaired language and visuospatial skills; and mildly impaired memory. Performance was negatively impacted by Susan's significant anxiety, which presented as incompletion of tasks when anxiety jaz and decreased attention as Susan performed anxiety-related behaviors. Recommend speech therapy targeting attention, in conjunction with recommendation for counseling/ psychiatric intervention; executive functions, and memory as they relate to tasks of daily living to increase Susan's ability to participate in her own care and increase quality of life. Subjective Identification Type Name Identification Reconciled With Medical Record Others Present Family Observations/Patient Presentation Susan arrived on time accompanied by her . She used a walker and moved slowly. Her reported the reward AAC cards are not useful as he does not have them available all the time and the cards are easy to lose . He added he will be speaking with a instrument specialist to discuss options for additional in-home help with caretaking. 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 Chief Complaint(s) Cognitive Objective Short Term Goals 1. Susan will use external aids to sustain attention for 3-5 minutes to a given task. - Goal not targeted. Based on current performance with other goals, modified goal to target external strategies rather than internal. 2. Susan will use internal and external aids to recall steps in familiar routines (e. g., doing the dishes) given visual and verbal cues. - Goal not met, progress made. External aids are used to help complete steps in familiar routines. May modify goal based on performance to only include external aids. Chcf Goals Susan will report higher quality of life and increased participation in activities of daily living. Treatment Activities Discussed progress with communication tiles. Answered questions and discussed modifications to current AAC based on success in home environment. Discussed increasing engagement in activities and communication. Discussed anxiety and finding activities that will involve minimal anxiety. Discussed role of PLATEMAKER in progressive disorders. Discussed getting support with caretaking. Assessment Rehab Potential Fair Assessment of Improvement continues to report Susan is lazy and is more successful with task completion when working with the aide rather than him. reported Susan gets anxious around him and stated they lost one of her hearing aids. Susan spoke minimally, exhibiting anxious behaviors including banging her fist on her thigh, averting gaze, and saying I don't know to all questions asked. stated reward system was unsuccessful due to the cards being easy to lose and not on- hand when he needs them. He shared the aid that usually helps is on vacation and he has been the sole boom worker for the past 21 days. stated Susan does not talk much anymore and that she watches the same shows that say the same things over and over. Discussed finding alternative ways to increase exposure to preferred activities (e.g., bird watching, seeing water) and stated birds are harder to find this time of year and there are very few wheelchair accessible places nearby. Minimal progress made today. Reviewed with Patient Goals,Progress Being Made,Home Exercise Program Patient/Caregiver Understanding Good Plan Amount of Therapy Recommended 6 Months Frequency of Treatment Once a Week Length of Session 45 Minutes Therapeutic Contents Cognitive-Linguistic Training, Home Exercise Program Provided Patient/Caregiver Instruction Home Exercise Program,Plan of Care,Questions/Concerns Therapy Recommendations Continue with Current Program
--- NOTE | 2022-07-30 16:44 | ST.OPDS ---
Visit Care Team Role Provider Type Craig Chowdhury MD Family Provider Physician Primary Care Provider Address: [address] [place] [address], [address], [place], [address] Sai Huff MD Attending Provider Non-Staff Referring Provider Address: [address] [place] [address] [place], [address] ESTIMATOR PAP[employer]BOARD BOXES Treatment Note ESTIMATOR [employer]ES Treatment Note Start: 02/18/22 16:58 Freq: Status: Active Protocol: Document 07/30/22 16:32 ZS (Rec: 07/30/22 16:44 ZS [id number]) Speech Pathology Treatment Note Session Time Visit Start Time 13:30 Visit Stop Time 14:15 Total Visit Minutes 45 Visit Information Visit Number 6 Plan of Care Dates 05/20/2022 - 11/20/2022 Insurance Information Medicare Setting Treatment Setting Outpatient Care Visit Type Note Type Discharge Summary General Information Patient History Per medical history: Susan Joel is a 81 year old female who was found down in November 2019 and taken to the ED in [facility] by her . She was in the hospital for 4 days. At discharge, she was not able to use the right leg at all, some of the left leg. She had difficulty swallowing and could not talk. Reported total loss of cognition and functioning. Per report, they were unable to do an MRI as the pt would not fit in the MRI machine. The pt has sleep apnea and her reported she tends to have low motivation and is inconsistent in completing home practice. Since the November 2019 event, the pt has had difficulties using the telephone, timing the use of a walkie-talkie, and is at a much lower level of functioning. Pt received speech therapy following stroke and was in inpatient rehab for 5 months, though speech therapy was not involved for the duration of this time. reported speech therapy was focused on expressive communication skills. Results of the CLQT place Susan's composite score at 1 .8, indicating a moderate cognitive deficit. Scores indicate severely impaired attention, executive functions , and clock drawing; moderately impaired language and visuospatial skills; and mildly impaired memory. Performance was negatively impacted by Susan's significant anxiety, which presented as incompletion of tasks when anxiety jaz and decreased attention as Susan performed anxiety-related behaviors. Recommend speech therapy targeting attention, in conjunction with recommendation for counseling/ psychiatric intervention; executive functions, and memory as they relate to tasks of daily living to increase Susan's ability to participate in her own care and increase quality of life. Subjective Identification Type Name Identification Reconciled With Medical Record Others Present Family Observations/Patient Presentation Susan arrived on time accompanied by her . She used a walker and moved slowly. Her reported the reward AAC cards are working well and he would like to get some exercises for Susan to do to improve her cognition. He stated Susan has difficulty with abstract concepts and use of computers. He added she is not very conversational when they go out with other couples and he ends up carrying the conversation. Chief Complaint(s) Cognitive Objective Short Term Goals 1. Susan will use external aids to sustain attention for 3-5 minutes to a given task. - Goal not targeted. Based on current performance with other goals, modified goal to target external strategies rather than internal. 2. Susan will use internal and external aids to recall steps in familiar routines (e. g., doing the dishes) given visual and verbal cues. - Goal not met, progress made. External aids are used to help complete steps in familiar routines. May modify goal based on performance to only include external aids. Advertising Sales Representative Goals Susan will report higher quality of life and increased participation in activities of daily living. Treatment Activities Discussed mask policy at [facility]. Provided education regarding recovery following stroke and prognosis given time since Susan's stroke and current ability level. Discussed current barriers to conversation when out with other couples and strategies to minimize/ eliminate impact of these. Discussed AAC options and appropriateness of these given Susan's current skill level . Discussed incomplete cognitive testing attempted at initial evaluation. Discussed plan of care moving forward. Assessment Rehab Potential Fair Assessment of Improvement would like Susan to be able to pay bills on the computer and stated she cannot currently operate computers. He added she does not talk when they are out with other couples and stated she has difficulty with abstract questions and conversations (e .g., politics, impact of bernard dying, Polo Mazin' speech , etc.). Provided education regarding recovery following stroke and prognosis given current skill level and time since stroke. Provided education on role of ESTIMATOR PAP[employer]BOARD BOXES in treatment at this point. Discussed current learning ability and anxiety and how these may factor in to learning how to use a computer and learning to use a high- tech AAC device. Provided education regarding levels of AAC devices. Discussed factors in different environments that may impact anxiety levels and willingness/readiness to participate in conversation. Suggested 1:1 get together or small groups in quieter locations or outside as these will help reduce anxiety. Wrote list of anxiety reducing situations (e.g., petting her dog, small groups, nature, some music) and confirmed with Susan these reduce anxiety. stated masks make Susan anxious because she cannot understand what is being said. Provided education regarding mask policy at [facility] and factors at play with Susan's communication skills at this time. stated they will not return to therapy until the mask mandate has been lifted in medical settings. Discharging at this time and pt will need to obtain a new referral from his PCP to continue therapy once mask mandate is lifted. Reviewed with Patient Goals,Progress Being Made,Home Exercise Program Patient/Caregiver Understanding Good Plan Amount of Therapy Recommended 6 Months Frequency of Treatment Once a Week Length of Session 45 Minutes Therapeutic Contents Cognitive-Linguistic Training, Home Exercise Program Provided Patient/Caregiver Instruction Home Exercise Program,Plan of Care,Questions/Concerns Therapy Recommendations Discharge from Speech Therapy Reason for Discharge requested due to mask mandate in hospital
== END 2022-08-02 14:08 ==
LOC: SP 13:30
PROVIDERS: Family Provider Student in an Organized Health Care Education/Training Program; PCP Student in an Organized Health Care Education/Training Program; Referring Provider Psychiatry & Neurology Neuromuscular Medicine; Visit Provider Psychiatry & Neurology Neuromuscular Medicine
DX: I63.9 Cerebral infarction, unspecified (principal)
CPT/HCPCS: 96125; 97129; 97130

== ENCOUNTER → 2022-08-18 09:14 | Outpatient (CLI) | payer MEDICARE, BC, SELFPAY ==
[2022-04-21 04:00] VITALS: BMI 44.5
[2022-08-18 09:48] LABS: Appearance Urine UA CLOUDY; Bilirubin Urine UA NEGATIVE (NEGATIVE); Color Urine UA YELLOW; Glucose Urine UA NEGATIVE (Negative); Ketones Urine UA NEGATIVE (NEGATIVE); Leukocyte Esterase Urine UA 3+ (NEGATIVE); Nitrite Urine UA POSITIVE (Negative); Occult Blood Urine UA 3+ (Negative); Protein Urine UA 2+ (Negative); Specific Gravity Urine UA 1.015 (1.000-1.035); Urobilinogen Urine UA 0.2 E.U./dL (0.2); pH Urine UA 5.5 (4.5-8.0)
[2022-08-18 09:53] LABS: Bacteria Urine Many (>30); RBC Urine >100/HPF (0-5/HPF); Squamous Epithelial Cell Urine None Seen (0-5/HPF); WBC Urine >100/HPF (0-5/HPF)
[2022-08-18 09:54] LABS: Culture Indicated Urine Specimen Cultured
== END ==
PROVIDERS: Family Provider Student in an Organized Health Care Education/Training Program; PCP Student in an Organized Health Care Education/Training Program; Referring Provider Student in an Organized Health Care Education/Training Program; Visit Provider Student in an Organized Health Care Education/Training Program
DX: R30.0 Dysuria (principal)
CPT/HCPCS: 81001; 87077; 87086; 87186

== ENCOUNTER 2022-11-28 14:54 | Emergency (ER) | payer MEDICARE, BC, SELFPAY ==
[2022-04-21 04:00] VITALS: BMI 44.5
[2022-11-28] VITALS (22 sets, daily range): BP systolic 103–145; BP diastolic 56–65; PULSE 64–111; RESP 14–22; TEMP 37.1; O2SAT 93–100; BMI 41.1
--- NOTE | 2022-11-28 16:04 | PC.NURSE ---
Pt alert to place and name, but not to situation or date of . Pt primarily nodding heading. Pt denies any pain. reports he thinks a UTI due to dizziness and lack of judgment when it comes to walking. He reports she is more weak than usual. also reports an unwitnessed fall earlier today. Skin tear on right leg. Provider Gabriel gatica.
[2022-11-28 16:08] LABS: Appearance Urine UA CLEAR; Bilirubin Urine UA NEGATIVE (NEGATIVE); Color Urine UA YELLOW; Glucose Urine UA NEGATIVE (Negative); Ketones Urine UA NEGATIVE (NEGATIVE); Leukocyte Esterase Urine UA TRACE (NEGATIVE); Nitrite Urine UA NEGATIVE (Negative); Occult Blood Urine UA NEGATIVE (Negative); Protein Urine UA NEGATIVE (Negative); Specific Gravity Urine UA 1.015 (1.000-1.035); Urobilinogen Urine UA 0.2 E.U./dL (0.2)
[2022-11-28 16:11] LABS: pH Urine UA 5.5 (4.5-8.0)
[2022-11-28 16:15] LABS: Bacteria Urine Few (2-10); Culture Indicated Urine Specimen Cultured; RBC Urine 0-1/HPF (0-5/HPF); Squamous Epithelial Cell Urine 1-5 /HPF (0-5/HPF); WBC Urine 1-5/HPF (0-5/HPF)
--- NOTE | 2022-11-28 16:33 | ED.GENADULT ---
HPI - General Adult <Candice Rios MD - Last Filed: 12/05/22 18:01> General Chief complaint: Urogenital-Female Stated complaint: Possible UTI,Fall,AMS Time Seen by Provider: 11/28/22 16:03 Source: patient and family Mode of arrival: Wheelchair History of Present Illness HPI narrative: 82-year-old woman with advanced vascular dementia, currently living at home with her is her primary caregiver brought in after a fall, worsening confusion and concerns for a bladder infection. notes similar findings after a urinary tract infection that ended up being a pansensitive E coli in July. Her is concerned that her balance has worsened over the last 48 hours and has gotten significantly bad in last 6-8 hours. He notes that she has increased anxiety when trying to create sentences ever since a stroke in December 18, 2019. He notes no fevers and reports that she is eating and drinking normally. Patient has dementia significant enough that she is essentially nonverbal and does not have anything to contribute at this time. Related Data Home Medications Medication Instructions Recorded Confirmed multivitamin 1 tab PO DAILY 11/17/20 12/01/22 Previous Rx's Medication Instructions Recorded atorvastatin 40 mg tablet 40 mg PO BEDTIME #90 tabs 12/29/21 quinapril 20 mg tablet 20 mg PO DAILY #90 tabs 01/04/22 bupropion HCl 300 mg 24 hr tablet, 300 mg PO QAM #30 tabs 10/04/22 extended release sennosides 8.6 mg tablet (Natural 17.2 mg PO BID #240 tabs 10/04/22 Senna Laxative) sertraline 100 mg tablet 150 mg PO QAM #45 tabs 10/04/22 trazodone 50 mg tablet 50 mg PO TID PRN anxiety or 10/04/22 insomnia #90 tabs aspirin 81 mg tablet,delayed 81 mg PO DAILY #30 tabs 10/05/22 release (Adult Aspirin Regimen) docusate sodium 250 mg capsule 250 mg PO DAILY #30 caps 11/17/22 verapamil 120 mg tablet 120 mg PO TID #90 tabs 11/17/22 Allergies Allergy/AdvReac Type Severity Reaction Status Date / Time adhesive tape Allergy Intermediate plastic Verified 11/30/22 16:02 Penicillins [PENICILLINS] Allergy Mild Rash Verified 10/25/22 08:33 venom-honey bee Allergy Unknown Verified 10/25/22 08:33 [BEE VENOM (HONEY BEE)] <Jacob Willingham DO - Last Filed: 11/30/22 16:54> Review of Systems ROS Unobtainable: Unobtainable due to mental status/LOC Patient History <Candice Rios MD - Last Filed: 12/05/22 18:01> Medical History Chronic renal insufficiency (Unknown) Colon polyps (Unknown) COPD (chronic obstructive pulmonary disease) (Unknown) CVA (cerebral vascular accident) (11/2019) Dry both ear canals (02/24/17) Eczema Hyperlipemia (Unknown) Hypertension (Unknown) Insomnia, unspecified (~1997) Lower extremity edema (09/08/17) 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, recurrent, in full remission Morbid obesity with body mass index (BMI) greater than or equal to 50 Nocturnal hypoxemia (09/08/17) Obstructive sleep apnea of adult (~05/2020) Obstructive sleep apnea, adult Osteoarthritis (Unknown) Pain of left hand (04/21/17) Physical deconditioning Restless leg syndrome Sexual dysfunction Vaginal dryness (04/21/17) Surgical History History of knee replacement (2000) History of tonsillectomy (1947) Hx of total hip arthroplasty (09/2008) Status post cholecystectomy (1997) Status post dilation and curettage (2000) Family History Father CVA (cerebral vascular accident) Dementia Mother Coronary artery disease 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 Frail and elderly, essentially wheelchair-bound, pleasantly confused HEAD: Atraumatic. Normocephalic. EYES: Pupils equal round and reactive. Extraocular motions intact. No scleral icterus. No injection or drainage. ENT: Nose without bleeding, purulent drainage. Throat without erythema, tonsillar hypertrophy or exudate. Airway patent. NECK: Trachea midline. Non tender CARDIOVASCULAR: Regular rate and rhythm without murmurs, gallops, or rubs. RESPIRATORY: Clear to auscultation. Breath sounds equal bilaterally. No wheezes, rales, or rhonchi. GASTROINTESTINAL: Abdomen soft, non-tender, nondistended. BACK: Nontender without deformity or crepitance. No flank tenderness. NEURO: Cranial nerves 2-12 grossly intact SKIN: No rash or erythema of visible areas Initial Vital Signs Initial Vital Signs: Vital Signs Blood Pressure 131/63 11/28/22 15:30 <Stefanie Birch DO - Last Filed: 11/29/22 18:47> Initial Vital Signs Initial Vital Signs: Vital Signs Blood Pressure 131/63 11/28/22 15:30 Course <Candice Rios MD - Last Filed: 12/05/22 18:01> Orders Ordered: ED Orders 11/29/22 07:50 Covid-19 + FLU A/B + RSV - PCR Stat Vital Signs Vital signs: Vital Signs - 8 hr 11/29/22 11:00 11/29/22 11:01 11/29/22 11:01 Pulse Rate 65 65 Respiratory Rate 18 17 Blood Pressure 131/61 Pulse Oximetry 93 92 Oxygen Delivery Method 11/29/22 11:30 11/29/22 11:31 11/29/22 11:31 Pulse Rate 63 64 Respiratory Rate 18 17 Blood Pressure 152/68 H Pulse Oximetry 93 93 Oxygen Delivery Method Room Air <Jacob Willingham DO - Last Filed: 11/30/22 16:54> Orders Ordered: ED Orders 11/29/22 07:50 Covid-19 + FLU A/B + RSV - PCR Stat Vital Signs Vital signs: Vital Signs - 8 hr 11/29/22 11:00 11/29/22 11:01 11/29/22 11:01 Pulse Rate 65 65 Respiratory Rate 18 17 Blood Pressure 131/61 Pulse Oximetry 93 92 Oxygen Delivery Method 11/29/22 11:30 11/29/22 11:31 11/29/22 11:31 Pulse Rate 63 64 Respiratory Rate 18 17 Blood Pressure 152/68 H Pulse Oximetry 93 93 Oxygen Delivery Method Room Air <Stefanie Birch DO - Last Filed: 11/29/22 18:47> Orders Ordered: ED Orders 11/29/22 07:50 Covid-19 + FLU A/B + RSV - PCR Stat Vital Signs Vital signs: Vital Signs - 8 hr 11/29/22 11:00 11/29/22 11:01 11/29/22 11:01 Pulse Rate 65 65 Respiratory Rate 18 17 Blood Pressure 131/61 Pulse Oximetry 93 92 Oxygen Delivery Method 11/29/22 11:30 11/29/22 11:31 11/29/22 11:31 Pulse Rate 63 64 Respiratory Rate 18 17 Blood Pressure 152/68 H Pulse Oximetry 93 93 Oxygen Delivery Method Room Air Medical Decision Making <Candice Rios MD - Last Filed: 12/05/22 18:01> Lab Data Result diagrams: 11/28/22 20:16 11/28/22 20:16 Labs: Lab Results 11/28/22 11/28/22 11/28/22 Range/Units 15:40 20:16 20:16 WBC 7.5 (4.5-11.0) X10^3/uL RBC 4.45 (4.0-5.2) X10^6/uL Hgb 13.3 (12.0-16.0) g/dL Hct 40.9 (36-46) % MCV 91.9 (80-100) fL MCH 30.0 (26-34) PG MCHC 32.6 (30-36) % RDW 13.7 (11.6-14.8) % Plt Count 228 (150-400) X10^3/uL Neut % (Auto) 67.8 (50-75) % Lymph % (Auto) 18.8 L (25-40) % Gregory % (Auto) 10.7 (3-14) % Eos % (Auto) 1.8 L (2-4) % Baso % (Auto) 0.9 (0-2) % Neut # (Auto) 5100 (2378-9308) /uL Lymph # (Auto) 1400 (0791-9752) /uL Gregory # (Auto) 800 (0-900) /uL Eos # (Auto) 100 (0-450) /uL Baso # (Auto) 100 (0-100) /uL Sodium 140 (137-145) mmol/L Potassium 4.8 (3.4-5.1) mmol/L Chloride 105 (98-107) mmol/L Carbon Dioxide 33 H (22-32) mmol/L BUN 37 H (7-17) mg/dL Creatinine 1.45 H (0.52-1.04) mg/dL Estimated GFR 36 L (>60) mL/min BUN/Creatinine Ratio 25.5 H (6-22) Glucose 91 (80-110) mg/dL Lactate (0.7-2.1) mmol/L Calcium 8.7 (8.4-10.2) mg/dL Total Bilirubin 0.4 (0.2-1.3) mg/dL AST 23 (14-36) IU/L ALT 19 (<35) IU/L Alkaline Phosphatase 75 (38-126) U/L Total Protein 6.4 (6.3-8.2) g/dL Albumin 3.5 (3.5-5.0) g/dL Globulin 2.9 (1.7-4.1) g/dL Albumin/Globulin Ratio 1.2 (1.0-2.8) Procalcitonin 0.06 (<0.5) ng/mL Urine Color Yellow Urine Appearance Clear Urine pH 5.5 (4.5-8.0) Ur Specific [place] 1.015 (1.000-1.035) Urine Protein Negative (Negative) Urine Glucose (UA) Negative (Negative) g/dL Urine Ketones Negative (NEGATIVE) Urine Occult Blood Negative (Negative) Urine Nitrate Negative (Negative) Urine Bilirubin Negative (NEGATIVE) Urine Urobilinogen 0.2 (0.2) E.U./dL Ur Leukocyte Esterase Trace H (NEGATIVE) Urine RBC 0-1/hpf D (0-5/HPF) Urine WBC 1-5/hpf (0-5/HPF) Ur Squamous Epith Cells 1-5 /hpf (0-5/HPF) Urine Bacteria Few (2-10) H (None) Ur Culture Indicated? Specimen cultured SARS-CoV-2 (PCR) (Negative) Influenza A (RT-PCR) (NEGATIVE) Influenza B (RT-PCR) (NEGATIVE) RSV (PCR) (Negative) 11/28/22 11/29/22 Range/Units 20:16 07:50 WBC (4.5-11.0) X10^3/uL RBC (4.0-5.2) X10^6/uL Hgb (12.0-16.0) g/dL Hct (36-46) % MCV (80-100) fL MCH (26-34) PG MCHC (30-36) % RDW (11.6-14.8) % Plt Count (150-400) X10^3/uL Neut % (Auto) (50-75) % Lymph % (Auto) (25-40) % Gregory % (Auto) (3-14) % Eos % (Auto) (2-4) % Baso % (Auto) (0-2) % Neut # (Auto) (1190-5710) /uL Lymph # (Auto) (9985-6923) /uL Gregory # (Auto) (0-900) /uL Eos # (Auto) (0-450) /uL Baso # (Auto) (0-100) /uL Sodium (137-145) mmol/L Potassium (3.4-5.1) mmol/L Chloride (98-107) mmol/L Carbon Dioxide (22-32) mmol/L BUN (7-17) mg/dL Creatinine (0.52-1.04) mg/dL Estimated GFR (>60) mL/min BUN/Creatinine Ratio (6-22) Glucose (80-110) mg/dL Lactate 0.8 (0.7-2.1) mmol/L Calcium (8.4-10.2) mg/dL Total Bilirubin (0.2-1.3) mg/dL AST (14-36) IU/L ALT (<35) IU/L Alkaline Phosphatase (38-126) U/L Total Protein (6.3-8.2) g/dL Albumin (3.5-5.0) g/dL Globulin (1.7-4.1) g/dL Albumin/Globulin Ratio (1.0-2.8) Procalcitonin (<0.5) ng/mL Urine Color Urine Appearance Urine pH (4.5-8.0) Ur Specific [place] (1.000-1.035) Urine Protein (Negative) Urine Glucose (UA) (Negative) g/dL Urine Ketones (NEGATIVE) Urine Occult Blood (Negative) Urine Nitrate (Negative) Urine Bilirubin (NEGATIVE) Urine Urobilinogen (0.2) E.U./dL Ur Leukocyte Esterase (NEGATIVE) Urine RBC (0-5/HPF) Urine WBC (0-5/HPF) Ur Squamous Epith Cells (0-5/HPF) Urine Bacteria (None) Ur Culture Indicated? SARS-CoV-2 (PCR) Negative (Negative) Influenza A (RT-PCR) Flu a negative (NEGATIVE) Influenza B (RT-PCR) Flu b negative (NEGATIVE) RSV (PCR) Negative (Negative) <Jacob Willingham, DO - Last Filed: 11/30/22 16:54> Lab Data Labs: Lab Results 11/28/22 11/28/22 11/28/22 Range/Units 15:40 20:16 20:16 WBC 7.5 (4.5-11.0) X10^3/uL RBC 4.45 (4.0-5.2) X10^6/uL Hgb 13.3 (12.0-16.0) g/dL Hct 40.9 (36-46) % MCV 91.9 (80-100) fL MCH 30.0 (26-34) PG MCHC 32.6 (30-36) % RDW 13.7 (11.6-14.8) % Plt Count 228 (150-400) X10^3/uL Neut % (Auto) 67.8 (50-75) % Lymph % (Auto) 18.8 L (25-40) % Gregory % (Auto) 10.7 (3-14) % Eos % (Auto) 1.8 L (2-4) % Baso % (Auto) 0.9 (0-2) % Neut # (Auto) 5100 (6436-1098) /uL Lymph # (Auto) 1400 (9510-9648) /uL Gregory # (Auto) 800 (0-900) /uL Eos # (Auto) 100 (0-450) /uL Baso # (Auto) 100 (0-100) /uL Sodium 140 (137-145) mmol/L Potassium 4.8 (3.4-5.1) mmol/L Chloride 105 (98-107) mmol/L Carbon Dioxide 33 H (22-32) mmol/L BUN 37 H (7-17) mg/dL Creatinine 1.45 H (0.52-1.04) mg/dL Estimated GFR 36 L (>60) mL/min BUN/Creatinine Ratio 25.5 H (6-22) Glucose 91 (80-110) mg/dL Lactate (0.7-2.1) mmol/L Calcium 8.7 (8.4-10.2) mg/dL Total Bilirubin 0.4 (0.2-1.3) mg/dL AST 23 (14-36) IU/L ALT 19 (<35) IU/L Alkaline Phosphatase 75 (38-126) U/L Total Protein 6.4 (6.3-8.2) g/dL Albumin 3.5 (3.5-5.0) g/dL Globulin 2.9 (1.7-4.1) g/dL Albumin/Globulin Ratio 1.2 (1.0-2.8) Procalcitonin 0.06 (<0.5) ng/mL Urine Color Yellow Urine Appearance Clear Urine pH 5.5 (4.5-8.0) Ur Specific [place] 1.015 (1.000-1.035) Urine Protein Negative (Negative) Urine Glucose (UA) Negative (Negative) g/dL Urine Ketones Negative (NEGATIVE) Urine Occult Blood Negative (Negative) Urine Nitrate Negative (Negative) Urine Bilirubin Negative (NEGATIVE) Urine Urobilinogen 0.2 (0.2) E.U./dL Ur Leukocyte Esterase Trace H (NEGATIVE) Urine RBC 0-1/hpf D (0-5/HPF) Urine WBC 1-5/hpf (0-5/HPF) Ur Squamous Epith Cells 1-5 /hpf (0-5/HPF) Urine Bacteria Few (2-10) H (None) Ur Culture Indicated? Specimen cultured SARS-CoV-2 (PCR) (Negative) Influenza A (RT-PCR) (NEGATIVE) Influenza B (RT-PCR) (NEGATIVE) RSV (PCR) (Negative) 11/28/22 11/29/22 Range/Units 20:16 07:50 WBC (4.5-11.0) X10^3/uL RBC (4.0-5.2) X10^6/uL Hgb (12.0-16.0) g/dL Hct (36-46) % MCV (80-100) fL MCH (26-34) PG MCHC (30-36) % RDW (11.6-14.8) % Plt Count (150-400) X10^3/uL Neut % (Auto) (50-75) % Lymph % (Auto) (25-40) % Gregory % (Auto) (3-14) % Eos % (Auto) (2-4) % Baso % (Auto) (0-2) % Neut # (Auto) (2930-8883) /uL Lymph # (Auto) (4279-9978) /uL Gregory # (Auto) (0-900) /uL Eos # (Auto) (0-450) /uL Baso # (Auto) (0-100) /uL Sodium (137-145) mmol/L Potassium (3.4-5.1) mmol/L Chloride (98-107) mmol/L Carbon Dioxide (22-32) mmol/L BUN (7-17) mg/dL Creatinine (0.52-1.04) mg/dL Estimated GFR (>60) mL/min BUN/Creatinine Ratio (6-22) Glucose (80-110) mg/dL Lactate 0.8 (0.7-2.1) mmol/L Calcium (8.4-10.2) mg/dL Total Bilirubin (0.2-1.3) mg/dL AST (14-36) IU/L ALT (<35) IU/L Alkaline Phosphatase (38-126) U/L Total Protein (6.3-8.2) g/dL Albumin (3.5-5.0) g/dL Globulin (1.7-4.1) g/dL Albumin/Globulin Ratio (1.0-2.8) Procalcitonin (<0.5) ng/mL Urine Color Urine Appearance Urine pH (4.5-8.0) Ur Specific [place] (1.000-1.035) Urine Protein (Negative) Urine Glucose (UA) (Negative) g/dL Urine Ketones (NEGATIVE) Urine Occult Blood (Negative) Urine Nitrate (Negative) Urine Bilirubin (NEGATIVE) Urine Urobilinogen (0.2) E.U./dL Ur Leukocyte Esterase (NEGATIVE) Urine RBC (0-5/HPF) Urine WBC (0-5/HPF) Ur Squamous Epith Cells (0-5/HPF) Urine Bacteria (None) Ur Culture Indicated? SARS-CoV-2 (PCR) Negative (Negative) Influenza A (RT-PCR) Flu a negative (NEGATIVE) Influenza B (RT-PCR) Flu b negative (NEGATIVE) RSV (PCR) Negative (Negative) MDM Narrative Medical decision making narrative: [1900] (Maulik) Patient received in sign out from [Gabriel]. I have reviewed the clinical course and performed an independent history and physical exam. CC: increased confusion Complicating co-morbidities: age, dementia Data collected from: Medical records reviewed: including prior ED notes from earlier in the year Differential considered include but not limited to: UTI, electrolyte abnormality, dehydration, anemia Exam documented above, pertinent findings include: No significant findings. Lab Test results independently reviewed as above. Pertinent findings: Imaging studies independently reviewed: Disposition: see below, along with detailed discharge instructions that have been reviewed with patient as well as indications for ED re-evaluation and additional outpatient follow up <Stefanie Birch, DO - Last Filed: 11/29/22 18:47> Lab Data Labs: Lab Results 11/28/22 11/28/22 11/28/22 Range/Units 15:40 20:16 20:16 WBC 7.5 (4.5-11.0) X10^3/uL RBC 4.45 (4.0-5.2) X10^6/uL Hgb 13.3 (12.0-16.0) g/dL Hct 40.9 (36-46) % MCV 91.9 (80-100) fL MCH 30.0 (26-34) PG MCHC 32.6 (30-36) % RDW 13.7 (11.6-14.8) % Plt Count 228 (150-400) X10^3/uL Neut % (Auto) 67.8 (50-75) % Lymph % (Auto) 18.8 L (25-40) % Gregory % (Auto) 10.7 (3-14) % Eos % (Auto) 1.8 L (2-4) % Baso % (Auto) 0.9 (0-2) % Neut # (Auto) 5100 (7304-0012) /uL Lymph # (Auto) 1400 (1644-2330) /uL Gregory # (Auto) 800 (0-900) /uL Eos # (Auto) 100 (0-450) /uL Baso # (Auto) 100 (0-100) /uL Sodium 140 (137-145) mmol/L Potassium 4.8 (3.4-5.1) mmol/L Chloride 105 (98-107) mmol/L Carbon Dioxide 33 H (22-32) mmol/L BUN 37 H (7-17) mg/dL Creatinine 1.45 H (0.52-1.04) mg/dL Estimated GFR 36 L (>60) mL/min BUN/Creatinine Ratio 25.5 H (6-22) Glucose 91 (80-110) mg/dL Lactate (0.7-2.1) mmol/L Calcium 8.7 (8.4-10.2) mg/dL Total Bilirubin 0.4 (0.2-1.3) mg/dL AST 23 (14-36) IU/L ALT 19 (<35) IU/L Alkaline Phosphatase 75 (38-126) U/L Total Protein 6.4 (6.3-8.2) g/dL Albumin 3.5 (3.5-5.0) g/dL Globulin 2.9 (1.7-4.1) g/dL Albumin/Globulin Ratio 1.2 (1.0-2.8) Procalcitonin 0.06 (<0.5) ng/mL Urine Color Yellow Urine Appearance Clear Urine pH 5.5 (4.5-8.0) Ur Specific [place] 1.015 (1.000-1.035) Urine Protein Negative (Negative) Urine Glucose (UA) Negative (Negative) g/dL Urine Ketones Negative (NEGATIVE) Urine Occult Blood Negative (Negative) Urine Nitrate Negative (Negative) Urine Bilirubin Negative (NEGATIVE) Urine Urobilinogen 0.2 (0.2) E.U./dL Ur Leukocyte Esterase Trace H (NEGATIVE) Urine RBC 0-1/hpf D (0-5/HPF) Urine WBC 1-5/hpf (0-5/HPF) Ur Squamous Epith Cells 1-5 /hpf (0-5/HPF) Urine Bacteria Few (2-10) H (None) Ur Culture Indicated? Specimen cultured SARS-CoV-2 (PCR) (Negative) Influenza A (RT-PCR) (NEGATIVE) Influenza B (RT-PCR) (NEGATIVE) RSV (PCR) (Negative) 11/28/22 11/29/22 Range/Units 20:16 07:50 WBC (4.5-11.0) X10^3/uL RBC (4.0-5.2) X10^6/uL Hgb (12.0-16.0) g/dL Hct (36-46) % MCV (80-100) fL MCH (26-34) PG MCHC (30-36) % RDW (11.6-14.8) % Plt Count (150-400) X10^3/uL Neut % (Auto) (50-75) % Lymph % (Auto) (25-40) % Gregory % (Auto) (3-14) % Eos % (Auto) (2-4) % Baso % (Auto) (0-2) % Neut # (Auto) (3848-7707) /uL Lymph # (Auto) (5528-8636) /uL Gregory # (Auto) (0-900) /uL Eos # (Auto) (0-450) /uL Baso # (Auto) (0-100) /uL Sodium (137-145) mmol/L Potassium (3.4-5.1) mmol/L Chloride (98-107) mmol/L Carbon Dioxide (22-32) mmol/L BUN (7-17) mg/dL Creatinine (0.52-1.04) mg/dL Estimated GFR (>60) mL/min BUN/Creatinine Ratio (6-22) Glucose (80-110) mg/dL Lactate 0.8 (0.7-2.1) mmol/L Calcium (8.4-10.2) mg/dL Total Bilirubin (0.2-1.3) mg/dL AST (14-36) IU/L ALT (<35) IU/L Alkaline Phosphatase (38-126) U/L Total Protein (6.3-8.2) g/dL Albumin (3.5-5.0) g/dL Globulin (1.7-4.1) g/dL Albumin/Globulin Ratio (1.0-2.8) Procalcitonin (<0.5) ng/mL Urine Color Urine Appearance Urine pH (4.5-8.0) Ur Specific [place] (1.000-1.035) Urine Protein (Negative) Urine Glucose (UA) (Negative) g/dL Urine Ketones (NEGATIVE) Urine Occult Blood (Negative) Urine Nitrate (Negative) Urine Bilirubin (NEGATIVE) Urine Urobilinogen (0.2) E.U./dL Ur Leukocyte Esterase (NEGATIVE) Urine RBC (0-5/HPF) Urine WBC (0-5/HPF) Ur Squamous Epith Cells (0-5/HPF) Urine Bacteria (None) Ur Culture Indicated? SARS-CoV-2 (PCR) Negative (Negative) Influenza A (RT-PCR) Flu a negative (NEGATIVE) Influenza B (RT-PCR) Flu b negative (NEGATIVE) RSV (PCR) Negative (Negative) MDM Narrative Medical decision making narrative: [1900] (Maulik) Patient received in sign out from [Gabriel]. I have reviewed the clinical course and performed an independent history and physical exam. CC: increased confusion Complicating co-morbidities: age, dementia Data collected from: Medical records reviewed: including prior ED notes from earlier in the year Differential considered include but not limited to: UTI, electrolyte abnormality, dehydration, anemia Exam documented above, pertinent findings include: No significant findings. Lab Test results independently reviewed as above. Pertinent findings: Imaging studies independently reviewed: Disposition: see below, along with detailed discharge instructions that have been reviewed with patient as well as indications for ED re-evaluation and additional outpatient follow up Kimmienick: Patient signed out to me by Dr. Willingham of seen evaluated patient myself. She is a 82-year-old female with vascular dementia minimal verbal response presents today with possible UTI and worsening balance. Head CT does not show any abnormality she does have some bacteria in her urine but no evidence of sepsis. She is no leukocytosis elevated lactate or procalcitonin. Upon my evaluation she is awake alert and eating breakfast. Multiple attempts have been made to call the to pick her up and there has been no response. Patient has now been in the emergency department for 17 hours. However now is now at bedside. He is concerned about her balance issues. Patient did ambulate with a walker she is some assistance. Difficult to tell really what her baseline is. At this time treat as outpatient for UTI and return as needed. Discharge Plan Departure Patient Disposition: Home Clinical Impression: Acute UTI Instructions: DI for Urinary Tract Infection (UTI) Activity Restrictions/Additional Instructions: *You have been diagnosed with UTI, bladder infection *What to do: Her balance issue may be caused by a very mild bladder infection. Will start her antibiotics and things should improve *Continue to take medications as directed Macrobid 100 mg mg twice a day for 5 days--> [facility] [place] *Follow up with your primary care provider in 2-3 days or call [phone] *Return to ER if you should have increasing confusion balance issues or any new, worsening or concerning symptoms Prescriptions: No Action multivitamin Tablet 1 tab PO DAILY atorvastatin 40 mg tablet 40 mg PO BEDTIME Qty: 90 3RF quinapril 20 mg tablet 20 mg PO DAILY Qty: 90 3RF bupropion HCl 300 mg tablet extended release 24 hr 300 mg PO QAM Qty: 30 5RF sennosides [Natural Senna Laxative] 8.6 mg tablet 17.2 mg PO BID Qty: 240 1RF Rx Instructions: Takes 2 tablets in the AM and 2 tablets at bedtime. sertraline 100 mg tablet 150 mg PO QAM Qty: 45 5RF trazodone 50 mg tablet 50 mg PO TID PRN (Reason: anxiety or insomnia) Qty: 90 5RF Label Comments: Takes at noon, 1700, and bedtime. Rx Instructions: Takes at 1200, 1700 and at Bedtime aspirin [Adult Aspirin Regimen] 81 mg tablet,delayed release (DR/EC) 81 mg PO DAILY Qty: 30 0RF Rx Instructions: Do not crush or chew EC Aspirin verapamil 120 mg tablet 120 mg PO TID Qty: 90 8RF Rx Instructions: Crush with food docusate sodium 250 mg capsule 250 mg PO DAILY Qty: 30 6RF Referrals: Craig Chowdhury MD [Primary Care Provider] - Stand Alone Forms: Patient Portal/API
--- NOTE | 2022-11-28 16:33 | PC.NURSE ---
Two attempts for IV start by nurses. Pt is extremely anxious and hitting hands on bed. Pt is tearful, but does calm to voice of . Provider aware. IV attempts stopped at this time.
--- NOTE | 2022-11-28 16:48 | PC.NURSE ---
Pts has home meds to give the patient, verapamil and trazadone. administered the meds and physician aware.
--- NOTE | 2022-11-28 17:05 | PC.NURSE ---
Pt desat to 87%. Placed on 4L via NC. Pt at 88%. RT called. Pt placed on oximask. New oxygen ear probe placed and pt bumps up to 100% on 10L via oximask. Titrated down to 4L per RT on oximask. This RN to monitor.
--- NOTE | 2022-11-28 18:54 | PC.NURSE ---
DARREN Dockery attempts IV via ultrasound. Some labs able to be obtained. Lab called for draw, but is not on until 8pm. Will attempt lab draw in about 15 mins to give patient a break.
[2022-11-28 20:24] LABS: Add Manual Diff / Slide Review NO; Basophils Absolute Auto 100 /uL (0-100); Basophils Percent Auto 0.9 % (0-2); Eosinophils Absolute Auto 100 /uL (0-450); Eosinophils Percent Auto 1.8 % (2-4); Hematocrit 40.9 % (36-46); Hemoglobin 13.3 g/dL (12.0-16.0); Lymphocytes Absolute Auto 1400 /uL (1100-4500); Lymphocytes Percent Auto 18.8 % (25-40); Mean Corpuscular HGB Conc 32.6 % (30-36); Mean Corpuscular Volume 91.9 fL (80-100); Monocytes Absolute Auto 800 /uL (0-900); Monocytes Percent Auto 10.7 % (3-14); Neutrophils Absolute Auto 5100 /uL (1500-7000); Neutrophils Percent Auto 67.8 % (50-75); Platelet Count 228 X10^3/uL (150-400); Red Blood Cell Count 4.45 X10^6/uL (4.0-5.2); Red Cell Distribution Width 13.7 % (11.6-14.8); White Blood Cell Count 7.5 X10^3/uL (4.5-11.0)
[2022-11-28 20:36] LABS: Alanine Aminotransferase 19 IU/L (<35); Albumin 3.5 g/dL (3.5-5.0); Albumin Globulin Ratio 1.2 (1.0-2.8); Alkaline Phosphatase 75 U/L (38-126); Aspartate Aminotransferase 23 IU/L (14-36); BUN Creatinine Ratio 25.5 (6-22); Bilirubin Total 0.4 mg/dL (0.2-1.3); Blood Urea Nitrogen 37 mg/dL (7-17); Calcium 8.7 mg/dL (8.4-10.2); Carbon Dioxide 33 mmol/L (22-32); Chloride 105 mmol/L (98-107); Estimated Glomerular Filt Rate 36 mL/min (>60); Globulin 2.9 g/dL (1.7-4.1); Glucose 91 mg/dL (80-110); HEMOLYSIS < 15 (0-50); Lactate (Lactic Acid) 0.8 mmol/L (0.7-2.1); Potassium 4.8 mmol/L (3.4-5.1); Sodium 140 mmol/L (137-145); Total Protein 6.4 g/dL (6.3-8.2)
--- NOTE | 2022-11-28 20:45 | DI.CT.S_ITS ---
PROCEDURE: CT HEAD/BRAIN WO CON INDICATIONS: altered, recurrent falls TECHNIQUE: Noncontrast 4.5 mm thick angled axial sections acquired from the foramen magnum to the vertex, with coronal and sagittal reformats. For radiation dose reduction, the following was used: automated exposure control, adjustment of mA and/or kV according to patient size. COMPARISON: [facility], CT, CT HEAD/BRAIN WO CON, 04/21/2022, 1:27. FINDINGS: Image quality: Excellent. CSF spaces: Basal cisterns are patent. No extra-axial fluid collections. Is moderate cerebral volume loss, with resultant ventricular and sulcal prominence. Brain: No intracranial hemorrhage, mass, or mass effect. There are subcortical, periventricular and deep white matter hypodensities consistent with moderate chronic small vessel ischemic changes. A focal hypodensity within the right hannah radiata is also again noted likely representing a prior lacunar infarct. There is encephalomalacia within the right cerebellar hemisphere redemonstrated consistent with sequelae of a prior infarct. The lamb-white matter junction appears preserved. There is intracranial internal carotid artery atherosclerosis. Skull and face: Calvarium and visualized facial bones appear intact, without suspicious lesions. Sinuses: Visualized sinuses and mastoids are clear. IMPRESSION: 1. No acute intracranial abnormality. 2. Moderate cerebral volume loss and chronic white matter small vessel ischemic changes. Dictated by: Donell Segovia M.D. on 11/28/2022 at 21:34 Approved by: Donell Segovia M.D. on 11/28/2022 at 21:36
[2022-11-28 20:53] LABS: Procalcitonin 0.06 ng/mL (<0.5)
[2022-11-29] VITALS (37 sets, daily range): BP systolic 110–152; BP diastolic 53–85; PULSE 58–82; RESP 13–23; O2SAT 91–98
--- NOTE | 2022-11-29 06:33 | PC.NURSE ---
Pt's pure wick had dislodged & pt wet bed linens. Pt cleaned up & linens changed. Adult brief placed to pt.
[2022-11-29 08:48] LABS: COVID-19 CEPHEID 4-PLEX PCR Negative (Negative); Influenza A - CEPHEID Flu A NEGATIVE (NEGATIVE); Influenza B - CEPHEID Flu B NEGATIVE (NEGATIVE); Respiratory Syncytial Virus Negative (Negative)
--- NOTE | 2022-11-29 10:00 | PC.NURSE ---
ambulated, pt. was able to walk with walker. needed assistance in and out of bed, but was able to ambulate once up and moving around.
== END 2022-11-29 12:12 | disposition home or self-care (01) ==
PROVIDERS: Emergency Medicine; Emergency Provider Emergency Medicine; Family Provider Student in an Organized Health Care Education/Training Program; PCP Student in an Organized Health Care Education/Training Program
DX: N39.0 Urinary tract infection, site not specified (principal); R41.82 Altered mental status, unspecified; R29.6 Repeated falls; Z20.822 Contact with and (suspected) exposure to COVID-19
CPT/HCPCS: 0241U; 36415; 70450; 80053; 81001; 83605; 84145; 85025; 87040; 87086; 93005; 99283; 99284

== ENCOUNTER 2022-11-30 15:36 | Observation (INO) | payer MEDICARE, BC, SELFPAY ==
[2022-04-21 04:00] VITALS: BMI 44.5
[2022-11-30] VITALS (20 sets, daily range): BP systolic 122–143; BP diastolic 61–95; PULSE 54–120; RESP 15–27; TEMP 36.1; O2SAT 91–98; BMI 45.7
--- NOTE | 2022-11-30 15:50 | DI.RAD.S_ITS ---
PROCEDURE: XR CHEST 1V INDICATIONS: sepsis TECHNIQUE: One view of the chest was acquired. COMPARISON: [facility], CT, CT CERVICAL SPINE WO CON, 04/21/2022, 1:27. [facility], CR, XR CHEST 1V, 04/20/2022, 21:11. [facility], CR, XR CHEST 1V, 12/26/2019, 12:03. FINDINGS: Surgical changes and devices: Left shoulder arthroplasty. Lungs and pleura: Lungs appear clear. No pleural effusions or pneumothorax. Mediastinum: Mediastinal contours appear normal. Heart size is prominent. Bones and chest wall: No suspicious bony lesions. Severe right shoulder DJD. Overlying soft tissues appear unremarkable. IMPRESSION: No acute cardiopulmonary abnormality. Dictated by: Viral Lowery M.D. on 11/30/2022 at 18:12 Approved by: Viral Lowery M.D. on 11/30/2022 at 18:13
[2022-11-30 16:57] LABS: Add Manual Diff / Slide Review NO; Basophils Absolute Auto 100 /uL (0-100); Basophils Percent Auto 0.9 % (0-2); Eosinophils Absolute Auto 200 /uL (0-450); Eosinophils Percent Auto 2.4 % (2-4); Hematocrit 43.1 % (36-46); Hemoglobin 14.2 g/dL (12.0-16.0); Lymphocytes Absolute Auto 1100 /uL (1100-4500); Lymphocytes Percent Auto 16.9 % (25-40); Mean Corpuscular Hemoglobin 30.1 PG (26-34); Monocytes Absolute Auto 800 /uL (0-900); Monocytes Percent Auto 12.3 % (3-14); Neutrophils Absolute Auto 4400 /uL (1500-7000); Neutrophils Percent Auto 67.5 % (50-75); Platelet Count 214 X10^3/uL (150-400); Red Blood Cell Count 4.73 X10^6/uL (4.0-5.2); Red Cell Distribution Width 13.8 % (11.6-14.8); White Blood Cell Count 6.6 X10^3/uL (4.5-11.0)
[2022-11-30 17:13] LABS: Lactate (Lactic Acid) 1.1 mmol/L (0.7-2.1)
[2022-11-30 17:14] LABS: Alanine Aminotransferase 19 IU/L (<35); Albumin 3.6 g/dL (3.5-5.0); Albumin Globulin Ratio 1.2 (1.0-2.8); Alkaline Phosphatase 82 U/L (38-126); Aspartate Aminotransferase 26 IU/L (14-36); BUN Creatinine Ratio 23.6 (6-22); Bilirubin Total 0.5 mg/dL (0.2-1.3); Blood Urea Nitrogen 33 mg/dL (7-17); Calcium 9.1 mg/dL (8.4-10.2); Carbon Dioxide 33 mmol/L (22-32); Chloride 102 mmol/L (98-107); Creatine Kinase 58 U/L (30-135); Estimated Glomerular Filt Rate 38 mL/min (>60); Globulin 2.9 g/dL (1.7-4.1); Glucose 82 mg/dL (80-110); HEMOLYSIS < 15 (0-50); Potassium 4.5 mmol/L (3.4-5.1); Sodium 141 mmol/L (137-145); Total Protein 6.5 g/dL (6.3-8.2)
[2022-11-30 17:25] LABS: Troponin I < 0.012 ng/mL (0.01-0.034)
[2022-11-30 17:29] LABS: Procalcitonin 0.07 ng/mL (<0.5)
[2022-11-30] MEDS: cefTRIAXone 2,000 MG in SODIUM CHLORIDE 0.9% 100 ML 200 MG IV (17:30)
--- NOTE | 2022-11-30 17:31 | PC.NURSE ---
Pt is a very difficult blood draw. Lab was able to pull enough blood for pediatric tubes and pediatric BC. Unable to draw 2nd set of cultures, ED physician ordered ABX to be given and we'll try for 2nd set of BC at a later time.
[2022-11-30] MEDS: SODIUM CHLORIDE 0.9% 1,000 ML 1000 ML IV (18:08)
[2022-11-30 18:24] LABS: Appearance Urine UA CLEAR; Bilirubin Urine UA NEGATIVE (NEGATIVE); Color Urine UA YELLOW; Glucose Urine UA NEGATIVE (Negative); Ketones Urine UA NEGATIVE (NEGATIVE); Leukocyte Esterase Urine UA TRACE (NEGATIVE); Nitrite Urine UA NEGATIVE (Negative); Occult Blood Urine UA NEGATIVE (Negative); Protein Urine UA NEGATIVE (Negative); Urobilinogen Urine UA 0.2 E.U./dL (0.2)
[2022-11-30 18:25] LABS: pH Urine UA 6.5 (4.5-8.0)
--- NOTE | 2022-11-30 18:30 | ED.AMS ---
HPI - Altered Mental Status General Chief Complaint: Altered Mental Status Stated Complaint: hypotension, Fall Time Seen by Provider: 11/30/22 15:49 Source: family and EMS Mode of arrival: Ambulatory History of Present Illness HPI narrative: 82-year-old female presenting with fall and encephalopathy, documented hypotension in the outpatient the field, increasing difficulty with ambulation. Patient does have a history of recent presentation in the emergency department for similar symptoms 1 day prior to presentation, patient was diagnosed with possible urinary tract infection, started on antibiotics. Patient provides limited additional history and presentation, denies acute pain. No measured fevers. Pt arrives with who provides additional history. Related Data Home Medications Medication Instructions Recorded Confirmed multivitamin 1 tab PO DAILY 11/17/20 05/04/22 furosemide 40 mg tablet 40 mg PO DAILY 04/21/22 05/04/22 Previous Rx's Medication Instructions Recorded atorvastatin 40 mg tablet 40 mg PO BEDTIME #90 tabs 12/29/21 quinapril 20 mg tablet 20 mg PO DAILY #90 tabs 01/04/22 potassium chloride 20 mEq 20 meq PO DAILY #90 tabs 03/08/22 tablet,extended release bupropion HCl 300 mg 24 hr tablet, 300 mg PO QAM #30 tabs 10/04/22 extended release ropinirole 0.5 mg tablet 0.5 mg PO BEDTIME #90 tabs 10/04/22 sennosides 8.6 mg tablet (Natural 17.2 mg PO BID #240 tabs 10/04/22 Senna Laxative) sertraline 100 mg tablet 150 mg PO QAM #45 tabs 10/04/22 trazodone 50 mg tablet 50 mg PO TID PRN anxiety or 10/04/22 insomnia #90 tabs aspirin 81 mg tablet,delayed 81 mg PO DAILY #30 tabs 10/05/22 release (Adult Aspirin Regimen) docusate sodium 250 mg capsule 250 mg PO DAILY #30 caps 11/17/22 verapamil 120 mg tablet 120 mg PO TID #90 tabs 11/17/22 nitrofurantoin 100 mg PO Q12H 5 days #10 caps 11/29/22 monohydrate/macrocrystals 100 mg capsule (Macrobid) Allergies Allergy/AdvReac Type Severity Reaction Status Date / Time adhesive tape Allergy Intermediate plastic Verified 11/30/22 16:02 Penicillins [PENICILLINS] Allergy Mild Rash Verified 10/25/22 08:33 venom-honey bee Allergy Unknown Verified 10/25/22 08:33 [BEE VENOM (HONEY BEE)] Review of Systems Review of Systems Narrative: Constitutional, Eyes, ENT, Pulmonary, Cardiovascular, Gastrointestinal, Renal, Endocrine, Genitourinary, Musculoskeletal, Neurologic, Skin, and Psychiatric systems were reviewed and negative unless indicated in the HPI above. Patient History Medical History Chronic renal insufficiency (Unknown) Colon polyps (Unknown) COPD (chronic obstructive pulmonary disease) (Unknown) CVA (cerebral vascular accident) (11/2019) Dry both ear canals (02/24/17) Eczema Hyperlipemia (Unknown) Hypertension (Unknown) Insomnia, unspecified (~1997) Lower extremity edema (09/08/17) 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, recurrent, in full remission Morbid obesity with body mass index (BMI) greater than or equal to 50 Nocturnal hypoxemia (09/08/17) Obstructive sleep apnea of adult (~05/2020) Obstructive sleep apnea, adult Osteoarthritis (Unknown) Pain of left hand (04/21/17) Physical deconditioning Restless leg syndrome Sexual dysfunction Vaginal dryness (04/21/17) Surgical History History of knee replacement (2000) History of tonsillectomy (1947) Hx of total hip arthroplasty (09/2008) Status post cholecystectomy (1997) Status post dilation and curettage (2000) Family History Father No problems noted. Mother No problems noted. 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 Nursing note reviewed Constitutional: interactive, follows simple commands, oriented to name and situation not date HENT: Moist mucous membranes EYES: No scleral icterus NECK: no masses CV: Well perfused peripherally, no cyanosis present PULM: Unlabored respirations, symmetric chest rise ABD: Non-distended MS: No gross deformities, chronic appearing right lower extremity wound with dressing in place, minimal surrounding erythema SKIN: Warm and dry. PSYCH: Flat affect NEURO: Follows simple commands, moves extremities, interactive with exam Initial Vital Signs Initial Vital Signs: Vital Signs Pulse Rate 58 L 11/30/22 15:43 Respiratory Rate 21 11/30/22 15:43 Pulse Oximetry 96 11/30/22 15:43 Course Orders Ordered: ED Orders 11/30/22 15:50 XR chest 1V Stat EKG-12 Lead Stat 11/30/22 16:40 BNP [NT-proBNP (BNP-Adult 18+)] Stat Complete Blood Count AUTO DIFF Stat Comprehensive Metabolic Panel Stat Lactate (Lactic Acid) Stat Procalcitonin Stat Troponin & CK Cardiac Panel Stat 11/30/22 17:44 Urinalysis and Microscopic Stat Urine Culture Stat 11/30/22 18:55 Blood Culture Stat 11/30/22 18:59 Consult to MANAGER SECURITY - Data Administrator Stat Acetaminophen (Acetaminophen 325 Mg Tablet) 650 mg PO Q6H PRN PRN Reason: Fever/Mild Pain (1-3) Aspirin (Aspirin Ec 81 Mg Tablet) 81 mg PO DAILY HERMAN Atorvastatin Calcium (Atorvastatin 20 Mg Tablet) 40 mg PO BEDTIME HERMAN Bupropion HCl (Bupropion Xl 150 Mg Tab) 300 mg PO DAILY HERMAN Heparin Sodium (Porcine) (Heparin 5,000 Unit/Ml Vial) 5,000 unit SUBCUT BID HERMAN Sodium Chloride (Normal Saline 0.9%) 1,000 mls @ 1,000 mls/hr IV BOLUS PRN PRN Reason: Fluid replacement Last Infusion: 11/30/22 18:09 Dose: 0 mls/hr Documented By: Admin: 11/30/22 18:08 Dose: 1,000 mls/hr Documented By: GERONIMO Sodium Chloride (Normal Saline 0.9%) 1,000 mls @ 100 mls/hr IV CONT HERMAN Stop: 12/31/22 06:44 Multivitamins (Multivitamin 1 Tablet) 1 tab PO DAILY HERMAN Naloxone HCl (Naloxone 0.4 Mg/Ml Vial) 0.2 mg IV Q2MIN PRN PRN Reason: Opiate Reversal Nitrofurantoin Macrocrystals (Nitrofurantoin Er 100 Mg Capsule) 100 mg PO Q12H [facility] Non-Formulary Medication (Quinapril) 20 mg PO DAILY [facility] Ondansetron HCl (Ondansetron 4 Mg/2 Ml Inj) 4 mg IV Q6HR PRN PRN Reason: Nausea And Vomiting Oxycodone HCl (Oxycodone Ir 10 Mg Tablet) 5 mg PO Q3H PRN PRN Reason: Pain, Severe (7-10) Sennosides (Sennosides 8.6 Mg Tablet) 17.2 mg PO BID [facility] Sertraline HCl (Sertraline 50 Mg Tablet) 150 mg PO DAILY [facility] Verapamil HCl (Verapamil 120 Mg Tablet) 120 mg PO TID HERMAN Discontinued Medications Ceftriaxone Sodium 2,000 mg/ (Sodium Chloride) 100 mls @ 200 mls/hr IV NOW ONE Stop: 11/30/22 15:51 Last Infusion: 11/30/22 17:58 Dose: 0 mls/hr Documented By: Admin: 11/30/22 17:30 Dose: 200 mls/hr Documented By: GERONIMO Vital Signs Vital signs: Vital Signs - 8 hr 11/30/22 16:06 11/30/22 16:06 11/30/22 15:43 Temperature 97.0 F L 97.0 F L Pulse Rate 65 65 58 L Pulse Rate [Orthostatic Lying] Pulse Rate [Orthostatic Sitting] Respiratory Rate 18 18 21 Blood Pressure 130/61 130/61 Blood Pressure [Orthostatic Lying] Blood Pressure [Orthostatic Sitting] Pulse Oximetry 96 97 96 Oxygen Delivery Method Room Air Room Air 11/30/22 15:45 11/30/22 15:45 11/30/22 16:00 Temperature Pulse Rate 59 L 70 Pulse Rate [Orthostatic Lying] Pulse Rate [Orthostatic Sitting] Respiratory Rate 19 20 Blood Pressure 126/66 Blood Pressure [Orthostatic Lying] Blood Pressure [Orthostatic Sitting] Pulse Oximetry 97 97 Oxygen Delivery Method 11/30/22 16:30 11/30/22 17:00 11/30/22 17:30 Temperature Pulse Rate 66 65 55 L Pulse Rate [Orthostatic Lying] Pulse Rate [Orthostatic Sitting] Respiratory Rate 18 19 19 Blood Pressure Blood Pressure [Orthostatic Lying] Blood Pressure [Orthostatic Sitting] Pulse Oximetry 96 94 94 Oxygen Delivery Method 11/30/22 17:51 11/30/22 17:51 11/30/22 18:00 Temperature Pulse Rate 54 L 56 L Pulse Rate [Orthostatic Lying] Pulse Rate [Orthostatic Sitting] Respiratory Rate 18 15 Blood Pressure 140/69 Blood Pressure [Orthostatic Lying] Blood Pressure [Orthostatic Sitting] Pulse Oximetry 93 93 Oxygen Delivery Method 11/30/22 19:45 11/30/22 18:30 11/30/22 19:00 Temperature Pulse Rate 56 L 59 L Pulse Rate [Orthostatic Lying] 75 Pulse Rate [Orthostatic Sitting] 67 Respiratory Rate 18 17 Blood Pressure Blood Pressure [Orthostatic Lying] 133/70 Blood Pressure [Orthostatic Sitting] 122/63 Pulse Oximetry 94 91 Oxygen Delivery Method 11/30/22 19:30 11/30/22 19:37 11/30/22 19:37 Temperature Pulse Rate 58 L 120 H Pulse Rate [Orthostatic Lying] Pulse Rate [Orthostatic Sitting] Respiratory Rate 15 27 H Blood Pressure 133/70 Blood Pressure [Orthostatic Lying] Blood Pressure [Orthostatic Sitting] Pulse Oximetry 94 94 Oxygen Delivery Method 11/30/22 19:39 11/30/22 19:39 Temperature Pulse Rate 70 Pulse Rate [Orthostatic Lying] Pulse Rate [Orthostatic Sitting] Respiratory Rate Blood Pressure 122/63 Blood Pressure [Orthostatic Lying] Blood Pressure [Orthostatic Sitting] Pulse Oximetry Oxygen Delivery Method MDM - Altered Mental Status Lab Data Result diagrams: 11/30/22 16:40 11/30/22 16:40 Labs: Lab Results 11/30/22 11/30/22 11/30/22 Range/Units 16:40 16:40 16:40 WBC 6.6 (4.5-11.0) X10^3/uL RBC 4.73 (4.0-5.2) X10^6/uL Hgb 14.2 (12.0-16.0) g/dL Hct 43.1 (36-46) % MCV 91.0 (80-100) fL MCH 30.1 (26-34) PG MCHC 33.0 (30-36) % RDW 13.8 (11.6-14.8) % Plt Count 214 (150-400) X10^3/uL Neut % (Auto) 67.5 (50-75) % Lymph % (Auto) 16.9 L (25-40) % [place] % (Auto) 12.3 (3-14) % Eos % (Auto) 2.4 (2-4) % Baso % (Auto) 0.9 (0-2) % Neut # (Auto) 4400 (6936-9968) /uL Lymph # (Auto) 1100 (7290-2979) /uL [place] # (Auto) 800 (0-900) /uL Eos # (Auto) 200 (0-450) /uL Baso # (Auto) 100 (0-100) /uL Sodium 141 (137-145) mmol/L Potassium 4.5 (3.4-5.1) mmol/L Chloride 102 (98-107) mmol/L Carbon Dioxide 33 H (22-32) mmol/L BUN 33 H (7-17) mg/dL Creatinine 1.40 H (0.52-1.04) mg/dL Estimated GFR 38 L (>60) mL/min BUN/Creatinine Ratio 23.6 H (6-22) Glucose 82 (80-110) mg/dL Lactate 1.1 (0.7-2.1) mmol/L Calcium 9.1 (8.4-10.2) mg/dL Total Bilirubin 0.5 (0.2-1.3) mg/dL AST 26 (14-36) IU/L ALT 19 (<35) IU/L Alkaline Phosphatase 82 (38-126) U/L Total Creatine Kinase 58 (30-135) U/L CK-MB (CK-2) TNP CK-MB (CK-2) Rel Index TNP Troponin I < 0.012 (0.01-0.034) ng/mL NT-Pro-B Natriuret Pep (<450) pg/mL Total Protein 6.5 (6.3-8.2) g/dL Albumin 3.6 (3.5-5.0) g/dL Globulin 2.9 (1.7-4.1) g/dL Albumin/Globulin Ratio 1.2 (1.0-2.8) Procalcitonin 0.07 (<0.5) ng/mL Urine Color Urine Appearance Urine pH (4.5-8.0) Ur Specific [place] (1.000-1.035) Urine Protein (Negative) Urine Glucose (UA) (Negative) g/dL Urine Ketones (NEGATIVE) Urine Occult Blood (Negative) Urine Nitrate (Negative) Urine Bilirubin (NEGATIVE) Urine Urobilinogen (0.2) E.U./dL Ur Leukocyte Esterase (NEGATIVE) Urine RBC (0-5/HPF) Urine WBC (0-5/HPF) Ur Squamous Epith Cells (0-5/HPF) Urine Bacteria (None) Ur Culture Indicated? 11/30/22 11/30/22 Range/Units 16:40 17:44 WBC (4.5-11.0) X10^3/uL RBC (4.0-5.2) X10^6/uL Hgb (12.0-16.0) g/dL Hct (36-46) % MCV (80-100) fL MCH (26-34) PG MCHC (30-36) % RDW (11.6-14.8) % Plt Count (150-400) X10^3/uL Neut % (Auto) (50-75) % Lymph % (Auto) (25-40) % [place] % (Auto) (3-14) % Eos % (Auto) (2-4) % Baso % (Auto) (0-2) % Neut # (Auto) (8283-7552) /uL Lymph # (Auto) (2232-4477) /uL [place] # (Auto) (0-900) /uL Eos # (Auto) (0-450) /uL Baso # (Auto) (0-100) /uL Sodium (137-145) mmol/L Potassium (3.4-5.1) mmol/L Chloride (98-107) mmol/L Carbon Dioxide (22-32) mmol/L BUN (7-17) mg/dL Creatinine (0.52-1.04) mg/dL Estimated GFR (>60) mL/min BUN/Creatinine Ratio (6-22) Glucose (80-110) mg/dL Lactate (0.7-2.1) mmol/L Calcium (8.4-10.2) mg/dL Total Bilirubin (0.2-1.3) mg/dL AST (14-36) IU/L ALT (<35) IU/L Alkaline Phosphatase (38-126) U/L Total Creatine Kinase (30-135) U/L CK-MB (CK-2) CK-MB (CK-2) Rel Index Troponin I (0.01-0.034) ng/mL NT-Pro-B Natriuret Pep 454 H (<450) pg/mL Total Protein (6.3-8.2) g/dL Albumin (3.5-5.0) g/dL Globulin (1.7-4.1) g/dL Albumin/Globulin Ratio (1.0-2.8) Procalcitonin (<0.5) ng/mL Urine Color Yellow Urine Appearance Clear Urine pH 6.5 (4.5-8.0) Ur Specific [place] 1.010 (1.000-1.035) Urine Protein Negative (Negative) Urine Glucose (UA) Negative (Negative) g/dL Urine Ketones Negative (NEGATIVE) Urine Occult Blood Negative (Negative) Urine Nitrate Negative (Negative) Urine Bilirubin Negative (NEGATIVE) Urine Urobilinogen 0.2 (0.2) E.U./dL Ur Leukocyte Esterase Trace H (NEGATIVE) Urine RBC None seen (0-5/HPF) Urine WBC 1-5/hpf (0-5/HPF) Ur Squamous Epith Cells 0-1 /hpf (0-5/HPF) Urine Bacteria Occasional (0-1) (None) Ur Culture Indicated? Specimen cultured Urine Dip Bedside Urine Glucose Negative Bedside Urine Bilirubin - Negative Bedside Urine Ketone - Negative Urine Specific [place] 1.015 Bedside Urine Occult Blood - Negative Bedside Urine pH 6.0 Bedside Urine Protein - Negative Bedside Urine Urobilinogen - Negative Bedside Urine Nitrite - Negative Bedside Urine Leukocytes +/- 15 Esterase MDM Narrative Medical decision making narrative: 82-year-old female presenting with recurrent falls, hypotension in the field, and difficulty with ambulation. On presentation, vital signs notable for bradycardia, normal range blood pressure. Physical exam notable for 82-year-old female with reassuring cardiac and pulmonary exam, benign abdomen, no focal weakness appreciated, chronic appearing right lower extremity wound. Inability to stand independently at the bedside. Initial concern for worsening infection in the setting of recently diagnosed urinary tract infection, sepsis, pyelonephritis, metabolic derangement, worsening debility in the setting of known dementia with acute on chronic worsening of symptoms, medication effect. Given concern for hypotension prior to arrival, recently diagnosed infection, patient was administered IV fluids and antibiotics on presentation to the emergency department. Broad screening labs were obtained. Patient without documented hypotension in the emergency department. Screening labs notable for reassuring CBC without leukocytosis or significant left shift, normal lactate, normal procalcitonin, urinalysis without obvious evidence of infection. Following initial management and medication administration, patient with stable exam. Discussed case with hospital medicine team regarding admission for worsening debility and concern for unsafe discharge. Hospital medicine team requesting emergency department social work evaluation prior to admission. Discussed case with emergency department social insurance administrator who agreed to evaluate patient at bedside. Orthostatics performed, unable to complete due to inability to stand at bedside, pt noted to have significant change in HR when attempting to perfrom orthostatics. Discussed case with [facility] medicine team who agreed with plan for admission. Discussed case with findings and recommendations with family and pt at bedside. Discharge Plan Departure Admit Date/Time: 11/30/22 19:59 Admit Provider: Mirian Melendez
[2022-11-30 18:39] LABS: Bacteria Urine Occasional (0-1); Culture Indicated Urine Specimen Cultured; RBC Urine None Seen (0-5/HPF); Squamous Epithelial Cell Urine 0-1 /HPF (0-5/HPF); WBC Urine 1-5/HPF (0-5/HPF)
--- NOTE | 2022-11-30 19:45 | CM.DANOTE ---
Pt is 82-year-old female presenting with fall and encephalopathy, documented hypotension in the outpatient setting. Patient does have a history of recent presentation in the emergency department for similar symptoms 1 day prior to presentation, patient was diagnosed with possible urinary tract infection, started on antibiotics. Patient provides limited additional history and presentation, denies acute pain. No measured fevers. Pt has Medicare A+B, and Blue Cross supplement. Pt's PCP is Craig Chowdhury. Pt's spouse is concerned that pt may be discharged home from ED without intervention, as this is what happened yesterday morning when pt was discharged with antibiotics. Pt reports that pt is far off baseline and was doing well with outpatient PT as recently as last Tuesday but has had increasing falls in the last few days. Pt's reports that pt was supposed to see Dr. Smiley today for a follow up regarding her anxiety. Pt's reports that he has a son who lives in [place] and a daughter that lives in [place] but no local support other than the mandaeism. Pt's reports that pt was at SNF rehab following a stroke in 2019. Pt was also at two different assisted living facilities; [facility] and [facility]. Pt was at [facility] in September for two weeks, which was funded through [facility] to provide respite for pt's /primary caregiver. Pt's reports that he feels he can take better care of her than an assisted living. Plan: SW will continue to follow to assist with safe discharge. Discharge Planning/Care Management CM Discharge Assessment Start: 11/30/22 19:34 Freq: Status: Active Protocol: Document 11/30/22 19:34 (Rec: 11/30/22 19:45 [email or web address]) Discharge Planning Assessment Assigned Editor Dictionary Lelo Dave DPDANTE/Assigned Designee Name Spouse, Craig Joel Contact Information [phone] Advance Directives? Yes: MEGAN MIRZA Advance Directives on File Yes History Provided By Family Member Has Patient been admitted in last 30 No days? Prior Living Arrangements House Household Members spouse Type of transporation used prior to Relies on Others admit Independent with ADL's No Is patient alert and oriented? No Needs Assistance With Bathing,Grooming,Meal Prep, Toileting,Managing Medications ,Home Chores / Shopping Comment At baseline, pt is able to transfer using [facility]. At baseline, pt needs assistance dressing, showering, managing meds, home chores and meal prep. Caregiver for Another No Community Services used prior to Home Health Aid admission: Comment Pt receives 20 hours month care giving through [facility], which is outsourced through [facility]. DME Already Rented / Owned [facility] / Walker,Other Comment Pt has peter from previous rehab post stroke in 2019. Patient/Family Preference Home with Home Health Comment TBD Barriers to Discharge No Discharge Plan Home with Home Health Transportation Arrangement vs BLS Referrals Initiated Other Additional Comment TBD Whiteboard Updated in Patient Room with Yes name and ext. # of Editor Dictionary Please Provide Date Initial DC 11/30/22 Assessment Was Performed
--- NOTE | 2022-11-30 19:45 | PC.NURSE ---
pt was unable to stand at bedside, her legs were stiff and her left foot continually slipped out from under her. she was leaning on the bed and was unable to fully stand on her own. due to risk of injury to pt and myself I was unable to get standing BP
[2022-11-30 20:28] LABS: NT-proBNP (BNP-Adult 18+) 454 pg/mL (<450)
[2022-11-30 20:52] LABS: COVID19 -Nasal RAPID Negative (Negative)
[2022-11-30] MEDS: SENNOSIDES 8.6 MG TABLET 17.2 MG PO (21:44)
[2022-11-30] MEDS: SODIUM CHLORIDE 0.9% 1,000 ML 100 ML IV (21:44)
[2022-11-30] MEDS: NITROFURANTOIN ER 100 MG CAPSULE PO (21:44)
[2022-11-30] MEDS: VERAPAMIL 120 MG TABLET PO (21:44)
[2022-11-30] MEDS: ATORVASTATIN 20 MG TABLET 40 MG PO (21:44)
[2022-11-30] MEDS: HEPARIN 5,000 UNIT/ML VIAL 5000 UNIT SUBCUT (21:44)
--- NOTE | 2022-11-30 21:51 | PM.HP.1 ---
History of Present Illness History of Present Illness Date Patient Seen: 11/30/22 Time Patient Seen: 21:35 Chief complaint: hypotension, Fall Narrative: Susan Joel is an 82-year-old patient with multiple medical problems including COPD, obstructive sleep apnea, morbid obesity, hypertension, hyperlipidemia, congestive heart failure, severe depression, previous CVA, chronic kidney disease stage 3 and status post aortic valve replacement, bioprosthetic is brought to the ER via paramedics due to confusion, weakness and a ground level fall. She presented with hypotension, had been seen yesterday in the ED for similar reasons and found to have a UTI. She was discharged on oral macrobid. Patient is unable to provide a history. Per the ED provider, her is concerned that her balance has worsened over the last 48 hours and has gotten significantly bad in last 6-8 hours.? He notes that she has increased anxiety when trying to create sentences ever since a stroke in December 18, 2019.? He notes no fevers and reports that she is eating and drinking normally.? Patient has dementia significant enough that she has difficulty communicating and expresses frustration with word finding by squinting her eyes and her left arm starts to tap, appearing to be uncontrolled. Repeat of her UA is negative today, chest x-ray done today is negative for any acute process. Her labs are completely unremarkable with the exception of what appears to be a resolving CHRISTOFER. ED attempted to do orthostatic vitals however the patient was too weak to stand up any longer to obtain a blood pressure. She is currently afebrile blood pressure 133/70 heart rate 63 respiratory rate 18 oxygen saturation of 98% on room air she weighs 113.3 kg with a BMI of 44.5. She did have CO2 of 33 BUN 33 creatinine 1.4 with an EGFR of 38, renal values are within her normal limits, proBNP was 454 UA is negative for UTI currently and COVID-19 PCR is negative. Patient History Medical History Chronic renal insufficiency (Unknown) Colon polyps (Unknown) COPD (chronic obstructive pulmonary disease) (Unknown) CVA (cerebral vascular accident) (11/2019) Dry both ear canals (02/24/17) Eczema Hyperlipemia (Unknown) Hypertension (Unknown) Insomnia, unspecified (~1997) Lower extremity edema (09/08/17) 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, recurrent, in full remission Morbid obesity with body mass index (BMI) greater than or equal to 50 Nocturnal hypoxemia (09/08/17) Obstructive sleep apnea of adult (~05/2020) Obstructive sleep apnea, adult Osteoarthritis (Unknown) Pain of left hand (04/21/17) Physical deconditioning Restless leg syndrome Sexual dysfunction Vaginal dryness (04/21/17) Surgical History History of knee replacement (2000) History of tonsillectomy (194) Hx of total hip arthroplasty (09/2008) Status post cholecystectomy (1997) Status post dilation and curettage (2000) Family & Social History Family History Father CVA (cerebral vascular accident) Dementia Mother Coronary artery disease Daughter Cancer Social History: household members spouse Prior Living Arrangements House lives independently Yes caregiver/support person Yes: Safety & Behavioral: Feels Safe in Current Yes Environment Been Physically Hurt or No Threatened By a Person Tobacco & Substance use: Smoking Status Never smoker alcohol intake never alcohol intake frequency 0-2 drinks per day Substance Use Type does not use Meds Home Medications and Allergies Home Medications Medication Instructions Recorded Confirmed Type multivitamin 1 tab PO DAILY 11/17/20 05/04/22 History atorvastatin 40 mg tablet 40 mg PO BEDTIME #90 tabs 12/29/21 05/04/22 Rx quinapril 20 mg tablet 20 mg PO DAILY #90 tabs 01/04/22 05/04/22 Rx potassium chloride 20 mEq 20 meq PO DAILY #90 tabs 03/08/22 05/04/22 Rx tablet,extended release furosemide 40 mg tablet 40 mg PO DAILY 04/21/22 05/04/22 History bupropion HCl 300 mg 24 hr tablet, 300 mg PO QAM #30 tabs 10/04/22 10/25/22 Rx extended release ropinirole 0.5 mg tablet 0.5 mg PO BEDTIME #90 tabs 10/04/22 Rx sennosides 8.6 mg tablet (Natural 17.2 mg PO BID #240 tabs 10/04/22 Rx Senna Laxative) sertraline 100 mg tablet 150 mg PO QAM #45 tabs 10/04/22 10/25/22 Rx trazodone 50 mg tablet 50 mg PO TID PRN anxiety or 10/04/22 10/25/22 Rx insomnia #90 tabs aspirin 81 mg tablet,delayed 81 mg PO DAILY #30 tabs 10/05/22 Rx release (Adult Aspirin Regimen) docusate sodium 250 mg capsule 250 mg PO DAILY #30 caps 11/17/22 Rx verapamil 120 mg tablet 120 mg PO TID #90 tabs 11/17/22 Rx nitrofurantoin 100 mg PO Q12H 5 days #10 caps 11/29/22 Rx monohydrate/macrocrystals 100 mg capsule (Macrobid) Allergies Allergy/AdvReac Type Severity Reaction Status Date / Time adhesive tape Allergy Intermediate plastic Verified 11/30/22 16:02 Penicillins [PENICILLINS] Allergy Mild Rash Verified 10/25/22 08:33 venom-honey bee Allergy Unknown Verified 10/25/22 08:33 [BEE VENOM (HONEY BEE)] Review of Systems Review of Systems ROS: Yes unobtainable due to mental status Exam Vital Signs (past 8 hours): - 11/30/22 16:06 11/30/22 16:06 11/30/22 15:43 Temperature 97.0 F L 97.0 F L Pulse Rate 65 65 58 L Pulse Rate [Orthostatic Lying] Pulse Rate [Orthostatic Sitting] Respiratory Rate 18 18 21 Blood Pressure 130/61 130/61 Blood Pressure [Orthostatic Lying] Blood Pressure [Orthostatic Sitting] Pulse Oximetry 96 97 96 Oxygen Delivery Method Room Air Room Air 11/30/22 15:45 11/30/22 15:45 11/30/22 16:00 Temperature Pulse Rate 59 L 70 Pulse Rate [Orthostatic Lying] Pulse Rate [Orthostatic Sitting] Respiratory Rate 19 20 Blood Pressure 126/66 Blood Pressure [Orthostatic Lying] Blood Pressure [Orthostatic Sitting] Pulse Oximetry 97 97 Oxygen Delivery Method 11/30/22 16:30 11/30/22 17:00 11/30/22 17:30 Temperature Pulse Rate 66 65 55 L Pulse Rate [Orthostatic Lying] Pulse Rate [Orthostatic Sitting] Respiratory Rate 18 19 19 Blood Pressure Blood Pressure [Orthostatic Lying] Blood Pressure [Orthostatic Sitting] Pulse Oximetry 96 94 94 Oxygen Delivery Method 11/30/22 17:51 11/30/22 17:51 11/30/22 18:00 Temperature Pulse Rate 54 L 56 L Pulse Rate [Orthostatic Lying] Pulse Rate [Orthostatic Sitting] Respiratory Rate 18 15 Blood Pressure 140/69 Blood Pressure [Orthostatic Lying] Blood Pressure [Orthostatic Sitting] Pulse Oximetry 93 93 Oxygen Delivery Method 11/30/22 19:45 11/30/22 18:30 11/30/22 19:00 Temperature Pulse Rate 56 L 59 L Pulse Rate [Orthostatic Lying] 75 Pulse Rate [Orthostatic Sitting] 67 Respiratory Rate 18 17 Blood Pressure Blood Pressure [Orthostatic Lying] 133/70 Blood Pressure [Orthostatic Sitting] 122/63 Pulse Oximetry 94 91 Oxygen Delivery Method 11/30/22 19:30 11/30/22 19:37 11/30/22 19:37 Temperature Pulse Rate 58 L 120 H Pulse Rate [Orthostatic Lying] Pulse Rate [Orthostatic Sitting] Respiratory Rate 15 27 H Blood Pressure 133/70 Blood Pressure [Orthostatic Lying] Blood Pressure [Orthostatic Sitting] Pulse Oximetry 94 94 Oxygen Delivery Method 11/30/22 19:39 11/30/22 19:39 11/30/22 20:00 Temperature Pulse Rate 70 57 L Pulse Rate [Orthostatic Lying] Pulse Rate [Orthostatic Sitting] Respiratory Rate 18 Blood Pressure 122/63 Blood Pressure [Orthostatic Lying] Blood Pressure [Orthostatic Sitting] Pulse Oximetry 94 Oxygen Delivery Method 11/30/22 20:30 Temperature Pulse Rate 63 Pulse Rate [Orthostatic Lying] Pulse Rate [Orthostatic Sitting] Respiratory Rate Blood Pressure Blood Pressure [Orthostatic Lying] Blood Pressure [Orthostatic Sitting] Pulse Oximetry 96 Oxygen Delivery Method Oxygen Delivery Method Room Air Narrative Exam Narrative: Gen: Alert and arousable 82-year-old morbidly obese female, anxious HEENT: normocephalic, atraumatic, conjunctiva clear, sclera non-icteric, oral mucosa pink and moist Neck: supple, full ROM, no JVD, trachea is midline Resp: Lungs CTA, non-labored breathing CV: RRR, no murmur or rubs Abd: soft, non-tender, normoactive BTs Skin: no lesions or rashes, dry and intact Neuro: Alert and oriented X 4 w/no focal deficits. Speech clear and coherent. Extremities: moves all 4 extremities, is ambulatory, negative Van?s sign Psyche: Labile, expresses frustration when she has difficulty word finding Objective Labs Result Diagrams: 11/30/22 16:40 11/30/22 16:40 Labs: Laboratory Results - last 24 hr 11/30/22 11/30/22 11/30/22 16:40 16:40 16:40 WBC 6.6 RBC 4.73 Hgb 14.2 Hct 43.1 MCV 91.0 MCH 30.1 MCHC 33.0 RDW 13.8 Plt Count 214 Neut % (Auto) 67.5 Lymph % (Auto) 16.9 L [place] % (Auto) 12.3 Eos % (Auto) 2.4 Baso % (Auto) 0.9 Neut # (Auto) 4400 Lymph # (Auto) 1100 [place] # (Auto) 800 Eos # (Auto) 200 Baso # (Auto) 100 Sodium 141 Potassium 4.5 Chloride 102 Carbon Dioxide 33 H BUN 33 H Creatinine 1.40 H Estimated GFR 38 L BUN/Creatinine Ratio 23.6 H Glucose 82 Lactate 1.1 Calcium 9.1 Total Bilirubin 0.5 AST 26 ALT 19 Alkaline Phosphatase 82 Total Creatine Kinase 58 CK-MB (CK-2) TNP CK-MB (CK-2) Rel Index TNP Troponin I < 0.012 NT-Pro-B Natriuret Pep Total Protein 6.5 Albumin 3.6 Globulin 2.9 Albumin/Globulin Ratio 1.2 Procalcitonin 0.07 Urine Color Urine Appearance Urine pH Ur Specific [place] Urine Protein Urine Glucose (UA) Urine Ketones Urine Occult Blood Urine Nitrate Urine Bilirubin Urine Urobilinogen Ur Leukocyte Esterase Urine RBC Urine WBC Ur Squamous Epith Cells Urine Bacteria Ur Culture Indicated? SARS-CoV-2 (PCR) 11/30/22 11/30/22 11/30/22 16:40 17:44 20:29 WBC RBC Hgb Hct MCV MCH MCHC RDW Plt Count Neut % (Auto) Lymph % (Auto) [place] % (Auto) Eos % (Auto) Baso % (Auto) Neut # (Auto) Lymph # (Auto) [place] # (Auto) Eos # (Auto) Baso # (Auto) Sodium Potassium Chloride Carbon Dioxide BUN Creatinine Estimated GFR BUN/Creatinine Ratio Glucose Lactate Calcium Total Bilirubin AST ALT Alkaline Phosphatase Total Creatine Kinase CK-MB (CK-2) CK-MB (CK-2) Rel Index Troponin I NT-Pro-B Natriuret Pep 454 H Total Protein Albumin Globulin Albumin/Globulin Ratio Procalcitonin Urine Color Yellow Urine Appearance Clear Urine pH 6.5 Ur Specific [place] 1.010 Urine Protein Negative Urine Glucose (UA) Negative Urine Ketones Negative Urine Occult Blood Negative Urine Nitrate Negative Urine Bilirubin Negative Urine Urobilinogen 0.2 Ur Leukocyte Esterase Trace H Urine RBC None seen Urine WBC 1-5/hpf Ur Squamous Epith Cells 0-1 /hpf Urine Bacteria Occasional (0-1) Ur Culture Indicated? Specimen cultured SARS-CoV-2 (PCR) Negative Assessment & Plan Assessment & Plan narrative: Susan Joel is placed into an observation bed due to weakness and debility and will be further assessed for a safe home or other type of discharge in the morning. Weakness and debility, unknown if acute or chronic, present on admission Patient's heart rate was elevated when she was stood up however she was unable to stand long enough for blood pressure PT/OT evaluation in the morning Essential hypertension currently hypotensive Continue home dose of verapamil and quinapril though these are currently being held due to soft blood pressures Continue low-dose aspirin Dyslipidemia, chronic Continue home dose of atorvastatin 40 mg p.o. at bedtime UTI diagnosed 11/29/2022, resolving She was initiated on Macrobid yesterday will give her ceftriaxone 1 g daily likely will stop in the next day or so Depression, chronic Continue home doses of bupropion and sertraline Other independent historians: not available Discussion of results, plan of care with independent HCP/other ED provider, day team hospitalist Reviewed outside records: ED records, most recent PCP records VTE Prophylaxis: Wells risk score 0 heparin 5000 units twice daily injectable Bilateral SCDs Patient is placed into observation as her stay is not expected to exceed 2 midnights. FEN: IV fluids: NS at 100 ml/hour X 2L, diet: heart healthy, labs: CBC, C/BMP, liver enzymes, Mag, PT/INR Consultants None Dispo: unknown at this time Code status: DNR/DNI w/limited intervention per POLST in her chart, is her surrogate and DPOA. Advanced care planning [ ] minutes. [X] I have utilized all available immediate resources to obtain, update, or review of the patient's current medications VTE Deep Vein Thrombosis/Pulmonary Embolism Present on Admission: No MIPS - Admit I confirm the patient?s Advance Care Plan is present, Code status is documented, Surrogate decision maker is in patient?s record: Yes MIPS - DC The patient has current or prior documentation of left ventricular ejection fraction (LVEF) less than 40%, or moderate or severely depressed left ventricular systolic function.: No COVID-19 COVID-19 status: Negative Result date/Date tested (Pos, Neg/Pending): 11/30/22
--- NOTE | 2022-12-01 00:02 | PC.NURSE ---
NATIVIDAD ALLAN brought up in soiled brief at 21:15, unable to measure.
[2022-12-01 02:35] VITALS: O2SAT 96
[2022-12-01 03:45] VITALS: BP 144/72; PULSE 57; RESP 14; TEMP 36; O2SAT 93
--- NOTE | 2022-12-01 04:21 | PC.NURSE ---
Pt is AxOx1, very [place] and has no hearing aid available. Pt needs 2-3 person assistance for turn or change position. Pt denies pain. VSS, and pt slept well overnight. Pt is incontinent of bowel and bladder. No other changes.
--- NOTE | 2022-12-01 07:24 | PM.PN.1 ---
Subjective Subjective Date Patient Seen: 12/01/22 Interval history: Patient is pleasantly demented and only smiles and nods. Husbands is at bedside and 16 minutes was spent speaking with him and SENIOR MARKETING SPECIALIST present about discharge planning and what would best fit with the patient's goals and his finances. He is requesting some of her BP meds be removed. Exam Vital Signs (past 8 hours): - 12/01/22 02:35 12/01/22 03:45 Temperature 96.8 F L Pulse Rate 57 L Respiratory Rate 14 Blood Pressure 144/72 H Pulse Oximetry 96 93 Oxygen Delivery Method Room Air Oxygen Flow Rate 0 0 Oxygen Delivery Method Room Air Oxygen Flow Rate 0 Narrative Exam Narrative: Gen: Alert and arousable 82-year-old morbidly obese female, demented HEENT: normocephalic, atraumatic, conjunctiva clear, sclera non-icteric, oral mucosa pink and moist Neck: supple, full ROM, no JVD, trachea is midline Resp: Lungs CTA, non-labored breathing CV: RRR, no murmur or rubs Abd: soft, non-tender, normoactive BTs Skin: no lesions or rashes, dry and intact Neuro: Alert and oriented X 4 w/no focal deficits. Speech clear and coherent. Extremities: moves all 4 extremities, is ambulatory, negative Van?s sign Psyche: Labile, expresses frustration when she has difficulty word finding Objective Labs Result Diagrams: 11/30/22 16:40 11/30/22 16:40 Labs: Laboratory Results - last 24 hr 11/30/22 11/30/22 11/30/22 16:40 16:40 16:40 WBC 6.6 RBC 4.73 Hgb 14.2 Hct 43.1 MCV 91.0 MCH 30.1 MCHC 33.0 RDW 13.8 Plt Count 214 Neut % (Auto) 67.5 Lymph % (Auto) 16.9 L [place] % (Auto) 12.3 Eos % (Auto) 2.4 Baso % (Auto) 0.9 Neut # (Auto) 4400 Lymph # (Auto) 1100 [place] # (Auto) 800 Eos # (Auto) 200 Baso # (Auto) 100 Sodium 141 Potassium 4.5 Chloride 102 Carbon Dioxide 33 H BUN 33 H Creatinine 1.40 H Estimated GFR 38 L BUN/Creatinine Ratio 23.6 H Glucose 82 Lactate 1.1 Calcium 9.1 Total Bilirubin 0.5 AST 26 ALT 19 Alkaline Phosphatase 82 Total Creatine Kinase 58 CK-MB (CK-2) TNP CK-MB (CK-2) Rel Index TNP Troponin I < 0.012 NT-Pro-B Natriuret Pep Total Protein 6.5 Albumin 3.6 Globulin 2.9 Albumin/Globulin Ratio 1.2 Procalcitonin 0.07 Urine Color Urine Appearance Urine pH Ur Specific [place] Urine Protein Urine Glucose (UA) Urine Ketones Urine Occult Blood Urine Nitrate Urine Bilirubin Urine Urobilinogen Ur Leukocyte Esterase Urine RBC Urine WBC Ur Squamous Epith Cells Urine Bacteria Ur Culture Indicated? SARS-CoV-2 (PCR) 11/30/22 11/30/22 11/30/22 16:40 17:44 20:29 WBC RBC Hgb Hct MCV MCH MCHC RDW Plt Count Neut % (Auto) Lymph % (Auto) [place] % (Auto) Eos % (Auto) Baso % (Auto) Neut # (Auto) Lymph # (Auto) [place] # (Auto) Eos # (Auto) Baso # (Auto) Sodium Potassium Chloride Carbon Dioxide BUN Creatinine Estimated GFR BUN/Creatinine Ratio Glucose Lactate Calcium Total Bilirubin AST ALT Alkaline Phosphatase Total Creatine Kinase CK-MB (CK-2) CK-MB (CK-2) Rel Index Troponin I NT-Pro-B Natriuret Pep 454 H Total Protein Albumin Globulin Albumin/Globulin Ratio Procalcitonin Urine Color Yellow Urine Appearance Clear Urine pH 6.5 Ur Specific [place] 1.010 Urine Protein Negative Urine Glucose (UA) Negative Urine Ketones Negative Urine Occult Blood Negative Urine Nitrate Negative Urine Bilirubin Negative Urine Urobilinogen 0.2 Ur Leukocyte Esterase Trace H Urine RBC None seen Urine WBC 1-5/hpf Ur Squamous Epith Cells 0-1 /hpf Urine Bacteria Occasional (0-1) Ur Culture Indicated? Specimen cultured SARS-CoV-2 (PCR) Negative [facility] Medical History Chronic renal insufficiency (Unknown) Colon polyps (Unknown) COPD (chronic obstructive pulmonary disease) (Unknown) CVA (cerebral vascular accident) (11/2019) Dry both ear canals (02/24/17) Eczema Hyperlipemia (Unknown) Hypertension (Unknown) Insomnia, unspecified (~1997) Lower extremity edema (09/08/17) 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, recurrent, in full remission Morbid obesity with body mass index (BMI) greater than or equal to 50 Nocturnal hypoxemia (09/08/17) Obstructive sleep apnea of adult (~05/2020) Obstructive sleep apnea, adult Osteoarthritis (Unknown) Pain of left hand (04/21/17) Physical deconditioning Restless leg syndrome Sexual dysfunction Vaginal dryness (04/21/17) Surgical History History of knee replacement (2000) History of tonsillectomy (194) Hx of total hip arthroplasty (09/2008) Status post cholecystectomy (1997) Status post dilation and curettage (2000) Family History Father CVA (cerebral vascular accident) Dementia Mother Coronary artery disease 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 Weakness and debility, unknown if acute or chronic, present on admission Patient's heart rate was elevated when she was stood up however she was unable to stand long enough for blood pressure PT/OT evaluation rec SNF, however unable to afford acute rehab Essential hypertension with possible orthostatic hypotension Continue home dose of verapamil and quinapril, holding home lasix and requip and will likely dc on discharge as these can cause hypotension Continue low-dose aspirin Dyslipidemia, chronic Continue home dose of atorvastatin 40 mg p.o. at bedtime UTI diagnosed 11/29/2022, resolving She was initiated on Macrobid yesterday will give her ceftriaxone 1 g daily likely will stop in the next day or so Depression, chronic Continue home doses of bupropion and sertraline VTE Prophylaxis: heparin 5000 units twice daily Dispo: Dc home on 12/02. Code status: DNR/DNI w/limited intervention per POLST in her chart, is her surrogate and DPOA. COVID-19 COVID-19 status: Negative Result date/Date tested (Pos, Neg/Pending): 11/30/22 Time Spent With Patient Critical Care time: I spent a total of [] minutes of critical care time on this patient's care today; this time is exclusive of procedural time.
[2022-12-01] MEDS: SODIUM CHLORIDE 0.9% 1,000 ML 100 ML IV (08:09)
[2022-12-01 08:10] VITALS: O2SAT 97
[2022-12-01] MEDS: HEPARIN 5,000 UNIT/ML VIAL 5000 UNIT SUBCUT ×2 (09:03→20:30)
[2022-12-01] MEDS: SENNOSIDES 8.6 MG TABLET 17.2 MG PO ×2 (09:04→20:30)
[2022-12-01] MEDS: ASPIRIN EC 81 MG TABLET PO (09:04)
[2022-12-01] MEDS: cefTRIAXone 1,000 MG in SODIUM CHLORIDE 0.9% 100 ML 200 MG IV (09:04)
[2022-12-01] MEDS: MULTIVITAMIN 1 TABLET 1 TAB PO (09:05)
[2022-12-01] MEDS: SERTRALINE 50 MG TABLET 150 MG PO (09:05)
[2022-12-01] MEDS: lisinopriL 20 MG TABLET PO (09:05)
[2022-12-01] MEDS: buPROPion XL 150 MG TAB 300 MG PO (09:08)
--- NOTE | 2022-12-01 10:50 | PT.IIE ---
Surgical History (Last Reviewed 11/30/22 @ 22:02 by JESSICA Pulido) History of knee replacement (2000) History of tonsillectomy (194) Hx of total hip arthroplasty (09/2008) Status post cholecystectomy (1997) Status post dilation and curettage (2000) Medical History (Last Reviewed 11/30/22 @ 22:02 by JESSICA Pulido) Chronic renal insufficiency (Unknown) Colon polyps (Unknown) COPD (chronic obstructive pulmonary disease) (Unknown) CVA (cerebral vascular accident) (11/2019) Dry both ear canals (02/24/17) Eczema Hyperlipemia (Unknown) Hypertension (Unknown) Insomnia, unspecified (~1997) Lower extremity edema (09/08/17) 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, recurrent, in full remission Morbid obesity with body mass index (BMI) greater than or equal to 50 Nocturnal hypoxemia (09/08/17) Obstructive sleep apnea of adult (~05/2020) Obstructive sleep apnea, adult Osteoarthritis (Unknown) Pain of left hand (04/21/17) Physical deconditioning Restless leg syndrome Sexual dysfunction Vaginal dryness (04/21/17) Physical Therapy Inpatient Evaluation/Re-Eval M1 PT/OT-IP Prior Functional Status Start: 12/01/22 13:56 Freq: NEEDED Status: Active Protocol: Document 12/01/22 10:50 AB (Rec: 12/01/22 14:09 AB [id number]) Medical Review Prior Functional Status Medical History Reviewed Yes Communication able to answer questions inconsistently Mobility and Gait per spouse: pt is modified independent with all mobilities using a FWW indoors and a 4WW for outdoor mobility; spouse stated that it is not if she can do it but if she want to do it Activities of Daily Living and IADL's per OT note: Pt needing cues for grooming, oral care and eating and asisst for dressing , toiletng and bathing needs. Social History Household Members spouse Living Arrangements House Number of Floors (Floors) One Floor Number of Stairs To Enter/Railing? ramp to enter Home Environment High Toilet,Tub/Shower,Ramp Home Equipment Front Wheel Walker,Four Wheel Walker,Tub Transfer Bench, Hospital Bed,Grab Bars In Shower Additional Social History Comment has 20 hours/month caregiver spouse stated that pt has not taken a shower for a while since pt cannot get in/out of the tub shower spouse stated that pt has a hospital bed but usually uses her regular bed at home M2 PT-IP Current Condition Start: 12/01/22 13:56 Freq: NEEDED Status: Active Protocol: Document 12/01/22 10:50 AB (Rec: 12/01/22 14:09 AB [id number]) Physical Therapy Current Condition Current Condition Evaluation Date 12/01/22 Treatment Diagnosis hypotension; weakness; difficulty in walking Onset Date 11/30/22 M3 PT-IP Subjective Start: 12/01/22 13:56 Freq: NEEDED Status: Active Protocol: Document 12/01/22 10:50 AB (Rec: 12/01/22 14:09 AB [id number]) Subjective Physical Therapy Visit Type Type Initial Evaluation Visit Start Time 10:50 Visit Stop Time 11:25 Total Visit Minutes 35 Number of MICA LAYER Visits 0 M4 PT-IP Mobility and Gait Start: 12/01/22 13:56 Freq: NEEDED Status: Active Protocol: Document 12/01/22 10:50 AB (Rec: 12/01/22 14:09 AB [id number]) PT-Bed Mobility Assessment Supine to Sit Supine to Sit Maximum Assistance,2 Person Assistance,Head of Bed Elevated,Bedrails PT-Transfer Assessment Sit to and From Stand Sit to and from Stand Maximum Assistance,1 Person Assistance,2 Person Assistance ,Use of Upper Extremities Equipment Transfer Assistive Device Gait Belt,Front Wheeled Walker Orthotic/Prosthetic Devices or Brace: No Transfers Transfer Destination Chair Transfer Technique Stand Step Pivot Transfer Ability Level of Assist Maximum Assistance,1 Person Assistance,2 Person Assistance ,Use of Upper Extremities Comments Mobility Comments completed supine to sit max A x 2 and max cues with resistance but spouse in room and encouraged pt to get up. pt requiring max A for sitting on EOB and cues. completed sit to stand max A x 1-2 and max cues and step transfer to chair using FWW max A x 1-2 and max cues. positioned pt on the chair. call light and table placed within reach. BP sitting on EOB: 138/83 Gait Assessment Comments Gait Comments able to take steps during transfer using FWW PT-Balance Assessment Sitting Balance and Reactions Static Sitting Balance Ability Fair Dynamic Sitting Balance Ability Poor Standing Balance and Reactions Static Standing Balance Ability Poor Dynamic Standing Balance Ability Poor Device Used FWW M5 PT-IP Objective Assessments Start: 12/01/22 13:56 Freq: NEEDED Status: Active Protocol: Document 12/01/22 10:50 AB (Rec: 12/01/22 14:09 AB [id number]) Orientation Orientation/Cognition Level of Alertness Confusional State Orientation Name Safety Awareness Decreased Safety Awareness Memory Description Short Term Impaired Gross Range of Motion Lower Extremity ROM Assessment Within Functional Limits Strength Lower Extremity Strength Assessment Bilaterally Impaired Hip 3+/5 Knee 3+/5 Muscle Tone Muscle Tone WNL Yes M6 PT-IP Treatment Start: 12/01/22 13:56 Freq: NEEDED Status: Active Protocol: Document 12/01/22 10:50 AB (Rec: 12/01/22 14:09 AB [email or web address]) Physical Therapy Treatment Education Education Provided Safety M7 PT-IP Assessment and Plan Start: 12/01/22 13:56 Freq: NEEDED Status: Active Protocol: Document 12/01/22 10:50 AB (Rec: 12/01/22 14:09 AB [email or web address]) PT Summary Assessment and Plan Potential Rehabilitation Potential Fair Status of Condition at Evaluation Evolving Summary Impairments Pain,ROM,Strength,Balance, Coordination,Sensation,Tone, Cognition,Bed Mobility, Transfers,Gait,Activity Tolerance Assessment Summary pt requiring max A x 2 for mobility and max cues for all tasks. pt with cognitive issues and require increase time to respond to questions or follow directions. pt will require SNF rehab to improve strength and function. Goals Bed Mobility Goal Contact Guard Assistance Transfer Goal Contact Guard Assistance,Front Wheeled Walker Gait Goal Contact Guard Assistance,Front Wheel Walker Gait Distance 50 Other Goals improve bed mobility, transfers using FWW and ambulation using FWW ~ 100 ft SBA Days to Meet Goals 10 Frequency of Treatment Frequency Of Treatment Once a Day Treatment Plan Physical Therapy Treatment Plan Bed Mobility Training,Transfer Training,Gait Training, Therapeutic Exercise,Balance Retraining,Discharge Planning, Hot or Cold Pack,Neuromuscular Re-ed,Coordination Retraining Precautions Other Precautions falls Recommendations To Nursing Amount of Assist Needed 2 Person Assist Discharge Recommendations PT Discharge Recommendations SNF Rehab Transportation Needs at Discharge Wheelchair/Cabulance
[2022-12-01 12:00] VITALS: BP 139/85; PULSE 68; RESP 16
--- NOTE | 2022-12-01 12:25 | OT.IP.EVAL ---
Past Medical History (Last Reviewed 11/30/22 @ 22:02 by JESSICA Pulido) Chronic renal insufficiency (Unknown) Colon polyps (Unknown) COPD (chronic obstructive pulmonary disease) (Unknown) CVA (cerebral vascular accident) (11/2019) Dry both ear canals (02/24/17) Eczema Hyperlipemia (Unknown) Hypertension (Unknown) Insomnia, unspecified (~1997) Lower extremity edema (09/08/17) 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, recurrent, in full remission Morbid obesity with body mass index (BMI) greater than or equal to 50 Nocturnal hypoxemia (09/08/17) Obstructive sleep apnea of adult (~05/2020) Obstructive sleep apnea, adult Osteoarthritis (Unknown) Pain of left hand (04/21/17) Physical deconditioning Restless leg syndrome Sexual dysfunction Vaginal dryness (04/21/17) Surgical History (Last Reviewed 11/30/22 @ 22:02 by JESSICA Pulido) History of knee replacement (2000) History of tonsillectomy (1947) Hx of total hip arthroplasty (09/2008) Status post cholecystectomy (1997) Status post dilation and curettage (2000) Occupational Therapy Inpatient Evaluation/Re-Eval M1 PT/OT-IP Prior Functional Status Start: 12/01/22 12:32 Freq: NEEDED Status: Active Protocol: Document 12/01/22 12:25 [facility] (Rec: 12/01/22 12:53 [facility] [id number]) Medical Review Prior Functional Status Mobility and Gait Pt 3 days ago able to use Fww on her own. Activities of Daily Living and IADL's Pt needing cues for grooming, oral care and eating and assist for dressing, toileting and bathing needs. Social History Household Members spouse Living Arrangements House Home Environment Standard Height Toilet,Tub/ Shower Home Equipment Front Wheel Walker M2 OT-IP Current Condition Start: 12/01/22 12:32 Freq: Status: Active Protocol: Document 12/01/22 12:25 [facility] (Rec: 12/01/22 12:53 [facility] [id number]) Occupational Therapy Current Condition Current Condition Evaluation Date 12/01/22 Treatment Diagnosis UTI, weakness M3 OT- IP Subjective and Pain Start: 12/01/22 12:32 Freq: Status: Active Protocol: Document 12/01/22 12:25 [facility] (Rec: 12/01/22 12:53 [facility] [id number]) OT- Subjective Occupational Therapy Visit Type Type Initial Evaluation Visit Start Time 11:38 Visit Stop Time 12:25 Total Visit Minutes 47 Occupational Therapy Visit Comments Patient Comments Pt agreed to get up, able to talk to pt's later in the session when he came in. Patient/Caregiver Goals To go home OT Pain Assessment Pain When Pain Assessed At Rest Pain Present Pain Present Denied Pain M4 OT- IP ADL's Start: 12/01/22 12:32 Freq: Status: Active Protocol: Document 12/01/22 12:25 [facility] (Rec: 12/01/22 12:53 [facility] [id number]) OT [id number] Comments OT Self-Feeding Comments Pt able to eat after set-up. OT ADL-Grooming General Evaluation Grooming Ability Standby Assistance Areas Needing Assistance Retrieving/Set-up of Grooming Items Comments OT Grooming Comments Cues for completeness and steps. OT ADL-Oral Care General Eval Oral Care Ability Standby Assistance Comments Oral Care Comments Cues for completeness. OT ADL-Dressing General Eval Lower Body Dressing Ability Total Assistance Comments OT Dressing Comments Total assist at this time. Pt' s states prior assist her for 75% of dressing tasks. OT ADL-Toileting General Evaluation Toileting Ability Total Assistance. Pt states pt needs assist for all hygiene and clothing management needs. OT ADL-Bathing Comments OT Bathing Comments Sponge bath more appropriate at this time. Pt's states that later just doing sponge baths and has caregivers to come to assist. M5 OT- IP IADL's Start: 12/01/22 12:32 Freq: Status: Active Protocol: Document 12/01/22 12:25 [facility] (Rec: 12/01/22 12:53 [facility] [id number]) OT-Instrumental Activities of Daily Living Deficits IADL Deficits Identified Deficits Home Safety Awareness Awareness of Need for Assistance at Home Decreased Awareness Ability to Problem Solve Emergency Unable to Problem Solve Situations Medication Management Medication Management Caregiver Administers Money Management Money Management Caregiver Provides Assistance Meal Preparation Meal Preparation Caregiver Provides Assist Igniter Assembler Igniter Assembler Caregiver Provides Assist Driving Driving Caregiver Provides Assist M6 OT- IP Functional Cognition Start: 12/01/22 12:32 Freq: Status: Active Protocol: Document 12/01/22 12:25 [facility] (Rec: 12/01/22 12:53 [facility] [id number]) Cognitive Factors Limiting Selfcare Function Cognitive Ability Level of Alertness Alert Patient Orientation Name,Situation Attention Span Ability Capable of Focused Attention, Capable of Sustained Attention Ability to Follow Commands Able to Follow One Step Commands with Increased Time, Able to Follow One Step Commands with Repetition Memory Description Short Term Impaired,Working Impaired Cognitive Comments Cognitive Assessment Comments Pt orientated to name and place and thinking that it is May. Pt needing cues for completeness to sequence through grooming and oral care needs. OT- Vision and Hearing OT- Hearing Assessment OT- Hearing Assessment Use of Hearing Aids OT- Vision Assessment Visual Acuity Glasses For Reading Vision Assessment Comments Pt able to read the clock accurately. M7 OT- IP Mobility and Balance Start: 12/01/22 12:32 Freq: Status: Active Protocol: Document 12/01/22 12:25 [facility] (Rec: 12/01/22 12:53 [facility] [id number]) OT-Transfer Assessment Sit to and From Stand Sit to and from Stand Maximum Assistance,1 Person Assistance Comments Mobility Comments Pt able to assist to stand with MAX AX 1 to FWW and very unsteady on her feet and having to sit back down. OT- Balance Assessment Sitting Balance and Reactions Static Sitting Balance Ability Fair Dynamic Sitting Balance Ability Poor Standing Balance and Reactions Static Standing Balance Ability Poor M8 OT- IP Objective Assessments Start: 12/01/22 12:32 Freq: Status: Active Protocol: Document 12/01/22 12:25 [facility] (Rec: 12/01/22 12:53 [facility] [id number]) OT Gross Range of Motion Upper Extremity Range of Motion Assessment Bilaterally Impaired OT Strength Upper Extremity Strength Assessment Bilaterally Impaired OT- Coordination Assessment Comments Coordination Comments Assist for set-up for grooming and oral care needs. M9 OT- IP Assessment and Plan Start: 12/01/22 12:32 Freq: Status: Active Protocol: Document 12/01/22 12:25 [facility] (Rec: 12/01/22 12:53 [facility] [id number]) OT Summary Assessment and Plan Potential Rehabilitation Potential Good Analytic Complexity at Evaluation Moderate Summary OT Impairments Strength,Balance,Functional Cognition,Functional Mobility, Self-Feeding,Grooming, Toileting,Toilet Transfers, Shower Transfers,Activity Tolerance Progress Towards Goals Slow Progress due to Medical Issues,Slow Progress due to Activity Tolerance Assessment Summary Pt MOD complexity and main barriers are pt needing extensive MAX 1-2 to stand at this time and was able to walk with her fww 2 days ago per . Pt is far from her baseline for mobility needs. Prior pt's and caregiver assist with most of her ADL needs -especially with dressing, toileting, and bathing needs. Spoke to pt's regarding possible equipment needs of transfer pole and rolling shower chair sytem- but feel just to sponge bath for now. Pt to go home with 24/7 assist and home health when medically stable, otherwise pt will need a short skilled rehab stay. Goals Self-Feeding Goal Standby Assistance Grooming Goal Standby Assistance Toilet Transfer Goal Standby Assistance Days to Meet Goals 10 Frequency of Treatment Frequency Of Treatment Once a Day Treatment Plan OT Treatment Plan ADL Training,Functional Cognition Training,Functional Mobility,Patient/Family Education,Discharge Planning Other Treatment Recommendations and Next Transfer to [facility] x 2. Treatment Focus Discharge Recommendations OT Discharge Recommendations Home with 24/7 Assist Available,Home Health,SNF Rehab,Home vs SNF Transportation Needs at Discharge Wheelchair/Cabulance
[2022-12-01 14:30] VITALS: BP 115/51; PULSE 72; RESP 16; O2SAT 95
--- NOTE | 2022-12-01 15:36 | CM.DPNOTE ---
DCP Note Met w/patient's spouse Jaycob this morning, alone at bedside at first and again this afternoon w/ Dr Mccurdy present. Patient is under an observation stay and discharge is expected tomorrow According to these conversations: Spouse has been the primary caregiver for patient since her stroke in 2020, he provides full care to patient. Spouse feels that he should keep patient home w/him for as long as possible. Spouse continues to feel he can manage his 's needs at home and states concern about the amount of money required to pay for institutional care Strongly encouraged spouse to consider reaching out to his adult children to alert them to the acuity of the current situation and ask for their help in caring for patient; especially while spouse makes decisions about next steps in filler leaf cutter long care Spouse well versed in penitentiary care options. He has been working closely with staff at [facility] who have assisted in securing respite care, both in home and respite facility ( ie [facility] x2 weeks in September). Spouse has a mtg arranged tomorrow at 1445 w/ an elder law erisa attorney in [place], which was arranged through [facility]. Spouse adamant about making this appt Provided Senior Resource Guide. Discussed in home care and HH vs facility care- SNF rehab vs [facility]. Explained to spouse that patient's needs are currently snf and insurance doesn't pay for snf care. Spouse would need to pay out of pocket for a SNF stay Spouse agreeable to bringing patient home tomorrow after his appt in [place] Plan: DC home w/spouse expected tomorrow, likely HH services if spouse feels this would be helpful, respite caregiver coming for 8 hours on Tuesday12.03.22 CM team will remain available to patient and spouse if additional DC questions, concerns, needs arise ILIA Abreu
[2022-12-01] MEDS: VERAPAMIL 120 MG TABLET PO ×3 (16:00→20:30)
[2022-12-01] MEDS: ACETAMINOPHEN 325 MG TABLET 650 MG PO (18:40)
[2022-12-01 20:15] VITALS: BP 112/68; PULSE 67; RESP 17; TEMP 36.7; O2SAT 99
[2022-12-01] MEDS: ATORVASTATIN 20 MG TABLET 40 MG PO (20:30)
[2022-12-02] VITALS (8 sets, daily range): BP systolic 130–167; BP diastolic 79–96; PULSE 64–70; RESP 16–17; TEMP 36.5; O2SAT 91–97
--- NOTE | 2022-12-02 06:37 | PC.NURSE ---
Pt is AxOx1-2, calm and cooperative. VSS, pt is now 2 person assistance to the bedside commode and pt also make her needs know by saying need to pee. Pt has L BM overnight. Pt denies pain. Pt's mobility is much better with cue and speak closer. No other changes.
--- NOTE | 2022-12-02 07:15 | P.DS_ITS ---
History of Present Illness History of Present Illness Date Patient Seen: 12/02/22 Time Patient Seen: 21:35 Chief complaint: hypotension, Fall Narrative: Susan Joel is an 82-year-old patient with multiple medical problems including COPD, obstructive sleep apnea, morbid obesity, hypertension, hyperlipidemia, congestive heart failure, severe depression, previous CVA, chronic kidney disease stage 3 and status post aortic valve replacement, bioprosthetic is bro ught to the ER via paramedics due to confusion, weakness and a ground level fall. She presented with hypotension, had been seen yesterday in the ED for similar reasons and found to have a UTI. She was discharged on oral macrobid. Patient is unable to provide a history. Per the ED provider, her is concerned that her balance has worsened over the last 48 hours and has gotten significantly bad in last 6-8 hours.? He notes that she has increased anxiety when trying to create sentences ever since a stroke in December 18, 2019.? He notes no fevers and reports that she is eating and drinking normally.? Patient has dementia significant enough that she has difficulty communicating and expresses frustration with word finding by squinting her eyes and her left arm starts to tap, appearing to be uncontrolled. Repeat of her UA is negative today, chest x-ray done today is negative for any acute process. Her labs are completely unremarkable with the exception of what appears to be a resolving CHRISTOFER. ED attempted to do orthostatic vitals however the patient was too weak to stand up any longer to obtain a blood pressure. She is currently afebrile blood pressure 133/70 heart rate 63 respiratory rate 18 oxygen saturation of 98% on room air she weighs 113.3 kg with a BMI of 44.5. She did have CO2 of 33 BUN 33 creatinine 1.4 with an EGFR of 38, renal values are within her normal limits, proBNP was 454 UA is negative for UTI currently and COVID-19 PCR is negative. Discharge Providers Provider Date of admission: 11/30/22 19:59 Discharge Date: 12/02/22 Primary care physician: Craig Chowdhury MD Consults: 11/30/22 18:59 Consult to [facility] [employer] GLACIER GUIDE - Senior Manager Creative Services Stat Comment: 11/30/22 20:41 Consult to Occupational Therapy Evaluate & Treat Comment: Weakness, debility Physician Instructions: Evaluate and treat Consult to Physical Therapy Evaluate & Treat Comment: Weakness, debility Physician Instructions: Evaluate and Treat Discharge provider: Mayur Mccurdy DO Summary Time Spent with Patient Time spent: Greater than 30 minutes Exam Vital Signs (past 8 hours): - 12/02/22 01:00 12/02/22 02:00 Temperature 97.7 F Pulse Rate 68 Respiratory Rate 17 Blood Pressure 167/96 H Pulse Oximetry 96 91 Oxygen Delivery Method Room Air Oxygen Flow Rate 0 0 Oxygen Delivery Method Room Air Oxygen Flow Rate 0 Narrative Exam Narrative: Gen: Alert and arousable 82-year-old morbidly obese female, demented HEENT: normocephalic, atraumatic, conjunctiva clear, sclera non-icteric, oral mucosa pink and moist Neck: supple, full ROM, no JVD, trachea is midline Resp: Lungs CTA, non-labored breathing CV: RRR, no murmur or rubs Abd: soft, non-tender, normoactive BTs Skin: no lesions or rashes, dry and intact Neuro: Alert and oriented X 4 w/no focal deficits. Speech clear and coherent. Extremities: moves all 4 extremities, is ambulatory, negative Van?s sign Psyche: Labile, expresses frustration when she has difficulty word finding Objective Labs Result Diagrams: 12/02/22 07:19 12/02/22 07:19 [facility] Medical History Chronic renal insufficiency (Unknown) Colon polyps (Unknown) COPD (chronic obstructive pulmonary disease) (Unknown) CVA (cerebral vascular accident) (11/2019) Dry both ear canals (02/24/17) Eczema Hyperlipemia (Unknown) Hypertension (Unknown) Insomnia, unspecified (~1997) Lower extremity edema (09/08/17) 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, recurrent, in full remission Morbid obesity with body mass index (BMI) greater than or equal to 50 Nocturnal hypoxemia (09/08/17) Obstructive sleep apnea of adult (~05/2020) Obstructive sleep apnea, adult Osteoarthritis (Unknown) Pain of left hand (04/21/17) Physical deconditioning Restless leg syndrome Sexual dysfunction Vaginal dryness (04/21/17) Surgical History History of knee replacement (2000) History of tonsillectomy (194) Hx of total hip arthroplasty (09/2008) Status post cholecystectomy (1997) Status post dilation and curettage (2000) Family History Father CVA (cerebral vascular accident) Dementia Mother Coronary artery disease 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, 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 Smoking Status: Never smoker alcohol intake: never substance use type: does not use caffeine: No eating out: rarely or never Type(s) of exercise: none Discharge Plan Discharge Plan Patient Disposition: Home Discharge orders & Medications Prescriptions: No Action multivitamin Tablet 1 tab PO DAILY atorvastatin 40 mg tablet 40 mg PO BEDTIME Qty: 90 3RF quinapril 20 mg tablet 20 mg PO DAILY Qty: 90 3RF potassium chloride 20 mEq tablet extended release 20 meq PO DAILY Qty: 90 3RF bupropion HCl 300 mg tablet extended release 24 hr 300 mg PO QAM Qty: 30 5RF ropinirole 0.5 mg tablet 0.5 mg PO BEDTIME Qty: 90 3RF sennosides [Natural Senna Laxative] 8.6 mg tablet 17.2 mg PO BID Qty: 240 1RF Rx Instructions: Takes 2 tablets in the AM and 2 tablets at bedtime. sertraline 100 mg tablet 150 mg PO QAM Qty: 45 5RF trazodone 50 mg tablet 50 mg PO TID PRN (Reason: anxiety or insomnia) Qty: 90 5RF Label Comments: Takes at noon, 1700, and bedtime. Rx Instructions: Takes at 1200, 1700 and at Bedtime aspirin [Adult Aspirin Regimen] 81 mg tablet,delayed release (DR/EC) 81 mg PO DAILY Qty: 30 0RF Rx Instructions: Do not crush or chew EC Aspirin verapamil 120 mg tablet 120 mg PO TID Qty: 90 8RF Rx Instructions: Crush with food docusate sodium 250 mg capsule 250 mg PO DAILY Qty: 30 6RF furosemide 40 mg tablet 20 mg PO DAILY Rx Instructions: Take 20mg daily Follow up/Referrals: Craig Chowdhury MD [Primary Care Provider] - Visit Report/Discharge Packet Stand Alone Forms: Patient Portal/API, Stroke Signs & Symptoms Discharge Data Primary Care Provider: Craig Chowdhury Attending Provider: Mirian Melendez
[2022-12-02 08:03] LABS: Add Manual Diff / Slide Review NO; Basophils Absolute Auto 100 /uL (0-100); Eosinophils Absolute Auto 200 /uL (0-450); Hematocrit 40.2 % (36-46); Hemoglobin 13.3 g/dL (12.0-16.0); Lymphocytes Absolute Auto 1100 /uL (1100-4500); Lymphocytes Percent Auto 20.6 % (25-40); Mean Corpuscular HGB Conc 33.1 % (30-36); Mean Corpuscular Hemoglobin 30.3 PG (26-34); Mean Corpuscular Volume 91.6 fL (80-100); Monocytes Absolute Auto 600 /uL (0-900); Monocytes Percent Auto 10.8 % (3-14); Neutrophils Absolute Auto 3500 /uL (1500-7000); Neutrophils Percent Auto 64.6 % (50-75); Platelet Count 211 X10^3/uL (150-400); Red Blood Cell Count 4.39 X10^6/uL (4.0-5.2); Red Cell Distribution Width 13.7 % (11.6-14.8); White Blood Cell Count 5.4 X10^3/uL (4.5-11.0)
[2022-12-02 08:16] LABS: Alanine Aminotransferase 18 IU/L (<35); Albumin 3.5 g/dL (3.5-5.0); Albumin Globulin Ratio 1.3 (1.0-2.8); Alkaline Phosphatase 76 U/L (38-126); Aspartate Aminotransferase 31 IU/L (14-36); BUN Creatinine Ratio 21.2 (6-22); Bilirubin Total 0.4 mg/dL (0.2-1.3); Blood Urea Nitrogen 29 mg/dL (7-17); Calcium 8.8 mg/dL (8.4-10.2); Carbon Dioxide 30 mmol/L (22-32); Chloride 106 mmol/L (98-107); Estimated Glomerular Filt Rate 39 mL/min (>60); Globulin 2.8 g/dL (1.7-4.1); Glucose 77 mg/dL (80-110); HEMOLYSIS < 15 (0-50); Potassium 4.2 mmol/L (3.4-5.1); Sodium 142 mmol/L (137-145); Total Protein 6.3 g/dL (6.3-8.2)
--- NOTE | 2022-12-02 09:40 | OT.IP.TRT ---
Occupational Therapy Treatment Note M2 OT-IP Current Condition Start: 12/01/22 12:32 Freq: Status: Active Protocol: Document 12/01/22 12:25 [facility] (Rec: 12/01/22 12:53 [facility] [id number]) Occupational Therapy Current Condition Current Condition Evaluation Date 12/01/22 Treatment Diagnosis UTI, weakness M3 OT- IP Subjective and Pain Start: 12/01/22 12:32 Freq: Status: Active Protocol: Document 12/02/22 12:41 [facility] (Rec: 12/02/22 12:55 [facility] [id number]) OT- Subjective Occupational Therapy Visit Type Type Treatment Note Visit Start Time 09:40 Visit Stop Time 10:35 Total Visit Minutes 55 Occupational Therapy Visit Comments Patient Comments Pt's present in the room and agreed to do caregiver training as wanting to take pt home as being discharged today. Patient/Caregiver Goals TO go home. M4 OT- IP ADL's Start: 12/01/22 12:32 Freq: Status: Active Protocol: Document 12/02/22 12:41 [facility] (Rec: 12/02/22 12:55 [facility] [id number]) OT [id number]-Lhpytec Comments OT Self-Feeding Comments Not at meal time. OT ADL-Grooming General Evaluation Grooming Ability Standby Assistance Areas Needing Assistance Retrieving/Set-up of Grooming Items Comments OT Grooming Comments Pt able do. OT ADL-Oral Care General Eval Oral Care Ability Standby Assistance Comments Oral Care Comments Pt needing some cues for completeness. OT ADL-Dressing General Eval Lower Body Dressing Ability Total Assistance Comments OT Dressing Comments Total assist for brief change and socks. OT ADL-Toileting General Evaluation Toileting Ability Total Assistance Comments OT Toileting Comments Brief change. OT ADL-Bathing Comments OT Bathing Comments Sponge bathing more appropriate. M5 OT- IP IADL's Start: 12/01/22 12:32 Freq: Status: Active Protocol: Document 12/01/22 12:25 [facility] (Rec: 12/01/22 12:53 [facility] [id number]) OT-Instrumental Activities of Daily Living Deficits IADL Deficits Identified Deficits Home Safety Awareness Awareness of Need for Assistance at Home Decreased Awareness Ability to Problem Solve Emergency Unable to Problem Solve Situations Medication Management Medication Management Caregiver Administers Money Management Money Management Caregiver Provides Assistance Meal Preparation Meal Preparation Caregiver Provides Assist Multiplex Operator Multiplex Operator Caregiver Provides Assist Driving Driving Caregiver Provides Assist M6 OT- IP Functional Cognition Start: 12/01/22 12:32 Freq: Status: Active Protocol: Document 12/02/22 12:41 [facility] (Rec: 12/02/22 12:55 [facility] [id number]) Cognitive Factors Limiting Selfcare Function Cognitive Ability Level of Alertness Alert,Confusional State Patient Orientation Name Attention Span Ability Capable of Focused Attention, Unable to Sustain Attention Ability to Follow Commands Able to Follow One Step Commands with Increased Time, Able to Follow One Step Commands with Repetition Memory Description Short Term Impaired,Stone Polisher Impaired,Working Impaired Cognitive Comments Cognitive Assessment Comments Pt less talkative today and having more difficulty to follow commands especially for mobility needs. Pt able to do well for grooming and oral care needs. M7 OT- IP Mobility and Balance Start: 12/01/22 12:32 Freq: Status: Active Protocol: Document 12/02/22 12:41 [facility] (Rec: 12/02/22 12:55 [facility] [id number]) OT- Bed Mobility Assessment Rolling Type of Rolling Bilateral Level of Assistance Maximum Assistance,2 Person Assistance OT-Transfer Assessment Comments Mobility Comments Pt resisting at time and needing MAXAX 2 to help roll so able to change out her brief. Pt having difficulty to coordinate her legs to move today and needing assist to help get her legs to the edge of the bed, pt's unable to provide enough assist even with OT's assist at this time. OT- Balance Assessment Sitting Balance and Reactions Static Sitting Balance Ability Poor Dynamic Sitting Balance Ability Poor M8 OT- IP Objective Assessments Start: 12/01/22 12:32 Freq: Status: Active Protocol: Document 12/01/22 12:25 [facility] (Rec: 12/01/22 12:53 [facility] [id number]) OT Gross Range of Motion Upper Extremity Range of Motion Assessment Bilaterally Impaired OT Strength Upper Extremity Strength Assessment Bilaterally Impaired OT- Coordination Assessment Comments Coordination Comments Assist for set-up for grooming and oral care needs. M9 OT- IP Assessment and Plan Start: 12/01/22 12:32 Freq: Status: Active Protocol: Document 12/02/22 12:41 [facility] (Rec: 12/02/22 12:55 [facility] [id number]) OT Summary Assessment and Plan Potential Rehabilitation Potential Fair Analytic Complexity at Evaluation Moderate Summary OT Impairments Strength,Balance,Functional Cognition,Functional Mobility, Self-Feeding,Grooming, Toileting,Toilet Transfers, Shower Transfers,Activity Tolerance Progress Towards Goals Slow Progress due to Medical Issues,Slow Progress due to Activity Tolerance Assessment Summary Pt needing more assist today for mobility needs. Pt would greatly benefit from skilled rehab to help get pt back to her baseline, otherwise if pt' s current function is her new baseline pt will benefit from intermission coordinator care. If pt insistent on taking her home, pt would benefit from ambulance, use of peter and additional assist beside her to assist her 24. Goals Self-Feeding Goal Standby Assistance Grooming Goal Standby Assistance Toilet Transfer Goal Standby Assistance Days to Meet Goals 20 Frequency of Treatment Frequency Of Treatment Once a Day Treatment Plan OT Treatment Plan ADL Training,Functional Cognition Training,Functional Mobility,Patient/Family Education,Discharge Planning Other Treatment Recommendations and Next Transfer to [facility] x 2. Treatment Focus Discharge Recommendations OT Discharge Recommendations Home with 24 Assist Available,Home Health,SNF Rehab,Home vs SNF Transportation Needs at Discharge Wheelchair/Cabulance
[2022-12-02] MEDS: SENNOSIDES 8.6 MG TABLET 17.2 MG PO ×2 (09:47→21:00)
[2022-12-02] MEDS: ASPIRIN EC 81 MG TABLET PO (09:47)
[2022-12-02] MEDS: buPROPion XL 150 MG TAB 300 MG PO (09:47)
[2022-12-02] MEDS: lisinopriL 20 MG TABLET PO (09:47)
[2022-12-02] MEDS: MULTIVITAMIN 1 TABLET 1 TAB PO (09:47)
[2022-12-02] MEDS: SERTRALINE 50 MG TABLET 150 MG PO (09:47)
--- NOTE | 2022-12-02 11:57 | PT.IPTN ---
Physical Therapy Treatment Note M2 PT-IP Current Condition Start: 12/01/22 13:56 Freq: NEEDED Status: Active Protocol: Document 12/02/22 11:27 SP (Rec: 12/02/22 18:56 SP [id number]) Physical Therapy Current Condition Current Condition Evaluation Date 12/01/22 Treatment Diagnosis hypotension; weakness; difficulty in walking Onset Date 11/30/22 M3 PT-IP Subjective Start: 12/01/22 13:56 Freq: NEEDED Status: Active Protocol: Document 12/02/22 11:27 SP (Rec: 12/02/22 18:56 SP [id number]) Subjective Physical Therapy Visit Type Type Treatment Note Visit Start Time 11:27 Visit Stop Time 11:57 Total Visit Minutes 30 Notes present, attempted to assist pt and WATER CONTROL SUPERVISOR. Max assist to pt/ support WATER CONTROL SUPERVISOR: , PAINT STOCK CLERK, CareMgt staff each attempted to assist. Number of WATER CONTROL SUPERVISOR Visits 1 Physical Therapy Visit Comments Patient Comments Pt shook head indicating no at first then nodded yes x2 when asked if agreeable to mobilizing. M4 PT-IP Mobility and Gait Start: 12/01/22 13:56 Freq: NEEDED Status: Active Protocol: Document 12/02/22 11:27 SP (Rec: 12/02/22 18:56 SP [id number]) PT-Bed Mobility Assessment Supine to Sit Supine to Sit Maximum Assistance,2 Person Assistance,Head of Bed Elevated,Bedrails Scooting Scooting to Edge of Bed Maximum Assistance PT-Transfer Assessment Comments Mobility Comments Pt nonverbal this tx to therapist, pt repeated 's name when asked her to repeat him. tried to assist pt with firm push from behind upper trunk to help encourage and give support when pt pushed his hand away. Pt able to move B legs toward EOB and impulsively use L bed rail or reaching to therapist to pull from but when provide hand to pull and support at upper back to transition sit pt becomes partial way then retro reactive layback in bed pushing all away and LLE flex/ extend various angles in bed confusion where to position. Pt became upset crying, WATER CONTROL SUPERVISOR asked if pt is afraid and pt nodded indicating yes. WATER CONTROL SUPERVISOR asked if she was afraid of falling, pt nodded indicating yes. Agreeable to 4th attempted x4 to sit upright with care mgt staff when entered room, pt able to scoot wtih timing pt wt shifts to get to modified seated at EOB Max A x2 support at upper back and with BLE touching portable step at EOB up to 30 sec, cued breath. Pt pushed continuously reaching to adjust gown low on legs then able to lift LLE up on bed Max A to support trunk and RLE into bed. Scoot up in bed Total x2 via bed pad. WATER CONTROL SUPERVISOR armed bed, provided call light and all needs in reach. Pt closed eyes. Will continue to assist progress. Gait Assessment Comments Gait Comments Unable to progress more than 1 sit at EOB. Stair Climbing Assessment Comments Stair Climbing Comments no stairs to assess PT-Balance Assessment Sitting Balance and Reactions Static Sitting Balance Ability Poor Dynamic Sitting Balance Ability Poor Standing Balance and Reactions Device Used unable M5 PT-IP Objective Assessments Start: 12/01/22 13:56 Freq: NEEDED Status: Active Protocol: Document 12/01/22 10:50 AB (Rec: 12/01/22 14:09 AB [id number]) Orientation Orientation/Cognition Level of Alertness Confusional State Orientation Name Safety Awareness Decreased Safety Awareness Memory Description Short Term Impaired Gross Range of Motion Lower Extremity ROM Assessment Within Functional Limits Strength Lower Extremity Strength Assessment Bilaterally Impaired Hip 3+/5 Knee 3+/5 Muscle Tone Muscle Tone WNL Yes M6 PT-IP Treatment Start: 12/01/22 13:56 Freq: NEEDED Status: Active Protocol: Document 12/02/22 11:27 SP (Rec: 12/02/22 18:56 SP [id number]) Physical Therapy Treatment Education Education Provided Safety Other Treatments Other Treatment Performed WATER CONTROL SUPERVISOR education to and care mgt trying to time pt gentle assist when pt wt shifts but sometimes pts get scared if not timed correctly, get off balance. Believe pts cognition also plays part in her confusion of motor planning and accepting/ use of support of others. M7 PT-IP Assessment and Plan Start: 12/01/22 13:56 Freq: NEEDED Status: Active Protocol: Document 12/02/22 11:27 SP (Rec: 12/02/22 18:56 SP [id number]) PT Summary Assessment and Plan Potential Rehabilitation Potential Fair Status of Condition at Evaluation Evolving Summary Impairments Pain,ROM,Strength,Balance, Coordination,Sensation,Tone, Cognition,Bed Mobility, Transfers,Gait,Activity Tolerance Progress Towards Goals Slow Progress due to Activity Tolerance,Slow Progress - Other Assessment Summary Pt confused, LUE/LLE reaching/ flex and extend mobility in supine. Pt nodded yes when asked if scared of falling when attempting to mobilize to sitting, retro lay back x3. 4th atttempt Max A x2 to scoot to EOB, 30 sec sitting Max A x1 support required before returning to supine Max A x2. Total A x2 to scoot up in bed. Pt will require SNF for progress safe funcitional mobility. Will continue to assess progress. Goals Bed Mobility Goal Contact Guard Assistance Transfer Goal Contact Guard Assistance,Front Wheeled Walker Gait Goal Contact Guard Assistance,Front Wheel Walker Gait Distance 50 Other Goals improve bed mobility, transfers using FWW and ambulation using FWW ~ 100 ft SBA Days to Meet Goals 10 Frequency of Treatment Frequency Of Treatment Once a Day Treatment Plan Physical Therapy Treatment Plan Bed Mobility Training,Transfer Training,Gait Training, Therapeutic Exercise,Balance Retraining,Discharge Planning, Hot or Cold Pack,Neuromuscular Re-ed,Coordination Retraining Other Recommendations and Next Treatment bed mob, sitting at EOB, STS Focus if able w/ FWW, progress to chair if safe. Precautions Other Precautions falls Recommendations To Nursing Amount of Assist Needed Mechanical Lift Discharge Recommendations PT Discharge Recommendations SNF Rehab Transportation Needs at Discharge Wheelchair/Cabulance
[2022-12-02] MEDS: VERAPAMIL 120 MG TABLET PO ×3 (12:26→21:00)
--- NOTE | 2022-12-02 13:15 | CM.DPNOTE ---
Addendum entered by Piper Nickerson CHAIRMAN CEO 12/02/22 14:34: ADD: SILVINA Peace, has kindly agreed to fax clinical packet to Pallavi at [facility]/Memory care In addition, discussed hospice services w/spouse this afternoon. Spouse Jaycob agrees to referral to [facility], spouse states if patient continues like this, I wish the good lord would just take her Jaycob explains patient does not have much quality of life ( at this stage in her disease process ) SILVINA Peace, has faxed referral to [facility], dispo unknown at this time Memory care unit vs [facility] w/hospice vs home w/hospice if spouse can coordinate additional care- spouse to contact [facility] today to investigate [facility] Original Note: DCP Note DC order in place. Attempting to coordinate plan w/spouse Jaycob. This CHAIRMAN CEO in room while TAMY Lopez performed her afternoon eval, patient appears extremely fearful of falling. Patient non verbal and moves very slowly with spastic type movements Patient cannot assert her needs verbally PT has not cleared patient to return home w/only spouse assisting Reviewed dispo options w/spouse who gives this permission to attempt respite memory care stay at [facility] and/or [facility] in [place] Attempted contact w/Lalito and Jimmy at [facility] and have not heard back, LM Spoke with [facility] at [facility] P [phone] F [phone] and she does have respite beds available (private payment) and she remembers patient's stay with them in [facility]. Toy has scheduled a bedside assessment tomorrow AM at [address] Mccurdy. Will plan to discuss this w/spouse by phone- he is now attending an appt in [place]
--- NOTE | 2022-12-02 14:41 | PM.PN.1 ---
Subjective Subjective Date Patient Seen: 12/02/22 Interval history: Patient demented and cannot answer questions. not present. SECURITY ESCORT working on placement. Exam Vital Signs (past 8 hours): - 12/02/22 07:38 12/02/22 08:36 12/02/22 13:06 Pulse Rate 64 Respiratory Rate 16 Blood Pressure 148/88 H Pulse Oximetry 95 94 95 Oxygen Delivery Method Room Air Room Air 12/02/22 13:52 Pulse Rate 70 Respiratory Rate 16 Blood Pressure 156/79 H Pulse Oximetry 96 Oxygen Delivery Method Oxygen Delivery Method Room Air Oxygen Flow Rate 0 Narrative Exam Narrative: Gen: Alert and arousable 82-year-old morbidly obese female, demented HEENT: normocephalic, atraumatic, conjunctiva clear, sclera non-icteric, oral mucosa pink and moist Neck: supple, full ROM, no JVD, trachea is midline Resp: Lungs CTA, non-labored breathing CV: RRR, no murmur or rubs Abd: soft, non-tender, normoactive BTs Skin: no lesions or rashes, dry and intact Neuro: Alert and oriented X 4 w/no focal deficits. Speech clear and coherent. Extremities: moves all 4 extremities, is ambulatory, negative Van?s sign Psyche: Labile, expresses frustration when she has difficulty word finding Objective Labs Result Diagrams: 12/02/22 07:19 12/02/22 07:19 Labs: Laboratory Results - last 24 hr 12/02/22 12/02/22 07:19 07:19 WBC 5.4 RBC 4.39 Hgb 13.3 Hct 40.2 MCV 91.6 MCH 30.3 MCHC 33.1 RDW 13.7 Plt Count 211 Neut % (Auto) 64.6 Lymph % (Auto) 20.6 L Menard % (Auto) 10.8 Eos % (Auto) 3.0 Baso % (Auto) 1.0 Neut # (Auto) 3500 Lymph # (Auto) 1100 Menard # (Auto) 600 Eos # (Auto) 200 Baso # (Auto) 100 Sodium 142 Potassium 4.2 Chloride 106 Carbon Dioxide 30 BUN 29 H Creatinine 1.37 H Estimated GFR 39 L BUN/Creatinine Ratio 21.2 Glucose 77 L Calcium 8.8 Magnesium 2.0 Total Bilirubin 0.4 AST 31 ALT 18 Alkaline Phosphatase 76 Total Protein 6.3 Albumin 3.5 Globulin 2.8 Albumin/Globulin Ratio 1.3 [facility] Medical History Chronic renal insufficiency (Unknown) Colon polyps (Unknown) COPD (chronic obstructive pulmonary disease) (Unknown) CVA (cerebral vascular accident) (11/2019) Dry both ear canals (02/24/17) Eczema Hyperlipemia (Unknown) Hypertension (Unknown) Insomnia, unspecified (~1997) Lower extremity edema (09/08/17) 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, recurrent, in full remission Morbid obesity with body mass index (BMI) greater than or equal to 50 Nocturnal hypoxemia (09/08/17) Obstructive sleep apnea of adult (~05/2020) Obstructive sleep apnea, adult Osteoarthritis (Unknown) Pain of left hand (04/21/17) Physical deconditioning Restless leg syndrome Sexual dysfunction Vaginal dryness (04/21/17) Surgical History History of knee replacement (2000) History of tonsillectomy (1947) Hx of total hip arthroplasty (09/2008) Status post cholecystectomy (1997) Status post dilation and curettage (2000) Family History Father CVA (cerebral vascular accident) Dementia Mother Coronary artery disease 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 Weakness and debility, unknown if acute or chronic, present on admission Patient's heart rate was elevated when she was stood up however she was unable to stand long enough for blood pressure PT/OT evaluation rec SNF SECURITY ESCORT arranging placement Essential hypertension with possible orthostatic hypotension Continue home dose of verapamil and quinapril, holding home lasix and requip and will likely dc on discharge as these can cause hypotension Continue low-dose aspirin Dyslipidemia, chronic Continue home dose of atorvastatin 40 mg p.o. at bedtime Depression, chronic Continue home doses of bupropion and sertraline VTE Prophylaxis: heparin 5000 units twice daily Dispo: SECURITY ESCORT arranging placement. Code status: DNR/DNI w/limited intervention per POL in her chart, is her surrogate and DPOA. COVID-19 COVID-19 status: Negative Result date/Date tested (Pos, Neg/Pending): 11/30/22 Time Spent With Patient Critical Care time: I spent a total of [] minutes of critical care time on this patient's care today; this time is exclusive of procedural time.
[2022-12-02] MEDS: HEPARIN 5,000 UNIT/ML VIAL 5000 UNIT SUBCUT (21:00)
[2022-12-02] MEDS: ATORVASTATIN 20 MG TABLET 40 MG PO (21:00)
[2022-12-03] VITALS (9 sets, daily range): BP systolic 132–173; BP diastolic 76–89; PULSE 54–65; RESP 16–17; TEMP 36.1–36.3; O2SAT 91–96
[2022-12-03] MEDS: SODIUM CHLORIDE 0.9% FLUSH 10 ML IV (09:50)
[2022-12-03] MEDS: SENNOSIDES 8.6 MG TABLET 17.2 MG PO (10:00)
[2022-12-03] MEDS: HEPARIN 5,000 UNIT/ML VIAL 5000 UNIT SUBCUT (10:00)
[2022-12-03] MEDS: SERTRALINE 50 MG TABLET 150 MG PO (10:00)
[2022-12-03] MEDS: lisinopriL 20 MG TABLET PO (10:02)
[2022-12-03] MEDS: buPROPion XL 150 MG TAB 300 MG PO (10:03)
[2022-12-03] MEDS: MULTIVITAMIN 1 TABLET 1 TAB PO (10:03)
[2022-12-03] MEDS: ASPIRIN EC 81 MG TABLET PO (10:04)
--- NOTE | 2022-12-03 10:16 | PM.PN.1 ---
Subjective Subjective Date Patient Seen: 12/03/22 Time Patient Seen: 10:17 Interval history: Sleeping softly. Did not awaken patient as she cannot provide any meaningful update anyways. ACCOUNTS SUPERVISOR working on placement. Exam Vital Signs (past 8 hours): - 12/03/22 06:00 12/03/22 08:00 12/03/22 10:02 Temperature 97.1 F L 97.0 F L Pulse Rate 59 L 64 64 Respiratory Rate 17 16 Blood Pressure 144/89 H 173/83 H 173/83 H Pulse Oximetry 93 94 Oxygen Flow Rate 0 0 Oxygen Delivery Method Room Air Oxygen Flow Rate 0 Narrative Exam Narrative: Gen: Alert and arousable 82-year-old morbidly obese female, demented HEENT: normocephalic, atraumatic, conjunctiva clear, sclera non-icteric, oral mucosa pink and moist Neck: supple, full ROM, no JVD, trachea is midline Resp: Lungs CTA, non-labored breathing CV: RRR, no murmur or rubs Abd: soft, non-tender, normoactive BTs Skin: no lesions or rashes, dry and intact Neuro: Alert and oriented X 4 w/no focal deficits. Speech clear and coherent. Extremities: moves all 4 extremities, is ambulatory, negative Vna?s sign Psyche: Labile, expresses frustration when she has difficulty word finding Objective Labs Result Diagrams: 12/02/22 07:19 12/02/22 07:19 [facility] Medical History Chronic renal insufficiency (Unknown) Colon polyps (Unknown) COPD (chronic obstructive pulmonary disease) (Unknown) CVA (cerebral vascular accident) (11/2019) Dry both ear canals (02/24/17) Eczema Hyperlipemia (Unknown) Hypertension (Unknown) Insomnia, unspecified (~1997) Lower extremity edema (09/08/17) 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, recurrent, in full remission Morbid obesity with body mass index (BMI) greater than or equal to 50 Nocturnal hypoxemia (09/08/17) Obstructive sleep apnea of adult (~05/2020) Obstructive sleep apnea, adult Osteoarthritis (Unknown) Pain of left hand (04/21/17) Physical deconditioning Restless leg syndrome Sexual dysfunction Vaginal dryness (04/21/17) Surgical History History of knee replacement (2000) History of tonsillectomy (194) Hx of total hip arthroplasty (09/2008) Status post cholecystectomy (1997) Status post dilation and curettage (2000) Family History Father CVA (cerebral vascular accident) Dementia Mother Coronary artery disease 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 Weakness and debility, unknown if acute or chronic, present on admission Patient's heart rate was elevated when she was stood up however she was unable to stand long enough for blood pressure PT/OT evaluation rec SNF ACCOUNTS SUPERVISOR arranging placement Essential hypertension with possible orthostatic hypotension Continue home dose of verapamil and quinapril, holding home lasix and requip and will likely dc on discharge as these can cause hypotension Continue low-dose aspirin Dyslipidemia, chronic Continue home dose of atorvastatin 40 mg p.o. at bedtime Depression, chronic Continue home doses of bupropion and sertraline VTE Prophylaxis: heparin 5000 units twice daily Dispo: ACCOUNTS SUPERVISOR arranging placement. Code status: DNR/DNI w/limited intervention per POLST in her chart, is her surrogate and DPOA. COVID-19 COVID-19 status: Negative Result date/Date tested (Pos, Neg/Pending): 11/30/22 Time Spent With Patient Critical Care time: I spent a total of [] minutes of critical care time on this patient's care today; this time is exclusive of procedural time.
--- NOTE | 2022-12-03 12:49 | CM.DPNOTE ---
Called [facility] per An and spoke to George to arrange 1730 transfer to [facility], [address] [place]. Nata Mir CM Assist.
--- NOTE | 2022-12-03 13:09 | P.DS_ITS ---
History of Present Illness History of Present Illness Date Patient Seen: 12/03/22 Time Patient Seen: 13:23 Chief complaint: hypotension, Fall Narrative: Susan Joel is an 82-year-old patient with multiple medical problems including COPD, obstructive sleep apnea, morbid obesity, hypertension, hyperlipidemia, congestive heart failure, severe depression, previous CVA, chronic kidney disease stage 3 and status post aortic valve replacement, bioprosthetic is bro ught to the ER via paramedics due to confusion, weakness and a ground level fall. She presented with hypotension, had been seen yesterday in the ED for similar reasons and found to have a UTI. She was discharged on oral macrobid. Patient is unable to provide a history. Per the ED provider, her is concerned that her balance has worsened over the last 48 hours and has gotten significantly bad in last 6-8 hours.? He notes that she has increased anxiety when trying to create sentences ever since a stroke in December 18, 2019.? He notes no fevers and reports that she is eating and drinking normally.? Patient has dementia significant enough that she has difficulty communicating and expresses frustration with word finding by squinting her eyes and her left arm starts to tap, appearing to be uncontrolled. Repeat of her UA is negative today, chest x-ray done today is negative for any acute process. Her labs are completely unremarkable with the exception of what appears to be a resolving CHRISTOFER. ED attempted to do orthostatic vitals however the patient was too weak to stand up any longer to obtain a blood pressure. She is currently afebrile blood pressure 133/70 heart rate 63 respiratory rate 18 oxygen saturation of 98% on room air she weighs 113.3 kg with a BMI of 44.5. She did have CO2 of 33 BUN 33 creatinine 1.4 with an EGFR of 38, renal values are within her normal limits, proBNP was 454 UA is negative for UTI currently and COVID-19 PCR is negative. Discharge Providers Provider Date of admission: 11/30/22 19:59 Discharge Date: 12/03/22 Primary care physician: Craig Chowdhury MD Consults: 11/30/22 18:59 Consult to TEAM PRIMARY CARE PHYSICIAN - Merchandising Manager Stat Comment: 11/30/22 20:41 Consult to Occupational Therapy Evaluate & Treat Comment: Weakness, debility Physician Instructions: Evaluate and treat Consult to Physical Therapy Evaluate & Treat Comment: Weakness, debility Physician Instructions: Evaluate and Treat Discharge provider: Mayur Mccurdy DO Summary Hospital Course Discharge Diagnosis: Weakness and debility with failure to thrive, unknown if acute or chronic, present on admission * PT/OT evaluation rec SNF * TEAM PRIMARY CARE PHYSICIAN arranged discharge to memory care clinic Essential hypertension with possible orthostatic hypotension * Continue home dose of verapamil and quinapril, holding home lasix and requip and discontinued on discharge as these can cause hypotension * Continue low-dose aspirin Dyslipidemia, chronic * Continue home dose of atorvastatin 40 mg p.o. at bedtime Depression, chronic * Continue home doses of bupropion and sertraline Hospital Course: Admitted for falls at home, hypotension and overall failure to thrive. Home lasix and requip were held. Could not work with PT or OT due to weakness. She was discharged to memory care and lasix, potassium supplement and requip were stopped to prevent future episodes of hypotension. Time Spent with Patient Time spent: Greater than 30 minutes Exam Vital Signs (past 8 hours): - 12/03/22 06:00 12/03/22 08:00 12/03/22 10:02 Temperature 97.1 F L 97.0 F L Pulse Rate 59 L 64 64 Respiratory Rate 17 16 Blood Pressure 144/89 H 173/83 H 173/83 H Pulse Oximetry 93 94 Oxygen Flow Rate 0 0 Oxygen Delivery Method Room Air Oxygen Flow Rate 0 Narrative Exam Narrative: Gen: Alert and arousable 82-year-old morbidly obese female, demented HEENT: normocephalic, atraumatic, conjunctiva clear, sclera non-icteric, oral mucosa pink and moist Neck: supple, full ROM, no JVD, trachea is midline Resp: Lungs CTA, non-labored breathing CV: RRR, no murmur or rubs Abd: soft, non-tender, normoactive BTs Skin: no lesions or rashes, dry and intact Neuro: Alert and oriented X 4 w/no focal deficits. Speech clear and coherent. Extremities: moves all 4 extremities, is ambulatory, negative Van?s sign Psyche: Labile, expresses frustration when she has difficulty word finding Objective Labs Result Diagrams: 12/02/22 07:19 12/02/22 07:19 [facility] Medical History Chronic renal insufficiency (Unknown) Colon polyps (Unknown) COPD (chronic obstructive pulmonary disease) (Unknown) CVA (cerebral vascular accident) (11/2019) Dry both ear canals (02/24/17) Eczema Hyperlipemia (Unknown) Hypertension (Unknown) Insomnia, unspecified (~1997) Lower extremity edema (09/08/17) 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, recurrent, in full remission Morbid obesity with body mass index (BMI) greater than or equal to 50 Nocturnal hypoxemia (09/08/17) Obstructive sleep apnea of adult (~05/2020) Obstructive sleep apnea, adult Osteoarthritis (Unknown) Pain of left hand (04/21/17) Physical deconditioning Restless leg syndrome Sexual dysfunction Vaginal dryness (04/21/17) Surgical History History of knee replacement (2000) History of tonsillectomy (1947) Hx of total hip arthroplasty (09/2008) Status post cholecystectomy (1997) Status post dilation and curettage (2000) Family History Father CVA (cerebral vascular accident) Dementia Mother Coronary artery disease 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, 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 Smoking Status: Never smoker alcohol intake: never substance use type: does not use caffeine: No eating out: rarely or never Type(s) of exercise: none Discharge Plan Discharge Plan Patient Disposition: Released, Other Other facility: [facility] I certify the postop hospital fci care is medically necessary on a continuing basis for any conditions for which he/ she received care during this hospitalization.: Yes The receiving facility has agreed to accept transfer and provide medical treatment.: Yes Discharge orders & Medications Discharge Orders: Discharge (Order); Ordered 12/03/22 Ordered By: Mayur Mccurdy Prescriptions: Continued multivitamin Tablet 1 tab PO DAILY atorvastatin 40 mg tablet 40 mg PO BEDTIME Qty: 90 3RF quinapril 20 mg tablet 20 mg PO DAILY Qty: 90 3RF bupropion HCl 300 mg tablet extended release 24 hr 300 mg PO QAM Qty: 30 5RF sennosides [Natural Senna Laxative] 8.6 mg tablet 17.2 mg PO BID Qty: 240 1RF Rx Instructions: Takes 2 tablets in the AM and 2 tablets at bedtime. sertraline 100 mg tablet 150 mg PO QAM Qty: 45 5RF trazodone 50 mg tablet 50 mg PO TID PRN (Reason: anxiety or insomnia) Qty: 90 5RF Label Comments: Takes at noon, 1700, and bedtime. Rx Instructions: Takes at 1200, 1700 and at Bedtime aspirin [Adult Aspirin Regimen] 81 mg tablet,delayed release (DR/EC) 81 mg PO DAILY Qty: 30 0RF Rx Instructions: Do not crush or chew EC Aspirin verapamil 120 mg tablet 120 mg PO TID Qty: 90 8RF Rx Instructions: Crush with food docusate sodium 250 mg capsule 250 mg PO DAILY Qty: 30 6RF Discontinued potassium chloride 20 mEq tablet extended release 20 meq PO DAILY Qty: 90 3RF ropinirole 0.5 mg tablet 0.5 mg PO BEDTIME Qty: 90 3RF furosemide 40 mg tablet 20 mg PO DAILY Rx Instructions: Take 20mg daily Follow up/Referrals: Craig Chowdhury MD [Primary Care Provider] - 2 Weeks Visit Report/Discharge Packet Stand Alone Forms: Patient Portal/API, Stroke Signs & Symptoms Discharge Data Primary Care Provider: Craig Chowdhury Attending Provider: Mirian Melendez
--- NOTE | 2022-12-03 15:02 | CM.DPNOTE ---
DC Note Toy from [facility] in [place] completed bedside assessment this morning w/patient and spouse and has agreed to admit patient this afternoon. Toy discussed move in cost and cost of care directly with spouse Toy's contact P [phone] F [phone] Toy faxed move-in orders to this CERTIFIED HISTOLOGIC TECHNICIAN which were completed and signed by DARREN Rios and Dr Mccurdy. Spouse agreeable to plan and working with closely w/[facility] who have agreed to partially assist w/cost of respite stay Dr Mccurdy completed DC Summary and signed med list which were faxed to [facility] w/completed move in orders BLS was arranged by SILVINA Peace, for p/u this evening at 1730. Toy at [facility] has been updated and agreeable to this. Spouse also updated w/plan and time of transport, explained to spouse that it is likely there will be an out of pocket expense for this BLS transport and spouse states understanding, states he is hopeful their [employer] secondary will assist in cost BLS form completed and placed on chart w/ POLST- DNR Plan: DC this evening to [facility] in [place], memory care, for respite stay, possibly to transition to senior care stay. [facility] notified that patient discharging to [facility], DC Summary faxed by SILVINA Peace to [facility]
--- NOTE | 2022-12-03 15:40 | PT.IPTN ---
Physical Therapy Treatment Note M2 PT-IP Current Condition Start: 12/01/22 13:56 Freq: NEEDED Status: Active Protocol: Document 12/02/22 11:27 SP (Rec: 12/02/22 18:56 SP [id number]) Physical Therapy Current Condition Current Condition Evaluation Date 12/01/22 Treatment Diagnosis hypotension; weakness; difficulty in walking Onset Date 11/30/22 M3 PT-IP Subjective Start: 12/01/22 13:56 Freq: NEEDED Status: Active Protocol: Document 12/03/22 15:40 AB (Rec: 12/03/22 16:44 AB [id number]) Subjective Physical Therapy Visit Type Type Treatment Note Visit Start Time 15:40 Visit Stop Time 16:08 Total Visit Minutes 28 Number of TURN DOWN ATTENDANT Visits 0 Physical Therapy Visit Comments Patient Comments pt more responsive today M4 PT-IP Mobility and Gait Start: 12/01/22 13:56 Freq: NEEDED Status: Active Protocol: Document 12/03/22 15:40 AB (Rec: 12/03/22 16:44 AB [id number]) PT-Bed Mobility Assessment Supine to Sit Supine to Sit Maximum Assistance,2 Person Assistance,Head of Bed Elevated,Bedrails PT-Transfer Assessment Sit to and From Stand Sit to and from Stand Maximum Assistance,2 Person Assistance,Use of Upper Extremities Equipment Transfer Assistive Device Gait Belt,Front Wheeled Walker Orthotic/Prosthetic Devices or Brace: No Transfers Transfer Destination Chair,Bedside Commode Transfer Technique Stand Step Pivot Transfer Ability Level of Assist Maximum Assistance,2 Person Assistance,Use of Upper Extremities Comments Mobility Comments completed supine to sit max A x 2 and max cues with HOB elevated. max A x 2 for scooting to EOB. completed sit to stand max A x 2 and max A x 2 for step transfer to the chair using FWW. pt needing to be cleaned up and brief change and when asked if she needs to use the toilet. pt noded her head. completed sit to stand from the chair max A x 2 and max cues and step transfer to bedside commode max A x2 using FWW. pt completed sit to stand from bedside commode max A x 2 and was able to maintain standing max Ax 1-2 and max cues using FWW for support while nurse/NAC assisted with hygiene care and brief management. pt completed step transfer to the chair using FWW max A x 2 and max cues. left pt with NAC and OT. M5 PT-IP Objective Assessments Start: 12/01/22 13:56 Freq: NEEDED Status: Active Protocol: Document 12/01/22 10:50 AB (Rec: 12/01/22 14:09 AB [id number]) Orientation Orientation/Cognition Level of Alertness Confusional State Orientation Name Safety Awareness Decreased Safety Awareness Memory Description Short Term Impaired Gross Range of Motion Lower Extremity ROM Assessment Within Functional Limits Strength Lower Extremity Strength Assessment Bilaterally Impaired Hip 3+/5 Knee 3+/5 Muscle Tone Muscle Tone WNL Yes M6 PT-IP Treatment Start: 12/01/22 13:56 Freq: NEEDED Status: Active Protocol: Document 12/03/22 15:40 AB (Rec: 12/03/22 16:44 AB [id number]) Physical Therapy Treatment Education Education Provided Safety M7 PT-IP Assessment and Plan Start: 12/01/22 13:56 Freq: NEEDED Status: Active Protocol: Document 12/03/22 15:40 AB (Rec: 12/03/22 16:44 AB [email or web address]) PT Summary Assessment and Plan Potential Rehabilitation Potential Fair Summary Impairments Pain,ROM,Strength,Balance, Coordination,Sensation,Tone, Cognition,Bed Mobility, Transfers,Gait,Activity Tolerance Progress Towards Goals Slow Progress due to Medical Issues,Slow Progress - Other Assessment Summary pt more responsive today and able to follow directions better. Continues to require max A x 2 but able to take better steps during transfers with less resistance and unsteadiness. Pt will require SNF rehab to improve overall strength and mobility. Goals Bed Mobility Goal Contact Guard Assistance Transfer Goal Contact Guard Assistance,Front Wheeled Walker Gait Goal Contact Guard Assistance,Front Wheel Walker Gait Distance 50 Other Goals improve bed mobility, transfers using FWW and ambulation using FWW ~ 100 ft SBA Days to Meet Goals 10 Frequency of Treatment Frequency Of Treatment Once a Day Treatment Plan Physical Therapy Treatment Plan Bed Mobility Training,Transfer Training,Gait Training, Therapeutic Exercise,Balance Retraining,Discharge Planning, Hot or Cold Pack,Neuromuscular Re-ed,Coordination Retraining Precautions Other Precautions falls Recommendations To Nursing Amount of Assist Needed Mechanical Lift Discharge Recommendations PT Discharge Recommendations SNF Rehab Transportation Needs at Discharge Wheelchair/Cabulance
--- NOTE | 2022-12-03 16:48 | OT.IP.TRT ---
Occupational Therapy Treatment Note M2 OT-IP Current Condition Start: 12/01/22 12:32 Freq: Status: Active Protocol: Document 12/01/22 12:25 [facility] (Rec: 12/01/22 12:53 [facility] [id number]) Occupational Therapy Current Condition Current Condition Evaluation Date 12/01/22 Treatment Diagnosis UTI, weakness M3 OT- IP Subjective and Pain Start: 12/01/22 12:32 Freq: Status: Active Protocol: Document 12/03/22 16:40 [facility] (Rec: 12/03/22 16:48 [facility] [id number]) OT- Subjective Occupational Therapy Visit Type Type Treatment Note Visit Start Time 15:51 Visit Stop Time 16:15 Total Visit Minutes 24 Occupational Therapy Visit Comments Patient Comments Pt much more alert and talkative today. M4 OT- IP ADL's Start: 12/01/22 12:32 Freq: Status: Active Protocol: Document 12/03/22 16:40 [facility] (Rec: 12/03/22 16:48 [facility] [id number]) OT [id number] Comments OT Self-Feeding Comments Not at meal time. OT ADL-Grooming General Evaluation Grooming Ability Minimal Assistance Areas Needing Assistance Retrieving/Set-up of Grooming Items Comments OT Grooming Comments Pt able to wash her face and MEHNAZ for completeness for her hair OT ADL-Oral Care Comments Oral Care Comments NOt performed OT ADL-Dressing General Eval Upper Body Dressing Ability Maximum Assistance Lower Body Dressing Ability Total Assistance Comments OT Dressing Comments Pt able to pull her arms out of her top. OT ADL-Toileting General Evaluation Toileting Ability Total Assistance Comments OT Toileting Comments total assist for brief change and toieleting needs OT ADL-Bathing Comments OT Bathing Comments Pt able to assist to was her face and partially her chest and needing assist for all other bathing needs. M5 OT- IP IADL's Start: 12/01/22 12:32 Freq: Status: Active Protocol: Document 12/01/22 12:25 [facility] (Rec: 12/01/22 12:53 [facility] [id number]) OT-Instrumental Activities of Daily Living Deficits IADL Deficits Identified Deficits Home Safety Awareness Awareness of Need for Assistance at Home Decreased Awareness Ability to Problem Solve Emergency Unable to Problem Solve Situations Medication Management Medication Management Caregiver Administers Money Management Money Management Caregiver Provides Assistance Meal Preparation Meal Preparation Caregiver Provides Assist Call Center Nurse Call Center Nurse Caregiver Provides Assist Driving Driving Caregiver Provides Assist M6 OT- IP Functional Cognition Start: 12/01/22 12:32 Freq: Status: Active Protocol: Document 12/03/22 16:40 [facility] (Rec: 12/03/22 16:48 [facility] [id number]) Cognitive Factors Limiting Selfcare Function Cognitive Ability Level of Alertness Alert Patient Orientation Name Attention Span Ability Capable of Focused Attention, Capable of Sustained Attention Ability to Follow Commands Able to Follow One Step Commands with Increased Time, Able to Follow One Step Commands with Repetition Memory Description Short Term Intact,Working Impaired Cognitive Comments Cognitive Assessment Comments Pt able to recall her and dog's name. Pt able to follow commands much better for bed mobility, transfers and ADL needs. M7 OT- IP Mobility and Balance Start: 12/01/22 12:32 Freq: Status: Active Protocol: Document 12/03/22 16:40 [facility] (Rec: 12/03/22 16:48 [facility] [id number]) OT- Bed Mobility Assessment Supine to Sit Supine to Sit Assist Maximum Assistance,2 Person Assistance OT-Transfer Assessment Sit to and From Stand Sit to and from Stand Maximum Assistance,2 Person Assistance Transfers Transfer Ability Maximum Assistance,2 Person Assistance Technique Transfer Destination Bed,Bedside Commode,Chair Comments Mobility Comments MAXA x2 to get to the edge of the bed and to to stand with FWW and able to transfer to the BSc and then the recliner, assist for balance and assist to guide the FWW. Pt moving much better today. OT- Balance Assessment Sitting Balance and Reactions Static Sitting Balance Ability Fair Dynamic Sitting Balance Ability Poor Standing Balance and Reactions Static Standing Balance Ability Poor Dynamic Standing Balance Ability Poor M8 OT- IP Objective Assessments Start: 12/01/22 12:32 Freq: Status: Active Protocol: Document 12/01/22 12:25 [facility] (Rec: 12/01/22 12:53 [facility] [id number]) OT Gross Range of Motion Upper Extremity Range of Motion Assessment Bilaterally Impaired OT Strength Upper Extremity Strength Assessment Bilaterally Impaired OT- Coordination Assessment Comments Coordination Comments Assist for set-up for grooming and oral care needs. M9 OT- IP Assessment and Plan Start: 12/01/22 12:32 Freq: Status: Active Protocol: Document 12/03/22 16:40 [facility] (Rec: 12/03/22 16:48 [facility] [id number]) OT Summary Assessment and Plan Potential Rehabilitation Potential Fair Analytic Complexity at Evaluation Moderate Summary OT Impairments Strength,Balance,Functional Cognition,Functional Mobility, Self-Feeding,Grooming, Toileting,Toilet Transfers, Shower Transfers,Activity Tolerance Progress Towards Goals Progressing Toward Goals Assessment Summary Pt a lot more alert and able to tolerate two transfer today with FWW with MAXA x2 and also able to participate in grooming and sponge bath needs . Pt looking to go to Goals Self-Feeding Goal Standby Assistance Grooming Goal Standby Assistance Toilet Transfer Goal Minimal Assistance Days to Meet Goals 20 Frequency of Treatment Frequency Of Treatment Once a Day Treatment Plan OT Treatment Plan ADL Training,Functional Cognition Training,Functional Mobility,Patient/Family Education,Discharge Planning Other Treatment Recommendations and Next Transfer to [facility] x 2. Treatment Focus Discharge Recommendations OT Discharge Recommendations SNF Rehab,[facility] Transportation Needs at Discharge Stretcher/Ambulance
[2022-12-03] MEDS: VERAPAMIL 120 MG TABLET PO (17:14)
[2022-12-03 17:29] LABS: COVID19 -Nasal RAPID Negative (Negative)
--- NOTE | 2022-12-03 18:23 | PC.NURSE ---
Pt is A&OX1, pleasant. She is able to answer most yes and no questions. She smiles and nods or shakes her head no, minimally verbal. She is agreeable to care and getting up with PT/OT today and is able to stand for a very brief period. She still remains a max assist to turn x2 in bed and incontinent. Skin is intact, other than some scattered bruises. She is medically cleared for discharge today and CM met at length with informing him of care options. Plan is made for patient to transfer to [facility] this evening with a 1730 pickup by [facility]. She eats dinner, IV removed she is assisted to stretcher and transported at [id number]Toy notified at [facility].
--- NOTE | 2022-12-13 11:57 | PC.NURSE ---
Late Entry: Ceftriaxone infusion initiated 12/01 at 0904, complete at 0935.
== END 2022-12-03 17:45 | disposition home or self-care (01) ==
LOC: ED 19:57 → AC 20:00
PROVIDERS: Student in an Organized Health Care Education/Training Program; Admitting Provider Nurse Practitioner Family; Emergency Provider Emergency Medicine; Family Provider Student in an Organized Health Care Education/Training Program; PCP Student in an Organized Health Care Education/Training Program; Visit Provider Nurse Practitioner Family
DX: R41.82 Altered mental status, unspecified (principal); R53.1 Weakness; R29.6 Repeated falls; Z91.81 History of falling; I95.9 Hypotension, unspecified; R62.7 Adult failure to thrive; E66.01 Morbid (severe) obesity due to excess calories; Z68.42 Body mass index [BMI] 45.0-49.9, adult; J44.9 Chronic obstructive pulmonary disease, unspecified; G47.33 Obstructive sleep apnea (adult) (pediatric); I13.0 Hypertensive heart and chronic kidney disease with heart failure and stage 1 through stage 4 chronic kidney disease, or unspecified chronic kidney disease; I50.9 Heart failure, unspecified; N18.30 Chronic kidney disease, stage 3 unspecified; F32.A Depression, unspecified; Z20.822 Contact with and (suspected) exposure to COVID-19
CPT/HCPCS: 36415; 51701; 71045; 80053; 81001; 81003; 82550; 83605; 83735; 83880; 84145; 84484; 85025; 87040; 87086; 87635; 93005; 93010; 96361; 96365; 96366; 96372; 97162; 97166; 97530; 97535; 99284; C9803; G0378; J0696; J1644

== ENCOUNTER 2022-12-15 10:00 | Emergency (ER) | payer MEDICARE, BC, SELFPAY ==
[2022-04-21 04:00] VITALS: BMI 44.5
[2022-12-15] VITALS (22 sets, daily range): BP systolic 131–184; BP diastolic 70–84; PULSE 60–71; RESP 18; TEMP 36.6; O2SAT 93–100; BMI 44.4
[2022-12-15 11:56] LABS: Alanine Aminotransferase 28 IU/L (<35); Albumin Globulin Ratio 1.2 (1.0-2.8); Alkaline Phosphatase 94 U/L (38-126); Aspartate Aminotransferase 29 IU/L (14-36); BUN Creatinine Ratio 22.8 (6-22); Bilirubin Total 0.5 mg/dL (0.2-1.3); Blood Urea Nitrogen 29 mg/dL (7-17); Calcium 9.3 mg/dL (8.4-10.2); Carbon Dioxide 28 mmol/L (22-32); Chloride 104 mmol/L (98-107); Estimated Glomerular Filt Rate 43 mL/min (>60); Globulin 3.4 g/dL (1.7-4.1); Glucose 91 mg/dL (80-110); HEMOLYSIS 31 (0-50); Lipase 156 U/L (23-300); Sodium 139 mmol/L (137-145); Total Protein 7.4 g/dL (6.3-8.2)
[2022-12-15 11:57] LABS: Potassium 5.6 mmol/L (3.4-5.1)
[2022-12-15 12:04] LABS: Add Manual Diff / Slide Review NO; Basophils Absolute Auto 100 /uL (0-100); Basophils Percent Auto 1.1 % (0-2); Eosinophils Absolute Auto 200 /uL (0-450); Eosinophils Percent Auto 2.5 % (2-4); Hematocrit 48.3 % (36-46); Hemoglobin 15.7 g/dL (12.0-16.0); Lymphocytes Absolute Auto 1500 /uL (1100-4500); Lymphocytes Percent Auto 20.6 % (25-40); Mean Corpuscular HGB Conc 32.5 % (30-36); Mean Corpuscular Hemoglobin 30.2 PG (26-34); Mean Corpuscular Volume 92.9 fL (80-100); Monocytes Absolute Auto 600 /uL (0-900); Monocytes Percent Auto 8.7 % (3-14); Neutrophils Absolute Auto 4700 /uL (1500-7000); Neutrophils Percent Auto 67.1 % (50-75); Red Cell Distribution Width 14.5 % (11.6-14.8); White Blood Cell Count 7.1 X10^3/uL (4.5-11.0)
--- NOTE | 2022-12-15 12:07 | DI.CT.S_ITS ---
PROCEDURE: CT ABDOMEN PELVIS WO CON INDICATIONS: bowel obstruction? 6 days since BM TECHNIQUE: Noncontrast 5 mm thick sections acquired from the diaphragms to the symphysis. 5 mm coronal and sagittal reformats were then performed. For radiation dose reduction, the following was used: automated exposure control, adjustment of mA and/or kV according to patient size. COMPARISON: None. FINDINGS: Image quality: Motion degraded Lower chest: Basal scarring/atelectasis. There is a small left pleural effusion. Annular valvular calcifications and coronary calcifications. Prominent pulmonary arteries suggestive of chronically high pulmonary pressures. Solid organs: Liver is unremarkable. Cholecystectomy. No pathologic dilation of the biliary tree or pancreatic duct. No splenomegaly. No adrenal nodules. No hydronephrosis. Bosniak 1 and 2 renal lesions are present, for which no dedicated followup is necessary per 2019 proposed guidelines. Vessels and lymph nodes: Atherosclerotic calcifications. No abdominal aortic aneurysm. No pathologic adenopathy by size criteria. Bowel and peritoneum: No evidence of small bowel obstruction. Colorectal stool burden is moderate. No convincing findings of active inflammation. Body wall: Tiny fat containing umbilical hernia. Pelvis: Reproductive organs are unremarkable on limited CT evaluation. Bladder is under distended. Metallic artifact obscures the pelvis. Bones: Left hip arthroplasty with metallic artifact obscuring surrounding structures. Scattered degenerative changes without acute or suspicious osseous finding. Leftward spinal curvature. IMPRESSION: No acute abdominal pelvic pathology. Moderate colorectal stool burden. The colon is tortuous and redundant. Small left pleural effusion and other partially visualized thoracic findings above. Evaluation is limited without intravenous contrast. Evaluation is also limited by metallic artifact and motion artifact Dictated by: Angel Luis Gandhi M.D. on 12/15/2022 at 13:49 Approved by: Angel Luis Gandhi M.D. on 12/15/2022 at 13:54
--- NOTE | 2022-12-15 12:12 | ED.ABDPAIN ---
HPI - Abdominal Pain <Piper Ag [facility] - Last Filed: 12/15/22 16:16> General Chief Complaint: Abdominal Pain Stated Complaint: bowel blockage for 6 days Time Seen by Provider: 12/15/22 12:07 Source: patient and family Mode of arrival: Wheelchair History of Present Illness HPI narrative: This is a 82-year-old female who is brought over from primary care office for concern of a bowel obstruction as patient has not had a bowel movement in 6 days. Patient was recently in the hospital for reported urinary tract infection and [facility] and stayed for some time, and been at home with her since. He denies any illness symptoms from her, denies any new or abnormal behavior. He states that there has been a referral to home health placed by Dr. Chowdhury, but they have not received the physician's note regarding patient's mobility at this point. She had a appointment with Dr. Chowdhury this morning and was sent over to the emergency department for no bowel movement x6 days. Patient's helps with patient's ADLs, states that she needs help with dressing, cleansing, bathing other activities and he is trying to get home health to come and evaluate the patient. He states that there is already a referral placed, he denies any acute illness other than her not having a bowel movement. He is concerned that she is losing her strength because she is not actively participating in mobility or other activities. Patient reports that he has been giving her MiraLax for the constipation but she has not had a bowel movement yet. Patient denies any pain, she denies recent illness including fever, chills, denies dysuria, weakness, dizziness or change in overall health. Patient's states that they are working with [employer], and patient is participatory and denies any issues at home other than him not being able to fully care for patients needs including ADLs by himself. They are both elderly. Related Data Home Medications Medication Instructions Recorded Confirmed multivitamin 1 tab PO DAILY 11/17/20 12/20/22 Previous Rx's Medication Instructions Recorded quinapril 20 mg tablet 20 mg PO DAILY #90 tabs 01/04/22 sennosides 8.6 mg tablet (Natural 17.2 mg PO BID #240 tabs 10/04/22 Senna Laxative) sertraline 100 mg tablet 150 mg PO QAM #45 tabs 10/04/22 trazodone 50 mg tablet 50 mg PO TID PRN anxiety or 10/04/22 insomnia #90 tabs aspirin 81 mg tablet,delayed 81 mg PO DAILY #30 tabs 10/05/22 release (Adult Aspirin Regimen) docusate sodium 250 mg capsule 250 mg PO DAILY #30 caps 11/17/22 polyethylene glycol 3350 17 17 g PO DAILY #510 grams 12/15/22 gram/dose oral powder (Miralax) verapamil 80 mg tablet 80 mg PO TID #90 tabs 12/20/22 atorvastatin 40 mg tablet 40 mg PO BEDTIME #90 tabs 12/23/22 ropinirole 0.5 mg tablet 0.5 mg PO BEDTIME #90 tabs 12/24/22 Allergies Allergy/AdvReac Type Severity Reaction Status Date / Time adhesive tape Allergy Intermediate plastic Verified 12/20/22 11:05 Penicillins [PENICILLINS] Allergy Mild Rash Verified 12/20/22 11:05 venom-honey bee Allergy Unknown Verified 12/20/22 11:05 [BEE VENOM (HONEY BEE)] Review of Systems <JESSICA Grewal - Last Filed: 12/15/22 16:16> Review of Systems ROS Unobtainable: All systems reviewed & are unremarkable except as noted in HPI and below Patient History <JESSICA Grewal - Last Filed: 12/15/22 16:16> Medical History Chronic renal insufficiency (Unknown) Colon polyps (Unknown) COPD (chronic obstructive pulmonary disease) (Unknown) CVA (cerebral vascular accident) (11/2019) Dry both ear canals (02/24/17) Eczema Hyperlipemia (Unknown) Hypertension (Unknown) Insomnia, unspecified (~1997) Lower extremity edema (09/08/17) 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, recurrent, in full remission Morbid obesity with body mass index (BMI) greater than or equal to 50 Nocturnal hypoxemia (09/08/17) Obstructive sleep apnea of adult (~05/2020) Obstructive sleep apnea, adult Osteoarthritis (Unknown) Pain of left hand (04/21/17) Physical deconditioning Restless leg syndrome Sexual dysfunction Vaginal dryness (04/21/17) Surgical History History of knee replacement (2000) History of tonsillectomy (1948) Hx of total hip arthroplasty (09/2008) Status post cholecystectomy (1997) Status post dilation and curettage (2000) Family History Father CVA (cerebral vascular accident) Dementia Mother Coronary artery disease 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 General: cooperative, comfortable, resting in bed, wearing hearing aids, in no acute distress, well groomed HEENT: symmetrical facial expressions, dry mucous membranes, atraumatic, PERRLA, without conjunctival injection bilaterally, EOMI Cardiovascular: regular rate and rhythm, warm extremities, without diaphoresis, fever, or dependent edema Respiratory: normal effort, able to speak in complete sentences, without wheezing, stridor, or abnormal breath sounds. No retractions or tachypnea. GI: abdomen soft, nontender to palpation, nondistended, without masses, rebound tenderness or exquisite tenderness with exam. No masses, stool ball, rectal exam with moderate amount of stool in rectal vault with impaction, placed a docusate suppository, broke up the impaction, patient tolerated mildly and a straight cath urine is completed using sterile technique. MSK: moves all extremities, neurovascularly intact, no weakness, normal tone Skin: brisk capillary refill, without pallor or erythema Neuro: normal speech and cognition, A&O x3, patient able to stand and sit on commode with 2 person assist, clear speech Psych: mental status is grossly normal, congruent mood, normal affect, pleasant and cooperative Initial Vital Signs Initial Vital Signs: Vital Signs Temperature 98 F 12/15/22 10:00 Pulse Rate 62 12/15/22 10:00 Respiratory Rate 18 12/15/22 10:00 Blood Pressure 131/71 12/15/22 10:00 Pulse Oximetry 98 12/15/22 10:00 Oxygen Delivery Method 12/15/22 10:00 <Ray Fair MD - Last Filed: 12/30/22 07:28> Initial Vital Signs Initial Vital Signs: Vital Signs Temperature 98 F 12/15/22 10:00 Pulse Rate 62 12/15/22 10:00 Respiratory Rate 18 12/15/22 10:00 Blood Pressure 131/71 12/15/22 10:00 Pulse Oximetry 98 12/15/22 10:00 Oxygen Delivery Method 12/15/22 10:00 Course <JESSICA Grewal - Last Filed: 12/15/22 16:16> Orders Ordered: Discontinued Medications Bisacodyl (Bisacodyl 10 Mg Supp) 10 mg MA NOW ONE Stop: 12/15/22 12:41 Last Admin: 12/15/22 12:58 Dose: 10 mg Documented By: GERONIMO Sodium Polystyrene Sulfonate (Sodium Polystyrene Sulfon/Sorb 15 Gm/60 Ml Cup) 30 gm PO NOW ONE Stop: 12/15/22 12:39 Last Admin: 12/15/22 12:58 Dose: 30 gm Documented By: GERONIMO Vital Signs Vital signs: Vital Signs - 8 hr 12/15/22 10:00 12/15/22 10:06 12/15/22 10:07 Temperature 98 F Pulse Rate 62 63 63 Respiratory Rate 18 Blood Pressure 131/71 Pulse Oximetry 98 96 93 Oxygen Delivery Method Room Air 12/15/22 10:07 12/15/22 10:30 12/15/22 11:00 Temperature Pulse Rate 60 60 Respiratory Rate Blood Pressure 131/71 Pulse Oximetry 100 99 Oxygen Delivery Method 12/15/22 11:01 12/15/22 11:01 12/15/22 11:30 Temperature Pulse Rate 60 62 Respiratory Rate Blood Pressure 184/84 H Pulse Oximetry 98 94 Oxygen Delivery Method 12/15/22 11:31 12/15/22 11:31 12/15/22 12:00 Temperature Pulse Rate 61 61 Respiratory Rate Blood Pressure 168/74 H Pulse Oximetry 99 96 Oxygen Delivery Method 12/15/22 12:01 12/15/22 12:01 12/15/22 12:30 Temperature Pulse Rate 61 61 Respiratory Rate Blood Pressure 162/75 H Pulse Oximetry 93 Oxygen Delivery Method 12/15/22 12:31 12/15/22 12:31 12/15/22 13:00 Temperature Pulse Rate 63 64 Respiratory Rate Blood Pressure 162/83 H Pulse Oximetry 93 96 Oxygen Delivery Method 12/15/22 13:01 12/15/22 13:01 12/15/22 13:30 Temperature Pulse Rate 64 63 Respiratory Rate 18 Blood Pressure 157/74 H Pulse Oximetry 96 96 Oxygen Delivery Method 12/15/22 14:15 12/15/22 14:00 Temperature Pulse Rate 66 Respiratory Rate 18 Blood Pressure 150/70 H Pulse Oximetry 94 Oxygen Delivery Method <Ray Fair MD - Last Filed: 12/30/22 07:28> Orders Ordered: Discontinued Medications Bisacodyl (Bisacodyl 10 Mg Supp) 10 mg MA NOW ONE Stop: 12/15/22 12:41 Last Admin: 12/15/22 12:58 Dose: 10 mg Documented By: GERONIMO Sodium Polystyrene Sulfonate (Sodium Polystyrene Sulfon/Sorb 15 Gm/60 Ml Cup) 30 gm PO NOW ONE Stop: 12/15/22 12:39 Last Admin: 12/15/22 12:58 Dose: 30 gm Documented By: GERONIMO Vital Signs Vital signs: Vital Signs - 8 hr 12/15/22 10:00 12/15/22 10:06 12/15/22 10:07 Temperature 98 F Pulse Rate 62 63 63 Respiratory Rate 18 Blood Pressure 131/71 Pulse Oximetry 98 96 93 Oxygen Delivery Method Room Air 12/15/22 10:07 12/15/22 10:30 12/15/22 11:00 Temperature Pulse Rate 60 60 Respiratory Rate Blood Pressure 131/71 Pulse Oximetry 100 99 Oxygen Delivery Method 12/15/22 11:01 12/15/22 11:01 12/15/22 11:30 Temperature Pulse Rate 60 62 Respiratory Rate Blood Pressure 184/84 H Pulse Oximetry 98 94 Oxygen Delivery Method 12/15/22 11:31 12/15/22 11:31 12/15/22 12:00 Temperature Pulse Rate 61 61 Respiratory Rate Blood Pressure 168/74 H Pulse Oximetry 99 96 Oxygen Delivery Method 12/15/22 12:01 12/15/22 12:01 12/15/22 12:30 Temperature Pulse Rate 61 61 Respiratory Rate Blood Pressure 162/75 H Pulse Oximetry 93 Oxygen Delivery Method 12/15/22 12:31 12/15/22 12:31 12/15/22 13:00 Temperature Pulse Rate 63 64 Respiratory Rate Blood Pressure 162/83 H Pulse Oximetry 93 96 Oxygen Delivery Method 12/15/22 13:01 12/15/22 13:01 12/15/22 13:30 Temperature Pulse Rate 64 63 Respiratory Rate 18 Blood Pressure 157/74 H Pulse Oximetry 96 96 Oxygen Delivery Method 12/15/22 14:15 12/15/22 14:00 Temperature Pulse Rate 66 Respiratory Rate 18 Blood Pressure 150/70 H Pulse Oximetry 94 Oxygen Delivery Method MDM - Abdominal Pain <Piper Ag, [facility] - Last Filed: 12/15/22 16:16> Lab Data 12/15/22 11:30 12/15/22 11:30 Labs: Lab Results 12/15/22 12/15/22 12/15/22 Range/Units 11:30 11:30 15:07 WBC 7.1 (4.5-11.0) X10^3/uL RBC 5.20 (4.0-5.2) X10^6/uL Hgb 15.7 (12.0-16.0) g/dL Hct 48.3 H (36-46) % MCV 92.9 (80-100) fL MCH 30.2 (26-34) PG MCHC 32.5 (30-36) % RDW 14.5 (11.6-14.8) % Plt Count TNP Neut % (Auto) 67.1 (50-75) % Lymph % (Auto) 20.6 L (25-40) % [place] % (Auto) 8.7 (3-14) % Eos % (Auto) 2.5 (2-4) % Baso % (Auto) 1.1 (0-2) % Neut # (Auto) 4700 (9673-5654) /uL Lymph # (Auto) 1500 (9065-2932) /uL [place] # (Auto) 600 (0-900) /uL Eos # (Auto) 200 (0-450) /uL Baso # (Auto) 100 (0-100) /uL Sodium 139 (137-145) mmol/L Potassium 5.6 H 4.9 (3.4-5.1) mmol/L Chloride 104 (98-107) mmol/L Carbon Dioxide 28 (22-32) mmol/L BUN 29 H (7-17) mg/dL Creatinine 1.27 H (0.52-1.04) mg/dL Estimated GFR 43 L (>60) mL/min BUN/Creatinine Ratio 22.8 H (6-22) Glucose 91 (80-110) mg/dL Calcium 9.3 (8.4-10.2) mg/dL Total Bilirubin 0.5 (0.2-1.3) mg/dL AST 29 (14-36) IU/L ALT 28 (<35) IU/L Alkaline Phosphatase 94 (38-126) U/L Total Protein 7.4 (6.3-8.2) g/dL Albumin 4.0 (3.5-5.0) g/dL Globulin 3.4 (1.7-4.1) g/dL Albumin/Globulin Ratio 1.2 (1.0-2.8) Lipase 156 (23-300) U/L Point of care testing: Urine Dip Bedside Urine Glucose Negative Bedside Urine Bilirubin - Negative Bedside Urine Ketone - Negative Urine Specific [place] 1.015 Bedside Urine Occult Blood - Negative Bedside Urine pH 5.5 Bedside Urine Protein - Negative Bedside Urine Urobilinogen - Negative Bedside Urine Nitrite - Negative Bedside Urine Leukocytes - Negative Esterase Imaging Data CT scan - abdomen/pelvis: Radiologist's Impression: [facility] [id number] CT Scan Report Signed Patient: Susan Joel MR#: [id number] : 1940 Acct:[id number] Age/Sex: 82 / F Date of Service: 12/15/22 Loc: ED Accession Number: [id number] ?? Procedure: CT abdomen pelvis wo con Ordering Provider: Piper Ag PROCEDURE:? CT ABDOMEN PELVIS WO CON ? INDICATIONS:? bowel obstruction? 6 days since BM ? TECHNIQUE:? Noncontrast 5 mm thick sections acquired from the diaphragms to the symphysis.? 5 mm coronal and sagittal reformats were then performed.? For radiation dose reduction, the following was used:? automated exposure control, adjustment of mA and/or kV according to patient size.? ? COMPARISON:? None. ? FINDINGS:? Image quality:? Motion degraded ? Lower chest:? Basal scarring/atelectasis.? There is a small left pleural effusion.? Annular valvular calcifications and coronary calcifications.? Prominent pulmonary arteries suggestive of chronically high pulmonary pressures. ? Solid organs:? Liver is unremarkable.? Cholecystectomy.? No pathologic dilation of the biliary tree or pancreatic duct.? No splenomegaly.? No adrenal nodules.? No hydronephrosis.? Bosniak 1 and 2 renal lesions are present, for which no dedicated followup is necessary per 2019 proposed guidelines. ? Vessels and lymph nodes:? Atherosclerotic calcifications.? No abdominal aortic aneurysm.? No pathologic adenopathy by size criteria. ? Bowel and peritoneum:? No evidence of small bowel obstruction.? Colorectal stool burden is moderate.? No convincing findings of active inflammation. ? Body wall:? Tiny fat containing umbilical hernia. ? Pelvis:? Reproductive organs are unremarkable on limited CT evaluation.? Bladder is under distended.? Metallic artifact obscures the pelvis. ? Bones:? Left hip arthroplasty with metallic artifact obscuring surrounding structures.? Scattered degenerative changes without acute or suspicious osseous finding.? Leftward spinal curvature. ? IMPRESSION:? No acute abdominal pelvic pathology.? Moderate colorectal stool burden.? The colon is tortuous and redundant.? ? Small left pleural effusion and other partially visualized thoracic findings above. ? Evaluation is limited without intravenous contrast.? Evaluation is also limited by metallic artifact and motion artifact? ? Dictated by: Angel Luis Gandhi M.D. on 12/15/2022 at 13:49 ? ? Approved by: Angel Luis Gandhi M.D. on 12/15/2022 at 13:54 ? ECG Data Interpretation: EKG independently reviewed by myself at 1300 reveals sinus bradycardia with first-degree AV block with a MA interval of 210 MS at 58 bpm with regular axis and otherwise normal intervals.. No STEMI, ST segment changes, arrhythmia, or acute ischemic changes. MDM Narrative Medical decision making narrative: Chief Complaint: Constipation, no bowel movement times 6 days Differential diagnoses include but are not limited to: Bowel obstruction, perforated viscus, volvulus of sigmoid colon, constipation, fecal impaction, diverticulitis, cauda equina, acute cystitis, pyelonephritis. I have reviewed the patient's vital signs and nursing notes as well as prior records if available. Lab test results independently reviewed, pertinent findings: Independently reviewed imaging including: CT abdomen pelvis without evidence of bowel obstruction, or acute abnormality other than a moderate stool burden. Course of care and re-evaluations: When I met with the patient, her was just leaving to the [facility], patient denies any symptoms of illness, denies fever, chills, nausea, vomiting. States that she just has not had a bowel movement for 6 days. Denies any pain, she is tolerating p.o., her abdomen is nontender to palpation, she is without flank pain, she appears to be at her baseline and does not have any evidence of distress. She appears hydrated and nontoxic appearing. Ordered CT abdomen without contrast as nursing had a difficult time placing an IV. Ordered a physical suppository, she has stool in her rectal vault without blood, disimpacted the firm stool and please stay suppository, will follow-up with oral Kayexalate after CT for patient's elevated potassium today at 5.6 her only pertinent lab value. Patient's creatinine is improved from her prior at 1.27 with a GFR 43. Her urine dip is negative for leukocytes or leukocyte esterase. Patient was able to stand to sit on the commode with 2 person assist and she had a moderate-sized bowel movement, brown in color without blood or pain. Independent consultations with: Social work to help with home health referral documentation Discussion: Patient had a moderate-sized bowel movement and received Kayexalate for hyperkalemia, constipation without bowel obstruction, and was orally hydrated with water. On recheck of her labs, her potassium came down from 5.6 to 4.9, no leukocytosis or anemia, suspect hemoconcentration, CT abdomen pelvis without abnormality, moderate stool burden, no infectious signs on CT. 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 He has been doing well but needs some assistance. They have worked with [facility] and received a partial referral from Dr. Chowdhury, we will complete additional paperwork and social work follow-up on them, please see Jess's note. Jess was able to submit a referral to home health, it was signed by Dr. Fair the ED attending today. Patient was able to stand and another bowel movement after was given. She appears to feel better and the plan is understood by all parties to discharge home today. Shared decision making: With patient's , social work and the patient Patient's symptoms improved over duration of stay with above-stated therapies. Social considerations that may affect disposition: Limited resources, elderly. Questions are addressed and there is agreement with the plan and for follow-up. Patient is appropriate for outpatient management. MIPS: This encounter doesn't have any diagnosis' associated with MIPS criteria. <Ray Fair MD - Last Filed: 12/30/22 07:28> Lab Data Labs: Lab Results 12/15/22 12/15/22 12/15/22 Range/Units 11:30 11:30 15:07 WBC 7.1 (4.5-11.0) X10^3/uL RBC 5.20 (4.0-5.2) X10^6/uL Hgb 15.7 (12.0-16.0) g/dL Hct 48.3 H (36-46) % MCV 92.9 (80-100) fL MCH 30.2 (26-34) PG MCHC 32.5 (30-36) % RDW 14.5 (11.6-14.8) % Plt Count TNP Neut % (Auto) 67.1 (50-75) % Lymph % (Auto) 20.6 L (25-40) % [place] % (Auto) 8.7 (3-14) % Eos % (Auto) 2.5 (2-4) % Baso % (Auto) 1.1 (0-2) % Neut # (Auto) 4700 (6297-2738) /uL Lymph # (Auto) 1500 (1516-8899) /uL [place] # (Auto) 600 (0-900) /uL Eos # (Auto) 200 (0-450) /uL Baso # (Auto) 100 (0-100) /uL Sodium 139 (137-145) mmol/L Potassium 5.6 H 4.9 (3.4-5.1) mmol/L Chloride 104 (98-107) mmol/L Carbon Dioxide 28 (22-32) mmol/L BUN 29 H (7-17) mg/dL Creatinine 1.27 H (0.52-1.04) mg/dL Estimated GFR 43 L (>60) mL/min BUN/Creatinine Ratio 22.8 H (6-22) Glucose 91 (80-110) mg/dL Calcium 9.3 (8.4-10.2) mg/dL Total Bilirubin 0.5 (0.2-1.3) mg/dL AST 29 (14-36) IU/L ALT 28 (<35) IU/L Alkaline Phosphatase 94 (38-126) U/L Total Protein 7.4 (6.3-8.2) g/dL Albumin 4.0 (3.5-5.0) g/dL Globulin 3.4 (1.7-4.1) g/dL Albumin/Globulin Ratio 1.2 (1.0-2.8) Lipase 156 (23-300) U/L Point of care testing: Urine Dip Bedside Urine Glucose Negative Bedside Urine Bilirubin - Negative Bedside Urine Ketone - Negative Urine Specific [place] 1.015 Bedside Urine Occult Blood - Negative Bedside Urine pH 5.5 Bedside Urine Protein - Negative Bedside Urine Urobilinogen - Negative Bedside Urine Nitrite - Negative Bedside Urine Leukocytes - Negative Esterase Discharge Plan Departure Patient Disposition: Home Clinical Impression: Fecal impaction in rectum, Constipation Instructions: Constipation Activity Restrictions/Additional Instructions: *You have been diagnosed with moderate stool burden without obstruction or concerning finding today. Urine is negative for infection, she appeared mildly dehydrated but tolerates drinking water well and has not had any vomiting so this is great. Please encourage frequent sips of water throughout the day because it is hard to think about it if you are not thirsty. Please use MiraLax daily, [facility]. Follow-up with [employer] as we will send over this chart today and social work will be working on this for you. Jess has completed the referral with her documentation and had the physician sign it. I hope that this works out for you well. Please discuss care with Dr. Chowdhury as needed. Take care. *What to do: *Please continue to take your regular medications as directed. [ x] New medication prescriptions sent to your pharmacy: [ Michael] [ ] New medication written as a paper prescription [ ] No new medications given *Please follow up with your primary care provider in 2-3 days, call for an appointment. Let them know you were seen in the Emergency Department and that we asked that you be seen for follow-up. We will electronically transmit a record of today's note if your PCP is in our system *If you do not have a primary care provider please contact [phone] to establish care with one of the [facility] primary care providers. *Return to Emergency Department if you should have any new, worsening, or concerning symptoms, such as [fever greater than 101F, chills, worsening pain, persistent vomiting or other bothersome symptoms]. Prescriptions: New polyethylene glycol 3350 [Miralax] 17 gram/dose powder 17 g PO DAILY Qty: 510 0RF No Action multivitamin Tablet 1 tab PO DAILY quinapril 20 mg tablet 20 mg PO DAILY Qty: 90 3RF sennosides [Natural Senna Laxative] 8.6 mg tablet 17.2 mg PO BID Qty: 240 1RF Rx Instructions: Takes 2 tablets in the AM and 2 tablets at bedtime. sertraline 100 mg tablet 150 mg PO QAM Qty: 45 5RF trazodone 50 mg tablet 50 mg PO TID PRN (Reason: anxiety or insomnia) Qty: 90 5RF Label Comments: Takes at noon, 1700, and bedtime. Rx Instructions: Takes at 1200, 1700 and at Bedtime aspirin [Adult Aspirin Regimen] 81 mg tablet,delayed release (DR/EC) 81 mg PO DAILY Qty: 30 0RF Rx Instructions: Do not crush or chew EC Aspirin docusate sodium 250 mg capsule 250 mg PO DAILY Qty: 30 6RF atorvastatin 40 mg tablet 40 mg PO BEDTIME Qty: 90 3RF ropinirole 0.5 mg tablet 0.5 mg PO BEDTIME Qty: 90 0RF verapamil 80 mg tablet 80 mg PO TID Qty: 90 11RF Referrals: Craig Chowdhury MD [Primary Care Provider] - Stand Alone Forms: Patient Portal/API <Ray Fair MD - Last Filed: 12/30/22 07:28> [facility]: I was immediately available in the department for consultation. ?This documentation has been reviewed and I agree with assessment and plan. Supervised by Ray Fair MD
[2022-12-15] MEDS: SODIUM POLYSTYRENE SULFON/SORB 15 GM/60 ML CUP 30 GM PO (12:58)
[2022-12-15] MEDS: BISACODYL 10 MG SUPP PR (12:58)
[2022-12-15 15:25] LABS: HEMOLYSIS 20 (0-50); Potassium 4.9 mmol/L (3.4-5.1)
--- NOTE | 2022-12-15 17:44 | CM.SWNOTE ---
ED DCP Note Patient is 82 y/o female who presents to ED after going to PCP office for appt due to concern for bowel blockage and no bowel movement for the last 6 days. Patient presented to ED on 11/30/22 due to concern for UTI. Patient was admitted to acute care for observation and discharged to respite care at [facility]. Patient has hx of falls, Stroke, failure to thrive, hypotension, hyperlipemia and vascular Dementia. Patient's PCP is Dr. Chowdhury, patient has scheduled PCP appt for 12/20/22. Patient has Medicare and [employer] insurance. AIRPORT REFUELING HANDLER enters room to meet with patient, present in room is patient's spouse who is patient's primary caregiver and DPOA. Patient presents as resting while AIRPORT REFUELING HANDLER speaks with spouse. Per , patient has 20 hours a month of caregiver services through [facility] and [facility]. Patient has hx of respite stays at home place and [facility]. It is reported that patient needs assistance with showering, toileting and dressing. Patient has a FWW, hospital bed, bedside commode and wheelchair at home. Spouse endorses that he was unable to get patient to Dr. Smiley appt yesterday. Spouse reports that patient's ability to transfer and ambulate is dependent on her anxiety, stress and energy. Spouse endorses he requested a HH referral through PCP office from [facility], AIRPORT REFUELING HANDLER calls [facility] it was reported that the PCP office needed an updated office visit in order to do referral. AIRPORT REFUELING HANDLER endorses that patient went to PCP office today as well as ED. AIRPORT REFUELING HANDLER submits HH referral with ED provider signed F2F for PT, HH aide, and AIRPORT REFUELING HANDLER. Brennon at [facility] states that he will call spouse tomorrow and start services as soon as Tuesday. When Community Preassembler And Inspector Travis Austin enters ED, AIRPORT REFUELING HANDLER requests referral, Travis reports that he has been involved with patient and spouse before and will reach out in the next day or two with support resources and services. AIRPORT REFUELING HANDLER calls Dr. Smiley's office and requests a rescheduled appt for patient. It is reported that patient has several missed appts and the clinic is reviewing if they can meet patient's needs. AIRPORT REFUELING HANDLER requests to call patient's spouse if they are able to reschedule. AIRPORT REFUELING HANDLER endorses to spouse information about HH referral with [facility] to spouse and provides him with brochure, he indicates agreement and understanding. AIRPORT REFUELING HANDLER informs spouse that Dr. Smiley's office will reach out to him in regards to rescheduling appt. Plan: Patient to d/c to home upon medical clearance with spouse, Travis Avila to f/u with patient and spouse, [facility] referral in place, services to start. Per Spouse, patient has a caregiver scheduled for tomorrow. Patient to f/u with PCP appt next week. ALONSO KellySW
== END 2022-12-15 16:36 | disposition home or self-care (01) ==
PROVIDERS: Emergency Medicine; Emergency Provider Nurse Practitioner Critical Care Medicine; Family Provider Student in an Organized Health Care Education/Training Program; PCP Student in an Organized Health Care Education/Training Program
DX: K59.01 Slow transit constipation (principal); R00.1 Bradycardia, unspecified; I44.0 Atrioventricular block, first degree
CPT/HCPCS: 36415; 51701; 74176; 80053; 81003; 83690; 84132; 85025; 93005; 99284

== ENCOUNTER 2022-12-21 18:49 | Emergency (ER) | payer MEDICARE, BC, SELFPAY ==
[2022-04-21 04:00] VITALS: BMI 44.5
[2022-12-21] VITALS (8 sets, daily range): BP systolic 106–110; BP diastolic 59–78; PULSE 63–88; RESP 18; TEMP 36.1; O2SAT 94–98
--- NOTE | 2022-12-21 18:52 | DI.CT.S_ITS ---
PROCEDURE: CT LUMBAR SPINE WO CON INDICATIONS: fall with back pain TECHNIQUE: Noncontrast 3 mm thick sections acquired from the T12 level to the sacrum. Sagittal and coronal reformats were constructed. For radiation dose reduction, the following was used: automated exposure control. COMPARISON: [place], BONE SCAN THREE PHASE, 08/17/2011, 8:28. [facility], CT, CT ABDOMEN PELVIS WO CON, 12/15/2022, 13:12. FINDINGS: Image quality: Excellent. Bones: There is moderate levoscoliosis. There is grade 1 anterolisthesis of L4 on L5. No acute vertebral body compression fractures. No suspicious lytic or blastic bony lesions. No pars defects. Severe degenerative disc and facet disease in lumbar spine. Soft tissues: No retroperitoneal masses or hematomas. Visualized aorta is normal in caliber. Small left pleural effusion. IMPRESSION: 1. No acute osseous abnormalities. 2. Severe degenerative changes in lumbar spine. 3. Moderate levoscoliosis. 4. Small left pleural effusion. Dictated by: Geraldo Hernandez M.D. on 12/21/2022 at 19:37 Approved by: Geraldo Hernandez M.D. on 12/21/2022 at 19:40
--- NOTE | 2022-12-21 18:53 | DI.CT.S_ITS ---
PROCEDURE: CT HEAD/BRAIN WO CON INDICATIONS: fall, weak, altered TECHNIQUE: Noncontrast 4.5 mm thick angled axial sections acquired from the foramen magnum to the vertex, with coronal and sagittal reformats. For radiation dose reduction, the following was used: automated exposure control, adjustment of mA and/or kV according to patient size. COMPARISON: [facility], CT, CT HEAD/BRAIN WO CON, 11/28/2022, 20:54. FINDINGS: Image quality: Excellent. CSF spaces: Basal cisterns are patent. No extra-axial fluid collections. The ventricles are symmetric in size and shape. Brain: No intracranial bleeds or masses. There is mild cerebral volume loss for age, with resultant ventricular and sulcal prominence. There are severe periventricular and deep white matter chronic small vessel ischemic changes. There are old infarcts involving the right inferior cerebellum and right hannah radiata. There is intracranial internal carotid artery atherosclerosis. Skull and face: Calvarium and visualized facial bones appear intact, without suspicious lesions. Sinuses: Visualized sinuses and mastoids are clear. IMPRESSION: 1. No acute intracranial abnormalities. 2. Old infarcts involving the right cerebellum and right coronal radiata. Cerebral volume loss and chronic microvascular ischemic changes. Dictated by: Geraldo Hernandez M.D. on 12/21/2022 at 19:34 Approved by: Geraldo Hernandez M.D. on 12/21/2022 at 19:36
--- NOTE | 2022-12-21 18:57 | ED_ITS ---
HPI - General Adult General Chief complaint: Altered Mental Status Stated complaint: Cog decline in past few weeks Time Seen by Provider: 12/21/22 18:52 History of Present Illness HPI narrative: 82-year-old female nonsmoker with history of dementia with POLST noting limited interventions hypertension, hyperlipidemi, failure to thrive, vascular dementia presents by EMS for evaluation of ground level fall with low back pain. She has had a slow and gradual decline over the past many weeks if not months and has been seen and evaluated under prior circumstances and social work as well as Community Care Medicine have been working on developing a plan. She has had no change in medications or diet. She is had no fever or chills. She is very hard of hearing and a poor historian at that contributes very little, complaining only of some midline back pain that seems to likely have started as a consequence of her low-speed fall today. She did not injure her head or her neck. She has no chest pain or shortness of breath. Related Data Home Medications Medication Instructions Recorded Confirmed multivitamin 1 tab PO DAILY 11/17/20 12/20/22 Previous Rx's Medication Instructions Recorded atorvastatin 40 mg tablet 40 mg PO BEDTIME #90 tabs 12/29/21 quinapril 20 mg tablet 20 mg PO DAILY #90 tabs 01/04/22 bupropion HCl 300 mg 24 hr tablet, 300 mg PO QAM #30 tabs 10/04/22 extended release sennosides 8.6 mg tablet (Natural 17.2 mg PO BID #240 tabs 10/04/22 Senna Laxative) sertraline 100 mg tablet 150 mg PO QAM #45 tabs 10/04/22 trazodone 50 mg tablet 50 mg PO TID PRN anxiety or 10/04/22 insomnia #90 tabs aspirin 81 mg tablet,delayed 81 mg PO DAILY #30 tabs 10/05/22 release (Adult Aspirin Regimen) docusate sodium 250 mg capsule 250 mg PO DAILY #30 caps 11/17/22 polyethylene glycol 3350 17 17 g PO DAILY #510 grams 12/15/22 gram/dose oral powder (Miralax) verapamil 80 mg tablet 80 mg PO TID #90 tabs 12/20/22 Allergies Allergy/AdvReac Type Severity Reaction Status Date / Time adhesive tape Allergy Intermediate plastic Verified 12/20/22 11:05 Penicillins [PENICILLINS] Allergy Mild Rash Verified 12/20/22 11:05 venom-honey bee Allergy Unknown Verified 12/20/22 11:05 [BEE VENOM (HONEY BEE)] Review of Systems Review of Systems Narrative: GENERAL: Denies chills, fatigue, malaise, fever, sweats. HEENT: Denies sinus pain, ear pain, sore throat, difficulty swallowing, dizziness. RESPIRATORY: Denies dyspnea, cough, wheezing, hemoptysis, sputum. CARDIOVASCULAR: Denies chest pain, palpitations, orthopnea, edema, GASTROINTESTINAL: Denies nausea, vomiting, abdominal pain, diarrhea, constipation, melena. : Denies dysuria, frequency, incontinence, hematuria, urinary retention. MUSCULOSKELETAL: See HPI SKIN: Denies rash, skin lesions, or other NEUROLOGIC: Denies weakness, headache, numbness, change in speech, confusion, seizures, incoordination. PSYCHIATRIC: No concerning psychosocial issues. 12 point review of systems is negative except for those stated above Patient History Medical History Chronic renal insufficiency (Unknown) Colon polyps (Unknown) COPD (chronic obstructive pulmonary disease) (Unknown) CVA (cerebral vascular accident) (11/2019) Dry both ear canals (02/24/17) Eczema Hyperlipemia (Unknown) Hypertension (Unknown) Insomnia, unspecified (~1997) Lower extremity edema (09/08/17) 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, recurrent, in full remission Morbid obesity with body mass index (BMI) greater than or equal to 50 Nocturnal hypoxemia (09/08/17) Obstructive sleep apnea of adult (~05/2020) Obstructive sleep apnea, adult Osteoarthritis (Unknown) Pain of left hand (04/21/17) Physical deconditioning Restless leg syndrome Sexual dysfunction Vaginal dryness (04/21/17) Surgical History History of knee replacement (2000) History of tonsillectomy (194) Hx of total hip arthroplasty (09/2008) Status post cholecystectomy (1997) Status post dilation and curettage (2000) Family History Father CVA (cerebral vascular accident) Dementia Mother Coronary artery disease 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 Frail, elderly, confused (GCS 14), very hard of hearing HEAD: Atraumatic. Normocephalic. EYES: Pupils equal round and reactive. Extraocular motions intact. No scleral icterus. No injection or drainage. ENT: Dry mucous membranes Nose without bleeding, purulent drainage. Throat without erythema, tonsillar hypertrophy or exudate. Airway patent. NECK: Trachea midline. Non tender CARDIOVASCULAR: Regular rate and rhythm without murmurs, gallops, or rubs. RESPIRATORY: Clear to auscultation. Breath sounds equal bilaterally. No wheezes, rales, or rhonchi. GASTROINTESTINAL: Abdomen soft, non-tender, nondistended. EXTREMITIES: No edema or joint tenderness. BACK: Nontender without deformity or crepitance. No flank tenderness. NEURO: Cranial nerves 2-12 grossly intact SKIN: Superficial skin tear dorsum right hand No rash or erythema of visible areas Initial Vital Signs Initial Vital Signs: Vital Signs Pulse Rate 63 12/21/22 18:53 Pulse Oximetry 95 12/21/22 18:53 Course Orders Ordered: ED Orders 12/21/22 18:52 CT lumbar spine wo con Stat Blood Culture Stat 12/21/22 18:53 CT head/brain wo con Stat 12/21/22 19:22 Acetaminophen Stat Complete Blood Count AUTO DIFF Stat Comprehensive Metabolic Panel Stat Lactate (Lactic Acid) Stat Lipase Stat Magnesium Stat NT-proBNP (BNP-Adult 18+) Stat Salicylate Stat Troponin & CK Cardiac Panel Stat 12/21/22 20:55 UA Complete [Urinalysis and Microscopic] Stat Urine Drug Screen, Rapid Stat 12/21/22 21:05 Covid-19 + FLU A/B + RSV - PCR Stat Discontinued Medications Sodium Chloride (Normal Saline 0.9%) 500 mls @ 1,000 mls/hr IV BOLUS ONE Stop: 12/21/22 19:21 Last Admin: 12/21/22 20:21 Dose: Not Given Documented By: BRENDA Vital Signs Vital signs: Vital Signs - 8 hr 12/21/22 18:57 12/21/22 18:53 12/21/22 18:55 Temperature 97.0 F L Pulse Rate 71 63 Respiratory Rate 18 Blood Pressure 106/59 L 106/59 L Pulse Oximetry 94 95 Oxygen Delivery Method Room Air 12/21/22 18:55 12/21/22 19:00 12/21/22 19:30 Temperature Pulse Rate 65 65 64 Respiratory Rate Blood Pressure Pulse Oximetry 98 98 98 Oxygen Delivery Method 12/21/22 20:00 12/21/22 20:30 Temperature Pulse Rate 69 63 Respiratory Rate Blood Pressure Pulse Oximetry 97 97 Oxygen Delivery Method Medical Decision Making Lab Data 12/21/22 19:22 12/21/22 19:22 Labs: Lab Results 12/21/22 12/21/22 12/21/22 Range/Units 19:22 19:22 19:22 WBC 6.2 (4.5-11.0) X10^3/uL RBC 4.88 (4.0-5.2) X10^6/uL Hgb 14.7 (12.0-16.0) g/dL Hct 45.0 (36-46) % MCV 92.3 (80-100) fL MCH 30.1 (26-34) PG MCHC 32.6 (30-36) % RDW 14.1 (11.6-14.8) % Plt Count 251 (150-400) X10^3/uL Neut % (Auto) 67.4 (50-75) % Lymph % (Auto) 19.9 L (25-40) % Kemper % (Auto) 8.8 (3-14) % Eos % (Auto) 2.8 (2-4) % Baso % (Auto) 1.1 (0-2) % Neut # (Auto) 4200 (1330-7153) /uL Lymph # (Auto) 1200 (1603-7308) /uL Kemper # (Auto) 500 (0-900) /uL Eos # (Auto) 200 (0-450) /uL Baso # (Auto) 100 (0-100) /uL Sodium 139 (137-145) mmol/L Potassium 4.9 (3.4-5.1) mmol/L Chloride 102 (98-107) mmol/L Carbon Dioxide 31 (22-32) mmol/L BUN 37 H (7-17) mg/dL Creatinine 1.42 H (0.52-1.04) mg/dL Estimated GFR 37 L (>60) mL/min BUN/Creatinine Ratio 26.1 H (6-22) Glucose 105 (80-110) mg/dL Lactate 1.1 (0.7-2.1) mmol/L Calcium 9.2 (8.4-10.2) mg/dL Magnesium 2.5 H (1.6-2.3) mg/dL Total Bilirubin 0.3 (0.2-1.3) mg/dL AST 28 (14-36) IU/L ALT 22 (<35) IU/L Alkaline Phosphatase 83 (38-126) U/L Total Creatine Kinase (30-135) U/L CK-MB (CK-2) CK-MB (CK-2) Rel Index Troponin I (0.01-0.034) ng/mL NT-Pro-B Natriuret Pep (<450) pg/mL Total Protein 6.9 (6.3-8.2) g/dL Albumin 3.9 (3.5-5.0) g/dL Globulin 3.0 (1.7-4.1) g/dL Albumin/Globulin Ratio 1.3 (1.0-2.8) Lipase 301 H D (23-300) U/L Urine Color Urine Appearance Urine pH (4.5-8.0) Ur Specific [place] (1.000-1.035) Urine Protein (Negative) Urine Glucose (UA) (Negative) g/dL Urine Ketones (NEGATIVE) Urine Occult Blood (Negative) Urine Nitrate (Negative) Urine Bilirubin (NEGATIVE) Urine Urobilinogen (0.2) E.U./dL Ur Leukocyte Esterase (NEGATIVE) Urine RBC (0-5/HPF) Urine WBC (0-5/HPF) Ur Squamous Epith Cells (0-5/HPF) Urine Bacteria (None) Ur Culture Indicated? Salicylates (<20) mg/dL U Opiates 300ng/mL cut (Negative) Ur Oxycodone Screen (Negative) Urine Methadone Screen (Negative) Acetaminophen (10-30) ug/mL Ur Barbiturates Screen (Negative) U Tricyclic Antidepress (Negative) Ur Phencyclidine Scrn (Negative) Ur Amphetamines Screen (Negative) U Methamphetamines Scrn (Negative) Ur MDMA Scrn (Ecstasy) (Negative) U Benzodiazepines Scrn (Negative) Urine Cocaine Screen (Negative) U Marijuana (THC) Screen (Negative) SARS-CoV-2 (PCR) (Negative) Influenza A (RT-PCR) (NEGATIVE) Influenza B (RT-PCR) (NEGATIVE) RSV (PCR) (Negative) 12/21/22 12/21/22 12/21/22 Range/Units 19:22 19:22 20:55 WBC (4.5-11.0) X10^3/uL RBC (4.0-5.2) X10^6/uL Hgb (12.0-16.0) g/dL Hct (36-46) % MCV (80-100) fL MCH (26-34) PG MCHC (30-36) % RDW (11.6-14.8) % Plt Count (150-400) X10^3/uL Neut % (Auto) (50-75) % Lymph % (Auto) (25-40) % Kemper % (Auto) (3-14) % Eos % (Auto) (2-4) % Baso % (Auto) (0-2) % Neut # (Auto) (1842-8862) /uL Lymph # (Auto) (2865-7937) /uL Kemper # (Auto) (0-900) /uL Eos # (Auto) (0-450) /uL Baso # (Auto) (0-100) /uL Sodium (137-145) mmol/L Potassium (3.4-5.1) mmol/L Chloride (98-107) mmol/L Carbon Dioxide (22-32) mmol/L BUN (7-17) mg/dL Creatinine (0.52-1.04) mg/dL Estimated GFR (>60) mL/min BUN/Creatinine Ratio (6-22) Glucose (80-110) mg/dL Lactate (0.7-2.1) mmol/L Calcium (8.4-10.2) mg/dL Magnesium (1.6-2.3) mg/dL Total Bilirubin (0.2-1.3) mg/dL AST (14-36) IU/L ALT (<35) IU/L Alkaline Phosphatase (38-126) U/L Total Creatine Kinase 24 L (30-135) U/L CK-MB (CK-2) TNP CK-MB (CK-2) Rel Index TNP Troponin I < 0.012 (0.01-0.034) ng/mL NT-Pro-B Natriuret Pep 511 H (<450) pg/mL Total Protein (6.3-8.2) g/dL Albumin (3.5-5.0) g/dL Globulin (1.7-4.1) g/dL Albumin/Globulin Ratio (1.0-2.8) Lipase (23-300) U/L Urine Color Urine Appearance Urine pH (4.5-8.0) Ur Specific [place] (1.000-1.035) Urine Protein (Negative) Urine Glucose (UA) (Negative) g/dL Urine Ketones (NEGATIVE) Urine Occult Blood (Negative) Urine Nitrate (Negative) Urine Bilirubin (NEGATIVE) Urine Urobilinogen (0.2) E.U./dL Ur Leukocyte Esterase (NEGATIVE) Urine RBC (0-5/HPF) Urine WBC (0-5/HPF) Ur Squamous Epith Cells (0-5/HPF) Urine Bacteria (None) Ur Culture Indicated? Salicylates < 1.0 (<20) mg/dL U Opiates 300ng/mL cut Negative (Negative) Ur Oxycodone Screen Negative (Negative) Urine Methadone Screen Negative (Negative) Acetaminophen < 10 (10-30) ug/mL Ur Barbiturates Screen Negative (Negative) U Tricyclic Antidepress Negative (Negative) Ur Phencyclidine Scrn Negative (Negative) Ur Amphetamines Screen Negative (Negative) U Methamphetamines Scrn Negative (Negative) Ur MDMA Scrn (Ecstasy) Negative (Negative) U Benzodiazepines Scrn Negative (Negative) Urine Cocaine Screen Negative (Negative) U Marijuana (THC) Screen Negative (Negative) SARS-CoV-2 (PCR) (Negative) Influenza A (RT-PCR) (NEGATIVE) Influenza B (RT-PCR) (NEGATIVE) RSV (PCR) (Negative) 12/21/22 12/21/22 Range/Units 20:55 21:05 WBC (4.5-11.0) X10^3/uL RBC (4.0-5.2) X10^6/uL Hgb (12.0-16.0) g/dL Hct (36-46) % MCV (80-100) fL MCH (26-34) PG MCHC (30-36) % RDW (11.6-14.8) % Plt Count (150-400) X10^3/uL Neut % (Auto) (50-75) % Lymph % (Auto) (25-40) % Kemper % (Auto) (3-14) % Eos % (Auto) (2-4) % Baso % (Auto) (0-2) % Neut # (Auto) (5180-3263) /uL Lymph # (Auto) (9614-7867) /uL Kemper # (Auto) (0-900) /uL Eos # (Auto) (0-450) /uL Baso # (Auto) (0-100) /uL Sodium (137-145) mmol/L Potassium (3.4-5.1) mmol/L Chloride (98-107) mmol/L Carbon Dioxide (22-32) mmol/L BUN (7-17) mg/dL Creatinine (0.52-1.04) mg/dL Estimated GFR (>60) mL/min BUN/Creatinine Ratio (6-22) Glucose (80-110) mg/dL Lactate (0.7-2.1) mmol/L Calcium (8.4-10.2) mg/dL Magnesium (1.6-2.3) mg/dL Total Bilirubin (0.2-1.3) mg/dL AST (14-36) IU/L ALT (<35) IU/L Alkaline Phosphatase (38-126) U/L Total Creatine Kinase (30-135) U/L CK-MB (CK-2) CK-MB (CK-2) Rel Index Troponin I (0.01-0.034) ng/mL NT-Pro-B Natriuret Pep (<450) pg/mL Total Protein (6.3-8.2) g/dL Albumin (3.5-5.0) g/dL Globulin (1.7-4.1) g/dL Albumin/Globulin Ratio (1.0-2.8) Lipase (23-300) U/L Urine Color Yellow Urine Appearance Clear Urine pH 6.0 (4.5-8.0) Ur Specific [place] 1.025 (1.000-1.035) Urine Protein Negative (Negative) Urine Glucose (UA) Negative (Negative) g/dL Urine Ketones Negative (NEGATIVE) Urine Occult Blood Negative (Negative) Urine Nitrate Negative (Negative) Urine Bilirubin Negative (NEGATIVE) Urine Urobilinogen 0.2 (0.2) E.U./dL Ur Leukocyte Esterase Negative (NEGATIVE) Urine RBC None seen (0-5/HPF) Urine WBC None seen (0-5/HPF) Ur Squamous Epith Cells 0-1 /hpf (0-5/HPF) Urine Bacteria None seen (None) Ur Culture Indicated? Cult not indicated Salicylates (<20) mg/dL U Opiates 300ng/mL cut (Negative) Ur Oxycodone Screen (Negative) Urine Methadone Screen (Negative) Acetaminophen (10-30) ug/mL Ur Barbiturates Screen (Negative) U Tricyclic Antidepress (Negative) Ur Phencyclidine Scrn (Negative) Ur Amphetamines Screen (Negative) U Methamphetamines Scrn (Negative) Ur MDMA Scrn (Ecstasy) (Negative) U Benzodiazepines Scrn (Negative) Urine Cocaine Screen (Negative) U Marijuana (THC) Screen (Negative) SARS-CoV-2 (PCR) Negative (Negative) Influenza A (RT-PCR) Flu a negative (NEGATIVE) Influenza B (RT-PCR) Flu b negative (NEGATIVE) RSV (PCR) Negative (Negative) MDM Narrative Medical decision making narrative: CC: 82-year-old female with gradual cognitive decline Complicating co-morbidities: Age, prior stroke, hypertension, hyperlipidemia Data collected from: Patient, , social Work Medical records reviewed: Including multiple prior visits in our EMR Differential considered, but not limited to: Urine infection, dehydration, electrolyte abnormality, stroke versus other Exam documented above, pertinent findings include: Subtle suggestion of mild dehydration, no obvious focal findings, no increased work of breathing, abdomen soft, no obvious neurologic abnormality Lab Test results independently reviewed as above. Pertinent findings: No leukocytosis or left shift, no anemia, no notable electrolyte abnormality, slight elevation in creatinine is at her relative baseline no elevated troponin Imaging studies independently reviewed: No intracranial hemorrhage or skull fracture, no acute findings and lumbar spine Treatments: Fluids only Re-evaluations: Patient remains at her baseline Discussion: 82-year-old female known to staff, social Work, paramedicine, without any significant new complaint, no indication for admission, imaging, lab s and exam very reassuring. Social Work, paramedicine, PCP, and family working on SNF placement. Disposition: see below, along with detailed discharge instructions that have been reviewed with patient as well as indications for ED re-evaluation and additional outpatient follow up Discharge Plan Departure Patient Disposition: Home Clinical Impression: Weakness, Back pain Activity Restrictions/Additional Instructions: *You have been diagnosed with [generalized weakness. No evidence of urinary infection, pneumonia or other] *What to do: *Please continue to take your regular medications as directed. [ ] New medication prescriptions sent to your pharmacy: [ ] [ ] New medication written as a paper prescription [x ] No new medications given *Please follow up with your primary care provider in 2-3 days, call for an appointment. Let them know you were seen in the Emergency Department and that we ask that you be seen in follow up. We will electronically transmit a record of today's note if your PCP is in our system *If you do not have a primary care provider please contact the [facility] Resource line at [phone]. They will ask some questions about your medical history and help get you set up with a doctor in the community. *Return to Emergency Department if you should have any new, worsening or concerning symptoms, such as [fever greater than 101 F, shaking chills, worsening pain, persistent vomiting or other bothersome symptoms] Prescriptions: No Action multivitamin Tablet 1 tab PO DAILY atorvastatin 40 mg tablet 40 mg PO BEDTIME Qty: 90 3RF quinapril 20 mg tablet 20 mg PO DAILY Qty: 90 3RF bupropion HCl 300 mg tablet extended release 24 hr 300 mg PO QAM Qty: 30 5RF sennosides [Natural Senna Laxative] 8.6 mg tablet 17.2 mg PO BID Qty: 240 1RF Rx Instructions: Takes 2 tablets in the AM and 2 tablets at bedtime. sertraline 100 mg tablet 150 mg PO QAM Qty: 45 5RF trazodone 50 mg tablet 50 mg PO TID PRN (Reason: anxiety or insomnia) Qty: 90 5RF Label Comments: Takes at noon, 1700, and bedtime. Rx Instructions: Takes at 1200, 1700 and at Bedtime aspirin [Adult Aspirin Regimen] 81 mg tablet,delayed release (DR/EC) 81 mg PO DAILY Qty: 30 0RF Rx Instructions: Do not crush or chew EC Aspirin docusate sodium 250 mg capsule 250 mg PO DAILY Qty: 30 6RF verapamil 80 mg tablet 80 mg PO TID Qty: 90 11RF polyethylene glycol 3350 [Miralax] 17 gram/dose powder 17 g PO DAILY Qty: 510 0RF Referrals: Craig Chowdhury MD [Primary Care Provider] - Stand Alone Forms: Patient Portal/API
[2022-12-21 19:58] LABS: Add Manual Diff / Slide Review NO; Basophils Absolute Auto 100 /uL (0-100); Basophils Percent Auto 1.1 % (0-2); Eosinophils Absolute Auto 200 /uL (0-450); Eosinophils Percent Auto 2.8 % (2-4); Hemoglobin 14.7 g/dL (12.0-16.0); Lymphocytes Absolute Auto 1200 /uL (1100-4500); Lymphocytes Percent Auto 19.9 % (25-40); Mean Corpuscular HGB Conc 32.6 % (30-36); Mean Corpuscular Hemoglobin 30.1 PG (26-34); Mean Corpuscular Volume 92.3 fL (80-100); Monocytes Absolute Auto 500 /uL (0-900); Monocytes Percent Auto 8.8 % (3-14); Neutrophils Absolute Auto 4200 /uL (1500-7000); Neutrophils Percent Auto 67.4 % (50-75); Platelet Count 251 X10^3/uL (150-400); Red Blood Cell Count 4.88 X10^6/uL (4.0-5.2); Red Cell Distribution Width 14.1 % (11.6-14.8); White Blood Cell Count 6.2 X10^3/uL (4.5-11.0)
[2022-12-21 20:11] LABS: Creatine Kinase 24 U/L (30-135); Lactate (Lactic Acid) 1.1 mmol/L (0.7-2.1)
[2022-12-21 20:13] LABS: Alanine Aminotransferase 22 IU/L (<35); Albumin 3.9 g/dL (3.5-5.0); Albumin Globulin Ratio 1.3 (1.0-2.8); Alkaline Phosphatase 83 U/L (38-126); Aspartate Aminotransferase 28 IU/L (14-36); BUN Creatinine Ratio 26.1 (6-22); Bilirubin Total 0.3 mg/dL (0.2-1.3); Blood Urea Nitrogen 37 mg/dL (7-17); Calcium 9.2 mg/dL (8.4-10.2); Carbon Dioxide 31 mmol/L (22-32); Chloride 102 mmol/L (98-107); Estimated Glomerular Filt Rate 37 mL/min (>60); Glucose 105 mg/dL (80-110); HEMOLYSIS 19 (0-50); Lipase 301 U/L (23-300); Magnesium 2.5 mg/dL (1.6-2.3); Potassium 4.9 mmol/L (3.4-5.1); Sodium 139 mmol/L (137-145); Total Protein 6.9 g/dL (6.3-8.2)
[2022-12-21 20:14] LABS: Acetaminophen < 10 ug/mL (10-30); Salicylate < 1.0 mg/dL (<20)
--- NOTE | 2022-12-21 20:20 | PC.NURSE ---
RNs x 3 attempt for IV w/o success. Discussed w/ Dr. Willingham who declined further IV attempts.
[2022-12-21 20:23] LABS: NT-proBNP (BNP-Adult 18+) 511 pg/mL (<450); Troponin I < 0.012 ng/mL (0.01-0.034)
[2022-12-21 21:14] LABS: UR Morphine/Opiate cutoff 300 Negative (Negative); Ur Creatinine 20 (Normal); Ur Specific Gravity >1.030 (Normal); Urine Amphetamines Negative (Negative); Urine Barbiturates Negative (Negative); Urine Benzodiazepines Negative (Negative); Urine Cocaine Negative (Negative); Urine MDMA Negative (Negative); Urine Methadone Negative (Negative); Urine Methamphetamines Negative (Negative); Urine Oxycodone Negative (Negative); Urine Phencyclidine Negative (Negative); Urine Tetrahydrocannabinol Negative (Negative); Urine Tricyclic Antidepressant Negative (Negative); Urine pH 5 (Normal)
[2022-12-21 21:46] LABS: Influenza A - CEPHEID Flu A NEGATIVE (NEGATIVE); Influenza B - CEPHEID Flu B NEGATIVE (NEGATIVE); Respiratory Syncytial Virus Negative (Negative)
[2022-12-21 21:53] LABS: COVID-19 CEPHEID 4-PLEX PCR Negative (Negative)
[2022-12-21 22:06] LABS: Appearance Urine UA CLEAR; Bilirubin Urine UA NEGATIVE (NEGATIVE); Glucose Urine UA NEGATIVE (Negative); Ketones Urine UA NEGATIVE (NEGATIVE); Leukocyte Esterase Urine UA NEGATIVE (NEGATIVE); Nitrite Urine UA NEGATIVE (Negative); Occult Blood Urine UA NEGATIVE (Negative); Protein Urine UA NEGATIVE (Negative); Specific Gravity Urine UA 1.025 (1.000-1.035); Urobilinogen Urine UA 0.2 E.U./dL (0.2)
[2022-12-21 22:09] LABS: Color Urine UA YELLOW
[2022-12-21 22:19] LABS: Bacteria Urine None Seen; Culture Indicated Urine Cult Not Indicated; RBC Urine None Seen (0-5/HPF); Squamous Epithelial Cell Urine 0-1 /HPF (0-5/HPF); WBC Urine None Seen (0-5/HPF)
== END 2022-12-21 23:32 | disposition home or self-care (01) ==
PROVIDERS: Emergency Provider Emergency Medicine; Family Provider Student in an Organized Health Care Education/Training Program; PCP Student in an Organized Health Care Education/Training Program
DX: R53.1 Weakness (principal); M54.50 Low back pain, unspecified; W18.30XA Fall on same level, unspecified, initial encounter; Z20.822 Contact with and (suspected) exposure to COVID-19
CPT/HCPCS: 0241U; 36415; 70450; 72131; 80053; 80305; 80329; 81001; 82550; 83605; 83690; 83735; 83880; 84484; 85025; 87040; 99282; 99284; G0480